=== PATIENT | male | born 1980 | race Caucasian/White ===

== ENCOUNTER 2018-06-20 11:22 | Emergency (ER) | payer MEDICAID, SELFPAY ==
[2018-06-20 11:25] VITALS: BP 138/89; PULSE 111; RESP 19; TEMP 37.3; O2SAT 99; BMI 21.4
[2018-06-20 12:34] LABS: Absolute Lymphocyte Count 0.66 X10^3/ul (0.83-4.51); Absolute Neutrophil Count 1.1 X10^3/uL (2.0-7.7); Basophil# 0.02 X10^3/uL; Basophil% 0.8 % (0-1); Eosinophil# 0.02 X10^3/uL; Eosinophils% 0.8 % (0-5); Hematocrit 30.1 % (40-54); Hemoglobin 10.3 g/dl (13.0-16.5); Lymphocyte # 0.66 X10^3/ul (4.0); Lymphocyte % 27.6 % (19-41); Mean Corp Hgb Conc 34.2 g/gl (32-36); Mean Corpuscular Volume 102.4 fL (80-94); Mean Platelet Vol. 9.8 fl (6.2-12.0); Monocyte# 0.53 X10^3/uL; Monocyte% 22.2 % (0-10); Neutrophil # 1.14 X10^3/uL (2.7-7.7); Neutrophil % 47.8 % (47-70); Platelet Count 58 K/mm3 (150-450); RBC Distribution Width CV 15.3 % (11.6-14.6); RBC Distribution Width SD 56.9 fl (35.1-43.9); Red Blood Count 2.94 M/mm3 (4.6-6.2); White Blood Count 2.4 K/mm3 (4.4-11.0)
[2018-06-20 12:39] LABS: POSITIVE COUNT NO; POSITIVE DIFFERENTIAL NO; POSITIVE MORPHOLOGY NO
[2018-06-20 12:47] LABS: AST(SGOT) 666 U/L (15-37); Alanine Aminotransfer ALT/SGPT 204 U/L (16-61); Albumin, Serum 3.9 g/dL (3.2-5.0); Alkaline Phosphatase 173 U/L (45-117); Anion Gap 13 (5-15); BUN 6 mg/dL (7-18); BUN/Creat Ratio 9.5 RATIO (10-20); Calcium,Total 8.2 mg/dL (8.5-10.1); Chloride 92 mmol/L (98-107); Creatinine, Serum 0.63 mg/dL (0.70-1.30); EST Glomerular Filtration Rate 152 mL/min (>60); Est Glom Filt Rate - Afr Amer 184 mL/min (>60); Estimated Creatinine Clearance 154.41 ml/min; Glucose 90 mg/dL (74-106); Protein, Total 7.9 g/dL (6.4-8.2); Sodium Level 136 mmol/L (136-145)
--- NOTE | 2018-06-20 13:19 | NURSING ---
1310 CALLED [facility] AND LEFT MESSAGE
--- NOTE | 2018-06-20 13:24 | NURSING ---
SHARON, [facility], WITH PATIENT
[2018-06-20 13:25] VITALS: RESP 14
[2018-06-20 14:08] LABS: Amphetamine Urine VISTA NEGATIVE (<1000 ng/mL); Barbiturate Urine VISTA NEGATIVE (< 200 ng/mL); Benzodiazepine Urine VISTA NEGATIVE (< 200 ng/mL); Cocaine Urine VISTA NEGATIVE (< 300 ng/mL); Ecstacy Urine VISTA NEGATIVE (< 500 ng/mL); Methadone Urine VISTA NEGATIVE (< 300 ng/mL); PCP Urine VISTA NEGATIVE (< 25 ng/mL); THC Urine VISTA NEGATIVE (< 50 ng/mL); Vista UDS pH Range 7
--- NOTE | 2018-06-20 14:16 | NURSING ---
[facility] IN ROOM
--- NOTE | 2018-06-20 14:26 | ED.VISSUMM ---
- ER Visit Summary Date of Service: 06/20/18 Chief Complaint: [Alcohol abuse and request for detox] History of Present Illness: The patient is a 38 M [presents the emergency department with complaint of wanting to go through detox for alcohol. Patient states he last drank several hours ago small amount of vodka. Patient normally drinks at least a liter of vodka a day. Patient apparently had conversations today and yesterday with colton valdez and they were told to come to the emergency department. Patient states overall right now he feels okay but and does not feel shaky. He has had no nausea or vomiting. He denies any chest pain or shortness of breath. He has had no sweats. Patient apparently was seen at [place] emergency department 4 days ago and had a very high alcohol level at that time as well as an ultrasound of his liver which showed fatty infiltration of the liver and enlarged liver.] Physical Examination: [HEENT-PERRLA, EOMI. Cranial nerves II through XII grossly intact. TMs clear. Mucous membranes moist. No adenopathy. Cardiovascular-regular rate and rhythm without murmur or ectopy Lungs-clear to auscultation, chest wall stable without crepitus or subcu emphysema Abdomen-normoactive bowel sounds, soft, nontender, no rebound or rigidity, no peritoneal signs. Extremities-intact ?4, normal range of motion, normal pulses, atraumatic] Test Results: [CBC with differential showed a pancytopenia with a white blood cell count of 2.4, hemoglobin 10, hematocrit 30, platelets 58. Chemistries showed a sodium of 136, potassium 3.0, chloride 92, CO2 31, glucose 90, BUN 6, creatinine 0.63. LFTs showed an alk phos 173 and ALT of 204 and AST of 666. Alcohol was 420. Toxicology screen was negative.] Emergency Department Course and Treatment: [Patient was evaluated by colton valdez in the emergency department however he does not meet criteria for acute inpatient admission as he is not going through withdrawals at this time. Colton De La Cruz's attempted to find another location for inpatient rehab and detox from alcohol and found the location and date and I was willing to take the patient however the patient is not willing to go. Patient from the outset was not certain that he wanted to be admitted at this hospital either when he learned that it would be several days that he might be admitted. This point patient is requesting to be discharged on his parents are with him and are willing to take him home. Patient understands my concerns about his health regarding alcohol and the fact that his liver is failing and risks if he continues drinking this way. Patient was advised by colton valdez to return tomorrow for possible detox. I did warn the patient about completely discontinuing alcohol and if he were to do that he could possibly risk seizures therefore I advised him to just decrease the amount of alcohol that he was taking in. Patient will be advised to return at any point if he wishes to seek further inpatient treatment.] Treatment Plan: [Patient will be given the phone number for steps] Disposition: [Discharged home in stable condition] Impression: [Alcohol abuse Alcohol intoxication Elevated liver enzymes Pancytopenia] This note was generated with [employer] dictation software. It may contain incorrect words, spelling, and punctuation that were not noted in review of the chart prior to signing ED Disposition - Plan for ED Patient: Chief Complaint: Substance Abuse Referrals: [facility] Doctor,Out of [Primary Care Provider] -
--- NOTE | 2018-06-20 14:33 | ED.DEP ---
ED Disposition - Plan for ED Patient: Chief Complaint: Substance Abuse Instructions: ED Overdose Alcohol, ED Alcohol Abuse Referrals: [facility] Doctor,Out of [Primary Care Provider] - Additional Instructions: Follow up with [facility]/ [facility]
[2018-06-20 14:40] VITALS: BP 105/73; PULSE 77; RESP 17
== END 2018-06-20 14:41 | disposition home or self-care (01) ==
PROVIDERS: Emergency Provider Emergency Medicine
DX: F10.129 Alcohol abuse with intoxication, unspecified (principal); Y90.8 Blood alcohol level of 240 mg/100 ml or more; R74.8 Abnormal levels of other serum enzymes; D61.818 Other pancytopenia; Z72.0 Tobacco use
CPT/HCPCS: 80053; 80307; 80320; 85025; 99282; G0480

== ENCOUNTER 2018-06-21 00:10 | Inpatient (IN) | payer MEDICAID, SELFPAY ==
[2018-06-21] VITALS (15 sets, daily range): BP systolic 127–165; BP diastolic 91–103; PULSE 103–152; RESP 16–24; TEMP 36.4–37.6; O2SAT 95–100; BMI 22.6; BMI 21.9
[2018-06-21] MEDS: LORazepam 2 MG/ML Syringe IV ×2 (01:15→23:12)
[2018-06-21] MEDS: 0.9% Normal Saline 1,000 ML 1000 ML IV (01:18)
[2018-06-21 01:27] LABS: Anion Gap 18 (5-15); BUN 5 mg/dL (7-18); BUN/Creat Ratio 7.6 RATIO (10-20); Calcium,Total 8.9 mg/dL (8.5-10.1); Chloride 91 mmol/L (98-107); Creatinine, Serum 0.66 mg/dL (0.70-1.30); EST Glomerular Filtration Rate 144 mL/min (>60); Est Glom Filt Rate - Afr Amer 174 mL/min (>60); Estimated Creatinine Clearance 154.98 ml/min; Glucose 134 mg/dL (74-106); Potassium 3.2 mmol/L (3.5-5.1); Sodium Level 135 mmol/L (136-145)
--- NOTE | 2018-06-21 01:34 | ED.DCSUM_ITS ---
- ER Visit Summary Date of Service: 06/21/18 Chief Complaint: [] Seizure History of Present Illness: The patient is a 38 M [] presents after an alcohol withdrawal seizure. A half an hour and a half ago and lasted 1 minute. He had full body shaking. He feels nausea and has little bit shakiness. Given Zofran by EMS. Normally he drinks a liter of vodka per day. He was seen in the emergency department earlier today and decided not to be admitted for alcohol withdrawal. One home and had a seizure and came back. Family did give him 1 shot of vodka prior to the seizure happening to try to calm down his withdrawal. Physical Examination: [] Vital signs reviewed General: Well-nourished well-developed Head: Normocephalic atraumatic Eyes: Pupils equal round and reactive to light extraocular movements intact ENT: TMs clear no hemotympanum no trauma Neck: Nontender full range of motion Cardiovascular: Regular rate rhythm no murmurs normal S1-S2 Respiratory: No distress clear to auscultation bilaterally chest nontender Abdomen: Soft nontender nondistended normal bowel sounds no masses Back: Nontender no CVA tenderness Extremities: Nontender active range of motion ?4 extremities no trauma Skin: Normal color no trauma Neuro alert oriented cranial nerves II through XII intact normal strength sensation. Mild tremulousness Test Results: [] Emergency Department Course and Treatment: [] Patient given a dose of Ativan and IV fluids. Lab work obtained. Sodium 135 potassium 3.2 chloride 91. At this time alcohol is 87. I feel he should be admitted for his alcohol withdrawal seizure Treatment Plan: [] Disposition: [] Impression: [] Alcohol withdrawal seizure This note was generated with [employer] dictation software. It may contain incorrect words, spelling, and punctuation that were not noted in review of the chart prior to signing ED Disposition - Plan for ED Patient: Chief Complaint: Seizure Referrals: [facility] Doctor,Out of [Primary Care Provider] -
--- NOTE | 2018-06-21 02:14 | PCM.HP.STD ---
Problem List (1) Alcohol withdrawal seizure Status: Acute (2) Acute hepatitis Status: Acute History of Present Illness Date of Admission: 06/21/18 Chief Complaint: seizures The patient is a 38 year old M with a significant history of hypertension, and alcoholic abuse who presented with seizures that started a few hours before his admission. His seizure lasted about 1 minute. His mother noticed that he was shaking both hands and head; and foam was coming from his mouth. This was after he had abstained from alcohol for a few hours. Associated with symptoms is nausea and vomiting. The previous day he came to the emergency department and his blood alcohol level was more than 420. His liver enzymes was elevated. However because he was not having any active withdrawal while he could not be enrolled into the [facility] program. Therefore he went home. While at home he abstain from alcohol and his family noticed that he was seizing as described above. Subsequently he was brought back to the emergency department. Past Medical History Medical History: Medical History (Last Updated 06/21/18 @ 02:20 by Corey Cleaning MD) Hypertension I10 Allergies No Known Allergies Allergy (Verified 06/21/18 00:17) Home Medications: Ambulatory Orders Medication Instructions Recorded NK [NK] 06/20/18 Smoking Status: Current every day smoker Review of Systems HEENT: Denies: Head Aches, Sinus Congestion, Sinus Drainage Cardiovascular: Denies: Chest Pain, Palpitations Respiratory: Denies: Cough, Shortness of breath at rest, Sputum production Gastrointestinal: Reports: Nausea, Vomiting Genitourinary: Denies: Dysuria Musculoskeletal: Denies: Joint Pain, Joint Tenderness Skin: Denies: Rash, Wounds Neurological: Denies: Numbness, Tingling, Focal weakness Psychiatric: Denies: Anxiety, Depression, Homicidal Ideations, Suicidal Ideations Hematologic/ Lymphatic: Denies: Easy Bruising, Easy Bleeding VTE Information - Inpt Only VTE Present on Admission: No VTE Mechan Device Prophylaxis: None VTE Pharm Prophylaxis ordered?: No Reason prophylaxis not ordered:: Treatment Not Indicated - Low risk. Patient Problems: Active and Suspected Problems (Last Updated 06/21/18 @ 02:20 by Corey Cleaning MD) Alcohol withdrawal seizure (Acute) Acute hepatitis (Acute) - Physical Exam General: Alert, Oriented x3, - - Diffuse shaking. HEENT: Atraumatic, PERRLA, EOMI, Normocephalic, - - Bruise at right eyebrow that family attributes to previous fall. Neck: Supple, No JVD, Negative Carotid Bruits Lungs: Clear to auscultation, Normal air movement Cardiovascular: Tachycardic Abdomen: Bowel Sounds Present, Soft, Non Tender Extremities: No edema, Capillary Refill Less than 3 Seconds Skin: No rashes, No breakdown Musculoskeletal: No Tenderness to Palpation of Joints or Extremities Neurological: Neuro grossly intact, - Psych/Mental Status: Anxious, - - Denies any visual, auditory or tactile hallucination Vital Signs Temp Pulse Resp BP Pulse Ox 98.5 F 120 H 18 157/103 H 97 06/21/18 00:11 06/21/18 01:12 06/21/18 00:18 06/21/18 01:12 06/21/18 00:18 Assessment/Plan All Active Problems (Last Updated 06/21/18 @ 02:20 by Corey Cleaning MD) Alcohol withdrawal seizure (Acute) Acute hepatitis (Acute) The patient is a 38 year old M with a significant history of hypertension, and alcoholic abuse who presented with seizures likely from alcohol withdrawal. Alcohol withdrawal seizure Alcohol level 87 on presentation; 420 on previous day. CIWA with folic acid, thiamine, Librium and as needed Ativan. Clonidine patch to decrease his adrenergic symptoms. Methocarbamol and clonidine as needed. Hepatitis Elevated liver enzymes on lab drawn on ED visits on 06/20/2018. His AST was 666; ALT was 204; and his alkaline phosphatase was 173 Likely alcoholic hepatitis. We will check PT/INR to calculate Maddrey discriminative function to assess need of steroids(prednisolone) Acute viral hepatitis panel ordered. Ultrasound of liver and gallbladder ordered. Hypokalemia Likely due to alcoholism. Replaced Hypomagnesemia Magnesium level 0.5 Magnesium sulfate 4 g ordered. Repeat magnesium level next day Tobacco abuse Counseled Nicotine patch ordered Hypertension His family report that previously patient was on lisinopril bout he quit taking it. And his blood pressure since then has been unremarkable. Blood pressure at emergency department was elevated. Likely due to alcohol withdrawal. Treatment of withdrawal symptoms as above. DVT prophylaxis Ambulation Code Visit Inpatient E&M: 84424 Init Hosp L3
[2018-06-21] MEDS: LORazepam 2 MG/ML Syringe 0.5 MG IV ×2 (03:14→10:00)
[2018-06-21 03:15] LABS: International Normalized Ratio 1.1; Prothrombin Time (Protime)PT. 13.7 SECONDS (11.7-14.9)
[2018-06-21 03:18] LABS: Magnesium 0.5 mg/dL (1.6-2.6)
--- NOTE | 2018-06-21 03:22 | NURSING ---
Critical lab result of Mag 0.5 taken by this RN. Made primary RN, liz Irizarry, who made MD aware.
[2018-06-21] MEDS: cloNIDine HCl 0.1 MG Patch TRANSDERM. (03:52)
[2018-06-21] MEDS: cloNIDine HCl 0.1 MG Tablet PO ×3 (04:07→19:50)
[2018-06-21 07:52] LABS: Anion Gap 17 (5-15); BUN 4 mg/dL (7-18); BUN/Creat Ratio 6.4 RATIO (10-20); Chloride 94 mmol/L (98-107); Creatinine, Serum 0.63 mg/dL (0.70-1.30); EST Glomerular Filtration Rate 153 mL/min (>60); Est Glom Filt Rate - Afr Amer 185 mL/min (>60); Estimated Creatinine Clearance 157.01 ml/min; Glucose 94 mg/dL (74-106); Potassium 3.2 mmol/L (3.5-5.1); Sodium Level 138 mmol/L (136-145)
[2018-06-21] MEDS: chlordiazePOXIDE 25 MG Capsule 50 MG PO ×3 (08:23→19:50)
[2018-06-21] MEDS: Folic Acid 1 MG Tablet PO (08:25)
[2018-06-21] MEDS: Multivitamins,Therapeutic Tablet 1 TABLET PO (08:25)
[2018-06-21] MEDS: 0.9% Normal Saline 1,000 ML 125 ML IV ×2 (09:55→17:05)
[2018-06-21] MEDS: 0.9% NaCl Peripheral Flush Adult/Peds IV ×4 (10:00→23:11)
[2018-06-21 11:17] LABS: Amphetamine Urine VISTA NEGATIVE (<1000 ng/mL); Barbiturate Urine VISTA NEGATIVE (< 200 ng/mL); Benzodiazepine Urine VISTA NEGATIVE (< 200 ng/mL); Cocaine Urine VISTA NEGATIVE (< 300 ng/mL); Ecstacy Urine VISTA NEGATIVE (< 500 ng/mL); Methadone Urine VISTA NEGATIVE (< 300 ng/mL); PCP Urine VISTA NEGATIVE (< 25 ng/mL); THC Urine VISTA NEGATIVE (< 50 ng/mL); Vista UDS pH Range 8
--- NOTE | 2018-06-21 11:28 | NURSING ---
into pt's room w/ events manager as bedexit going off. pt assisted back to bed and explained concern for his safety. pt verbalized he waNts to leave AMA. Discussed w/ pt concerns for his safety if he were to leave AMA including his stabilization on his feet, his mentation, and risk of DT's and seizures. discussed medication, discussed medications helping him get past the risk of DT's and seizures. discussed if he left AMA physician's do not typically write a prescription for the medications he is receiving here. Offered to call his family for him so he could talk w/ them. Pt wants to talk w/ his mother Roseanne. Pt's mother called as pt requested. Primary RN also updated on situation whom is calling [employer] with update. Hellen from [facility] whom had just left his room prior to this interaction updated.
[2018-06-21] MEDS: LORazepam 2 MG/ML Syringe 1 MG IV ×4 (12:06→21:49)
--- NOTE | 2018-06-21 19:29 | NURSING ---
Pt keeps trying to get out of bed. MANAGER LABORATORY was just in there and helped with urinal and back to bed, then primary RN had to go in, and now this RN had to go in because pt keeps trying to get up and setting bed alarm off. Pt was requesting his room phone this time so put closer to him within reach and helped him get back in bed. Showed how to use call light and reinforced use, then put bed alarm back on. Made Primary RN aware he was trying to get up again. Nursing staff to continue to monitor.
--- NOTE | 2018-06-21 20:02 | NURSING ---
Called for sitter. Patient OOB 10 times within last hour. Yelling @ RN ACUTE. Wants to go home, oriented to self only @ this time. PRN medication given.
[2018-06-21] MEDS: Haloperidol 1 MG Tablet PO (22:28)
--- NOTE | 2018-06-21 23:13 | NURSING ---
Patient remains very agitated. Crawling on floor. Refusing to sit in bed. Call to Dr. Aguiar for new orders. Ativan 2mg x2 doses Q2H. If he remains agitated, please call for transfer to ICU.
--- NOTE | 2018-06-21 23:37 | NURSING ---
3 aides remain at bedside providing safety for patient attempting to leave his room. Patient remains very agitated.
--- NOTE | 2018-06-21 23:46 | NURSING ---
Call to mri supervisor to notify that MD wants transfer to ICU
[2018-06-22] VITALS (33 sets, daily range): BP systolic 116–144; BP diastolic 72–116; PULSE 85–143; RESP 14–34; TEMP 36.1–36.8; O2SAT 90–100
--- NOTE | 2018-06-22 00:35 | NURSING ---
Transferred to ICU @ this time for delirious tremens. Bedside handoff to CASANDRA Kincaid. Megan, Presser All Around present. I called to family and spoke to both Mother and Father to notify of transfer to ICU bed 4.
[2018-06-22] MEDS: 0.9% Normal Saline 1,000 ML 125 ML IV ×3 (00:48→17:32)
--- NOTE | 2018-06-22 02:13 | NURSING ---
Spoke with mother Roseanne about pt's condition and behavior. Updated on transfer to ICU and initiation of precedex gtt. Pt has not started to respond to medication as of yet. Made aware of the severe risks and complications of ETOH withdrawal, and the need for possible intubation and sedation. Mother also updated on ICU rounding, reports she will be unable to attend, but will phone in.
[2018-06-22 05:08] LABS: HEPATITIS B SURFACE AG Negative (Negative); Hepatitis A IgM Antibody Negative (Negative); Hepatitis B Core AB IgM Negative (Negative)
[2018-06-22 06:02] LABS: ALB/GLOB Ratio 0.9 RATIO (0.9-2.4); AST(SGOT) 459 U/L (15-37); Alanine Aminotransfer ALT/SGPT 179 U/L (16-61); Albumin, Serum 3.6 g/dL (3.2-5.0); Alkaline Phosphatase 151 U/L (45-117); Anion Gap 11 (5-15); BUN 4 mg/dL (7-18); BUN/Creat Ratio 7.2 RATIO (10-20); Calcium,Total 8.2 mg/dL (8.5-10.1); Chloride 104 mmol/L (98-107); Creatinine, Serum 0.56 mg/dL (0.70-1.30); EST Glomerular Filtration Rate 175 mL/min (>60); Est Glom Filt Rate - Afr Amer 212 mL/min (>60); Estimated Creatinine Clearance 176.63 ml/min; Glucose 98 mg/dL (74-106); Magnesium 2.2 mg/dL (1.6-2.6); Potassium 3.6 mmol/L (3.5-5.1); Protein, Total 7.6 g/dL (6.4-8.2); Sodium Level 139 mmol/L (136-145)
--- NOTE | 2018-06-22 06:27 | PCM.CON.CC ---
Reason for Consult Date of Consultation: 06/22/18 Reason for Consultation: Acute alcohol withdrawal/delirium tremens History of Present Illness: The patient is a 38-year-old male, with a history as outlined below, who presented to the emergency department on June 21 after experiencing a reported generalized tonic-clonic seizure in the setting of alcohol withdrawal. Very little history could be obtained from the patient himself, given his current state of alcohol withdrawal. Per documentation, the patient has a 13 year history of alcohol dependence. He drinks, on average, 1 L of vodka daily. He was evaluated in the emergency department on 06/20 after presenting with a desire to go through detox for alcohol. The patient was evaluated by Colton Fishman in the emergency department, but did not feel that he met inpatient admission criteria as he was not actively going through withdrawal at that time. The patient then went home, only to suffer a withdrawal seizure approximately 8 hours later, which prompted his return to the emergency department, as noted above. On presentation to the emergency department, the patient was noted be afebrile, tachycardic and hypertensive. He was, nevertheless, maintaining appropriate oxygen saturations on room air. Laboratory evaluation revealed a potassium of 3.2 with an elevated anion gap to 18. Magnesium was low at 0.5. Toxicology screen was negative, with the exception of a serum alcohol level of 87. Hepatitis panel is currently pending. The patient did have elevated transaminases, along with an elevated alkaline phosphatase level. Right upper quadrant ultrasound was obtained which revealed mild fatty infiltration of the liver. The patient was initially admitted to the medical surgical floor, under the direction of colton fishman, for alcohol withdrawal. However, overnight, the patient became extremely combative and began to experience DT's, which prompted his transfer to the medical intensive care unit for the initiation of a Precedex drip. Past Medical History Medical History: Medical History (Last Updated 06/21/18 @ 02:20 by Corey Cleaning MD) Hypertension I10 Allergies No Known Allergies Allergy (Verified 06/21/18 00:17) Home Medications: Ambulatory Orders Medication Instructions Recorded NK [NK] 06/20/18 Smoking Status: Current every day smoker Review of Systems Unable to obtain accurate/complete ROS d/t: Due to current state of encephalopathy. Patient Problems: Active and Suspected Problems (Last Updated 06/21/18 @ 02:20 by Corey Cleaning MD) Alcohol withdrawal seizure (Acute) Acute hepatitis (Acute) Objective: The patient's most recent lab work, culture data and imaging studies have all been personally reviewed. - Physical Exam General: Confused, Disoriented, - - Will arouse to verbal stimulation. Alert and oriented to person only. HEENT: PERRLA, Normocephalic, - - Right periorbital ecchymoses Oral: - - Poor generalized dentition Neck: Supple, No Nodes, Trachea Midline Lungs: Normal air movement, No rhonchi, No wheeze, No rales Cardiovascular: Regular rate, Regular Rhythm, Normal S1, Normal S2, No murmurs, No rub noted, No Gallop Abdomen: Bowel Sounds Present, Soft, Non Tender, Non-Distended Extremities: No clubbing, No cyanosis, No edema Skin: No breakdown, - - Tattoos present Musculoskeletal: No Tenderness to Palpation of Joints or Extremities Lymphatic: No Cervical, Supraclavicular, or Inguinal Adenopathy Neurological: - - No focal neurological deficits. Non-tremulous at the current time. Confused and disoriented as noted above. Psych/Mental Status: Impulsive, Restless Vital Signs Temp Pulse Resp BP Pulse Ox 98.2 F 87 17 135/108 H 100 06/22/18 06:00 06/22/18 06:18 06/22/18 06:00 06/22/18 06:00 06/22/18 06:00 Oxygen Delivery Method Room Air Weight: 147 lb 14.883 oz Body Mass Index (BMI) 21.9 Intake and Output for Last 24 Hours 06/20/18 06/21/18 06/22/18 23:59 23:59 23:59 Intake Total 1750 / 1750 2362 / 2362 Output Total 1350 / 1350 950 / 950 Balance 400 / 400 1412 / 1412 Laboratory Tests Past 24 Hrs 06/21/18 06/21/18 06/21/18 05:30 05:30 10:50 Sodium 138 Potassium 3.2 L Chloride 94 L Carbon Dioxide 27.0 Anion Gap 17 H BUN 4 L Creatinine 0.63 L Estim Creat Clear Calc 157.01 Est GFR (MDRD) Af Amer 185 Est GFR (MDRD) Non-Af 153 BUN/Creatinine Ratio 6.4 L Glucose 94 Calcium 8.0 L Magnesium Total Bilirubin AST ALT Alkaline Phosphatase Total Protein Albumin Globulin Albumin/Globulin Ratio Urine Opiates Screen NEGATIVE Urine Methadone Screen NEGATIVE Ur Barbiturates Screen NEGATIVE Ur Phencyclidine Scrn NEGATIVE Ur Amphetamines Screen NEGATIVE U Methamphetamin-MDMA NEGATIVE U Benzodiazepines Scrn NEGATIVE Urine Cocaine Screen NEGATIVE U Cannabinoids Screen NEGATIVE Ur Drug Screen Comment Hepatitis A IgM Ab Pending Hep Bs Antigen Pending Hep B Core IgM Ab Pending Hepatitis C Ab (EIA) Pending 06/22/18 06/22/18 05:10 05:30 Sodium Cancelled 139 Potassium Cancelled 3.6 Chloride Cancelled 104 Carbon Dioxide Cancelled 24.0 Anion Gap Cancelled 11 BUN Cancelled 4 L Creatinine Cancelled 0.56 L Estim Creat Clear Calc Cancelled 176.63 Est GFR (MDRD) Af Amer Cancelled 212 Est GFR (MDRD) Non-Af Cancelled 175 BUN/Creatinine Ratio Cancelled 7.2 L Glucose Cancelled 98 Calcium Cancelled 8.2 L Magnesium Cancelled 2.2 Total Bilirubin Cancelled 3.90 H AST Cancelled 459 H ALT Cancelled 179 H Alkaline Phosphatase Cancelled 151 H Total Protein Cancelled 7.6 Albumin Cancelled 3.6 Globulin Cancelled 4.0 Albumin/Globulin Ratio Cancelled 0.9 Urine Opiates Screen Urine Methadone Screen Ur Barbiturates Screen Ur Phencyclidine Scrn Ur Amphetamines Screen U Methamphetamin-MDMA U Benzodiazepines Scrn Urine Cocaine Screen U Cannabinoids Screen Ur Drug Screen Comment Hepatitis A IgM Ab Hep Bs Antigen Hep B Core IgM Ab Hepatitis C Ab (EIA) Clinical Impression(s) from Imaging Studies Abdomen Ultrasound 06/21/18 07:50 IMPRESSION: Mildly fatty liver, otherwise within normal limits Electronically Signed: Ricardo Butterfield DO at 18:18 EDT Tel , Service support , Assessment/Plan Active and Suspected Problems (Last Updated 06/21/18 @ 02:20 by Corey Cleaning MD) Alcohol withdrawal seizure (Acute) Acute hepatitis (Acute) RECOMMENDATIONS: 1. Continue current supportive measures with Precedex infusion. Wean as tolerated. 2. Electrolyte repletion as needed. Monitor closely for evidence of refeeding syndrome, once the patient is able to tolerate p.o. intake. 3. Continue thiamine and folate replacement, along with gentle IV fluid hydration. 4. Discontinue Haldol. 5. Continue as needed Ativan for any evidence of seizure activity. 6. Continue seizure precautions. Patient to remain n.p.o. for now. 7. Start subcutaneous heparin for DVT prophylaxis. IMPRESSIONS: 1. Acute alcohol withdrawal/delirium tremens The patient has a reported 13 year alcohol dependence history and presented on June 21 as a [facility] patient to undergo alcohol withdrawal. The patient did experience an alcohol withdrawal seizure and subsequently went on to develop delirium tremens, which prompted his transfer to the ICU for the initiation of a Precedex drip. This treatment modality will be continued, with plans to wean as tolerated. He will be continued on supplemental IV fluid hydration, along with thiamine and folate repletion. 2. Hepatitis Likely secondary to long-standing alcohol abuse history in conjunction with fatty liver disease. Hepatitis panel is currently pending. No additional workup is indicated at this time. 3. Hypokalemia/hypomagnesemia Aggressive electrolyte repletion is currently underway. We will continue to monitor closely for evidence of refeeding syndrome, once the patient is more alert and able to tolerate p.o. intake. 4. Personal history of tobacco dependence Smoking cessation is strongly advised. Nicotine replacement therapy can be offered to the patient while admitted to the hospital. This note was generated with [employer] dictation software. It may contain incorrect words, spelling, and punctuation that were not noted in checking the note before signing. Code Visit Inpatient E&M: 25674 Init Hosp L3
[2018-06-22] MEDS: LORazepam 2 MG/ML Syringe IV ×2 (08:48→21:22)
[2018-06-22] MEDS: 0.9% NaCl Peripheral Flush Adult/Peds IV ×2 (08:49→21:26)
--- NOTE | 2018-06-22 09:36 | PCM.PN.HOSP ---
Patient Problems: Active and Suspected Problems (Last Updated 06/21/18 @ 02:20 by Corey Cleaning MD) Alcohol withdrawal seizure (Acute) Acute hepatitis (Acute) Subjective: Sedated in the ICU with precedex because of agitation overnight. Vitals/I&O's: Vital Signs Temp Pulse Resp BP Pulse Ox 97.0 F L 88 17 138/113 H 98 06/22/18 08:00 06/22/18 08:00 06/22/18 08:00 06/22/18 08:00 06/22/18 08:00 Oxygen Delivery Method Room Air Weight: 147 lb 14.883 oz Body Mass Index (BMI) 21.9 Intake and Output for Last 24 Hours 06/20/18 06/21/18 06/22/18 23:59 23:59 23:59 Intake Total 1750 / 1750 2362 / 2362 Output Total 1350 / 1350 950 / 950 Balance 400 / 400 1412 / 1412 General: No apparent distress, - - sedated HEENT: Atraumatic, Normocephalic Oral: Dry Mucosa Neck: Supple, No JVD Lungs: Clear to auscultation, Normal air movement, No rhonchi, No wheeze, No rales Cardiovascular: Regular rate, Regular Rhythm, Normal S1, Normal S2, No murmurs Abdomen: Soft, Non-Distended, No Hepato-splenomegaly Extremities: No edema Psych/Mental Status: Normal Affect, Appropriate Laboratory Results 06/21/18 10:50: Urine Opiates Screen NEGATIVE, Urine Methadone Screen NEGATIVE, Ur Barbiturates Screen NEGATIVE, Ur Phencyclidine Scrn NEGATIVE, Ur Amphetamines Screen NEGATIVE, U Methamphetamin-MDMA NEGATIVE, U Benzodiazepines Scrn NEGATIVE, Urine Cocaine Screen NEGATIVE, U Cannabinoids Screen NEGATIVE, Ur Drug Screen Comment 06/22/18 05:10: Sodium Cancelled, Potassium Cancelled, Chloride Cancelled, Carbon Dioxide Cancelled, Anion Gap Cancelled, BUN Cancelled, Creatinine Cancelled, Estim Creat Clear Calc Cancelled, Est GFR (MDRD) Af Amer Cancelled, Est GFR (MDRD) Non-Af Cancelled, BUN/Creatinine Ratio Cancelled, Glucose Cancelled, Calcium Cancelled, Magnesium Cancelled, Total Bilirubin Cancelled, AST Cancelled, ALT Cancelled, Alkaline Phosphatase Cancelled, Total Protein Cancelled, Albumin Cancelled, Globulin Cancelled, Albumin/Globulin Ratio Cancelled 06/22/18 05:30: Sodium 139, Potassium 3.6, Chloride 104, Carbon Dioxide 24.0, Anion Gap 11, BUN 4 L, Creatinine 0.56 L, Estim Creat Clear Calc 176.63, Est GFR (MDRD) Af Amer 212, Est GFR (MDRD) Non-Af 175, BUN/Creatinine Ratio 7.2 L, Glucose 98, Calcium 8.2 L, Magnesium 2.2, Total Bilirubin 3.90 H, AST 459 H, ALT 179 H, Alkaline Phosphatase 151 H, Total Protein 7.6, Albumin 3.6, Globulin 4.0, Albumin/Globulin Ratio 0.9 Current Medications Clonidine (Catapres) 0.1 mg PO Q4H PRN PRN PRN Reason: Alcohol Withdrawal Last Admin: 06/21/18 19:50 Dose: 0.1 mg Clonidine HCl (Catapres-Tts1) 0.1 mg TRANSDERM. Q7D [facility] Last Admin: 06/21/18 03:52 Dose: 0.1 mg Folic Acid (Folic Acid) [facility] Last Admin: 06/22/18 08:02 Dose: Not Given Heparin Sodium (Porcine) (Heparin Na) 5,000 unit SC Q8 [facility] Thiamine HCl 200 mg/ Sodium (Chloride) 52 mls @ 200 mls/hr IV DAILY [facility] Last Admin: 06/21/18 09:46 Dose: 200 mls/hr Sodium Chloride () 1,000 mls @ 125 mls/hr IV .Q8H [facility] Last Admin: 06/22/18 08:44 Dose: 125 mls/hr Dexmedetomidine HCl 400 mcg/ (Sodium Chloride) 100 mls @ 8.64 mls/hr IV .[id number] [facility] PRN Reason: 0.5 MCG/KG/HR Last Admin: 06/22/18 05:21 Dose: 8.64 mls/hr Magnesium Hydroxide (Milk Of Magnesia) 30 ml PO DAILY PRN PRN Reason: Constipation Methocarbamol (Methocarbamol) 750 mg PO Q6H PRN PRN PRN Reason: Muscle Aches Multivitamins (Multivitamin) 1 tablet [facility] Last Admin: 06/22/18 08:03 Dose: Not Given Nicotine (Nicoderm Cq (Pbkc)) 14 mg TRANSDERM. DAILY [facility] Last Admin: 06/21/18 09:55 Dose: 14 mg Nutritional Formula (Lactose Free) (Ensure Enlive) 120 ml PO 4X/DAY [facility] Last Admin: 06/22/18 09:19 Dose: Not Given Sodium Chloride () 5 - 30 ml IV UD PRN PRN Reason: SALINE FLUSH Last Admin: 06/22/18 08:49 Dose: 10 ml Medical Necessity - Tobacco Use Smoking Status: Current every day smoker Assessment/Plan All Active Problems (Last Updated 06/21/18 @ 02:20 by Corey Cleaning MD) Alcohol withdrawal seizure (Acute) Acute hepatitis (Acute) 1. 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 Hypokalemia/Hypomagnesemia - Resolved - continue to monitor and replace as necessary DVT: Heparin Diet: Regular Code: FULL Dispo: Pending, home or possible rehab Code Visit Inpatient E&M: 18924 Subs Hosp L2
[2018-06-22 11:19] LABS: Hep C Antibodies 0.1 s/co ratio (0.0-0.9)
[2018-06-22] MEDS: Heparin Injection (Vial) 5,000 UNIT/ML VIAL 5000 UNIT SC ×2 (15:04→21:21)
--- NOTE | 2018-06-22 15:34 | SUR.HOLD ---
unable to see patient due to sedation; RN explains that pt has been hallucinating
[2018-06-23] VITALS (30 sets, daily range): BP systolic 108–138; BP diastolic 78–111; PULSE 77–114; RESP 15–34; TEMP 36.4–37.8; O2SAT 91–100
[2018-06-23] MEDS: 0.9% Normal Saline 1,000 ML 125 ML IV (01:11)
[2018-06-23 04:55] LABS: ALB/GLOB Ratio 0.9 RATIO (0.9-2.4); AST(SGOT) 289 U/L (15-37); Alanine Aminotransfer ALT/SGPT 151 U/L (16-61); Albumin, Serum 3.6 g/dL (3.2-5.0); Alkaline Phosphatase 148 U/L (45-117); Anion Gap 25 (5-15); BUN 6 mg/dL (7-18); BUN/Creat Ratio 7.9 RATIO (10-20); Calcium,Total 8.2 mg/dL (8.5-10.1); Chloride 103 mmol/L (98-107); Creatinine, Serum 0.76 mg/dL (0.70-1.30); EST Glomerular Filtration Rate 124 mL/min (>60); Est Glom Filt Rate - Afr Amer 149 mL/min (>60); Globulin 4.1 g/dL (2.2-4.2); Glucose 69 mg/dL (74-106); Magnesium 1.4 mg/dL (1.6-2.6); Potassium 3.7 mmol/L (3.5-5.1); Protein, Total 7.7 g/dL (6.4-8.2); Sodium Level 140 mmol/L (136-145)
--- NOTE | 2018-06-23 05:33 | NURSING ---
Pt's mom's, Roseanne, cell number [phone]
[2018-06-23] MEDS: Heparin Injection (Vial) 5,000 UNIT/ML VIAL 5000 UNIT SC ×3 (06:00→21:11)
--- NOTE | 2018-06-23 06:29 | PCM.PN.INT ---
Subjective: The patient was seen and examined at the bedside this morning. Events from the last 24 hours have been reviewed. The patient is currently afebrile, hemodynamically stable and maintaining appropriate oxygen saturations on room air. The patient has been exceedingly agitated over the last 24 hours, requiring escalation in his Precedex infusion rate. In addition, he was administered IV Ativan overnight. This morning, his chemistry profile did reveal the presence of an anion gap metabolic acidosis. He was also noted to be hypoglycemic. Magnesium level is low at 1.4. No seizure activity has been identified. Objective: The patient's most recent lab work, culture data and imaging studies have all been personally reviewed. Hepatitis panel was negative. Right upper quadrant ultrasound was obtained which revealed mild fatty infiltration of the liver. General: No apparent distress, Confused, Disoriented, Lethargic HEENT: PERRLA, Normocephalic, - - Mild right periorbital ecchymoses Oral: Dry Mucosa, - - Poor generalized dentition. Neck: Supple, No Nodes, Trachea Midline Lungs: Normal air movement, No rhonchi, No wheeze, No rales, Tachypneic Cardiovascular: Normal S1, Normal S2, No murmurs, No rub noted, No Gallop, Tachycardic Abdomen: Bowel Sounds Present, Soft, Non Tender, Non-Distended Extremities: No clubbing, No cyanosis, No edema Skin: No breakdown Musculoskeletal: No Tenderness to Palpation of Joints or Extremities Lymphatic: No Cervical, Supraclavicular, or Inguinal Adenopathy Neurological: - - No focal deficits. Attempts to move all extremities spontaneously. Currently in restraints. Non-tremulous. Psych/Mental Status: Impulsive, Restless Vital Signs Temp Pulse Resp BP Pulse Ox 97.6 F L 86 27 H 133/99 H 99 06/23/18 06:00 06/23/18 06:00 06/23/18 06:00 06/23/18 06:00 06/23/18 06:00 Oxygen Delivery Method Room Air Weight: 145 lb 11.609 oz Body Mass Index (BMI) 21.9 Intake and Output for Last 24 Hours 06/21/18 06/22/18 06/23/18 23:59 23:59 23:59 Intake Total 1750 / 1750 4160 / 4160 1859 / 1859 Output Total 1350 / 1350 2475 / 2475 1000 / 1000 Balance 400 / 400 1685 / 1685 859 / 859 Labs (Last 48 Hours) 06/21/18 06/21/18 06/21/18 05:30 05:30 10:50 Sodium 138 Potassium 3.2 L Chloride 94 L Carbon Dioxide 27.0 Anion Gap 17 H BUN 4 L Creatinine 0.63 L Estim Creat Clear Calc 157.01 Est GFR (MDRD) Af Amer 185 Est GFR (MDRD) Non-Af 153 BUN/Creatinine Ratio 6.4 L Glucose 94 Calcium 8.0 L Magnesium Total Bilirubin AST ALT Alkaline Phosphatase Total Protein Albumin Globulin Albumin/Globulin Ratio Urine Opiates Screen NEGATIVE Urine Methadone Screen NEGATIVE Ur Barbiturates Screen NEGATIVE Ur Phencyclidine Scrn NEGATIVE Ur Amphetamines Screen NEGATIVE U Methamphetamin-MDMA NEGATIVE U Benzodiazepines Scrn NEGATIVE Urine Cocaine Screen NEGATIVE U Cannabinoids Screen NEGATIVE Ur Drug Screen Comment Hepatitis A IgM Ab Negative Hep Bs Antigen Negative Hep B Core IgM Ab Negative Hepatitis C Ab (EIA) 0.1 06/22/18 06/22/18 06/23/18 05:10 05:30 04:10 Sodium Cancelled 139 140 Potassium Cancelled 3.6 3.7 Chloride Cancelled 104 103 Carbon Dioxide Cancelled 24.0 12.0 L Anion Gap Cancelled 11 25 H BUN Cancelled 4 L 6 L Creatinine Cancelled 0.56 L 0.76 Estim Creat Clear Calc Cancelled 176.63 126.30 Est GFR (MDRD) Af Amer Cancelled 212 149 Est GFR (MDRD) Non-Af Cancelled 175 124 BUN/Creatinine Ratio Cancelled 7.2 L 7.9 L Glucose Cancelled 98 69 L Calcium Cancelled 8.2 L 8.2 L Magnesium Cancelled 2.2 1.4 L Total Bilirubin Cancelled 3.90 H 3.90 H AST Cancelled 459 H 289 H ALT Cancelled 179 H 151 H Alkaline Phosphatase Cancelled 151 H 148 H Total Protein Cancelled 7.6 7.7 Albumin Cancelled 3.6 3.6 Globulin Cancelled 4.0 4.1 Albumin/Globulin Ratio Cancelled 0.9 0.9 Urine Opiates Screen Urine Methadone Screen Ur Barbiturates Screen Ur Phencyclidine Scrn Ur Amphetamines Screen U Methamphetamin-MDMA U Benzodiazepines Scrn Urine Cocaine Screen U Cannabinoids Screen Ur Drug Screen Comment Hepatitis A IgM Ab Hep Bs Antigen Hep B Core IgM Ab Hepatitis C Ab (EIA) Clinical Impression(s) from Imaging Studies Abdomen Ultrasound 06/21/18 07:50 IMPRESSION: Mildly fatty liver, otherwise within normal limits Electronically Signed: Ricardo Butterfield DO at 18:18 EDT Tel , Service support , Medical Necessity - Tobacco Use Smoking Status: Current every day smoker Assessment/Plan All Active Problems (Last Updated 06/21/18 @ 02:20 by Corey Cleaning MD) Alcohol withdrawal seizure (Acute) Acute hepatitis (Acute) RECOMMENDATIONS: 1. Continue current supportive measures with Precedex infusion. Wean as tolerated. 2. Obtain arterial blood gas and check serum lactate level along with acetone level. 3. Change normal saline to D5 LR at 125 mL's per hour. 4. Magnesium repletion as ordered. Check phosphate level and replete, if necessary. 5. Continue thiamine and folate replacement. 6. Continue seizure precautions. Patient to remain n.p.o. for now. 7. Continue subcutaneous heparin for DVT prophylaxis. IMPRESSIONS: 1. Acute alcohol withdrawal/delirium tremens The patient has a reported 13 year alcohol dependence history and presented on June 21 as a new vision patient to undergo alcohol withdrawal. The patient did experience an alcohol withdrawal seizure and subsequently went on to develop delirium tremens, which prompted his transfer to the ICU for the initiation of a Precedex drip. This treatment modality will be continued, with plans to wean as tolerated. He will be continued on supplemental IV fluid hydration, along with thiamine and folate repletion. Continue seizure precautions. 2. Hepatitis Likely secondary to long-standing alcohol abuse history in conjunction with fatty liver disease. Hepatitis panel was negative. No additional workup is indicated at this time. 3. Anion gap metabolic acidosis Clinical concern for alcoholic ketoacidosis. We will plan to check serum lactate level along with acetone. The patient's tachypnea is compensatory for his current metabolic acidosis. Continue current supportive measures. 4. Hypomagnesemia Aggressive electrolyte repletion is currently underway. We will continue to monitor closely for evidence of refeeding syndrome, once the patient is more alert and able to tolerate p.o. intake. 5. Personal history of tobacco dependence Smoking cessation is strongly advised. Nicotine replacement therapy can be offered to the patient while admitted to the hospital. This note was generated with [employer] dictation software. It may contain incorrect words, spelling, and punctuation that were not noted in checking the note before signing. Code Visit Inpatient E&M: 86545 Subs Hosp L3
[2018-06-23 07:00] LABS: Allen Test POS; Base Excess -20 mmol/L (-2 to +2); Bicarbonate 6.6 mmol/L (22-26); Blood Gas Specimen Type ART; O2 Delivery Device Room Air; PO2 90 mmHG (75-100); SITE L Brachial; SO2 96 % (95-99); Time Given 652; Total Carbon Dioxide 7 mmol/L; pCO2 13.8 mmHg (35-45); pH 7.29 (7.35-7.45)
[2018-06-23] MEDS: Dextrose 5%-Lactated Ringers 1,000 ML 125 ML IV ×3 (07:01→23:14)
[2018-06-23 07:16] LABS: Phosphorus 1.8 mg/dL (2.5-4.9)
[2018-06-23] MEDS: LORazepam 2 MG/ML Syringe IV ×4 (07:38→21:19)
--- NOTE | 2018-06-23 08:37 | NURSING ---
Patients mother Roseanne called into the ICU for update. Questions answered and concerns addressed.
[2018-06-23] MEDS: 0.9% NaCl Peripheral Flush Adult/Peds IV ×2 (10:00→16:27)
[2018-06-23] MEDS: CHLORHEXIDINE GLUC 2% CLOTH 1 EACH TOWELETTE TOPICAL (10:25)
--- NOTE | 2018-06-23 11:20 | PCM.PN.HOSP ---
Patient Problems: Active and Suspected Problems (Last Updated 06/21/18 @ 02:20 by Corey Cleaning MD) Alcohol withdrawal seizure (Acute) Acute hepatitis (Acute) Subjective: Sedated on precedex Objective: General: No apparent distress, - - sedated HEENT: evolving bruise on right eye-lid, Normocephalic Oral: Dry Mucosa Neck: Supple, No JVD Lungs: Clear to auscultation, Normal air movement, No rhonchi, No wheeze, No rales Cardiovascular: Regular rate, Regular Rhythm, Normal S1, Normal S2, No murmurs Abdomen: Soft, Non-Distended, No Hepato-splenomegaly Extremities: No edema Vitals/I&O's: Vital Signs Temp Pulse Resp BP Pulse Ox 99.0 F 77 21 H 112/90 H 99 06/23/18 10:00 06/23/18 11:00 06/23/18 11:00 06/23/18 11:00 06/23/18 11:00 Oxygen Delivery Method Room Air Weight: 145 lb 11.609 oz Body Mass Index (BMI) 21.9 Intake and Output for Last 24 Hours 06/21/18 06/22/18 06/23/18 23:59 23:59 23:59 Intake Total 1750 / 1750 4160 / 4160 2734 / 2734 Output Total 1350 / 1350 2475 / 2475 1825 / 1825 Balance 400 / 400 1685 / 1685 909 / 909 Laboratory Results 06/21/18 05:30: Hepatitis A IgM Ab Negative, Hep Bs Antigen Negative, Hep B Core IgM Ab Negative, Hepatitis C Ab (EIA) 0.1 06/23/18 04:10: Sodium 140, Potassium 3.7, Chloride 103, Carbon Dioxide 12.0 L, Anion Gap 25 H, BUN 6 L, Creatinine 0.76, Estim Creat Clear Calc 126.30, Est GFR (MDRD) Af Amer 149, Est GFR (MDRD) Non-Af 124, BUN/Creatinine Ratio 7.9 L, Glucose 69 L, Calcium 8.2 L, Magnesium 1.4 L, Total Bilirubin 3.90 H, AST 289 H, ALT 151 H, Alkaline Phosphatase 148 H, Total Protein 7.7, Albumin 3.6, Globulin 4.1, Albumin/Globulin Ratio 0.9 06/23/18 06:55: Lactic Acid 1.0 06/23/18 06:55: Phosphorus 1.8 L 06/23/18 06:56: Specimen Type ART, Sample Site L Brachial, pH 7.29 L, Bicarbonate Actual 6.6 L, POC Total CO2 7, Base Excess -20 L, O2 Saturation 96, ABG pCO2 13.8 L*, ABG pO2 90, David Test POS, O2 Delivery Device Room Air, Blood Gas Notified Whom ICU MD, Blood Gas Notified Time 652 06/23/18 07:20: Acetone Level MODERATE H Current Medications Chlorhexidine Gluconate () 1 each TOPICAL DAILY [facility] Last Admin: 06/23/18 10:25 Dose: 1 each Heparin Sodium (Porcine) (Heparin Na) 5,000 unit SC Q8 [facility] Last Admin: 06/23/18 06:00 Dose: 5,000 unit Thiamine HCl 200 mg/ Sodium (Chloride) 52 mls @ 200 mls/hr IV DAILY [facility] Last Admin: 06/23/18 09:51 Dose: 200 mls/hr Dexmedetomidine HCl 400 mcg/ (Sodium Chloride) 100 mls @ 8.64 mls/hr IV .[id number] [facility] PRN Reason: 0.5 MCG/KG/HR Last Admin: 06/23/18 08:25 Dose: 8.64 mls/hr Dextrose/Lactated Ringer's () 1,000 mls @ 125 mls/hr IV .Q8H [facility] Last Admin: 06/23/18 07:01 Dose: 125 mls/hr Potassium Phosphate 30 mm/ (Sodium Chloride) 260 mls @ 42 mls/hr IV X1 ONE Stop: 06/23/18 13:34 Last Admin: 06/23/18 09:04 Dose: 42 mls/hr Lorazepam (Ativan) 2 mg IV Q2H PRN PRN Reason: Alcohol Withdrawal Last Admin: 06/23/18 07:38 Dose: 2 mg Magnesium Hydroxide (Milk Of Magnesia) 30 ml PO DAILY PRN PRN Reason: Constipation Multivitamins (Multivitamin) 1 tablet PO DAILYCM [facility] Last Admin: 06/23/18 08:04 Dose: Not Given Nicotine (Nicoderm Cq (Pbkc)) 14 mg TRANSDERM. DAILY [facility] Last Admin: 06/23/18 09:16 Dose: 14 mg Nutritional Formula (Lactose Free) (Ensure Enlive) 120 ml PO 4X/DAY [facility] Last Admin: 06/23/18 09:08 Dose: Not Given Sodium Chloride () 5 - 30 ml IV UD PRN PRN Reason: SALINE FLUSH Last Admin: 06/22/18 21:26 Dose: 10 ml Medical Necessity - Tobacco Use Smoking Status: Current every day smoker Assessment/Plan All Active Problems (Last Updated 06/21/18 @ 02:20 by Corey Cleaning MD) Alcohol withdrawal seizure (Acute) Acute hepatitis (Acute) 1. 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 can resume librium when taking PO - CIWA protocol with thiamine and folate supplementation - No steroids indicated for the hepatitis - Viral panel negative - Lactic acid is negative, however bicarb is low and his pCO2 on the ABG is low indicating resp compensation for a metabolic process - C/w IVF 2. Hypokalemia/Hypomagnesemia/hypophatemia - continue to monitor and replace as necessary DVT: Heparin Diet: Regular Code: FULL Dispo: Pending, home or possible rehab Code Visit Inpatient E&M: 81112 Subs Hosp L2
[2018-06-24] VITALS (29 sets, daily range): BP systolic 114–145; BP diastolic 85–110; PULSE 78–95; RESP 14–27; TEMP 36.7–38.2; O2SAT 98–100
[2018-06-24] MEDS: LORazepam 2 MG/ML Syringe IV ×5 (00:04→17:18)
[2018-06-24] MEDS: 0.9% NaCl Peripheral Flush Adult/Peds IV (00:04)
[2018-06-24] MEDS: Dextrose 5%-Lactated Ringers 1,000 ML 125 ML IV ×2 (05:05→17:43)
[2018-06-24] MEDS: Heparin Injection (Vial) 5,000 UNIT/ML VIAL 5000 UNIT SC ×3 (05:06→22:10)
[2018-06-24 05:49] LABS: Absolute Lymphocyte Count 0.74 X10^3/ul (0.83-4.51); Absolute Neutrophil Count 2.9 X10^3/uL (2.0-7.7); Basophil# 0.03 X10^3/uL; Basophil% 0.6 % (0-1); Eosinophil# 0.09 X10^3/uL; Eosinophils% 1.8 % (0-5); Hematocrit 29.9 % (40-54); Hemoglobin 10.6 g/dl (13.0-16.5); Lymphocyte # 0.74 X10^3/ul (4.0); Lymphocyte % 15.2 % (19-41); Mean Corp Hgb Conc 35.5 g/gl (32-36); Mean Corpuscular Hgb 37.2 pg (27.0-32.0); Mean Corpuscular Volume 104.9 fL (80-94); Mean Platelet Vol. 10.2 fl (6.2-12.0); Monocyte# 1.13 X10^3/uL; Monocyte% 23.2 % (0-10); Neutrophil # 2.86 X10^3/uL (2.7-7.7); Neutrophil % 58.8 % (47-70); Platelet Count 136 K/mm3 (150-450); RBC Distribution Width SD 51.7 fl (35.1-43.9); Red Blood Count 2.85 M/mm3 (4.6-6.2); White Blood Count 4.9 K/mm3 (4.4-11.0)
[2018-06-24 05:56] LABS: POSITIVE COUNT NO; POSITIVE DIFFERENTIAL NO; POSITIVE MORPHOLOGY NO
[2018-06-24 06:29] LABS: Anion Gap 14 (5-15); BUN 3 mg/dL (7-18); BUN/Creat Ratio 4.1 RATIO (10-20); Calcium,Total 8.3 mg/dL (8.5-10.1); Chloride 103 mmol/L (98-107); Creatinine, Serum 0.73 mg/dL (0.70-1.30); EST Glomerular Filtration Rate 129 mL/min (>60); Est Glom Filt Rate - Afr Amer 156 mL/min (>60); Glucose 160 mg/dL (74-106); Magnesium 1.2 mg/dL (1.6-2.6); Phosphorus 1.1 mg/dL (2.5-4.9); Potassium 3.3 mmol/L (3.5-5.1); Sodium Level 138 mmol/L (136-145)
--- NOTE | 2018-06-24 06:35 | PCM.PN.INT ---
Subjective: The patient was seen and examined at the bedside this morning. Events from the last 24 hours have been reviewed. The patient has been febrile since last evening. He currently has a temperature of 100.6 ?F. He continues to have a significant amount of agitation, which has led to an inability to decrease his current Precedex regimen. The patient's anion gap meta Bolick acidosis has resolved. However, the patient continues to have significant electrolyte abnormalities, including hypokalemia, hypophosphatemia and hypomagnesemia. Objective: The patient's most recent lab work, culture data and imaging studies have all been personally reviewed. Hepatitis panel was negative. Right upper quadrant ultrasound was obtained which revealed mild fatty infiltration of the liver. Blood and urine cultures are pending. General: Confused, - - Appears more alert and interactive this morning. HEENT: Atraumatic, PERRLA, Normocephalic Oral: Dry Mucosa, - - Poor dentition Neck: Supple, No Nodes, Trachea Midline Lungs: No rhonchi, No wheeze, No rales, Diminished Cardiovascular: Regular rate, Regular Rhythm, Normal S1, Normal S2, No murmurs Abdomen: Bowel Sounds Present, Soft, Non Tender, Non-Distended Extremities: No clubbing, No cyanosis, No edema Skin: No breakdown Musculoskeletal: No Tenderness to Palpation of Joints or Extremities, No Muscle Wasting Lymphatic: No Cervical, Supraclavicular, or Inguinal Adenopathy Neurological: - - No focal neurological deficits. Psych/Mental Status: Restless Vital Signs Temp Pulse Resp BP Pulse Ox 100.6 F H 87 20 H 143/100 H 100 06/24/18 06:00 06/24/18 06:00 06/24/18 06:00 06/24/18 06:00 06/24/18 06:00 Oxygen Delivery Method Room Air Weight: 147 lb 7.828 oz Body Mass Index (BMI) 21.9 Intake and Output for Last 24 Hours 06/22/18 06/23/18 06/24/18 23:59 23:59 23:59 Intake Total 4160 / 4160 3984 / 3984 1887 / 1887 Output Total 2475 / 2475 2375 / 2375 1400 / 1400 Balance 1685 / 1685 1609 / 1609 487 / 487 Labs (Last 48 Hours) 06/21/18 06/23/18 06/23/18 05:30 04:10 06:55 WBC RBC Hgb Hct MCV MCH MCHC RDW RDW Differential Plt Count MPV Immature Gran % (Auto) Neut % (Auto) Lymph % (Auto) Gibson % (Auto) Eos % (Auto) Baso % (Auto) Absolute Neuts (auto) Absolute Lymphs (auto) Total Counted Specimen Type Sample Site pH Bicarbonate Actual POC Total CO2 Base Excess O2 Saturation ABG pCO2 ABG pO2 David Test O2 Delivery Device Blood Gas Notified Whom Blood Gas Notified Time Sodium 140 Potassium 3.7 Chloride 103 Carbon Dioxide 12.0 L Anion Gap 25 H BUN 6 L Creatinine 0.76 Estim Creat Clear Calc 126.30 Est GFR (MDRD) Af Amer 149 Est GFR (MDRD) Non-Af 124 BUN/Creatinine Ratio 7.9 L Glucose 69 L Lactic Acid 1.0 Calcium 8.2 L Phosphorus Magnesium 1.4 L Total Bilirubin 3.90 H AST 289 H ALT 151 H Alkaline Phosphatase 148 H Total Protein 7.7 Albumin 3.6 Globulin 4.1 Albumin/Globulin Ratio 0.9 Acetone Level Hepatitis A IgM Ab Negative Hep Bs Antigen Negative Hep B Core IgM Ab Negative Hepatitis C Ab (EIA) 0.1 06/23/18 06/23/18 06/23/18 06:55 06:56 07:20 WBC RBC Hgb Hct MCV MCH MCHC RDW RDW Differential Plt Count MPV Immature Gran % (Auto) Neut % (Auto) Lymph % (Auto) Gibson % (Auto) Eos % (Auto) Baso % (Auto) Absolute Neuts (auto) Absolute Lymphs (auto) Total Counted Specimen Type ART Sample Site L Brachial pH 7.29 L Bicarbonate Actual 6.6 L POC Total CO2 7 Base Excess -20 L O2 Saturation 96 ABG pCO2 13.8 L* ABG pO2 90 David Test POS O2 Delivery Device Room Air Blood Gas Notified Whom ICU MD Blood Gas Notified Time 652 Sodium Potassium Chloride Carbon Dioxide Anion Gap BUN Creatinine Estim Creat Clear Calc Est GFR (MDRD) Af Amer Est GFR (MDRD) Non-Af BUN/Creatinine Ratio Glucose Lactic Acid Calcium Phosphorus 1.8 L Magnesium Total Bilirubin AST ALT Alkaline Phosphatase Total Protein Albumin Globulin Albumin/Globulin Ratio Acetone Level MODERATE H Hepatitis A IgM Ab Hep Bs Antigen Hep B Core IgM Ab Hepatitis C Ab (EIA) 06/24/18 06/24/18 05:32 05:32 WBC 4.9 RBC 2.85 L Hgb 10.6 L Hct 29.9 L MCV 104.9 H MCH 37.2 H MCHC 35.5 RDW 14.0 RDW Differential 51.7 H Plt Count 136 L MPV 10.2 Immature Gran % (Auto) 0.400 Neut % (Auto) 58.8 Lymph % (Auto) 15.2 L Gibson % (Auto) 23.2 H Eos % (Auto) 1.8 Baso % (Auto) 0.6 Absolute Neuts (auto) 2.9 Absolute Lymphs (auto) 0.74 L Total Counted Not Reportable Specimen Type Sample Site pH Bicarbonate Actual POC Total CO2 Base Excess O2 Saturation ABG pCO2 ABG pO2 David Test O2 Delivery Device Blood Gas Notified Whom Blood Gas Notified Time Sodium 138 Potassium 3.3 L Chloride 103 Carbon Dioxide 21.0 Anion Gap 14 BUN 3 L Creatinine 0.73 Estim Creat Clear Calc 131.10 Est GFR (MDRD) Af Amer 156 Est GFR (MDRD) Non-Af 129 BUN/Creatinine Ratio 4.1 L Glucose 160 H Lactic Acid Calcium 8.3 L Phosphorus 1.1 L* Magnesium 1.2 L Total Bilirubin AST ALT Alkaline Phosphatase Total Protein Albumin Globulin Albumin/Globulin Ratio Acetone Level Hepatitis A IgM Ab Hep Bs Antigen Hep B Core IgM Ab Hepatitis C Ab (EIA) Clinical Impression(s) from Imaging Studies Abdomen Ultrasound 06/21/18 07:50 IMPRESSION: Mildly fatty liver, otherwise within normal limits Electronically Signed: Ricardo Butterfield DO at 18:18 EDT Tel , Service support , Medical Necessity - Tobacco Use Smoking Status: Current every day smoker Assessment/Plan All Active Problems (Last Updated 06/21/18 @ 02:20 by Corey Cleaning MD) Alcohol withdrawal seizure (Acute) Acute hepatitis (Acute) RECOMMENDATIONS: 1. Continue current supportive measures with Precedex infusion. Wean as tolerated. 2. Given development of fevers, will check urinalysis/urine culture and blood cultures. We will also obtain plain film chest x-ray. 3. Aggressive electrolyte repletion as ordered. 4. Continue supplemental IV fluids, given n.p.o. status. 5. Continue thiamine and folate replacement. 6. Continue seizure precautions. 7. Continue subcutaneous heparin for DVT prophylaxis. IMPRESSIONS: 1. Acute alcohol withdrawal/delirium tremens The patient has a reported 13 year alcohol dependence history and presented on June 21 as a new vision patient to undergo alcohol withdrawal. The patient did experience an alcohol withdrawal seizure and subsequently went on to develop delirium tremens, which prompted his transfer to the ICU for the initiation of a Precedex drip. This treatment modality will be continued, with plans to wean as tolerated. He will be continued on supplemental IV fluid hydration, along with thiamine and folate repletion. Continue seizure precautions. 2. Hepatitis Likely secondary to long-standing alcohol abuse history in conjunction with fatty liver disease. Hepatitis panel was negative. No additional workup is indicated at this time. 3. New onset fever We will plan to obtain baseline blood cultures along with urinalysis/urine culture. We will also obtain plain film chest x-ray. If clinical concern for infection arises, antibiotics will be initiated. 4. Anion gap metabolic acidosis Resolved. Clinical concern for alcoholic ketoacidosis. Continue current supportive measures along with dextrose containing supplemental IV fluids. 5. Hypomagnesemia/hypokalemia/hypomagnesemia Aggressive electrolyte repletion is currently underway. We will continue to monitor closely for evidence of refeeding syndrome, once the patient is more alert and able to tolerate p.o. intake. 6. Personal history of tobacco dependence Smoking cessation is strongly advised. Nicotine replacement therapy can be offered to the patient while admitted to the hospital. This note was generated with [employer] dictation software. It may contain incorrect words, spelling, and punctuation that were not noted in checking the note before signing. Code Visit Inpatient E&M: 51752 Subs Hosp L3
[2018-06-24 09:10] LABS: Bacteria 0 SEEN /hpf (None Seen); Mucous, Urine 0 SEEN /hpf (<or=2+)
[2018-06-24 09:15] LABS: Color, Urine Yellow (Yellow); Glucose, Dipstick Normal (Normal); Ketone-Dipstick 15 mg/dl (Negative); Leukocyte Esterase-Dipstick 100 /ul (Negative); Nitrite-Dipstick Negative (Negative); Occult Blood-Urine 150 /ul (Negative); Protein-Dipstick 15 mg/dl (Negative); Urine Clarity Clear (Clear); Urine Urobilinogen 12 mg/dl (Normal); Urine pH 6.5 (5.0 - 8.0)
[2018-06-24 09:16] LABS: Urine Bilirubin Dipstick 1 mg/dL (Negative)
[2018-06-24 09:21] LABS: Red Blood Cells-Urine 5-10 SEEN /hpf (0-5); Squamous Epithelial Cells - UA 0-5 SEEN /hpf (0-5); White Blood Cells 0-5 SEEN /hpf (0-5)
--- NOTE | 2018-06-24 10:41 | PCM.PN.HOSP ---
Patient Problems: Active and Suspected Problems (Last Updated 06/21/18 @ 02:20 by Corey Cleaning MD) Alcohol withdrawal seizure (Acute) Acute hepatitis (Acute) Subjective: Confused still on the precedex but somewhat more alert today. Vitals/I&O's: Vital Signs Temp Pulse Resp BP Pulse Ox 98.8 F 19 L 18 122/96 H 100 06/24/18 10:00 06/24/18 10:00 06/24/18 10:00 06/24/18 10:00 06/24/18 10:00 Oxygen Delivery Method Room Air Weight: 147 lb 7.828 oz Body Mass Index (BMI) 21.9 Intake and Output for Last 24 Hours 06/22/18 06/23/18 06/24/18 23:59 23:59 23:59 Intake Total 4160 / 4160 3984 / 3984 1887 / 1887 Output Total 2475 / 2475 2375 / 2375 1400 / 1400 Balance 1685 / 1685 1609 / 1609 487 / 487 General: No apparent distress, Disoriented HEENT: Normocephalic, - - ecchymotic right eye Neck: Supple, No JVD Lungs: Clear to auscultation, Normal air movement, No rhonchi, No wheeze, No rales Cardiovascular: Regular rate, Regular Rhythm, Normal S1, Normal S2, No murmurs Abdomen: Soft, Non Tender, Non-Distended, No Hepato-splenomegaly Extremities: No edema Laboratory Results 06/24/18 05:32: WBC 4.9, RBC 2.85 L, Hgb 10.6 L, Hct 29.9 L, MCV 104.9 H, MCH 37.2 H, MCHC 35.5, RDW 14.0, RDW Differential 51.7 H, Plt Count 136 L, MPV 10.2, Immature Gran % (Auto) 0.400, Neut % (Auto) 58.8, Lymph % (Auto) 15.2 L, [place] % (Auto) 23.2 H, Eos % (Auto) 1.8, Baso % (Auto) 0.6, Absolute Neuts (auto) 2.9, Absolute Lymphs (auto) 0.74 L, Total Counted Not Reportable 06/24/18 05:32: Sodium 138, Potassium 3.3 L, Chloride 103, Carbon Dioxide 21.0, Anion Gap 14, BUN 3 L, Creatinine 0.73, Estim Creat Clear Calc 131.10, Est GFR (MDRD) Af Amer 156, Est GFR (MDRD) Non-Af 129, BUN/Creatinine Ratio 4.1 L, Glucose 160 H, Calcium 8.3 L, Phosphorus 1.1 L*, Magnesium 1.2 L 06/24/18 09:00: Urine Color Yellow, Urine Clarity Clear, Urine pH 6.5, Ur Specific [place] 1.010, Urine Protein 15 H, Urine Glucose (UA) Normal, Urine Ketones 15 H, Urine Occult Blood 150 H, Urine Nitrite Negative, Urine Bilirubin 1 H, Urine Urobilinogen 12 H, Ur Leukocyte Esterase 100 H, Urine RBC 5-10 SEEN, Urine WBC 0-5 SEEN, Ur Squamous Epith Cells 0-5 SEEN, Urine Bacteria 0 SEEN, Urine Mucus 0 SEEN Current Medications Chlorhexidine Gluconate () 1 each TOPICAL DAILY [facility] Last Admin: 06/23/18 10:25 Dose: 1 each Heparin Sodium (Porcine) (Heparin Na) 5,000 unit SC Q8 [facility] Last Admin: 06/24/18 05:06 Dose: 5,000 unit Thiamine HCl 200 mg/ Sodium (Chloride) 52 mls @ 200 mls/hr IV DAILY [facility] Last Admin: 06/23/18 09:51 Dose: 200 mls/hr Dexmedetomidine HCl 400 mcg/ (Sodium Chloride) 100 mls @ 8.64 mls/hr IV .[id number] [facility] PRN Reason: 0.5 MCG/KG/HR Last Admin: 06/24/18 08:46 Dose: 8.64 mls/hr Dextrose/Lactated Ringer's () 1,000 mls @ 125 mls/hr IV .Q8H [facility] Last Admin: 06/24/18 05:05 Dose: 125 mls/hr Magnesium Sulfate (4 Gm/100 Ml) 4 gm in 100 mls @ 25 mls/hr IV X1 ONE Stop: 06/24/18 11:29 Last Admin: 06/24/18 07:36 Dose: 25 mls/hr Potassium Chloride (Kcl 10meq/100ml) 10 meq in 100 mls @ 100 mls/hr IV BOLUS Q1H [facility] Stop: 06/24/18 11:29 Last Admin: 06/24/18 09:45 Dose: 100 mls/hr Potassium Phosphate 40 mm/ (Sodium Chloride) 513.3333 mls @ 62.5 mls/hr IV X1 ONE Stop: 06/24/18 16:42 Last Admin: 06/24/18 08:46 Dose: 62.5 mls/hr Lorazepam (Ativan) 2 mg IV Q2H PRN PRN Reason: Alcohol Withdrawal Last Admin: 06/24/18 05:06 Dose: 2 mg Magnesium Hydroxide (Milk Of Magnesia) 30 ml PO DAILY PRN PRN Reason: Constipation Multivitamins (Multivitamin) 1 tablet PO DAILYCM [facility] Last Admin: 06/23/18 08:04 Dose: Not Given Nicotine (Nicoderm Cq (Pbkc)) 14 mg TRANSDERM. DAILY [facility] Last Admin: 06/23/18 09:16 Dose: 14 mg Nutritional Formula (Lactose Free) (Ensure Enlive) 120 ml PO 4X/DAY [facility] Last Admin: 06/23/18 20:59 Dose: Not Given Sodium Chloride () 5 - 30 ml IV UD PRN PRN Reason: SALINE FLUSH Last Admin: 06/24/18 00:04 Dose: 10 ml Medical Necessity - Tobacco Use Smoking Status: Current every day smoker Assessment/Plan All Active Problems (Last Updated 06/21/18 @ 02:20 by Corey Cleaning MD) Alcohol withdrawal seizure (Acute) Acute hepatitis (Acute) 1. EtOH withdrawal seizure/Alcoholic hepatitis/Metabolic acidosis - C/w ativan, and precedex per fitness plan coordinator. can resume librium when taking PO - CIWA protocol with thiamine and folate supplementation - No steroids indicated for the hepatitis - Viral panel negative - Lactic acid is negative, and bicarb is now normal. - C/w IVF 2. Hypokalemia/Hypomagnesemia/hypophatemia - continue to monitor and replace as necessary DVT: Heparin Diet: Regular Code: FULL Dispo: Pending, home or possible rehab Code Visit Inpatient E&M: 99156 Subs Hosp L2
[2018-06-24] MEDS: CHLORHEXIDINE GLUC 2% CLOTH 1 EACH TOWELETTE TOPICAL (11:59)
[2018-06-24 18:16] LABS: Anion Gap 9 (5-15); BUN 2 mg/dL (7-18); Calcium,Total 8.2 mg/dL (8.5-10.1); Chloride 105 mmol/L (98-107); Creatinine, Serum 0.67 mg/dL (0.70-1.30); EST Glomerular Filtration Rate 142 mL/min (>60); Est Glom Filt Rate - Afr Amer 171 mL/min (>60); Estimated Creatinine Clearance 142.84 ml/min; Glucose 126 mg/dL (74-106); Magnesium 1.9 mg/dL (1.6-2.6); Phosphorus 2.8 mg/dL (2.5-4.9); Potassium 3.5 mmol/L (3.5-5.1); Sodium Level 139 mmol/L (136-145)
[2018-06-25] VITALS (30 sets, daily range): BP systolic 100–153; BP diastolic 63–112; PULSE 79–150; RESP 12–23; TEMP 36.7–38.6; O2SAT 93–100
[2018-06-25] MEDS: Dextrose 5%-Lactated Ringers 1,000 ML 125 ML IV ×2 (00:44→09:33)
[2018-06-25] MEDS: LORazepam 2 MG/ML Syringe IV ×2 (01:59→12:27)
[2018-06-25] MEDS: Heparin Injection (Vial) 5,000 UNIT/ML VIAL 5000 UNIT SC ×3 (05:44→21:12)
[2018-06-25 06:15] LABS: Absolute Lymphocyte Count 0.67 X10^3/ul (0.83-4.51); Basophil# 0.01 X10^3/uL; Basophil% 0.3 % (0-1); Eosinophil# 0.06 X10^3/uL; Eosinophils% 1.5 % (0-5); Hematocrit 29.3 % (40-54); Lymphocyte # 0.67 X10^3/ul (4.0); Lymphocyte % 17.2 % (19-41); Mean Corp Hgb Conc 34.1 g/gl (32-36); Mean Corpuscular Hgb 36.6 pg (27.0-32.0); Mean Corpuscular Volume 107.3 fL (80-94); Mean Platelet Vol. 10.2 fl (6.2-12.0); Monocyte# 1.17 X10^3/uL; Monocyte% 30.1 % (0-10); Neutrophil # 1.95 X10^3/uL (2.7-7.7); Neutrophil % 50.1 % (47-70); Platelet Count 161 K/mm3 (150-450); RBC Distribution Width CV 14.2 % (11.6-14.6); RBC Distribution Width SD 53.9 fl (35.1-43.9); Red Blood Count 2.73 M/mm3 (4.6-6.2); White Blood Count 3.9 K/mm3 (4.4-11.0)
[2018-06-25 06:24] LABS: POSITIVE COUNT NO; POSITIVE DIFFERENTIAL NO; POSITIVE MORPHOLOGY NO
[2018-06-25 06:57] LABS: AST(SGOT) 147 U/L (15-37); Alanine Aminotransfer ALT/SGPT 100 U/L (16-61); Albumin, Serum 2.9 g/dL (3.2-5.0); Alkaline Phosphatase 140 U/L (45-117); Bilirubin, Direct 1.34 mg/dL (0.00-0.30); Globulin 4.2 g/dL (2.2-4.2); Protein, Total 7.1 g/dL (6.4-8.2)
[2018-06-25 06:59] LABS: Anion Gap 9 (5-15); BUN 2 mg/dL (7-18); BUN/Creat Ratio 3.6 RATIO (10-20); Calcium,Total 8.5 mg/dL (8.5-10.1); Chloride 104 mmol/L (98-107); Creatinine, Serum 0.56 mg/dL (0.70-1.30); EST Glomerular Filtration Rate 173 mL/min (>60); Est Glom Filt Rate - Afr Amer 210 mL/min (>60); Estimated Creatinine Clearance 171.92 ml/min; Glucose 139 mg/dL (74-106); Magnesium 1.6 mg/dL (1.6-2.6); Phosphorus 2.6 mg/dL (2.5-4.9); Potassium 3.6 mmol/L (3.5-5.1); Sodium Level 138 mmol/L (136-145)
--- NOTE | 2018-06-25 07:18 | PN_ITS ---
Subjective: Patient did okay overnight. Attempts at removing restraints were unsuccessful as patient attempted to kick the staff. Patient has remained on room air and no seizure activity has been noted. Patient continues to have elevated CIWA scores despite Precedex at 1.5. Patient interacts appropriately reportedly prior to Ativan therapy. General: - - RASS -2. Appears older than stated age. Not interacting or following commands for me. HEENT: Atraumatic, PERRLA, EOMI, - - Icterus appreciated Oral: Moist Mucosa, No Gingival or Mucosal Lesions/ Ulcerations Neck: Supple, No JVD, No Nodes, Trachea Midline Lungs: No rhonchi, No wheeze, No rales, Diminished, - - Fair patient effort Cardiovascular: Regular rate, Regular Rhythm, Normal S1, Normal S2, No murmurs, No rub noted, No Gallop Abdomen: Bowel Sounds Present, Soft, Non Tender, Non-Distended Extremities: No clubbing, No cyanosis, No edema Skin: No rashes, No breakdown, - - Mild jaundice appreciated Musculoskeletal: No Tenderness to Palpation of Joints or Extremities Lymphatic: No Cervical, Supraclavicular, or Inguinal Adenopathy Neurological: Cranial nerves II-XII grossly intact, Neuro grossly intact, Motor Exam 5/5 strength throughout Psych/Mental Status: Impulsive, Restless Vital Signs Temp Pulse Resp BP Pulse Ox 37.3 C 89 23 H 145/105 H 100 06/25/18 07:00 06/25/18 07:00 06/25/18 07:00 06/25/18 07:00 06/25/18 07:00 Oxygen Delivery Method Room Air Weight: 67.3 kg Body Mass Index (BMI) 21.9 Intake and Output for Last 24 Hours 06/23/18 06/24/18 06/25/18 23:59 23:59 23:59 Intake Total 3984 / 3984 4992 / 4992 941 / 941 Output Total 2375 / 2375 4050 / 4050 650 / 650 Balance 1609 / 1609 942 / 942 291 / 291 Labs (Last 48 Hours) 06/23/18 06/23/18 06/23/18 06:55 06:55 07:20 WBC RBC Hgb Hct MCV MCH MCHC RDW RDW Differential Plt Count MPV Immature Gran % (Auto) Neut % (Auto) Lymph % (Auto) [place] % (Auto) Eos % (Auto) Baso % (Auto) Absolute Neuts (auto) Absolute Lymphs (auto) Total Counted Sodium Potassium Chloride Carbon Dioxide Anion Gap BUN Creatinine Estim Creat Clear Calc Est GFR (MDRD) Af Amer Est GFR (MDRD) Non-Af BUN/Creatinine Ratio Glucose Lactic Acid 1.0 Calcium Phosphorus 1.8 L Magnesium Total Bilirubin Direct Bilirubin AST ALT Alkaline Phosphatase Total Protein Albumin Globulin Urine Color Urine Clarity Urine pH Ur Specific [place] Urine Protein Urine Glucose (UA) Urine Ketones Urine Occult Blood Urine Nitrite Urine Bilirubin Urine Urobilinogen Ur Leukocyte Esterase Urine RBC Urine WBC Ur Squamous Epith Cells Urine Bacteria Urine Mucus Acetone Level MODERATE H 06/24/18 06/24/18 06/24/18 05:32 05:32 09:00 WBC 4.9 RBC 2.85 L Hgb 10.6 L Hct 29.9 L MCV 104.9 H MCH 37.2 H MCHC 35.5 RDW 14.0 RDW Differential 51.7 H Plt Count 136 L MPV 10.2 Immature Gran % (Auto) 0.400 Neut % (Auto) 58.8 Lymph % (Auto) 15.2 L [place] % (Auto) 23.2 H Eos % (Auto) 1.8 Baso % (Auto) 0.6 Absolute Neuts (auto) 2.9 Absolute Lymphs (auto) 0.74 L Total Counted Not Reportable Sodium 138 Potassium 3.3 L Chloride 103 Carbon Dioxide 21.0 Anion Gap 14 BUN 3 L Creatinine 0.73 Estim Creat Clear Calc 131.10 Est GFR (MDRD) Af Amer 156 Est GFR (MDRD) Non-Af 129 BUN/Creatinine Ratio 4.1 L Glucose 160 H Lactic Acid Calcium 8.3 L Phosphorus 1.1 L* Magnesium 1.2 L Total Bilirubin Direct Bilirubin AST ALT Alkaline Phosphatase Total Protein Albumin Globulin Urine Color Yellow Urine Clarity Clear Urine pH 6.5 Ur Specific [place] 1.010 Urine Protein 15 H Urine Glucose (UA) Normal Urine Ketones 15 H Urine Occult Blood 150 H Urine Nitrite Negative Urine Bilirubin 1 H Urine Urobilinogen 12 H Ur Leukocyte Esterase 100 H Urine RBC 5-10 SEEN Urine WBC 0-5 SEEN Ur Squamous Epith Cells 0-5 SEEN Urine Bacteria 0 SEEN Urine Mucus 0 SEEN Acetone Level 06/24/18 06/25/18 06/25/18 17:50 05:46 05:46 WBC 3.9 L RBC 2.73 L Hgb 10.0 L Hct 29.3 L MCV 107.3 H MCH 36.6 H MCHC 34.1 RDW 14.2 RDW Differential 53.9 H Plt Count 161 MPV 10.2 Immature Gran % (Auto) 0.800 Neut % (Auto) 50.1 Lymph % (Auto) 17.2 L [place] % (Auto) 30.1 H Eos % (Auto) 1.5 Baso % (Auto) 0.3 Absolute Neuts (auto) 2.0 Absolute Lymphs (auto) 0.67 L Total Counted Not Reportable Sodium 139 138 Potassium 3.5 3.6 Chloride 105 104 Carbon Dioxide 25.0 25.0 Anion Gap 9 9 BUN 2 L 2 L Creatinine 0.67 L 0.56 L Estim Creat Clear Calc 142.84 171.92 Est GFR (MDRD) Af Amer 171 210 Est GFR (MDRD) Non-Af 142 173 BUN/Creatinine Ratio 3.0 L 3.6 L Glucose 126 H 139 H Lactic Acid Calcium 8.2 L 8.5 Phosphorus 2.8 2.6 Magnesium 1.9 1.6 Total Bilirubin Direct Bilirubin AST ALT Alkaline Phosphatase Total Protein Albumin Globulin Urine Color Urine Clarity Urine pH Ur Specific [place] Urine Protein Urine Glucose (UA) Urine Ketones Urine Occult Blood Urine Nitrite Urine Bilirubin Urine Urobilinogen Ur Leukocyte Esterase Urine RBC Urine WBC Ur Squamous Epith Cells Urine Bacteria Urine Mucus Acetone Level 06/25/18 05:46 WBC RBC Hgb Hct MCV MCH MCHC RDW RDW Differential Plt Count MPV Immature Gran % (Auto) Neut % (Auto) Lymph % (Auto) [place] % (Auto) Eos % (Auto) Baso % (Auto) Absolute Neuts (auto) Absolute Lymphs (auto) Total Counted Sodium Potassium Chloride Carbon Dioxide Anion Gap BUN Creatinine Estim Creat Clear Calc Est GFR (MDRD) Af Amer Est GFR (MDRD) Non-Af BUN/Creatinine Ratio Glucose Lactic Acid Calcium Phosphorus Magnesium Total Bilirubin 2.20 H Direct Bilirubin 1.34 H AST 147 H ALT 100 H Alkaline Phosphatase 140 H Total Protein 7.1 Albumin 2.9 L Globulin 4.2 Urine Color Urine Clarity Urine pH Ur Specific [place] Urine Protein Urine Glucose (UA) Urine Ketones Urine Occult Blood Urine Nitrite Urine Bilirubin Urine Urobilinogen Ur Leukocyte Esterase Urine RBC Urine WBC Ur Squamous Epith Cells Urine Bacteria Urine Mucus Acetone Level Medical Necessity - Tobacco Use Smoking Status: Current every day smoker Assessment/Plan All Active Problems (Last Updated 06/21/18 @ 02:20 by Corey Cleaning MD) Alcohol withdrawal seizure (Acute) Acute hepatitis (Acute) RECOMMENDATIONS: 1. Continue current supportive measures with Precedex infusion. Wean as tolerated. 2. Await culture results 3. Aggressive electrolyte repletion as indicated 4. Continue supplemental IV fluids, given n.p.o. status. 5. Continue thiamine and folate replacement. 6. Continue seizure precautions. 7. Continue subcutaneous heparin for DVT prophylaxis. IMPRESSIONS: 1. Acute alcohol withdrawal/delirium tremens The patient has a reported 13 year alcohol dependence history and presented on June 21 as a new vision patient to undergo alcohol withdrawal. The patient did experience an alcohol withdrawal seizure and subsequently went on to develop delirium tremens, which prompted his transfer to the ICU for the initiation of a Precedex drip. Patient still requiring as needed Ativan in addition to Precedex at max dosing. Continue with CIWA protocol. Thiamine and folate have been ordered. Patient is in seizure precautions. Unable to remove restraints at this time secondary to aggressive behavior from the patient. 2. Hepatitis Likely secondary to long-standing alcohol abuse history in conjunction with fatty liver disease. Hepatitis panel was negative. No additional workup is indicated at this time. 3. New onset fever Cultures are currently pending. Patient does have some jaundice, but transaminases appear to be improving. Previous abdominal ultrasound showed fatty liver without gallbladder duct dilatation. 4. Anion gap metabolic acidosis Resolved. Clinical concern for alcoholic ketoacidosis. Continue current supportive measures along with dextrose containing supplemental IV fluids. 5. Hypomagnesemia/hypokalemia/hypomagnesemia Aggressive electrolyte repletion is currently underway. We will continue to monitor closely for evidence of refeeding syndrome, once the patient is more alert and able to tolerate p.o. intake. 6. Personal history of tobacco dependence Smoking cessation is strongly advised. Nicotine replacement therapy can be offered to the patient while admitted to the hospital. This note was generated with [employer] dictation software. It may contain incorrect words, spelling, and punctuation that were not noted in checking the note before signing. Code Visit Inpatient E&M: 55628 Subs Hosp L3
--- NOTE | 2018-06-25 09:25 | CASEMGMT ---
SW is following for d/c needs. However, patient has been unable to communicate due to withdrawal from alcohol. Jahaira SORIA PACK OUT OPERATOR
--- NOTE | 2018-06-25 11:00 | NURSING ---
Bilateral ankles taken out of soft restraints
[2018-06-25] MEDS: 0.9% NaCl Peripheral Flush Adult/Peds IV ×2 (12:27→14:05)
[2018-06-25] MEDS: CHLORHEXIDINE GLUC 2% CLOTH 1 EACH TOWELETTE TOPICAL (12:31)
--- NOTE | 2018-06-25 12:32 | NURSING ---
L arm taken out of soft restraint
--- NOTE | 2018-06-25 12:32 | CHAPLAIN ---
Type of Pastoral Visit _x__ Initial Visit ___ Follow-up Visit ___ On-call Visit ___ General Patient Visit ___ Spiritual Assessment ___ Family Conference ___ Bereavement ___ Rapid Response ___ Code Blue ___ Other (describe below) Pastoral Care Referral From _x__ Patient ___ Family ___ Nurse ___ Physician ___ Veneer Supervisor ___ Coil Cutter _x__ Other (describe below) Sacrament/Intervention _x__ Active listening ___ Anointing ___ Congregational ___ Bereavement ___ Communion ___ Leigha exploration ___ ___ Life review _x__ Prayer ___ Reconciliation ___ Sacrament of Sick _x__ Supportive presence ___ Wedding ___ Other (describe below) Pastoral Comments patient has been hallucinating according to RN but seems to have made improvements in that area; pt appears to understand my questions and answers them in appropriate ways; pt acknowledges role of alcohol in his illness; pt says that he has good family support; pt says that some people care about others and some don't; pt says that he has a job; pt reveals that he has tried AA before but does not like that much; pt says he started going to classes; pt says he is of the [employer] leigha and welcomes visits from electrical development engineer and prayer; pt wanted to know how soon he could eat and I communicated question to RN
--- NOTE | 2018-06-25 13:18 | PCM.PN.HOSP ---
Patient Problems: Active and Suspected Problems (Last Updated 06/21/18 @ 02:20 by Corey Cleaning MD) Alcohol withdrawal seizure (Acute) Acute hepatitis (Acute) Subjective: Still restrained as he attempts to kick at staff, a little more alert today Objective: General: No apparent distress, Disoriented HEENT: Normocephalic, - - ecchymotic right eye Neck: Supple, No JVD Lungs: Clear to auscultation, Normal air movement, No rhonchi, No wheeze, No rales Cardiovascular: Regular rate, Regular Rhythm, Normal S1, Normal S2, No murmurs Abdomen: Soft, Non Tender, Non-Distended, No Hepato-splenomegaly Extremities: No edema Vitals/I&O's: Vital Signs Temp Pulse Resp BP Pulse Ox 98.2 F 82 12 143/102 H 99 06/25/18 12:00 06/25/18 12:00 06/25/18 12:00 06/25/18 12:00 06/25/18 12:00 Oxygen Delivery Method Room Air Weight: 148 lb 5.938 oz Body Mass Index (BMI) 21.9 Intake and Output for Last 24 Hours 06/23/18 06/24/18 06/25/18 23:59 23:59 23:59 Intake Total 3984 / 3984 4992 / 4992 1798 / 1798 Output Total 2375 / 2375 4050 / 4050 1550 / 1550 Balance 1609 / 1609 942 / 942 248 / 248 Microbiology Past 72 Hours 06/24/18 09:00 Urine Catheter - [place] Urine Culture - Preliminary Culture exhibits no growth. Laboratory Results 06/24/18 17:50: Sodium 139, Potassium 3.5, Chloride 105, Carbon Dioxide 25.0, Anion Gap 9, BUN 2 L, Creatinine 0.67 L, Estim Creat Clear Calc 142.84, Est GFR (MDRD) Af Amer 171, Est GFR (MDRD) Non-Af 142, BUN/Creatinine Ratio 3.0 L, Glucose 126 H, Calcium 8.2 L, Phosphorus 2.8, Magnesium 1.9 06/25/18 05:46: WBC 3.9 L, RBC 2.73 L, Hgb 10.0 L, Hct 29.3 L, MCV 107.3 H, MCH 36.6 H, MCHC 34.1, RDW 14.2, RDW Differential 53.9 H, Plt Count 161, MPV 10.2, Immature Gran % (Auto) 0.800, Neut % (Auto) 50.1, Lymph % (Auto) 17.2 L, [place] % (Auto) 30.1 H, Eos % (Auto) 1.5, Baso % (Auto) 0.3, Absolute Neuts (auto) 2.0, Absolute Lymphs (auto) 0.67 L, Total Counted Not Reportable 06/25/18 05:46: Sodium 138, Potassium 3.6, Chloride 104, Carbon Dioxide 25.0, Anion Gap 9, BUN 2 L, Creatinine 0.56 L, Estim Creat Clear Calc 171.92, Est GFR (MDRD) Af Amer 210, Est GFR (MDRD) Non-Af 173, BUN/Creatinine Ratio 3.6 L, Glucose 139 H, Calcium 8.5, Phosphorus 2.6, Magnesium 1.6 06/25/18 05:46: Total Bilirubin 2.20 H, Direct Bilirubin 1.34 H, AST 147 H, ALT 100 H, Alkaline Phosphatase 140 H, Total Protein 7.1, Albumin 2.9 L, Globulin 4.2 Current Medications Chlorhexidine Gluconate () 1 each TOPICAL DAILY [facility] Last Admin: 06/25/18 12:31 Dose: 1 each Heparin Sodium (Porcine) (Heparin Na) 5,000 unit SC Q8 [facility] Last Admin: 06/25/18 05:44 Dose: 5,000 unit Thiamine HCl 200 mg/ Sodium (Chloride) 52 mls @ 200 mls/hr IV DAILY [facility] Last Admin: 06/25/18 10:25 Dose: 200 mls/hr Dexmedetomidine HCl 400 mcg/ (Sodium Chloride) 100 mls @ 8.64 mls/hr IV .[id number] [facility] PRN Reason: 0.5 MCG/KG/HR Last Admin: 06/25/18 08:01 Dose: 8.64 mls/hr Dextrose/Lactated Ringer's () 1,000 mls @ 125 mls/hr IV .Q8H [facility] Last Admin: 06/25/18 09:33 Dose: 125 mls/hr Lorazepam (Ativan) 2 mg IV Q2H PRN PRN; Protocol PRN Reason: CIWA score > 8 but <15 Last Admin: 06/25/18 12:27 Dose: 2 mg Lorazepam (Ativan) 2 mg IV UD PRN; Protocol PRN Reason: CIWA score >/=15. Magnesium Hydroxide (Milk Of Magnesia) 30 ml PO DAILY PRN PRN Reason: Constipation Multivitamins (Multivitamin) 1 tablet PO DAILYCM [facility] Last Admin: 06/25/18 08:00 Dose: Not Given Nicotine (Nicoderm Cq (Pbkc)) 14 mg TRANSDERM. DAILY [facility] Last Admin: 06/25/18 09:40 Dose: 14 mg Nutritional Formula (Lactose Free) (Ensure Enlive) 120 ml PO 4X/DAY [facility] Last Admin: 06/25/18 09:42 Dose: Not Given Sodium Chloride () 5 - 30 ml IV UD PRN PRN Reason: SALINE FLUSH Last Admin: 06/25/18 12:27 Dose: 10 ml Medical Necessity - Tobacco Use Smoking Status: Current every day smoker Assessment/Plan All Active Problems (Last Updated 06/21/18 @ 02:20 by Corey Cleaning MD) Alcohol withdrawal seizure (Acute) Acute hepatitis (Acute) 1. EtOH withdrawal seizure/Alcoholic hepatitis/Metabolic acidosis - C/w ativan, and precedex per donkey ride operator. can resume librium when taking PO - CIWA protocol with thiamine and folate supplementation - No steroids indicated for the hepatitis - Viral panel negative - Lactic acid is negative, and bicarb is now normal. - C/w IVF 2. Hypokalemia/Hypomagnesemia/hypophosphatemia - continue to monitor and replace as necessary DVT: Heparin Diet: Regular Code: FULL Dispo: Pending, home or possible rehab Code Visit Inpatient E&M: 11332 Subs Hosp L2
--- NOTE | 2018-06-25 13:36 | NURSING ---
Addendum entered by Sindi Saenz 06/25/18 13:54: Pt R arm taken out of soft restraint at 1320; precedex DCd at this time Original Note: Pt R arm taken out of soft restraint
[2018-06-26] VITALS (32 sets, daily range): BP systolic 121–177; BP diastolic 69–117; PULSE 110–147; RESP 14–24; TEMP 36.8–38.4; O2SAT 95–99
[2018-06-26] MEDS: 0.9% NaCl Peripheral Flush Adult/Peds IV ×5 (00:23→18:13)
[2018-06-26] MEDS: LORazepam 2 MG/ML Syringe IV ×6 (00:23→20:27)
[2018-06-26 04:03] LABS: Absolute Lymphocyte Count 0.69 X10^3/ul (0.83-4.51); Absolute Neutrophil Count 2.1 X10^3/uL (2.0-7.7); Basophil# 0.01 X10^3/uL; Basophil% 0.2 % (0-1); Eosinophil# 0.02 X10^3/uL; Eosinophils% 0.5 % (0-5); Hematocrit 31.7 % (40-54); Hemoglobin 10.4 g/dl (13.0-16.5); Lymphocyte # 0.69 X10^3/ul (4.0); Lymphocyte % 15.9 % (19-41); Mean Corp Hgb Conc 32.8 g/gl (32-36); Mean Corpuscular Hgb 35.3 pg (27.0-32.0); Mean Corpuscular Volume 107.5 fL (80-94); Mean Platelet Vol. 10.5 fl (6.2-12.0); Monocyte% 34.6 % (0-10); Neutrophil # 2.09 X10^3/uL (2.7-7.7); Neutrophil % 48.3 % (47-70); Platelet Count 224 K/mm3 (150-450); RBC Distribution Width CV 15.5 % (11.6-14.6); RBC Distribution Width SD 60.8 fl (35.1-43.9); Red Blood Count 2.95 M/mm3 (4.6-6.2); White Blood Count 4.3 K/mm3 (4.4-11.0)
[2018-06-26 04:05] LABS: Anion Gap 12 (5-15); BUN 5 mg/dL (7-18); BUN/Creat Ratio 7.4 RATIO (10-20); Calcium,Total 9.5 mg/dL (8.5-10.1); Chloride 102 mmol/L (98-107); Creatinine, Serum 0.68 mg/dL (0.70-1.30); EST Glomerular Filtration Rate 141 mL/min (>60); Est Glom Filt Rate - Afr Amer 170 mL/min (>60); Estimated Creatinine Clearance 141.58 ml/min; Glucose 103 mg/dL (74-106); Magnesium 1.3 mg/dL (1.6-2.6); Phosphorus 3.6 mg/dL (2.5-4.9); Potassium 3.6 mmol/L (3.5-5.1); Sodium Level 141 mmol/L (136-145)
[2018-06-26 04:08] LABS: POSITIVE COUNT NO; POSITIVE DIFFERENTIAL NO; POSITIVE MORPHOLOGY NO
--- NOTE | 2018-06-26 06:21 | PCM.PN.INT ---
Subjective: Patient did okay overnight. Patient has been off of Precedex since approximately 1 PM yesterday. Patient has had intermittent confusion and hallucinations, but Precedex drip has not had to be reinitiated. Patient has received Librium and 2 doses of as needed Ativan overnight. Patient reports some soreness in his legs, but denies any cough, chest pain or shortness of breath. Patient has had a persistent fever overnight with associated tachycardia and hypertension. Objective: EKG overnight showed sinus tachycardia with PVCs General: Alert, Cooperative, No apparent distress, - - Flushed appearance HEENT: Atraumatic, PERRLA, EOMI, Normocephalic, - - Scleral injection without icterus. Oral: Moist Mucosa, No Gingival or Mucosal Lesions/ Ulcerations Neck: Supple, No JVD, No Nodes, Trachea Midline Lungs: Clear to auscultation, Normal air movement, No rhonchi, No wheeze, No rales Cardiovascular: Normal S1, Normal S2, No murmurs, No rub noted, No Gallop, Tachycardic Abdomen: Bowel Sounds Present, Soft, Non Tender, Non-Distended Extremities: No clubbing, No cyanosis, No edema, Capillary Refill Less than 3 Seconds Skin: - - Extensive rubor of the skin appreciated without any papular formation or exudate Musculoskeletal: No Tenderness to Palpation of Joints or Extremities Lymphatic: No Cervical, Supraclavicular, or Inguinal Adenopathy Neurological: Cranial nerves II-XII grossly intact, Neuro grossly intact, Motor Exam 5/5 strength throughout Psych/Mental Status: Appropriate, Restless Vital Signs Temp Pulse Resp BP Pulse Ox 38.3 C H 147 H 18 154/84 H 97 06/26/18 06:00 06/26/18 06:00 06/26/18 06:00 06/26/18 06:00 06/26/18 06:00 Oxygen Delivery Method Room Air Weight: 67.2 kg Body Mass Index (BMI) 21.9 Intake and Output for Last 24 Hours 06/24/18 06/25/18 06/26/18 23:59 23:59 23:59 Intake Total 4992 / 4992 2740 / 2740 300 / 300 Output Total 4050 / 4050 1800 / 1800 200 / 200 Balance 942 / 942 940 / 940 100 / 100 Labs (Last 48 Hours) 06/24/18 06/24/18 06/24/18 05:32 09:00 17:50 WBC RBC Hgb Hct MCV MCH MCHC RDW RDW Differential Plt Count MPV Immature Gran % (Auto) Neut % (Auto) Lymph % (Auto) [place] % (Auto) Eos % (Auto) Baso % (Auto) Absolute Neuts (auto) Absolute Lymphs (auto) Total Counted Sodium 138 139 Potassium 3.3 L 3.5 Chloride 103 105 Carbon Dioxide 21.0 25.0 Anion Gap 14 9 BUN 3 L 2 L Creatinine 0.73 0.67 L Estim Creat Clear Calc 131.10 142.84 Est GFR (MDRD) Af Amer 156 171 Est GFR (MDRD) Non-Af 129 142 BUN/Creatinine Ratio 4.1 L 3.0 L Glucose 160 H 126 H Calcium 8.3 L 8.2 L Phosphorus 1.1 L* 2.8 Magnesium 1.2 L 1.9 Total Bilirubin Direct Bilirubin AST ALT Alkaline Phosphatase Total Protein Albumin Globulin Urine Color Yellow Urine Clarity Clear Urine pH 6.5 Ur Specific [place] 1.010 Urine Protein 15 H Urine Glucose (UA) Normal Urine Ketones 15 H Urine Occult Blood 150 H Urine Nitrite Negative Urine Bilirubin 1 H Urine Urobilinogen 12 H Ur Leukocyte Esterase 100 H Urine RBC 5-10 SEEN Urine WBC 0-5 SEEN Ur Squamous Epith Cells 0-5 SEEN Urine Bacteria 0 SEEN Urine Mucus 0 SEEN 06/25/18 06/25/18 06/25/18 05:46 05:46 05:46 WBC 3.9 L RBC 2.73 L Hgb 10.0 L Hct 29.3 L MCV 107.3 H MCH 36.6 H MCHC 34.1 RDW 14.2 RDW Differential 53.9 H Plt Count 161 MPV 10.2 Immature Gran % (Auto) 0.800 Neut % (Auto) 50.1 Lymph % (Auto) 17.2 L [place] % (Auto) 30.1 H Eos % (Auto) 1.5 Baso % (Auto) 0.3 Absolute Neuts (auto) 2.0 Absolute Lymphs (auto) 0.67 L Total Counted Not Reportable Sodium 138 Potassium 3.6 Chloride 104 Carbon Dioxide 25.0 Anion Gap 9 BUN 2 L Creatinine 0.56 L Estim Creat Clear Calc 171.92 Est GFR (MDRD) Af Amer 210 Est GFR (MDRD) Non-Af 173 BUN/Creatinine Ratio 3.6 L Glucose 139 H Calcium 8.5 Phosphorus 2.6 Magnesium 1.6 Total Bilirubin 2.20 H Direct Bilirubin 1.34 H AST 147 H ALT 100 H Alkaline Phosphatase 140 H Total Protein 7.1 Albumin 2.9 L Globulin 4.2 Urine Color Urine Clarity Urine pH Ur Specific [place] Urine Protein Urine Glucose (UA) Urine Ketones Urine Occult Blood Urine Nitrite Urine Bilirubin Urine Urobilinogen Ur Leukocyte Esterase Urine RBC Urine WBC Ur Squamous Epith Cells Urine Bacteria Urine Mucus 06/26/18 06/26/18 03:43 03:43 WBC 4.3 L RBC 2.95 L Hgb 10.4 L Hct 31.7 L MCV 107.5 H MCH 35.3 H MCHC 32.8 RDW 15.5 H RDW Differential 60.8 H Plt Count 224 MPV 10.5 Immature Gran % (Auto) 0.500 Neut % (Auto) 48.3 Lymph % (Auto) 15.9 L [place] % (Auto) 34.6 H Eos % (Auto) 0.5 Baso % (Auto) 0.2 Absolute Neuts (auto) 2.1 Absolute Lymphs (auto) 0.69 L Total Counted Not Reportable Sodium 141 Potassium 3.6 Chloride 102 Carbon Dioxide 27.0 Anion Gap 12 BUN 5 L Creatinine 0.68 L Estim Creat Clear Calc 141.58 Est GFR (MDRD) Af Amer 170 Est GFR (MDRD) Non-Af 141 BUN/Creatinine Ratio 7.4 L Glucose 103 Calcium 9.5 Phosphorus 3.6 Magnesium 1.3 L Total Bilirubin Direct Bilirubin AST ALT Alkaline Phosphatase Total Protein Albumin Globulin Urine Color Urine Clarity Urine pH Ur Specific [place] Urine Protein Urine Glucose (UA) Urine Ketones Urine Occult Blood Urine Nitrite Urine Bilirubin Urine Urobilinogen Ur Leukocyte Esterase Urine RBC Urine WBC Ur Squamous Epith Cells Urine Bacteria Urine Mucus Microbiology 06/24/18 09:00 Urine Catheter - Aguilar Urine Culture - Preliminary Culture exhibits no growth. Medical Necessity - Tobacco Use Smoking Status: Current every day smoker Assessment/Plan All Active Problems (Last Updated 06/21/18 @ 02:20 by Corey Cleaning MD) Alcohol withdrawal seizure (Acute) Acute hepatitis (Acute) RECOMMENDATIONS: 1. Obtain amor culture 2. Hold on antibiotics for now 3. Aggressive electrolyte repletion as indicated 4. Discontinue Aguilar 5. Continue thiamine and folate replacement. 6. Continue seizure precautions. 7. Continue subcutaneous heparin for DVT prophylaxis. IMPRESSIONS: 1. Acute alcohol withdrawal/delirium tremens The patient appears to be significantly improved compared to previous. Patient has been off of Precedex drip for almost 24 hours and tolerating well. Patient does have Librium available also. Patient with significant fever over the last 24 hours. Patient appears to be more flushed compared to previous and is having reflexive tachycardia. Amor culture will be ordered. Aguilar will be removed. 2. Hepatitis Likely secondary to long-standing alcohol abuse history in conjunction with fatty liver disease. Hepatitis panel was negative. No additional workup is indicated at this time. 3. New onset fever Initial cultures are unremarkable. Patient does have some jaundice, but transaminases appear to be improving. Previous abdominal ultrasound showed fatty liver without gallbladder duct dilatation. Will repeat cultures. Patient does not have a significant leukocytosis, so will hold off on antibiotics at this time. 4. Anion gap metabolic acidosis Resolved. Clinical concern for alcoholic ketoacidosis. Continue current supportive measures along with dextrose containing supplemental IV fluids. 5. Hypomagnesemia/hypokalemia/hypomagnesemia Aggressive electrolyte repletion is currently underway. We will continue to monitor closely for evidence of refeeding syndrome, once the patient is more alert and able to tolerate p.o. intake. 6. Personal history of tobacco dependence Smoking cessation is strongly advised. Nicotine replacement therapy can be offered to the patient while admitted to the hospital. This note was generated with [employer] dictation software. It may contain incorrect words, spelling, and punctuation that were not noted in checking the note before signing. Code Visit Inpatient E&M: 01073 [facility] L3
[2018-06-26] MEDS: Heparin Injection (Vial) 5,000 UNIT/ML VIAL 5000 UNIT SC ×3 (06:24→22:55)
[2018-06-26 06:38] LABS: Mucous, Urine 0 SEEN /hpf (<or=2+); Squamous Epithelial Cells - UA 0 SEEN /hpf (0-5)
[2018-06-26 06:42] LABS: Color, Urine Amber (Yellow); Glucose, Dipstick Normal (Normal); Ketone-Dipstick 15 mg/dl (Negative); Leukocyte Esterase-Dipstick 100 /ul (Negative); Nitrite-Dipstick Negative (Negative); Occult Blood-Urine 150 /ul (Negative); Protein-Dipstick 30 mg/dl (Negative); Urine Clarity Sl. Cloudy (Clear); Urine Urobilinogen 12 mg/dl (Normal)
[2018-06-26 06:46] LABS: Urine Bilirubin Dipstick 6 mg/dL (Negative)
[2018-06-26 06:49] LABS: Bacteria RARE /hpf (None Seen)
[2018-06-26 06:50] LABS: Amorphous Sediment 1+; Red Blood Cells-Urine 0-5 SEEN /hpf (0-5); White Blood Cells 0-5 SEEN /hpf (0-5)
[2018-06-26] MEDS: CHLORHEXIDINE GLUC 2% CLOTH 1 EACH TOWELETTE TOPICAL (08:33)
[2018-06-26] MEDS: Multivitamins,Therapeutic Tablet 1 TABLET PO (08:34)
[2018-06-26] MEDS: Magnesium Oxide 400 MG Tablet PO ×2 (08:37→17:25)
--- NOTE | 2018-06-26 09:42 | CASEMGMT ---
Participated in interdisciplinary rounds. Patient is much more alert today. However, RN indicates he is not with it enough to discuss d/c plan. SW to continue to follow to assist with d/c planning. Jahaira SORIA MSW
--- NOTE | 2018-06-26 13:25 | PCM.PN.HOSP ---
Patient Problems: Active and Suspected Problems (Last Updated 06/21/18 @ 02:20 by Corey Cleaning MD) Alcohol withdrawal seizure (Acute) Acute hepatitis (Acute) Subjective: Much more alert and coherent today. Still tremulous and tachycardic but he denies significant anxiety or agitation. He is concerned about his weakness and the difficulty he had with ambulation. Objective: General: No apparent distress, Disoriented HEENT: Normocephalic, - - ecchymotic right eye Neck: Supple, No JVD Lungs: Clear to auscultation, Normal air movement, No rhonchi, No wheeze, No rales Cardiovascular: tachy, Regular Rhythm, Normal S1, Normal S2, No murmurs Abdomen: Soft, Non Tender, Non-Distended, No Hepato-splenomegaly Extremities: No edema Vitals/I&O's: Vital Signs Temp Pulse Resp BP Pulse Ox 99.2 F H 127 H 18 156/93 H 95 06/26/18 13:00 06/26/18 13:00 06/26/18 13:00 06/26/18 13:00 06/26/18 11:55 Oxygen Flow Rate (L/min) 99 Oxygen Delivery Method Room Air Weight: 148 lb 2.41 oz Body Mass Index (BMI) 21.9 Intake and Output for Last 24 Hours 06/24/18 06/25/18 06/26/18 23:59 23:59 23:59 Intake Total 4992 / 4992 2740 / 2740 900 / 900 Output Total 4050 / 4050 1800 / 1800 550 / 550 Balance 942 / 942 940 / 940 350 / 350 Microbiology Past 72 Hours 06/24/18 07:00 Blood Culture (Wb) - Anticubital Right Blood Culture - Preliminary No growth in 48 hours. 06/24/18 07:00 Blood Culture (Wb) - Arm Left Blood Culture - Preliminary No growth in 48 hours. 06/24/18 09:00 Urine Catheter - Aguilar Urine Culture - Final Culture exhibits no growth. Laboratory Results 06/26/18 03:43: WBC 4.3 L, RBC 2.95 L, Hgb 10.4 L, Hct 31.7 L, MCV 107.5 H, MCH 35.3 H, MCHC 32.8, RDW 15.5 H, RDW Differential 60.8 H, Plt Count 224, MPV 10.5, Immature Gran % (Auto) 0.500, Neut % (Auto) 48.3, Lymph % (Auto) 15.9 L, [place] % (Auto) 34.6 H, Eos % (Auto) 0.5, Baso % (Auto) 0.2, Absolute Neuts (auto) 2.1, Absolute Lymphs (auto) 0.69 L, Total Counted Not Reportable 06/26/18 03:43: Sodium 141, Potassium 3.6, Chloride 102, Carbon Dioxide 27.0, Anion Gap 12, BUN 5 L, Creatinine 0.68 L, Estim Creat Clear Calc 141.58, Est GFR (MDRD) Af Amer 170, Est GFR (MDRD) Non-Af 141, BUN/Creatinine Ratio 7.4 L, Glucose 103, Calcium 9.5, Phosphorus 3.6, Magnesium 1.3 L 06/26/18 06:30: Urine Color [place]uge[place], Urine Clarity Sl. Cloudy, Urine pH 7.0, Ur Specific [place] 1.010, Urine Protein 30 H, Urine Glucose (UA) Normal, Urine Ketones 15 H, Urine Occult Blood 150 H, Urine Nitrite Negative, Urine Bilirubin 6 H, Urine Urobilinogen 12 H, Ur Leukocyte Esterase 100 H, Urine RBC 0-5 SEEN, Urine WBC 0-5 SEEN, Ur Squamous Epith Cells 0 SEEN, Amorphous Sediment 1+, Urine Bacteria RARE, Urine Mucus 0 SEEN Current Medications Artificial Tears (Tears Naturale, Artificial Tears) 2 drop EACH EYE Q1H PRN PRN PRN Reason: DRY EYES Last Admin: 06/26/18 11:17 Dose: 2 drop Chlordiazepoxide (Librium) 10 mg PO TID PRN PRN PRN Reason: Alcohol Withdrawal Last Admin: 06/26/18 12:26 Dose: 10 mg Chlorhexidine Gluconate () 1 each TOPICAL DAILY BERE Last Admin: 06/26/18 08:33 Dose: 1 each Heparin Sodium (Porcine) (Heparin Na) 5,000 unit SC Q8 BREE Last Admin: 06/26/18 06:24 Dose: 5,000 unit Lorazepam (Ativan) 2 mg IV Q2H PRN PRN; Protocol PRN Reason: CIWA score > 8 but <15 Last Admin: 06/26/18 11:21 Dose: 2 mg Lorazepam (Ativan) 2 mg IV UD PRN; Protocol PRN Reason: CIWA score >/=15. Magnesium Hydroxide (Milk Of Magnesia) 30 ml PO DAILY PRN PRN Reason: Constipation Magnesium Oxide (Mag-Ox 400) 400 mg PO BIDCM [facility] Last Admin: 06/26/18 08:37 Dose: 400 mg Multivitamins (Multivitamin) 1 tablet PO DAILYCM [facility] Last Admin: 06/26/18 08:34 Dose: 1 tablet Nicotine (Nicoderm Cq (Pbkc)) 14 mg TRANSDERM. DAILY [facility] Last Admin: 06/26/18 08:37 Dose: 14 mg Nutritional Formula (Lactose Free) (Ensure Enlive) 120 ml PO 4X/DAY [facility] Last Admin: 06/26/18 08:41 Dose: 120 ml Sodium Chloride () 5 - 30 ml IV UD PRN PRN Reason: SALINE FLUSH Last Admin: 06/26/18 11:17 Dose: 10 ml Medical Necessity - Tobacco Use Smoking Status: Current every day smoker Assessment/Plan All Active Problems (Last Updated 06/21/18 @ 02:20 by Corey Cleaning MD) Alcohol withdrawal seizure (Acute) Acute hepatitis (Acute) 1. EtOH withdrawal seizure/Alcoholic hepatitis/Metabolic acidosis - C/w ativan, resumed libirum and precedex has been discontinued - CIWA protocol with thiamine and folate supplementation - No steroids indicated for the hepatitis - Viral panel negative - Lactic acid is negative, and bicarb is now normal. - C/w IVF 2. Hypokalemia/Hypomagnesemia/hypophosphatemia - continue to monitor and replace as necessary DVT: Heparin Diet: ADAT Code: FULL Dispo: Pending, home or possible rehab Code Visit Inpatient E&M: 87031 [facility] L2
--- NOTE | 2018-06-26 14:51 | CHAPLAIN ---
Type of Pastoral Visit ___ Initial Visit _x__ Follow-up Visit ___ On-call Visit ___ General Patient Visit ___ Spiritual Assessment ___ Family Conference ___ Bereavement ___ Rapid Response ___ Code Blue ___ Other (describe below) Pastoral Care Referral From _x__ Patient ___ Family _x__ Nurse ___ Physician ___ [employer] ___ Procurement Agent ___ Other (describe below) Sacrament/Intervention _x__ Active listening ___ Anointing ___ Yarsani ___ Bereavement ___ Communion ___ Leigha exploration ___ ___ Life review _x__ Prayer ___ Reconciliation ___ Sacrament of Sick _x__ Supportive presence ___ Wedding ___ Other (describe below) Pastoral Comments patient is talkative about going home and getting phone calls made about work; pt believes he can go home and then come back; pt has tremors it appears and not fully aware of his situation; long time given to listen to patient and remind him that each day is getting better
--- NOTE | 2018-06-26 18:46 | NURSING ---
dr mann notified blood cultures Gram + rods orders received, also diastolic bp greater than 100 will continue to observe
[2018-06-26] MEDS: Piperacil/Tazobactam 3.375 GM/50 ML ML IV (20:27)
[2018-06-27] VITALS (27 sets, daily range): BP systolic 83–177; BP diastolic 54–121; PULSE 78–132; RESP 14–23; TEMP 36.4–37.2; O2SAT 92–100
[2018-06-27] MEDS: CHLORHEXIDINE GLUC 2% CLOTH 1 EACH TOWELETTE TOPICAL (04:26)
[2018-06-27 05:03] LABS: Absolute Lymphocyte Count 1.01 X10^3/ul (0.83-4.51); Absolute Neutrophil Count 1.7 X10^3/uL (2.0-7.7); Basophil# 0.02 X10^3/uL; Basophil% 0.5 % (0-1); Eosinophil# 0.03 X10^3/uL; Eosinophils% 0.8 % (0-5); Hematocrit 32.9 % (40-54); Lymphocyte # 1.01 X10^3/ul (4.0); Mean Corp Hgb Conc 33.4 g/gl (32-36); Mean Corpuscular Hgb 35.8 pg (27.0-32.0); Mean Corpuscular Volume 107.2 fL (80-94); Monocyte# 1.11 X10^3/uL; Monocyte% 28.6 % (0-10); Neutrophil # 1.69 X10^3/uL (2.7-7.7); Neutrophil % 43.6 % (47-70); Platelet Count 262 K/mm3 (150-450); RBC Distribution Width CV 14.4 % (11.6-14.6); RBC Distribution Width SD 55.5 fl (35.1-43.9); Red Blood Count 3.07 M/mm3 (4.6-6.2); White Blood Count 3.9 K/mm3 (4.4-11.0)
[2018-06-27 05:04] LABS: Differential Indicated SCAN CRITERIA MET; POSITIVE COUNT NO; POSITIVE DIFFERENTIAL NO; POSITIVE MORPHOLOGY YES
[2018-06-27 05:22] LABS: Anion Gap 11 (5-15); BUN 5 mg/dL (7-18); BUN/Creat Ratio 7.2 RATIO (10-20); Chloride 100 mmol/L (98-107); EST Glomerular Filtration Rate 136 mL/min (>60); Est Glom Filt Rate - Afr Amer 164 mL/min (>60); Estimated Creatinine Clearance 137.33 ml/min; Glucose 117 mg/dL (74-106); Magnesium 1.5 mg/dL (1.6-2.6); Phosphorus 5.5 mg/dL (2.5-4.9); Potassium 3.3 mmol/L (3.5-5.1); Sodium Level 140 mmol/L (136-145)
[2018-06-27 06:04] LABS: Differential Comment SCANNED
[2018-06-27] MEDS: Heparin Injection (Vial) 5,000 UNIT/ML VIAL 5000 UNIT SC ×3 (06:22→22:32)
[2018-06-27] MEDS: Piperacil/Tazobactam 3.375 GM/50 ML ML IV ×3 (06:22→22:31)
--- NOTE | 2018-06-27 06:33 | PCM.PN.INT ---
Subjective: Patient did well overnight. No acute issues were reported. Patient did have one blood culture come back positive, so patient was started on Zosyn overnight. Patient continues to require Librium and as needed Ativan, but needs appear to be improving. Patient's tachycardia has improved overnight. Patient's mentation is still variable and hallucinations have been noted by nursing staff. Patient is directable. General: Alert, Cooperative, - - Speaking in full sentences. HEENT: Atraumatic, PERRLA, EOMI, Normocephalic, - - Scleral injection without icterus Oral: Moist Mucosa, No Gingival or Mucosal Lesions/ Ulcerations Neck: Supple, No JVD, No Nodes, Trachea Midline Lungs: Clear to auscultation, Normal air movement, No rhonchi, No wheeze, No rales, - - Symmetric expansion. No dullness to percussion. Cardiovascular: Normal S1, Normal S2, No murmurs, No rub noted, No Gallop, Tachycardic Abdomen: Bowel Sounds Present, Soft, Non Tender, Non-Distended Extremities: No clubbing, No cyanosis, No edema Skin: No rashes, No breakdown Musculoskeletal: No Tenderness to Palpation of Joints or Extremities Lymphatic: No Cervical, Supraclavicular, or Inguinal Adenopathy Neurological: Cranial nerves II-XII grossly intact, Neuro grossly intact, Motor Exam 5/5 strength throughout, - - Significant difficulty with proprioception. Some tremor noted, but appears improved. Psych/Mental Status: Flat Affect, Restless Vital Signs Temp Pulse Resp BP Pulse Ox 37.0 C 110 H 19 H 143/98 H 98 06/27/18 05:00 06/27/18 06:00 06/27/18 06:00 06/27/18 06:00 06/27/18 06:00 Oxygen Flow Rate (L/min) 99 Oxygen Delivery Method Room Air Weight: 66.3 kg Body Mass Index (BMI) 21.9 Intake and Output for Last 24 Hours 06/25/18 06/26/18 06/27/18 23:59 23:59 23:59 Intake Total 2740 / 2740 1100 / 1100 250.6 / 250.6 Output Total 1800 / 1800 550 / 550 500 / 500 Balance 940 / 940 550 / 550 -249.4 / -249.4 Labs (Last 48 Hours) 08/06/25/18 06/26/18 05:46 05:46 03:43 WBC 4.3 L RBC 2.95 L Hgb 10.4 L Hct 31.7 L MCV 107.5 H MCH 35.3 H MCHC 32.8 RDW 15.5 H RDW Differential 60.8 H Plt Count 224 MPV 10.5 Immature Gran % (Auto) 0.500 Neut % (Auto) 48.3 Lymph % (Auto) 15.9 L [place] % (Auto) 34.6 H Eos % (Auto) 0.5 Baso % (Auto) 0.2 Absolute Neuts (auto) 2.1 Absolute Lymphs (auto) 0.69 L Total Counted Not Reportable Differential Comment Sodium 138 Potassium 3.6 Chloride 104 Carbon Dioxide 25.0 Anion Gap 9 BUN 2 L Creatinine 0.56 L Estim Creat Clear Calc 171.92 Est GFR (MDRD) Af Amer 210 Est GFR (MDRD) Non-Af 173 BUN/Creatinine Ratio 3.6 L Glucose 139 H Calcium 8.5 Phosphorus 2.6 Magnesium 1.6 Total Bilirubin 2.20 H Direct Bilirubin 1.34 H AST 147 H ALT 100 H Alkaline Phosphatase 140 H Total Protein 7.1 Albumin 2.9 L Globulin 4.2 Urine Color Urine Clarity Urine pH Ur Specific [place] Urine Protein Urine Glucose (UA) Urine Ketones Urine Occult Blood Urine Nitrite Urine Bilirubin Urine Urobilinogen Ur Leukocyte Esterase Urine RBC Urine WBC Ur Squamous Epith Cells Amorphous Sediment Urine Bacteria Urine Mucus 06/26/18 06/26/18 06/27/18 03:43 06:30 04:46 WBC 3.9 L RBC 3.07 L Hgb 11.0 L Hct 32.9 L MCV 107.2 H MCH 35.8 H MCHC 33.4 RDW 14.4 RDW Differential 55.5 H Plt Count 262 MPV 10.0 Immature Gran % (Auto) 0.500 Neut % (Auto) 43.6 L Lymph % (Auto) 26.0 [place] % (Auto) 28.6 H Eos % (Auto) 0.8 Baso % (Auto) 0.5 Absolute Neuts (auto) 1.7 L Absolute Lymphs (auto) 1.01 Total Counted Not Reportable Differential Comment SCANNED Sodium 141 Potassium 3.6 Chloride 102 Carbon Dioxide 27.0 Anion Gap 12 BUN 5 L Creatinine 0.68 L Estim Creat Clear Calc 141.58 Est GFR (MDRD) Af Amer 170 Est GFR (MDRD) Non-Af 141 BUN/Creatinine Ratio 7.4 L Glucose 103 Calcium 9.5 Phosphorus 3.6 Magnesium 1.3 L Total Bilirubin Direct Bilirubin AST ALT Alkaline Phosphatase Total Protein Albumin Globulin Urine Color [place]ugey Urine Clarity Sl. Cloudy Urine pH 7.0 Ur Specific [place] 1.010 Urine Protein 30 H Urine Glucose (UA) Normal Urine Ketones 15 H Urine Occult Blood 150 H Urine Nitrite Negative Urine Bilirubin 6 H Urine Urobilinogen 12 H Ur Leukocyte Esterase 100 H Urine RBC 0-5 SEEN Urine WBC 0-5 SEEN Ur Squamous Epith Cells 0 SEEN Amorphous Sediment 1+ Urine Bacteria RARE Urine Mucus 0 SEEN 06/27/18 04:46 WBC RBC Hgb Hct MCV MCH MCHC RDW RDW Differential Plt Count MPV Immature Gran % (Auto) Neut % (Auto) Lymph % (Auto) [place] % (Auto) Eos % (Auto) Baso % (Auto) Absolute Neuts (auto) Absolute Lymphs (auto) Total Counted Differential Comment Sodium 140 Potassium 3.3 L Chloride 100 Carbon Dioxide 29.0 Anion Gap 11 BUN 5 L Creatinine 0.70 Estim Creat Clear Calc 137.33 Est GFR (MDRD) Af Amer 164 Est GFR (MDRD) Non-Af 136 BUN/Creatinine Ratio 7.2 L Glucose 117 H Calcium 10.0 Phosphorus 5.5 H Magnesium 1.5 L Total Bilirubin Direct Bilirubin AST ALT Alkaline Phosphatase Total Protein Albumin Globulin Urine Color Urine Clarity Urine pH Ur Specific [place] Urine Protein Urine Glucose (UA) Urine Ketones Urine Occult Blood Urine Nitrite Urine Bilirubin Urine Urobilinogen Ur Leukocyte Esterase Urine RBC Urine WBC Ur Squamous Epith Cells Amorphous Sediment Urine Bacteria Urine Mucus Microbiology 06/26/18 06:45 Blood Culture (Wb) - Right Forearm Blood Culture - Preliminary 06/24/18 07:00 Blood Culture (Wb) - Anticubital Right Blood Culture - Preliminary No growth in 48 hours. 06/24/18 07:00 Blood Culture (Wb) - Arm Left Blood Culture - Preliminary No growth in 48 hours. 06/24/18 09:00 Urine Catheter - Aguilar Urine Culture - Final Culture exhibits no growth. Medical Necessity - Tobacco Use Smoking Status: Current every day smoker Assessment/Plan All Active Problems (Last Updated 06/21/18 @ 02:20 by Corey Cleaning MD) Alcohol withdrawal seizure (Acute) Acute hepatitis (Acute) RECOMMENDATIONS: 1. Await species and sensitivity of blood culture 2. Continue Zosyn for now, cannot exclude contamination 3. Aggressive electrolyte repletion as indicated 4. Continue seizure precautions. 5. Initiate low-dose Coreg therapy 6. Okay to go to the floor from my perspective IMPRESSIONS: 1. Acute alcohol withdrawal/delirium tremens The patient appears to be significantly improved compared to previous. Patient has been off of Precedex drip for almost 48 hours and tolerating well. Patient does have Librium available also. Aguilar was removed yesterday. Patient appears to be somewhat improved after initiation of antibiotics. Patient is still having significant tachycardia and hypertension. This may be secondary to withdrawal, but patient will be started on the low-dose of Coreg therapy. 2. Hepatitis Likely secondary to long-standing alcohol abuse history in conjunction with fatty liver disease. Hepatitis panel was negative. No additional workup is indicated at this time. 3. New onset fever Initial cultures are unremarkable. Patient does have some jaundice, but transaminases appear to be improving. Previous abdominal ultrasound showed fatty liver without gallbladder duct dilatation. Repeat cultures show a gram-positive zuleima. This may be contamination versus true infection. Patient was placed on antibiotics. Await sensitivity and specificity. 4. Anion gap metabolic acidosis Resolved. Clinical concern for alcoholic ketoacidosis. Continue current supportive measures along with dextrose containing supplemental IV fluids. 5. Hypomagnesemia/hypokalemia/hypomagnesemia Aggressive electrolyte repletion is currently underway. We will continue to monitor closely for evidence of refeeding syndrome. 6. Personal history of tobacco dependence Smoking cessation is strongly advised. Nicotine replacement therapy can be offered to the patient while admitted to the hospital. This note was generated with [employer] dictation software. It may contain incorrect words, spelling, and punctuation that were not noted in checking the note before signing. Code Visit Inpatient E&M: 25278 Subs Hosp L3
[2018-06-27] MEDS: Multivitamins,Therapeutic Tablet 1 TABLET PO (08:14)
[2018-06-27] MEDS: Magnesium Oxide 400 MG Tablet PO ×2 (08:14→16:18)
[2018-06-27] MEDS: Carvedilol 6.25 MG Tablet PO (08:15)
--- NOTE | 2018-06-27 11:56 | PCM.PN.HOSP ---
Patient Problems: Active and Suspected Problems (Last Updated 06/21/18 @ 02:20 by Corey Cleaning MD) Alcohol withdrawal seizure (Acute) Acute hepatitis (Acute) Subjective: More awake, still tremulous and tachycardic. Gaining a little strength but could not sit in the chair very long. Objective: General: No apparent distress, Disoriented HEENT: Normocephalic, - - ecchymotic right eye Neck: Supple, No JVD Lungs: Clear to auscultation, Normal air movement, No rhonchi, No wheeze, No rales Cardiovascular: tachy, Regular Rhythm, Normal S1, Normal S2, No murmurs Abdomen: Soft, Non Tender, Non-Distended, No Hepato-splenomegaly Extremities: No edema Vitals/I&O's: Vital Signs Temp Pulse Resp BP Pulse Ox 97.5 F L 112 H 16 89/56 L 97 06/27/18 07:25 06/27/18 11:00 06/27/18 11:00 06/27/18 11:00 06/27/18 11:00 Oxygen Flow Rate (L/min) 99 Oxygen Delivery Method Room Air Weight: 146 lb 2.664 oz Body Mass Index (BMI) 21.9 Intake and Output for Last 24 Hours 06/25/18 06/26/18 06/27/18 23:59 23:59 23:59 Intake Total 2740 / 2740 1100 / 1100 250.6 / 250.6 Output Total 1800 / 1800 550 / 550 500 / 500 Balance 940 / 940 550 / 550 -249.4 / -249.4 Microbiology Past 72 Hours 06/26/18 06:30 Urine Catheter - Catheter Urine Culture - Preliminary Culture exhibits no growth. 06/26/18 06:45 Blood Culture (Wb) - Right Forearm Blood Culture - Preliminary GNR lactose cdl program coordinator 06/24/18 07:00 Blood Culture (Wb) - Anticubital Right Blood Culture - Preliminary No growth in 48 hours. 06/24/18 07:00 Blood Culture (Wb) - Arm Left Blood Culture - Preliminary No growth in 48 hours. 06/24/18 09:00 Urine Catheter - Aguilar Urine Culture - Final Culture exhibits no growth. Laboratory Results 06/27/18 04:46: WBC 3.9 L, RBC 3.07 L, Hgb 11.0 L, Hct 32.9 L, MCV 107.2 H, MCH 35.8 H, MCHC 33.4, RDW 14.4, RDW Differential 55.5 H, Plt Count 262, MPV 10.0, Immature Gran % (Auto) 0.500, Neut % (Auto) 43.6 L, Lymph % (Auto) 26.0, [place] % (Auto) 28.6 H, Eos % (Auto) 0.8, Baso % (Auto) 0.5, Absolute Neuts (auto) 1.7 L, Absolute Lymphs (auto) 1.01, Total Counted Not Reportable, Differential Comment SCANNED 06/27/18 04:46: Sodium 140, Potassium 3.3 L, Chloride 100, Carbon Dioxide 29.0, Anion Gap 11, BUN 5 L, Creatinine 0.70, Estim Creat Clear Calc 137.33, Est GFR (MDRD) Af Amer 164, Est GFR (MDRD) Non-Af 136, BUN/Creatinine Ratio 7.2 L, Glucose 117 H, Calcium 10.0, Phosphorus 5.5 H, Magnesium 1.5 L Current Medications Artificial Tears (Tears Naturale, Artificial Tears) 2 drop EACH EYE Q1H PRN PRN PRN Reason: DRY EYES Last Admin: 06/27/18 08:13 Dose: 2 drop Carvedilol (Coreg) 6.25 mg PO BID [facility] Last Admin: 06/27/18 08:15 Dose: 6.25 mg Chlordiazepoxide (Librium) 10 mg PO TID PRN PRN PRN Reason: Alcohol Withdrawal Last Admin: 06/27/18 09:49 Dose: 10 mg Chlorhexidine Gluconate () 1 each TOPICAL DAILY [facility] Last Admin: 06/27/18 04:26 Dose: 1 each Heparin Sodium (Porcine) (Heparin Na) 5,000 unit SC Q8 [facility] Last Admin: 06/27/18 06:22 Dose: 5,000 unit Piperacillin Sod/Tazobactam Sod (Zosyn) 3.375 gm in 50 mls @ 12.5 mls/hr IV Q8 [facility] Last Admin: 06/27/18 06:22 Dose: 12.5 mls/hr Lorazepam (Ativan) 2 mg IV Q2H PRN PRN; Protocol PRN Reason: CIWA score > 8 but <15 Last Admin: 06/26/18 20:27 Dose: 2 mg Lorazepam (Ativan) 2 mg IV UD PRN; Protocol PRN Reason: CIWA score >/=15. Magnesium Hydroxide (Milk Of Magnesia) 30 ml PO DAILY PRN PRN Reason: Constipation Magnesium Oxide (Mag-Ox 400) 400 mg PO BIDCM [facility] Last Admin: 06/27/18 08:14 Dose: 400 mg Multivitamins (Multivitamin) 1 tablet PO DAILYCM [facility] Last Admin: 06/27/18 08:14 Dose: 1 tablet Nicotine (Nicoderm Cq (Pbkc)) 14 mg TRANSDERM. DAILY [facility] Last Admin: 06/27/18 08:16 Dose: 14 mg Nutritional Formula (Lactose Free) (Ensure Enlive) 120 ml PO 4X/DAY [facility] Last Admin: 06/27/18 08:15 Dose: 120 ml Potassium Chloride (K-Dur) 20 meq PO BIDCM [facility] Stop: 06/27/18 17:01 Last Admin: 06/27/18 08:15 Dose: 20 meq Sodium Chloride () 5 - 30 ml IV UD PRN PRN Reason: SALINE FLUSH Last Admin: 06/26/18 18:13 Dose: 10 ml Medical Necessity - Tobacco Use Smoking Status: Current every day smoker Assessment/Plan All Active Problems (Last Updated 06/21/18 @ 02:20 by Corey Cleaning MD) Alcohol withdrawal seizure (Acute) Acute hepatitis (Acute) 1. EtOH withdrawal seizure/Alcoholic hepatitis/Metabolic acidosis - C/w ativan, resumed libirum and precedex has been discontinued - Start coreg for his tachycardia - CIWA protocol with thiamine and folate supplementation - No steroids indicated for the hepatitis - Viral panel negative - Lactic acid is negative, and bicarb is now normal. - Possible new vision evaluation 2. Hypokalemia/Hypomagnesemia/hypophosphatemia - continue to monitor and replace as necessary DVT: Heparin Diet: ADAT Code: FULL Dispo: Pending, home or possible rehab Code Visit Inpatient E&M: 25743 Subs Hosp L2
--- NOTE | 2018-06-27 12:02 | CASEMGMT ---
SW participated in ICU rounds this morning, as per RN, pt more alert and oriented at this time. SW attempted to speak w/pt this afternoon, pt is now sleeping, having some confusion at times. SW spoke w/bedside RN, she spoke w/[facility], and someone from [facility] does plan to speak w/pt. SW remains available to assist with any discharge plans, will continue to follow. HOMERO Rivas, LEADER ASSEMBLER
[2018-06-27] MEDS: LORazepam 1 MG Tablet 2 MG PO ×2 (16:17→22:33)
[2018-06-27] MEDS: Carvedilol 3.125 MG TABLET PO (22:57)
[2018-06-28] VITALS (18 sets, daily range): BP systolic 109–159; BP diastolic 65–109; PULSE 90–107; RESP 13–20; TEMP 36.8–37.4; O2SAT 94–100
[2018-06-28] MEDS: LORazepam 1 MG Tablet 2 MG PO ×2 (03:09→19:39)
[2018-06-28 04:46] LABS: Absolute Lymphocyte Count 1.04 X10^3/ul (0.83-4.51); Basophil# 0.03 X10^3/uL; Basophil% 0.6 % (0-1); Eosinophil# 0.08 X10^3/uL; Eosinophils% 1.6 % (0-5); Hematocrit 31.9 % (40-54); Hemoglobin 10.8 g/dl (13.0-16.5); Lymphocyte # 1.04 X10^3/ul (4.0); Lymphocyte % 21.2 % (19-41); Mean Corp Hgb Conc 33.9 g/gl (32-36); Mean Corpuscular Hgb 37.1 pg (27.0-32.0); Mean Corpuscular Volume 109.6 fL (80-94); Mean Platelet Vol. 10.2 fl (6.2-12.0); Monocyte# 1.73 X10^3/uL; Monocyte% 35.2 % (0-10); Neutrophil # 1.98 X10^3/uL (2.7-7.7); Neutrophil % 40.4 % (47-70); Platelet Count 314 K/mm3 (150-450); RBC Distribution Width CV 14.3 % (11.6-14.6); RBC Distribution Width SD 55.4 fl (35.1-43.9); Red Blood Count 2.91 M/mm3 (4.6-6.2); White Blood Count 4.9 K/mm3 (4.4-11.0)
[2018-06-28 04:51] LABS: Differential Indicated SCAN CRITERIA MET; POSITIVE COUNT NO; POSITIVE DIFFERENTIAL YES; POSITIVE MORPHOLOGY NO
[2018-06-28 05:07] LABS: BUN 10 mg/dL (7-18); Creatinine, Serum 0.86 mg/dL (0.70-1.30); EST Glomerular Filtration Rate 107 mL/min (>60); Estimated Creatinine Clearance 108.96 ml/min; Glucose 112 mg/dL (74-106)
[2018-06-28 05:08] LABS: Anion Gap 11 (5-15); BUN/Creat Ratio 11.7 RATIO (10-20); Calcium,Total 9.7 mg/dL (8.5-10.1); Chloride 102 mmol/L (98-107); Est Glom Filt Rate - Afr Amer 129 mL/min (>60); Magnesium 1.7 mg/dL (1.6-2.6); Phosphorus 4.4 mg/dL (2.5-4.9); Potassium 3.8 mmol/L (3.5-5.1); Sodium Level 141 mmol/L (136-145)
[2018-06-28 05:34] LABS: Differential Comment SCANNED
[2018-06-28] MEDS: Heparin Injection (Vial) 5,000 UNIT/ML VIAL 5000 UNIT SC ×3 (05:41→21:18)
[2018-06-28] MEDS: Piperacil/Tazobactam 3.375 GM/50 ML ML IV (05:42)
--- NOTE | 2018-06-28 06:24 | PCM.PROGNOTE ---
Patient Problems: Active and Suspected Problems (Last Updated 06/21/18 @ 02:20 by Corey Cleaning MD) Alcohol withdrawal seizure (Acute) Acute hepatitis (Acute) Subjective: Patient did well overnight. No acute issues were reported. Patient is very directable at this time. Patient is reporting increasing pain of the lower extremities that he describes as a burning sensation, 5 out of 10 without radiation. Patient states he has felt this similarly in the past, but not quite as intense. - Physical Exam General: Alert, Oriented x3, Cooperative, No apparent distress, - - Speaking in full sentences. HEENT: Atraumatic, PERRLA, EOMI, Normocephalic, - - No scleral icterus or injection noted. Oral: Moist Mucosa, No Gingival or Mucosal Lesions/ Ulcerations Neck: Supple, No JVD, No Nodes, Trachea Midline Lungs: Clear to auscultation, Normal air movement, No rhonchi, No wheeze, No rales, - - Symmetric expansion. No dullness to percussion. Cardiovascular: Regular Rhythm, Normal S1, Normal S2, No murmurs, No rub noted, No Gallop, Tachycardic Abdomen: Bowel Sounds Present, Soft, Non Tender, Non-Distended Extremities: No clubbing, No cyanosis, No edema, Capillary Refill Less than 3 Seconds Skin: No rashes, No breakdown Musculoskeletal: No Tenderness to Palpation of Joints or Extremities Lymphatic: No Cervical, Supraclavicular, or Inguinal Adenopathy Neurological: Cranial nerves II-XII grossly intact, Neuro grossly intact Psych/Mental Status: Alert and oriented to time, place, person, mood and affect Vital Signs Temp Pulse Resp BP Pulse Ox 36.8 C 101 H 17 135/91 H 97 06/28/18 01:00 06/28/18 05:00 06/28/18 05:00 06/28/18 05:00 06/28/18 05:00 Oxygen Flow Rate (L/min) 99 Oxygen Delivery Method Room Air Weight: 65.5 kg Body Mass Index (BMI) 21.9 Intake and Output for Last 24 Hours 06/26/18 06/27/18 06/28/18 23:59 23:59 23:59 Intake Total 1100 / 1100 1290.6 / 1290.6 321.1 / 321.1 Output Total 550 / 550 500 / 500 300 / 300 Balance 550 / 550 790.6 / 790.6 21.1 / 21.1 Microbiology Past 72 Hours 06/26/18 06:30 Urine Culture - Preliminary Urine Catheter - Catheter Culture exhibits no growth. 06/26/18 06:45 Blood Culture - Preliminary Blood Culture (Wb) - Right Forearm GNR lactose beef lugger 06/24/18 07:00 Blood Culture - Preliminary Blood Culture (Wb) - Anticubital Right No growth in 48 hours. 06/24/18 07:00 Blood Culture - Preliminary Blood Culture (Wb) - Arm Left No growth in 48 hours. 06/24/18 09:00 Urine Culture - Final Urine Catheter - Aguilar Culture exhibits no growth. Laboratory Tests Past 24 Hrs 06/28/18 06/28/18 04:30 04:30 WBC 4.9 RBC 2.91 L Hgb 10.8 L Hct 31.9 L MCV 109.6 H MCH 37.1 H MCHC 33.9 RDW 14.3 RDW Differential 55.4 H Plt Count 314 MPV 10.2 Immature Gran % (Auto) 1.000 H Neut % (Auto) 40.4 L Lymph % (Auto) 21.2 [place] % (Auto) 35.2 H Eos % (Auto) 1.6 Baso % (Auto) 0.6 Absolute Neuts (auto) 2.0 Absolute Lymphs (auto) 1.04 Total Counted Not Reportable Differential Comment SCANNED Sodium 141 Potassium 3.8 Chloride 102 Carbon Dioxide 28.0 Anion Gap 11 BUN 10 Creatinine 0.86 Estim Creat Clear Calc 108.96 Est GFR (MDRD) Af Amer 129 Est GFR (MDRD) Non-Af 107 BUN/Creatinine Ratio 11.7 Glucose 112 H Calcium 9.7 Phosphorus 4.4 Magnesium 1.7 Medical Necessity - Tobacco Use Smoking Status: Current every day smoker Assessment/Plan All Active Problems (Last Updated 06/21/18 @ 02:20 by Corey Cleaning MD) Alcohol withdrawal seizure (Acute) Acute hepatitis (Acute) RECOMMENDATIONS: 1. Await species and sensitivity of blood culture 2. Continue Zosyn for now, cannot exclude contamination 3. Aggressive electrolyte repletion as indicated 4. Continue seizure precautions. 5. Initiate low-dose Coreg therapy 6. Hemodynamically stable on room air. Will sign off from a critical care perspective IMPRESSIONS: 1. Acute alcohol withdrawal/delirium tremens The patient appears to be significantly improved compared to previous. Patient has been off of Precedex therapy for almost 3 days. Patient is requiring less and less Ativan rescue and CIWA scores have improved. Patient was placed on Coreg yesterday with good response. Patient currently hemodynamically stable on room air. No further seizure activity has been noted. Will sign off from a critical care perspective 2. Hepatitis Likely secondary to long-standing alcohol abuse history in conjunction with fatty liver disease. Hepatitis panel was negative. No additional workup is indicated at this time. 3. New onset fever Initial cultures are unremarkable. Patient does have some jaundice, but transaminases appear to be improving. Previous abdominal ultrasound showed fatty liver without gallbladder duct dilatation. Repeat cultures show a gram-positive zuleima. This may be contamination versus true infection. Patient was placed on antibiotics. Await sensitivity and specificity. Patient can likely be transitioned to an oral antibiotic once further information is available. 4. Anion gap metabolic acidosis Resolved. Clinical concern for alcoholic ketoacidosis. Continue current supportive measures along with dextrose containing supplemental IV fluids. 5. Hypomagnesemia/hypokalemia/hypomagnesemia Aggressive electrolyte repletion is currently underway. We will continue to monitor closely for evidence of refeeding syndrome. Patient is reporting neuropathic type pain of the distal extremities. Will obtain a thiamine, folate and B12 level. Hold off on initiation of any Neurontin. 6. Personal history of tobacco dependence Smoking cessation is strongly advised. Nicotine replacement therapy can be offered to the patient while admitted to the hospital. This note was generated with [employer] dictation software. It may contain incorrect words, spelling, and punctuation that were not noted in checking the note before signing. Code Visit Inpatient E&M: 68694 Subs Hosp L2
--- NOTE | 2018-06-28 09:46 | CASEMGMT ---
Addendum entered by Debi Marin 06/28/18 15:34: SW also did let physician know pt would be interested in a PT referral. HOMERO Rivas, TRUCK BODY BUILDER Original Note: Addendum entered by Debi Marin 06/28/18 15:33: Sim from [facility] did come to speak w/pt again, he asked for a list of resources for alcohol abuse in his area. Sim will bring pt a list tomorrow. HOMERO Rivas, TRUCK BODY BUILDER Original Note: SW spoke w/Sim in [facility], he spoke w/pt yesterday, pt had told Sim he was not sure about resources for alcohol abuse, wants to focus on physical therapy. Sim plans to speak w/pt again today. SW spoke w/pt in room, inquired initially about pt mentioning physical therapy. We discussed all options, outpt PT, home health, and senior care. Pt states he will go home, and states his brother runs a place called [facility] in [place]. Pt may be interested in doing outpt PT there, states his parents go there already and maybe they can all go together. SW explained can ask physician about getting an outpt PT prescription. SW also asked about referrals for alcohol abuse. Pt states he was going to outpt rehab near where he lives, states he can drive and it's only 10 minutes away. Pt vague about whether or not he plans to return there however. Pt does not seem interested in additional referrals at this time. SW remains available for any additional assist, and Sim from [facility] does plan to see pt again today. HOMERO Rivas, TRUCK BODY BUILDER
[2018-06-28] MEDS: Multivitamins,Therapeutic Tablet 1 TABLET PO (10:57)
[2018-06-28] MEDS: Carvedilol 3.125 MG TABLET PO ×2 (10:58→21:18)
[2018-06-28] MEDS: Magnesium Oxide 400 MG Tablet PO ×2 (10:58→17:53)
[2018-06-28] MEDS: CHLORHEXIDINE GLUC 2% CLOTH 1 EACH TOWELETTE TOPICAL (11:00)
[2018-06-28] MEDS: Cephalexin 500 MG Capsule PO ×3 (11:05→23:32)
--- NOTE | 2018-06-28 12:29 | PCM.PN.HOSP ---
Patient Problems: Active and Suspected Problems (Last Updated 06/21/18 @ 02:20 by Corey Cleaning MD) Alcohol withdrawal seizure (Acute) Acute hepatitis (Acute) Subjective: Sleeping but comfortable, easily arousable, no significant tremor today Objective: General: No apparent distress, Disoriented HEENT: Normocephalic, - - ecchymotic right eye Neck: Supple, No JVD Lungs: Clear to auscultation, Normal air movement, No rhonchi, No wheeze, No rales Cardiovascular: tachy, Regular Rhythm, Normal S1, Normal S2, No murmurs Abdomen: Soft, Non Tender, Non-Distended, No Hepato-splenomegaly Extremities: No edema Vitals/I&O's: Vital Signs Temp Pulse Resp BP Pulse Ox 98.8 F 101 H 19 H 116/82 H 100 06/28/18 08:00 06/28/18 11:00 06/28/18 11:00 06/28/18 11:00 06/28/18 11:00 Oxygen Flow Rate (L/min) 99 Oxygen Delivery Method Room Air Weight: 144 lb 6.444 oz Body Mass Index (BMI) 21.9 Intake and Output for Last 24 Hours 06/26/18 06/27/18 06/28/18 23:59 23:59 23:59 Intake Total 1100 / 1100 1290.6 / 1290.6 558.9 / 558.9 Output Total 550 / 550 500 / 500 500 / 500 Balance 550 / 550 790.6 / 790.6 58.9 / 58.9 Microbiology Past 72 Hours 06/26/18 06:30 Urine Catheter - Catheter Urine Culture - Final Culture exhibits no growth. 06/26/18 06:45 Blood Culture (Wb) - Right Forearm Blood Culture - Preliminary Escherichia coli 06/24/18 07:00 Blood Culture (Wb) - Anticubital Right Blood Culture - Preliminary No growth in 48 hours. 06/24/18 07:00 Blood Culture (Wb) - Arm Left Blood Culture - Preliminary No growth in 48 hours. 06/24/18 09:00 Urine Catheter - Aguilar Urine Culture - Final Culture exhibits no growth. Laboratory Results 06/28/18 04:30: WBC 4.9, RBC 2.91 L, Hgb 10.8 L, Hct 31.9 L, MCV 109.6 H, MCH 37.1 H, MCHC 33.9, RDW 14.3, RDW Differential 55.4 H, Plt Count 314, MPV 10.2, Immature Gran % (Auto) 1.000 H, Neut % (Auto) 40.4 L, Lymph % (Auto) 21.2, [place] % (Auto) 35.2 H, Eos % (Auto) 1.6, Baso % (Auto) 0.6, Absolute Neuts (auto) 2.0, Absolute Lymphs (auto) 1.04, Total Counted Not Reportable, Differential Comment SCANNED 06/28/18 04:30: Sodium 141, Potassium 3.8, Chloride 102, Carbon Dioxide 28.0, Anion Gap 11, BUN 10, Creatinine 0.86, Estim Creat Clear Calc 108.96, Est GFR (MDRD) Af Amer 129, Est GFR (MDRD) Non-Af 107, BUN/Creatinine Ratio 11.7, Glucose 112 H, Calcium 9.7, Phosphorus 4.4, Magnesium 1.7 06/28/18 06:40: Vitamin B12 Pending 06/28/18 06:40: Folate 12.80 06/28/18 06:40: Whole Bld Vitamin B1 Pending Current Medications Artificial Tears (Tears Naturale, Artificial Tears) 2 drop EACH EYE Q1H PRN PRN PRN Reason: DRY EYES Last Admin: 06/27/18 08:13 Dose: 2 drop Carvedilol (Coreg) 3.125 mg PO BID [facility] Last Admin: 06/28/18 10:58 Dose: 3.125 mg Cephalexin (Keflex) 500 mg PO Q6 [facility] Last Admin: 06/28/18 11:05 Dose: 500 mg Chlordiazepoxide (Librium) 10 mg PO TID PRN PRN PRN Reason: Alcohol Withdrawal Last Admin: 06/28/18 04:22 Dose: 10 mg Chlorhexidine Gluconate () 1 each TOPICAL DAILY [facility] Last Admin: 06/28/18 11:00 Dose: 1 each Heparin Sodium (Porcine) (Heparin Na) 5,000 unit SC Q8 [facility] Last Admin: 06/28/18 05:41 Dose: 5,000 unit Lorazepam (Ativan) 2 mg IV Q2H PRN PRN; Protocol PRN Reason: CIWA score > 8 but <15 Last Admin: 06/26/18 20:27 Dose: 2 mg Lorazepam (Ativan) 2 mg IV UD PRN; Protocol PRN Reason: CIWA score >/=15. Lorazepam (Ativan) 2 mg PO Q2H PRN PRN PRN Reason: CIWA SCORE > 8, BUT < 15 Last Admin: 06/28/18 03:09 Dose: 2 mg Magnesium Hydroxide (Milk Of Magnesia) 30 ml PO DAILY PRN PRN Reason: Constipation Magnesium Oxide (Mag-Ox 400) 400 mg PO BIDCM [facility] Last Admin: 06/28/18 10:58 Dose: 400 mg Multivitamins (Multivitamin) 1 tablet PO DAILYCM [facility] Last Admin: 06/28/18 10:57 Dose: 1 tablet Nicotine (Nicoderm Cq (Pbkc)) 14 mg TRANSDERM. DAILY [facility] Last Admin: 06/28/18 10:57 Dose: 14 mg Nutritional Formula (Lactose Free) (Ensure Enlive) 120 ml PO 4X/DAY [facility] Last Admin: 06/28/18 11:00 Dose: Not Given Sodium Chloride () 5 - 30 ml IV UD PRN PRN Reason: SALINE FLUSH Last Admin: 06/26/18 18:13 Dose: 10 ml Medical Necessity - Tobacco Use Smoking Status: Current every day smoker Assessment/Plan All Active Problems (Last Updated 06/21/18 @ 02:20 by Corey Cleaning MD) Alcohol withdrawal seizure (Acute) Acute hepatitis (Acute) 1. EtOH withdrawal seizure/Alcoholic hepatitis/Metabolic acidosis (resolved) - C/w ativan, resumed libirum and precedex has been discontinued - Start coreg for his tachycardia - CIWA protocol with thiamine and folate supplementation - No steroids indicated for the hepatitis - Viral panel negative - Lactic acid is negative, and bicarb is now normal. - Possible new vision evaluation today - c/w PT/OT which he is having improvement with 2. Hypokalemia/Hypomagnesemia/hypophosphatemia - continue to monitor and replace as necessary 3. E.coli in 1 out of 2 blood cultures - Will start keflex given sensitivity profile - Will likely DC on antibiotic for 10 days total with outpatient follow - Given it is growing in 1 out of 2 cultures raises the suspicion for a contaminant DVT: Heparin Diet: ADAT Code: FULL Dispo: Home in am likely Code Visit Inpatient E&M: 23971 Subs Hosp L2
--- NOTE | 2018-06-28 13:43 | CHAPLAIN ---
Type of Pastoral Visit ___ Initial Visit _x__ Follow-up Visit ___ On-call Visit ___ General Patient Visit ___ Spiritual Assessment ___ Family Conference ___ Bereavement ___ Rapid Response ___ Code Blue ___ Other (describe below) Pastoral Care Referral From _x__ Patient ___ Family ___ Nurse ___ Physician ___ Coal Shooter ___ Air Battle Manager ___ Other (describe below) Sacrament/Intervention _x__ Active listening ___ Anointing ___ Scientologist ___ Bereavement ___ Communion ___ Leigha exploration ___ ___ Life review _x__ Prayer ___ Reconciliation ___ Sacrament of Sick _x__ Supportive presence ___ Wedding ___ Other (describe below) Pastoral Comments patient had more smiles and laughter today; pt thought he was already moved out of ICU but otherwise pt seems to talk appropriately; pt more at ease today; notably pt asked this satellite technician to pray for him today; previously satellite technician initiated the offer;
[2018-06-28] MEDS: 0.9% NaCl Peripheral Flush Adult/Peds IV (21:18)
[2018-06-29 03:01] VITALS: BP 137/86; PULSE 109; RESP 16; TEMP 37.1; O2SAT 98
[2018-06-29] MEDS: Cephalexin 500 MG Capsule PO (06:06)
[2018-06-29] MEDS: Heparin Injection (Vial) 5,000 UNIT/ML VIAL 5000 UNIT SC (06:06)
[2018-06-29 07:31] VITALS: BP 150/99; PULSE 98; RESP 18; TEMP 37; O2SAT 100
[2018-06-29 09:08] LABS: Vitamin B12 620 pg/mL (211-911)
--- NOTE | 2018-06-29 09:29 | PCM.DC.SUM ---
Discharge Date and Diagnosis - Problem List Patient Problems: Active and Suspected Problems (Last Updated 06/21/18 @ 02:20 by Corey Cleaning MD) Alcohol withdrawal seizure (Acute) Acute hepatitis (Acute) Date of Admission: 06/21/18 Date of Discharge: 06/29/18 - Primary Discharge Diagnosis Active and Suspected Problems (Last Updated 06/21/18 @ 02:20 by Corey Cleaning MD) Alcohol withdrawal seizure (Acute) Acute hepatitis (Acute) Hospital Course and Treatment Imaging Results: None Consults: ICU [facility] Operations: None Procedures: None Summary of Care Provided: HPI: The patient is a 38 year old M with a significant history of hypertension, and alcoholic abuse who presented with seizures that started a few hours before his admission. His seizure lasted about 1 minute. His mother noticed that he was shaking both hands and head; and foam was coming from his mouth. This was after he had abstained from alcohol for a few hours. Associated with symptoms is nausea and vomiting. The previous day he came to the emergency department and his blood alcohol level was more than 420. His liver enzymes was elevated. However because he was not having any active withdrawal while he could not be enrolled into the new [facility] program. Therefore he went home. While at home he abstain from alcohol and his family noticed that he was seizing as described above. Subsequently he was brought back to the emergency department. Vital Signs - 24 hr Temp Pulse Resp BP BP Pulse Ox 06/29/18 07:31 98.6 F 98 18 150/99 H 100 06/29/18 03:01 98.8 F 109 H 16 137/86 H 98 06/28/18 19:33 99.3 F H 96 18 154/104 H 100 06/28/18 14:05 98.9 F 92 16 131/78 H 100 06/28/18 12:05 99 06/28/18 12:00 98.3 F 90 17 112/65 99 06/28/18 11:00 101 H 19 H 116/82 H 100 06/28/18 10:00 104 H 15 129/81 H 99 General: No apparent distress, Disoriented HEENT: Normocephalic, - - ecchymotic right eye Neck: Supple, No JVD Lungs: Clear to auscultation, Normal air movement, No rhonchi, No wheeze, No rales Cardiovascular: tachy, Regular Rhythm, Normal S1, Normal S2, No murmurs Abdomen: Soft, Non Tender, Non-Distended, No Hepato-splenomegaly Extremities: No edema Hospital Coourse: 1. EtOH withdrawal seizure/Metabolic acidosis/E. coli in 1 out of 4 culture bottles - On presentation he was started on ativan and the CIWA protocol and for his withdrawal. He initially was on MS however he became agitated and aggressive and was therefore transferred to the ICU where he was started on precedex. His acidosis resolved and with hydration and replacement of his electrolytes. He was given thiamin and folate, and his folate and B12 levels were normal. He will need outpatient follow-up of his B1. Myron De La Cruz did discuss with the patient multiple time to get him into rehab, however he would like to go to a wellness center that his brother runs. It is where his parents go and since he still lives with them he will have a ride. During his stay he was tachycardic and blood pressure was elevated and he was started on coreg in the ICU, he was continued on the medication at time of discharge and will need outpatient follow-up. Also I will continue with keflex 4 times daily for 10 days because of his one positive blood culture was positive with a alexis-sensitive E. coli which is abnormal. He is asymptomatic but he will also need outpatient follow-up for this as well. Home Medications: Medications to take at Discharge Carvedilol [Coreg (Beta Nieves)] 3.125 mg PO BID #30 tab 06/29/18 Cephalexin [Keflex] 500 mg PO Q6 #40 cap 06/29/18 Following Prescrptions Were Given to Patient: Cephalexin [Keflex] 500 mg PO Q6 #40 cap Carvedilol [Coreg (Beta Nieves)] 3.125 mg PO BID #30 tab Primary Care Physician: Mario Osborn,Out of [Primary Care Provider] - Please follow up with your Primary Care Physician in: in 3-5 days Disposition: Home Minutes spent on discharge:: 35 Patient Condition:: Good Medical Necessity - Tobacco Use Smoking Status: Current every day smoker Meaningful Use Info Meaningful Use Diagnoses (Choose all that apply): None applicable Code Visit Inpatient E&M: 57540 Disch Hosp
[2018-06-29] MEDS: Carvedilol 3.125 MG TABLET PO (09:34)
[2018-06-29] MEDS: Multivitamins,Therapeutic Tablet 1 TABLET PO (09:35)
[2018-06-29] MEDS: Magnesium Oxide 400 MG Tablet PO (09:35)
--- NOTE | 2018-06-29 09:39 | PCM.DC ---
- Discharge Diagnoses Current Active Problems: Current Active and Chronic Problems (Last Updated 06/21/18 @ 02:20 by Corey Cleaning MD) Alcohol withdrawal seizure (Acute) Acute hepatitis (Acute) You will use the following diet at home:: No restrictions Your food should be the consistency of: Regular Your liquids should be the consistency of: Regular/Thin Discharge Activity: Return to Normal Activity Allergies/Adverse Reactions: Allergies No Known Allergies Allergy (Verified 06/21/18 00:17) Medications to take at Discharge Carvedilol [Coreg (Beta Nieves)] 3.125 mg PO BID #30 tab 06/29/18 Cephalexin [Keflex] 500 mg PO Q6 #40 cap 06/29/18 The following prescriptions were given: Cephalexin [Keflex] 500 mg PO Q6 #40 cap Carvedilol [Coreg (Beta Nieves)] 3.125 mg PO BID #30 tab Primary Care Physician: Mario Osborn,Out of [Primary Care Provider] - Please follow up with your Primary Care Physician in: in 3-5 days Test Results: Test results from this visit will be discussed in further detail at your follow-up appointment, if applicable.
[2018-07-02 11:09] LABS: Vitamin B1, Thiamine 147.9 nmol/L (66.5-200.0)
== END 2018-06-29 10:54 | disposition home or self-care (01) | DRG 434 ==
LOC: ED 01:08 → MS3 01:51 → ICU 06-22 00:14 → MS2 06-28 14:02
PROVIDERS: Internal Medicine Critical Care Medicine; Admitting Provider Hospitalist; Emergency Provider Emergency Medicine; Visit Provider Family Medicine
DX: F10.239 Alcohol dependence with withdrawal, unspecified (principal); E87.2 Acidosis; D61.818 Other pancytopenia; I10 Essential (primary) hypertension; F17.200 Nicotine dependence, unspecified, uncomplicated; Y90.4 Blood alcohol level of 80-99 mg/100 ml; E87.6 Hypokalemia; E83.42 Hypomagnesemia; K70.10 Alcoholic hepatitis without ascites; G40.89 Other seizures; F10.231 Alcohol dependence with withdrawal delirium; Y90.8 Blood alcohol level of 240 mg/100 ml or more
CPT/HCPCS: 36415; 36600; 71045; 76705; 80048; 80053; 80074; 80076; 80307; 80320; 81001; 82009; 82607; 82746; 82803; 83605; 83735; 84100; 84425; 85025; 85610; 87040; 87077; 87086; 87186; 93005; 97116; 97162; 97166; 97530; 99282; 99285; 99406; J7030; J7040; J7050; A4216; G0480; J3490

== ENCOUNTER 2018-07-17 12:05 | Emergency (ER) | payer MEDICAID, SELFPAY ==
[2018-07-17 12:06] VITALS: BP 132/84; PULSE 102; RESP 16; TEMP 36.6; O2SAT 98; BMI 21.2
--- NOTE | 2018-07-17 12:27 | ED.RN ---
PT left stating all they were going to do is send me back to my doctor. PT left with family member. This RN offered to answer any questions.
--- NOTE | 2018-07-17 12:33 | ED.DCSUM_ITS ---
- ER Visit Summary Date of Service: 07/17/18 Chief Complaint: Patient has numerous complaints. When I went to the examination room there was no one in the room. History of Present Illness: The patient is a 38 M patient presented with multiple complaints. He was not seen he left prior to being seen. Physical Examination: [] Test Results: [] Emergency Department Course and Treatment: Patient left with family member prior to being seen by me. Treatment Plan: [] Disposition: [] Impression: Left prior to being seen This note was generated with TimePoints dictation software. It may contain incorrect words, spelling, and punctuation that were not noted in review of the chart prior to signing ED Disposition - Plan for ED Patient: Chief Complaint: Lower Extremity Injury Referrals: [facility] Doctor,Out of [Primary Care Provider] -
== END 2018-07-17 12:27 | disposition left against medical advice (07) ==
LOC: ED 12:23
PROVIDERS: Emergency Provider Emergency Medicine
DX: Z53.21 Procedure and treatment not carried out due to patient leaving prior to being seen by health care provider (principal)

== ENCOUNTER 2018-07-24 17:04 | Emergency (ER) | payer MEDICAID, SELFPAY ==
[2018-07-24 17:05] VITALS: BP 128/76; PULSE 94; RESP 18; TEMP 36.6; O2SAT 98; BMI 22.1
[2018-07-24 18:57] LABS: Anion Gap 14 (5-15); BUN 7 mg/dL (7-18); BUN/Creat Ratio 8.3 RATIO (10-20); Calcium,Total 9.4 mg/dL (8.5-10.1); Chloride 94 mmol/L (98-107); Creatinine, Serum 0.84 mg/dL (0.70-1.30); EST Glomerular Filtration Rate 109 mL/min (>60); Est Glom Filt Rate - Afr Amer 132 mL/min (>60); Estimated Creatinine Clearance 115.87 ml/min; Glucose 77 mg/dL (74-106); Potassium 3.8 mmol/L (3.5-5.1); Sodium Level 136 mmol/L (136-145)
[2018-07-24 18:59] LABS: Absolute Lymphocyte Count 1.11 X10^3/ul (0.83-4.51); Absolute Neutrophil Count 1.1 X10^3/uL (2.0-7.7); Basophil# 0.01 X10^3/uL; Basophil% 0.4 % (0-1); Eosinophil# 0.06 X10^3/uL; Eosinophils% 2.3 % (0-5); Hematocrit 35.5 % (40-54); Lymphocyte # 1.11 X10^3/ul (4.0); Lymphocyte % 43.4 % (19-41); Mean Corp Hgb Conc 33.8 g/gl (32-36); Mean Corpuscular Hgb 34.4 pg (27.0-32.0); Mean Corpuscular Volume 101.7 fL (80-94); Mean Platelet Vol. 9.3 fl (6.2-12.0); Monocyte# 0.27 X10^3/uL; Monocyte% 10.5 % (0-10); Neutrophil # 1.11 X10^3/uL (2.7-7.7); Neutrophil % 43.4 % (47-70); POSITIVE COUNT NO; POSITIVE DIFFERENTIAL NO; POSITIVE MORPHOLOGY NO; Platelet Count 92 K/mm3 (150-450); RBC Distribution Width CV 13.1 % (11.6-14.6); Red Blood Count 3.49 M/mm3 (4.6-6.2); White Blood Count 2.6 K/mm3 (4.4-11.0)
[2018-07-24 20:36] LABS: Prothrombin Time (Protime)PT. 13.1 SECONDS (11.7-14.9)
[2018-07-24 20:37] LABS: Fibrinogen 331 mg/dl (203-444); Partial Thromboplast Time 27.3 Seconds (24.1-36.2)
--- NOTE | 2018-07-24 20:39 | ED.DCSUM_ITS ---
- ER Visit Summary Date of Service: 07/24/18 Chief Complaint: Bilateral foot pain History of Present Illness: The patient is a 38 M setting for evaluation secondary to bilateral foot pain. Patient reports that he was admitted to the hospital on 06/20 secondary to a alcohol withdrawal seizure. Patient reports that he was admitted for approximately 10 days, was discharged. He reports that he had a blood disorder that he believes is untreated by the medicines that he they gave him. Patient reports that he was clean for about 15 days and then went back to drinking heavily again. He reports that he has bilateral foot pain it has been continuous for quite some time is an aching type sensation in his feet. He does report that he has a history of neuropathy, but is unsure whether or not this is the cause of this. He denies any chest pain shortness of breath hemoptysis fever chills sweats weight loss weakness or paresthesias. Review of systems otherwise negative. Physical Examination: Vital signs are within normal limits, patient is afebrile. General: Patient is well-nourished well-developed and in no acute distress. Head: Normocephalic, atraumatic Eyes: Pupils equal round and reactive bilaterally, extra occular motion intact bialterally ENT: Moist mucous membranes Neck: Supple, no lymphadenopathy, no JVD, no meningismus CVS: Heart regular rate and rhythm, no murmurs, rubs or gallops, radial pulses 2 + bilaterally Resp: Respirations nondistressed, lung sounds clear bilaterally Abdomen: Soft, nontender, nondistended, no palpable masses, normal bowel sounds Back: Nontender Extremities: Nontender, atraumatic, active full range of motion, no peripheral edema, 2+ PT pulses bilaterally symmetric, calves are supple nontender with no palpable cord Skin: warm, no rashes, no petechia Neuro: Alert and oriented x 4, CN 2-12 intact, no lateralizing neurological defecits Psyc: Normal affect Test Results: CBC shows pancytopenia with leukopenia 2.6 hemoglobin 12 platelet count at 92 which is decreased her of a platelet count on 28 June of 314. Chemistry panel unremarkable. Ethanol panel shows elevation to 332. Emergency Department Course and Treatment: Patient presented for evaluation secondary to foot pain. I reviewed patient's records, and he actually was treated while in the hospital for a single positive blood culture. I evaluated the patient with blood cultures at this time, he has no evidence of sepsis. He does have an evidence of a new onset of thrombocytopenia. Patient is significantly intoxicated. I discussed patient's case with hematology, and discussed the possible etiologies of the patient's thrombocytopenia. This does include possible alcoholism versus resolving infection, versus a lower possibility of heparin-induced thrombocytopenia. Panels were sent, I had a specific discussion with hematology about the risks and benefits of admission versus discharge and we are in agreement that the patient at this time has no evidence of thrombus as he has normal pulses bilaterally, nontender calves, no swelling, no indication of DVT, no chest pain or shortness of breath. This point I believe the patient is appropriate for discharge. I gave the patient and his father strict return instructions, father voiced understanding of this, patient was given dose of phenobarbital to prevent any sort of withdrawal seizures. He was recommended to follow-up with detox as well as with hematology. Disposition: Discharge Impression: 1. Bilateral foot pain 2. Alcohol intoxication 3. Thrombocytopenia This note was generated with [employer] dictation software. It may contain incorrect words, spelling, and punctuation that were not noted in review of the chart prior to signing ED Disposition - Plan for ED Patient: Disposition: Home or Assisted Living Chief Complaint: Substance Abuse Diagnosis: Alcohol abuse, Pancytopenia Instructions: Thrombocytopenia, ED Alcohol Abuse Referrals: Curtis Sinclair DO [STAFF PHYSICIAN] - 3-5 Days
[2018-07-24 20:42] LABS: D-Dimer Quantitative (DVT/PE) 0.76 FEU/ug/m (0.27-0.49)
--- NOTE | 2018-07-24 20:43 | ED.RN ---
LAB CALLED WITH CRITICAL LAB RESULTS D DIMER 0.76. DR. CALIXTO MADE AWARE NO NEW ORDERS AT THIS TIME
[2018-07-24 21:03] VITALS: BP 108/93; PULSE 113; RESP 16; O2SAT 98
[2018-07-24 23:22] LABS: Vitamin B12 1342 pg/mL (211-911)
[2018-07-27 10:52] LABS: Heparin-Induced Plt Ab 0.304 OD (0.000-0.400)
== END 2018-07-24 21:00 | disposition home or self-care (01) ==
PROVIDERS: Emergency Provider Emergency Medicine
DX: M79.672 Pain in left foot (principal); M79.671 Pain in right foot; F10.129 Alcohol abuse with intoxication, unspecified; Y90.8 Blood alcohol level of 240 mg/100 ml or more; D61.818 Other pancytopenia; G62.9 Polyneuropathy, unspecified
CPT/HCPCS: 36415; 80048; 80320; 82607; 85025; 85379; 85384; 85610; 85730; 86022; 87040; 99284; A4216; G0480

== ENCOUNTER 2018-10-09 14:07 | Inpatient (IN) | payer MEDICAID, SELFPAY ==
[2018-10-09 14:08] VITALS: BP 189/104; PULSE 118; RESP 18; TEMP 35.8; O2SAT 97; BMI 21.5
[2018-10-09] MEDS: Ondansetron ODT 4 MG Tablet PO (15:25)
--- NOTE | 2018-10-09 15:26 | HP.PCM_ITS ---
History of Present Illness Date of Admission: 10/09/18 Chief Complaint: Alcohol withdrawal The patient is a 38 year old M with a PMH of alcohol abuse and hypertension. He was admitted through the ED for alcohol withdrawal. He last had 4 drinks ~ 2 hours prior to admission, and usually drinks ~ a fifth of vodka daily. He has been drinking for ~ 20 years; he has been through detox before and has had seizures due to alcohol withdrawal. he feels very unwell and denies any fever or chills, but admits to nausea and vomiting. He denies any diarrhea. Review of systems is otherwise negative. In the ED, vitals showed BP of 189/104, FL of 118, and was otherwise stable. he is being admitted to be managed for alcohol withdrawal. [] Past Medical History Medical History: Medical History (Last Updated 06/21/18 @ 02:20 by Corey Cleaning MD) Hypertension I10 Allergies No Known Allergies Allergy (Verified 07/24/18 17:08) Home Medications: Ambulatory Orders Medication Instructions Recorded Carvedilol [Coreg (Beta Nieves)] 3.125 mg PO BID #30 tab 06/29/18 Multivitamin [Animal Shapes] 1 each PO DAILY 07/24/18 Surgical History: no surgical history Psychiatric History: No pertinent psych hx Lives: With Family Smoking Status: Current every day smoker Tobacco Use: Non-smoker Alcohol: Heavy - drinks a fifth of vodka daily. Drugs: None - *Family History Maternal History Items: No pertinent history Paternal History Items: No pertinent history Review of Systems Constitutional: Denies: Chills, Fever, Weight Change HEENT: Denies: Head Aches, Sinus Congestion, Sinus Drainage Cardiovascular: Denies: Chest Pain, Palpitations Respiratory: Denies: Cough, Shortness of Breath, Shortness of breath at rest, Shortness of breath upon exertion, Sputum production Gastrointestinal: Reports: Nausea, Vomiting. Denies: Abdominal Pain Genitourinary: Denies: Dysuria Musculoskeletal: Denies: Joint Pain, Joint Tenderness Skin: Denies: Rash, Wounds Neurological: Denies: Numbness, Tingling, Focal weakness Psychiatric: Denies: Anxiety, Depression, Homicidal Ideations, Suicidal Ideations Hematologic/ Lymphatic: Denies: Easy Bruising, Easy Bleeding VTE Information - Inpt Only VTE Present on Admission: No VTE Mechan Device Prophylaxis: SCD's VTE Pharm Prophylaxis ordered?: Yes - Physical Exam General: Alert, Oriented x3, Cooperative, - - in moderate distress HEENT: Atraumatic, PERRLA, EOMI, Normocephalic Oral: Dry Mucosa Neck: Supple, No JVD, Negative Carotid Bruits Lungs: Clear to auscultation, Normal air movement, No rhonchi, No wheeze, No rales Cardiovascular: Regular rate, Regular Rhythm, Normal S1, Normal S2, No murmurs Abdomen: Bowel Sounds Present, Soft, Non Tender, Non-Distended, No Hepato- splenomegaly Extremities: No clubbing, No cyanosis, No edema, Capillary Refill Less than 3 Seconds Skin: No rashes, No breakdown Musculoskeletal: No Tenderness to Palpation of Joints or Extremities Lymphatic: No Cervical, Supraclavicular, or Inguinal Adenopathy Neurological: Cranial nerves II-XII grossly intact, Neuro grossly intact, Motor Exam 5/5 strength throughout Psych/Mental Status: Normal Affect, Appropriate, Alert and oriented to time, place, person, mood and affect Vital Signs Temp Pulse Resp BP Pulse Ox 96.5 F L 118 H 18 189/104 H 97 10/09/18 14:08 10/09/18 14:08 10/09/18 14:08 10/09/18 14:08 10/09/18 14:08 Oxygen Delivery Method Room Air Weight: 150 lb Body Mass Index (BMI) 21.5 Assessment/Plan All Active Problems (Last Updated 06/21/18 @ 02:20 by Corey Cleaning MD) Alcohol withdrawal seizure (Acute) Acute hepatitis (Acute) 38 y/o admitted for alcohol withdrawal 1. Alcohol withdrawal * drinks ~ a fifth of vodka daily. has history of seizures from alcohol withdrawal * has had previous admissions for withdrawal * admit to Med Surg with telemetry * alcohol withdrawal protocol with Librium * monitor CIWA score * check CBC, BMP and Mg * * 2. Hypertension: poorly controlled. BP was in 180s in ED. On carvedilol, which he hasnt taken yet. To resume carvedilol. IV hydralazine prn. DVT prophylaxis: heparin Disposition: wants to go a rehab facility upon discharge. Code Visit Inpatient E&M: 17548 Init Hosp L3
[2018-10-09 15:57] VITALS: BP 166/111; PULSE 99; RESP 18; O2SAT 96
[2018-10-09 16:29] VITALS: BP 133/105; PULSE 118; RESP 18; TEMP 37.1; O2SAT 94
[2018-10-09] MEDS: chlordiazePOXIDE 25 MG Capsule 50 MG PO ×2 (16:37→22:04)
[2018-10-09] MEDS: 0.45% Normal Saline 1,000 ML 125 ML IV (16:38)
[2018-10-09] MEDS: LORazepam 2 MG/ML Syringe IV ×3 (16:46→22:04)
[2018-10-09] MEDS: 0.9% NaCl Peripheral Flush Adult/Peds IV ×2 (16:52→18:54)
[2018-10-09 16:53] VITALS: BMI 21.5
[2018-10-09 16:56] VITALS: BMI 21.5
--- NOTE | 2018-10-09 17:00 | NURSING ---
Addendum entered by Sindi Saenz 10/09/18 18:12: Of note, pt also states that his mother will occasionally supply his alcohol. Original Note: Pt brought in by parents who do most of talking for the patient when pt asked direct questions. Upon arrival to [place], parents in panic r/t detox tx and express frustration with OP treatment programs not accepting pt d/t hx of severe withdrawal sx and seizures. Offered listening to concerns. After parents leave room, pt able to be questioned further regarding alcohol use. Pt states has been drinking again for approx a month. Pt also states he has been living with his parents for a while. Pt states motivation for starting drinking again mostly boredom. Admits to no family/life stressors at this time. Questioned pt's motivation for stopping drinking at this time and pt replies I'd like to be better for my business...and not . Pt motivated to pursue tx programs following discharge at this time. 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 Pt also admits to daily suboxone use. He says that he does not have any hx of heroin/chronic narcotic use and just started getting suboxone on the streets years ago. He takes a quarter of a pill (approx 2 mg) daily. Pt states only chronic pain issue is neuropathy.
[2018-10-09 17:02] LABS: Absolute Lymphocyte Count 0.97 X10^3/ul (0.83-4.51); Absolute Neutrophil Count 0.8 X10^3/uL (2.0-7.7); Basophil# 0.03 X10^3/uL; Basophil% 1.3 % (0-1); Eosinophil# 0.03 X10^3/uL; Eosinophils% 1.3 % (0-5); Hematocrit 36.6 % (40-54); Hemoglobin 12.6 g/dl (13.0-16.5); Lymphocyte # 0.97 X10^3/ul (4.0); Lymphocyte % 42.4 % (19-41); Mean Corp Hgb Conc 34.4 g/gl (32-36); Mean Corpuscular Hgb 34.5 pg (27.0-32.0); Mean Corpuscular Volume 100.3 fL (80-94); Mean Platelet Vol. 9.7 fl (6.2-12.0); Monocyte# 0.43 X10^3/uL; Monocyte% 18.8 % (0-10); Neutrophil # 0.82 X10^3/uL (2.7-7.7); Neutrophil % 35.8 % (47-70); Platelet Count 82 K/mm3 (150-450); RBC Distribution Width CV 14.4 % (11.6-14.6); RBC Distribution Width SD 52.7 fl (35.1-43.9); Red Blood Count 3.65 M/mm3 (4.6-6.2); White Blood Count 2.3 K/mm3 (4.4-11.0)
[2018-10-09 17:10] LABS: Differential Indicated SCAN CRITERIA MET; POSITIVE COUNT NO; POSITIVE DIFFERENTIAL YES; POSITIVE MORPHOLOGY NO
[2018-10-09 17:16] LABS: ALB/GLOB Ratio 0.9 RATIO (0.9-2.4); AST(SGOT) 538 U/L (15-37); Alanine Aminotransfer ALT/SGPT 156 U/L (16-61); Albumin, Serum 4.2 g/dL (3.2-5.0); Alkaline Phosphatase 178 U/L (45-117); Anion Gap 16 (5-15); BUN 7 mg/dL (7-18); BUN/Creat Ratio 10.8 RATIO (10-20); Calcium,Total 8.8 mg/dL (8.5-10.1); Chloride 96 mmol/L (98-107); Creatinine, Serum 0.65 mg/dL (0.70-1.30); EST Glomerular Filtration Rate 147 mL/min (>60); Est Glom Filt Rate - Afr Amer 178 mL/min (>60); Estimated Creatinine Clearance 149.88 ml/min; Globulin 4.8 g/dL (2.2-4.2); Glucose 106 mg/dL (74-106); Potassium 3.5 mmol/L (3.5-5.1); Sodium Level 140 mmol/L (136-145)
[2018-10-09 17:26] LABS: Anisocytosis RARE; Platelet Estimate MOD DEC (ADEQ)
[2018-10-09 17:27] LABS: Macrocytosis RARE
[2018-10-09 17:52] VITALS: PULSE 85
[2018-10-09 20:00] VITALS: PULSE 108
[2018-10-09 21:59] VITALS: BP 137/97; PULSE 102; RESP 16; TEMP 37.3; O2SAT 95
[2018-10-09] MEDS: Carvedilol 3.125 MG TABLET PO (22:04)
[2018-10-10] VITALS (19 sets, daily range): BP systolic 143–176; BP diastolic 94–117; PULSE 81–106; RESP 15–27; TEMP 36.4–37.2; O2SAT 93–96
[2018-10-10] MEDS: LORazepam 2 MG/ML Syringe IV ×5 (00:48→18:10)
[2018-10-10] MEDS: chlordiazePOXIDE 25 MG Capsule 50 MG PO ×3 (04:21→16:02)
[2018-10-10] MEDS: 0.45% Normal Saline 1,000 ML 125 ML IV (04:21)
--- NOTE | 2018-10-10 05:29 | NURSING ---
Addendum entered by Elva Villela 10/10/18 09:35: Janis Dao with [facility] in to see pt this AM. Janis Dao inquired if pt was interested in rehab and pt notified her that he would think about it. Janis Dao gave pt her number to call if he decides he would like therapy. Original Note: msg left for [facility] to see pt as he is asking about [facility] rehab
[2018-10-10 06:55] LABS: Absolute Neutrophil Count 0.8 X10^3/uL (2.0-7.7); Basophil# 0.02 X10^3/uL; Basophil% 1.1 % (0-1); Eosinophil# 0.03 X10^3/uL; Eosinophils% 1.6 % (0-5); Hematocrit 33.9 % (40-54); Hemoglobin 11.6 g/dl (13.0-16.5); Lymphocyte % 27.5 % (19-41); Mean Corp Hgb Conc 34.2 g/gl (32-36); Mean Corpuscular Hgb 34.2 pg (27.0-32.0); Mean Platelet Vol. 9.8 fl (6.2-12.0); Monocyte# 0.47 X10^3/uL; Monocyte% 25.8 % (0-10); Platelet Count 62 K/mm3 (150-450); RBC Distribution Width CV 13.9 % (11.6-14.6); RBC Distribution Width SD 50.8 fl (35.1-43.9); Red Blood Count 3.39 M/mm3 (4.6-6.2); White Blood Count 1.8 K/mm3 (4.4-11.0)
[2018-10-10 07:00] LABS: Differential Indicated SCAN CRITERIA MET; POSITIVE COUNT NO; POSITIVE DIFFERENTIAL YES; POSITIVE MORPHOLOGY NO
[2018-10-10] MEDS: Methocarbamol 750 MG Tablet PO (07:37)
[2018-10-10] MEDS: hydrOXYzine PAM 25 MG Capsule 50 MG PO (07:37)
[2018-10-10] MEDS: Folic Acid 1 MG Tablet PO (07:38)
[2018-10-10] MEDS: Carvedilol 3.125 MG TABLET PO (07:38)
[2018-10-10] MEDS: Thiamine Hydrochloride 100 MG Tablet PO (07:39)
[2018-10-10] MEDS: Multivitamins,Therapeutic Tablet 1 TABLET PO (07:39)
[2018-10-10 07:51] LABS: Anion Gap 10 (5-15); BUN 6 mg/dL (7-18); BUN/Creat Ratio 8.9 RATIO (10-20); Calcium,Total 8.3 mg/dL (8.5-10.1); Chloride 91 mmol/L (98-107); Creatinine, Serum 0.67 mg/dL (0.70-1.30); EST Glomerular Filtration Rate 141 mL/min (>60); Est Glom Filt Rate - Afr Amer 171 mL/min (>60); Glucose 111 mg/dL (74-106); Potassium 3.6 mmol/L (3.5-5.1); Sodium Level 133 mmol/L (136-145)
[2018-10-10] MEDS: LORazepam 1 MG Tablet 2 MG PO (14:15)
--- NOTE | 2018-10-10 16:19 | CHAPLAIN ---
Type of Pastoral Visit _x__ Initial Visit ___ Follow-up Visit ___ On-call Visit ___ General Patient Visit ___ Spiritual Assessment ___ Family Conference ___ Bereavement ___ Rapid Response ___ Code Blue ___ Other (describe below) Pastoral Care Referral From _x__ Patient ___ Family ___ Nurse ___ Physician ___ Multicraft Operator ___ Photocopying Equipment Repairer ___ Other (describe below) Sacrament/Intervention _x__ Active listening ___ Anointing ___ Yazidism ___ Bereavement ___ Communion ___ Leigha exploration ___ _x__ Life review _x__ Prayer ___ Reconciliation ___ Sacrament of Sick _x__ Supportive presence ___ Wedding ___ Other (describe below) Pastoral Comments
[2018-10-10] MEDS: 0.9% NaCl Peripheral Flush Adult/Peds IV (18:12)
[2018-10-10] MEDS: LORazepam 2 MG/ML Syringe 4 MG IV (19:18)
--- NOTE | 2018-10-10 19:34 | NURSING ---
This RN attempted to call home and cell phone numbers for patient's parents to notify them that patient will be moved to ICU tonight per Dr. Lind. No answer and no answering machines were set up. Patient given x1 dose of 4mg Ativan per Dr. Cortez's request, as pt was becoming very agitated and angry. He notified this RN that he was leaving and that I couldn't hold him against his will. Pt very unsteady on his feet and was attempting to get to closet to get dressed and leave. Dr. Cortez was notified- and ordered the 4mg IV ativan and notified this RN that he would be transferred to ICU. Patient then was sitting on side of bed and was staring at door to bathroom- states that there are millions of ants on the door going in that side and coming out the other. Pt then saw birds pooping on door. CASANDRA Mckee parking lot supervisor called this RN and wanted to verify that patient would be transferred- same verified. After 4mg Ativan pt resting in bed, still trying to put his left leg over side of bed and set off his bed alarm. Bankruptcy Assistant called CASANDRA Collado and state that patient will go to ICU3 when staff arrives.
--- NOTE | 2018-10-10 19:42 | PCM.PROGNOTE ---
Subjective: Patient was seen and examined today, earlier today he showed mild tremor and agitation, this evening his symptoms increased and he wanted to leave AGAINST MEDICAL ADVICE, he also wanted to call his mother and father to pick him up, he was not recalling the conversation I had with him this morning, and he told me that he has spent the last 6 days in the hospital which she has not. I have decided to move the patient in the ICU, I called his mother and had a long conversation with her and she agreed that that would be the best course and she did not want him leaving the hospital. I do not think the patient at this time is able to make a rational decision, I called pulmonary medicine and notify them that I would be moving the patient into the unit and they requested that I use Precedex for agitation. - Physical Exam General: Alert, Well developed, Confused HEENT: Atraumatic, PERRLA, EOMI, Normocephalic Oral: Moist Mucosa Neck: Supple, Trachea Midline, Thyroid Normal Size and Texture Lungs: Clear to auscultation, Normal air movement, No rhonchi, No wheeze, No rales Cardiovascular: Regular rate, Regular Rhythm, Normal S1, Normal S2, No murmurs, No Ectopic Activity, PMI Normal, No rub noted, No Gallop Abdomen: Bowel Sounds Present, Soft, Non Tender, Non-Distended, No Hepato-splenomegaly Extremities: No clubbing, No cyanosis, No edema Skin: No rashes, No breakdown Musculoskeletal: No Tenderness to Palpation of Joints or Extremities Lymphatic: No Cervical, Supraclavicular, or Inguinal Adenopathy Neurological: Cranial nerves II-XII grossly intact, Neuro grossly intact, Sensory exam intact to light touch and pain Psych/Mental Status: Agitated, Anxious, Impulsive, Irrational Behavior Vital Signs Temp Pulse Resp BP Pulse Ox 98.9 F 105 H 18 149/94 H 95 10/10/18 18:00 10/10/18 18:00 10/10/18 18:00 10/10/18 18:00 10/10/18 18:00 Oxygen Delivery Method Room Air Weight: 68.1 kg Body Mass Index (BMI) 21.5 Intake and Output for Last 24 Hours 10/08/18 10/09/18 10/10/18 23:59 23:59 23:59 Intake Total 100 / 100 2883 / 2883 Output Total 1225 / 1225 Balance 100 / 100 1658 / 1658 Laboratory Tests Past 24 Hrs 10/09/18 10/09/18 10/10/18 16:44 16:44 06:40 WBC 1.8 L RBC 3.39 L Hgb 11.6 L Hct 33.9 L MCV 100.0 H MCH 34.2 H MCHC 34.2 RDW 13.9 RDW Differential 50.8 H Plt Count 62 L MPV 9.8 Immature Gran % (Auto) 0.000 Neut % (Auto) 44.0 L Lymph % (Auto) 27.5 [place] % (Auto) 25.8 H Eos % (Auto) 1.6 Baso % (Auto) 1.1 H Absolute Neuts (auto) 0.8 L Absolute Lymphs (auto) 0.50 L Total Counted Not Reportable Sodium Potassium Chloride Carbon Dioxide Anion Gap BUN Creatinine Estim Creat Clear Calc Est GFR (MDRD) Af Amer Est GFR (MDRD) Non-Af BUN/Creatinine Ratio Glucose Calcium Magnesium 1.0 L Ethyl Alcohol 337.0 H* 10/10/18 06:40 WBC RBC Hgb Hct MCV MCH MCHC RDW RDW Differential Plt Count MPV Immature Gran % (Auto) Neut % (Auto) Lymph % (Auto) [place] % (Auto) Eos % (Auto) Baso % (Auto) Absolute Neuts (auto) Absolute Lymphs (auto) Total Counted Sodium 133 L Potassium 3.6 Chloride 91 L Carbon Dioxide 32.0 Anion Gap 10 BUN 6 L Creatinine 0.67 L Estim Creat Clear Calc 145.40 Est GFR (MDRD) Af Amer 171 Est GFR (MDRD) Non-Af 141 BUN/Creatinine Ratio 8.9 L Glucose 111 H Calcium 8.3 L Magnesium Ethyl Alcohol Medical Necessity - Tobacco Use Smoking Status: Current every day smoker Tobacco Use: Non-smoker Assessment/Plan All Active Problems (Last Updated 06/21/18 @ 02:20 by Corey Cleannig MD) Alcohol withdrawal seizure (Acute) Acute hepatitis (Acute) #1 acute alcohol withdrawal-patient will be moved to the ICU, I notified pulmonary medicine of the admission and they will be consulted tomorrow. I also had a lengthy conversation with the patient's mother concerning his alcoholism. I also recommended that she go to an AA meeting to talk with other people for support. Patient's mother had been to an [facility] meeting but she states that all of the people they are were recovering narcotic addict and not alcoholics. #2 acute alcoholic hepatitis-patient will have a repeat liver profile drawn in the morning #3 neutropenia-secondary to alcoholism, patient will have a CBC drawn in the morning #4 chronic alcoholism Code Visit Inpatient E&M: 55263 Subs Hosp L3
--- NOTE | 2018-10-10 19:50 | PN_ITS ---
Subjective: Patient was seen and examined today, earlier today he showed mild tremor and agitation, this evening his symptoms increased and he wanted to leave AGAINST MEDICAL ADVICE, he also wanted to call his mother and father to pick him up, he was not recalling the conversation I had with him this morning, and he told me that he has spent the last 6 days in the hospital which she has not. I have decided to move the patient in the ICU, I called his mother and had a long conversation with her and she agreed that that would be the best course and she did not want him leaving the hospital. I do not think the patient at this time is able to make a rational decision, I called pulmonary medicine and notify them that I would be moving the patient into the unit and they requested that I use Precedex for agitation. - Physical Exam General: Alert, Well developed, Confused HEENT: Atraumatic, PERRLA, EOMI, Normocephalic Oral: Moist Mucosa Neck: Supple, Trachea Midline, Thyroid Normal Size and Texture Lungs: Clear to auscultation, Normal air movement, No rhonchi, No wheeze, No rales Cardiovascular: Regular rate, Regular Rhythm, Normal S1, Normal S2, No murmurs, No Ectopic Activity, PMI Normal, No rub noted, No Gallop Abdomen: Bowel Sounds Present, Soft, Non Tender, Non-Distended, No Hepato- splenomegaly Extremities: No clubbing, No cyanosis, No edema Skin: No rashes, No breakdown Musculoskeletal: No Tenderness to Palpation of Joints or Extremities Lymphatic: No Cervical, Supraclavicular, or Inguinal Adenopathy Neurological: Cranial nerves II-XII grossly intact, Neuro grossly intact, Sensory exam intact to light touch and pain Psych/Mental Status: Agitated, Anxious, Impulsive, Irrational Behavior Vital Signs Temp Pulse Resp BP Pulse Ox 98.9 F 105 H 18 149/94 H 95 10/10/18 18:00 10/10/18 18:00 10/10/18 18:00 10/10/18 18:00 10/10/18 18:00 Oxygen Delivery Method Room Air Weight: 68.1 kg Body Mass Index (BMI) 21.5 Intake and Output for Last 24 Hours 10/08/18 10/09/18 10/10/18 23:59 23:59 23:59 Intake Total 100 / 100 2883 / 2883 Output Total 1225 / 1225 Balance 100 / 100 1658 / 1658 Laboratory Tests Past 24 Hrs 10/09/18 10/09/18 10/10/18 16:44 16:44 06:40 WBC 1.8 L RBC 3.39 L Hgb 11.6 L Hct 33.9 L MCV 100.0 H MCH 34.2 H MCHC 34.2 RDW 13.9 RDW Differential 50.8 H Plt Count 62 L MPV 9.8 Immature Gran % (Auto) 0.000 Neut % (Auto) 44.0 L Lymph % (Auto) 27.5 [place] % (Auto) 25.8 H Eos % (Auto) 1.6 Baso % (Auto) 1.1 H Absolute Neuts (auto) 0.8 L Absolute Lymphs (auto) 0.50 L Total Counted Not Reportable Sodium Potassium Chloride Carbon Dioxide Anion Gap BUN Creatinine Estim Creat Clear Calc Est GFR (MDRD) Af Amer Est GFR (MDRD) Non-Af BUN/Creatinine Ratio Glucose Calcium Magnesium 1.0 L Ethyl Alcohol 337.0 H* 10/10/18 06:40 WBC RBC Hgb Hct MCV MCH MCHC RDW RDW Differential Plt Count MPV Immature Gran % (Auto) Neut % (Auto) Lymph % (Auto) [place] % (Auto) Eos % (Auto) Baso % (Auto) Absolute Neuts (auto) Absolute Lymphs (auto) Total Counted Sodium 133 L Potassium 3.6 Chloride 91 L Carbon Dioxide 32.0 Anion Gap 10 BUN 6 L Creatinine 0.67 L Estim Creat Clear Calc 145.40 Est GFR (MDRD) Af Amer 171 Est GFR (MDRD) Non-Af 141 BUN/Creatinine Ratio 8.9 L Glucose 111 H Calcium 8.3 L Magnesium Ethyl Alcohol Medical Necessity - Tobacco Use Smoking Status: Current every day smoker Tobacco Use: Non-smoker Assessment/Plan All Active Problems (Last Updated 06/21/18 @ 02:20 by Corey Cleaning MD) Alcohol withdrawal seizure (Acute) Acute hepatitis (Acute) #1 acute alcohol withdrawal-patient will be moved to the ICU, I notified pulmonary medicine of the admission and they will be consulted tomorrow. I also had a lengthy conversation with the patient's mother concerning his alcoholism. I also recommended that she go to an AA meeting to talk with other people for support. Patient's mother had been to an [facility] meeting but she states that all of the people they are were recovering narcotic addict and not alcoholics. #2 acute alcoholic hepatitis-patient will have a repeat liver profile drawn in the morning #3 neutropenia-secondary to alcoholism, patient will have a CBC drawn in the m orning #4 chronic alcoholism Code Visit Inpatient E&M: 00525 Subs Hosp L3
--- NOTE | 2018-10-10 20:30 | NURSING ---
PT transferred to ICU with Ann PEDIATRIC CARDIOLOGIST, Report given to Hellen HRIS COORDINATOR.
[2018-10-10] MEDS: cloNIDine HCl 0.1 MG Tablet PO ×2 (20:45→21:21)
--- NOTE | 2018-10-10 20:45 | NURSING ---
Patient received as transfer from [facility] 2 for alcohol withdrawal and initiation of precedex drip. patient agitated and wanting to leave the hospital. patient is oriented to place, month, and year but is unsure of the date. Precedex drip started. Blood pressure manual 178/118 when received from [facility], medicated with clonidine scheduled for 0.
[2018-10-11] VITALS (30 sets, daily range): BP systolic 88–175; BP diastolic 53–124; PULSE 89–108; RESP 14–33; TEMP 36.7–37; O2SAT 93–99
[2018-10-11] MEDS: 0.9% NaCl Peripheral Flush Adult/Peds IV ×10 (00:03→10:16)
[2018-10-11] MEDS: Labetalol 20 MG/4 ML Vial 10 MG IV (00:03)
[2018-10-11] MEDS: Labetalol 20 MG/4 ML Vial IV ×2 (01:00→05:05)
[2018-10-11 04:12] LABS: Absolute Neutrophil Count 0.8 X10^3/uL (2.0-7.7); Basophil# 0.03 X10^3/uL; Basophil% 1.5 % (0-1); Eosinophil# 0.05 X10^3/uL; Eosinophils% 2.5 % (0-5); Hematocrit 34.6 % (40-54); Hemoglobin 12.2 g/dl (13.0-16.5); Lymphocyte % 40.2 % (19-41); Mean Corp Hgb Conc 35.3 g/gl (32-36); Mean Corpuscular Volume 102.1 fL (80-94); Mean Platelet Vol. 10.4 fl (6.2-12.0); Monocyte# 0.33 X10^3/uL; Monocyte% 16.6 % (0-10); Neutrophil # 0.77 X10^3/uL (2.7-7.7); Neutrophil % 38.7 % (47-70); Platelet Count 59 K/mm3 (150-450); RBC Distribution Width CV 12.8 % (11.6-14.6); RBC Distribution Width SD 46.4 fl (35.1-43.9); Red Blood Count 3.39 M/mm3 (4.6-6.2)
[2018-10-11 04:13] LABS: Differential Indicated SCAN CRITERIA MET; POSITIVE COUNT NO; POSITIVE DIFFERENTIAL YES; POSITIVE MORPHOLOGY NO
[2018-10-11 04:16] LABS: Prothrombin Time (Protime)PT. 12.7 SECONDS (11.7-14.9)
[2018-10-11 04:30] LABS: ALB/GLOB Ratio 0.9 RATIO (0.9-2.4); AST(SGOT) 302 U/L (15-37); Alanine Aminotransfer ALT/SGPT 118 U/L (16-61); Albumin, Serum 3.9 g/dL (3.2-5.0); Alkaline Phosphatase 155 U/L (45-117); Anion Gap 12 (5-15); BUN 6 mg/dL (7-18); BUN/Creat Ratio 7.8 RATIO (10-20); Calcium,Total 8.9 mg/dL (8.5-10.1); Chloride 98 mmol/L (98-107); Creatinine, Serum 0.76 mg/dL (0.70-1.30); EST Glomerular Filtration Rate 121 mL/min (>60); Est Glom Filt Rate - Afr Amer 147 mL/min (>60); Estimated Creatinine Clearance 128.19 ml/min; Globulin 4.5 g/dL (2.2-4.2); Glucose 124 mg/dL (74-106); Magnesium 1.7 mg/dL (1.6-2.6); Phosphorus 2.6 mg/dL (2.5-4.9); Potassium 3.4 mmol/L (3.5-5.1); Protein, Total 8.4 g/dL (6.4-8.2); Sodium Level 140 mmol/L (136-145)
[2018-10-11 04:31] LABS: Bedside Glucose 136 mg/dL (70-110)
[2018-10-11] MEDS: cloNIDine HCl 0.1 MG Tablet 0.2 MG PO (04:32)
[2018-10-11] MEDS: CHLORHEXIDINE GLUC 2% CLOTH 1 EACH TOWELETTE TOPICAL (04:34)
--- NOTE | 2018-10-11 06:43 | CON.PCM_ITS ---
Reason for Consult Date of Consultation: 10/11/18 Reason for Consultation: Acute alcohol withdrawal History of Present Illness: The patient is a 38-year-old male, with a history as outlined below, who presented to the emergency department on October 09 for acute alcohol withdrawal. His last drink was reportedly 2 hours prior to his admission. The patient has a history of chronic alcohol dependence, drinking on average 1 L of vodka daily, since the age of [age] years old. He has experienced generalized tonic-clonic seizure activity as a consequence of alcohol withdrawal. The patient was last admitted to the hospital in June 2018, under similar circumstances. The patient also reportedly purchases Suboxone illicitly off the street. On presentation to the emergency department, the patient was noted to be afebrile, tachycardic and hypertensive. Laboratory evaluation revealed evidence of pancytopenia. Chemistry profile was notable for a total bilirubin of 2, AST of 538, ALT of 156 and alkaline phosphatase level of 178. Patient had a serum ethyl alcohol level of 337. The patient was initially admitted to the medical surgical floor for management of his alcohol withdrawal symptoms. However, on the evening of October 10, despite a Librium withdrawal protocol, the patient required transferred to the intensive care unit for further escalation in his medication regimen due to refractory withdrawal symptoms. He was subsequently placed on a Precedex continuous infusion. Past Medical History Medical History: Medical History (Last Updated 06/21/18 @ 02:20 by Corey Cleaning MD) Hypertension I10 Allergies No Known Allergies Allergy (Verified 07/24/18 17:08) Home Medications: Ambulatory Orders Medication Instructions Recorded Carvedilol [Coreg (Beta Nieves)] 3.125 mg PO BID #30 tab 06/29/18 Multivitamin [Animal Shapes] 1 each PO DAILY 07/24/18 Surgical History: no surgical history Psychiatric History: No pertinent psych hx Lives: With Family Smoking Status: Current every day smoker Tobacco Use: Non-smoker Alcohol: Heavy - drinks a fifth of vodka daily. Drugs: None - *Family History Maternal History Items: No pertinent history Paternal History Items: No pertinent history Review of Systems Unable to obtain accurate/complete ROS d/t: Due to confusional state related to acute alcohol withdrawal. Objective: The patient's most recent lab work, culture data and imaging studies have all b een personally reviewed. - Physical Exam General: Alert, Confused, - - Agitated and restless. HEENT: Atraumatic, PERRLA, Normocephalic Oral: Dry Mucosa Neck: Supple, No Nodes, Trachea Midline Lungs: Normal air movement, No rhonchi, No wheeze, No rales Cardiovascular: Normal S1, Normal S2, No murmurs, Tachycardic Abdomen: Bowel Sounds Present, Soft, Non Tender, Non-Distended Extremities: No clubbing, No cyanosis, No edema Skin: No breakdown Musculoskeletal: No Tenderness to Palpation of Joints or Extremities Lymphatic: No Cervical, Supraclavicular, or Inguinal Adenopathy Neurological: Cranial nerves II-XII grossly intact, Neuro grossly intact, - Psych/Mental Status: Agitated, Anxious, Impulsive, Restless Vital Signs Temp Pulse Resp BP Pulse Ox 36.8 C 95 18 141/108 H 98 10/11/18 04:00 10/11/18 06:03 10/11/18 06:03 10/11/18 06:03 10/11/18 06:03 Oxygen Delivery Method Room Air Weight: 146 lb 2.664 oz Body Mass Index (BMI) 21.5 Intake and Output for Last 24 Hours 10/09/18 10/10/18 10/11/18 23:59 23:59 23:59 Intake Total 100 / 100 2883 / 2883 462.5 / 462.5 Output Total 1225 / 1225 1700 / 1700 Balance 100 / 100 1658 / 1658 -1237.5 / -1237.5 Laboratory Tests Past 24 Hrs 10/10/18 10/10/18 10/11/18 06:40 06:40 04:00 WBC 1.8 L 2.0 L RBC 3.39 L 3.39 L Hgb 11.6 L 12.2 L Hct 33.9 L 34.6 L MCV 100.0 H 102.1 H MCH 34.2 H 36.0 H MCHC 34.2 35.3 RDW 13.9 12.8 RDW Differential 50.8 H 46.4 H Plt Count 62 L 59 L MPV 9.8 10.4 Immature Gran % (Auto) 0.000 0.500 Neut % (Auto) 44.0 L 38.7 L Lymph % (Auto) 27.5 40.2 [place] % (Auto) 25.8 H 16.6 H Eos % (Auto) 1.6 2.5 Baso % (Auto) 1.1 H 1.5 H Absolute Neuts (auto) 0.8 L 0.8 L Absolute Lymphs (auto) 0.50 L 0.80 L Total Counted Not Reportable Not Reportable PT INR Sodium 133 L Potassium 3.6 Chloride 91 L Carbon Dioxide 32.0 Anion Gap 10 BUN 6 L Creatinine 0.67 L Estim Creat Clear Calc 145.40 Est GFR (MDRD) Af Amer 171 Est GFR (MDRD) Non-Af 141 BUN/Creatinine Ratio 8.9 L Glucose 111 H Calcium 8.3 L Phosphorus Magnesium Total Bilirubin AST ALT Alkaline Phosphatase Total Protein Albumin Globulin Albumin/Globulin Ratio 10/11/18 10/11/18 04:00 04:00 WBC RBC Hgb Hct MCV MCH MCHC RDW RDW Differential Plt Count MPV Immature Gran % (Auto) Neut % (Auto) Lymph % (Auto) [place] % (Auto) Eos % (Auto) Baso % (Auto) Absolute Neuts (auto) Absolute Lymphs (auto) Total Counted PT 12.7 INR 1.0 Sodium 140 Potassium 3.4 L Chloride 98 Carbon Dioxide 30.0 Anion Gap 12 BUN 6 L Creatinine 0.76 Estim Creat Clear Calc 128.19 Est GFR (MDRD) Af Amer 147 Est GFR (MDRD) Non-Af 121 BUN/Creatinine Ratio 7.8 L Glucose 124 H Calcium 8.9 Phosphorus 2.6 Magnesium 1.7 Total Bilirubin 4.30 H AST 302 H ALT 118 H Alkaline Phosphatase 155 H Total Protein 8.4 H Albumin 3.9 Globulin 4.5 H Albumin/Globulin Ratio 0.9 POC Glucose 10/11/18 04:26 POC Glucose 136 H Assessment/Plan RECOMMENDATIONS: 1. The patient's Precedex dose will be increased to a ceiling of 1.6 with a goal to maintain a RASS of -2 to 0. 2. Scheduled Ativan, along with PRN doses will also be started. 3. Discontinue clonidine. 4. Continue thiamine and folate repletion. 5. Continue seizure precautions 6. Aggressive electrolyte repletion 7. Labetalol as needed for elevated blood pressure parameters 8. Continue nicotine replacement therapy. 9. If the patient's withdrawal symptoms are refractory to the use of Precedex/Ativan, will consider initiation of phenobarbital. IMPRESSIONS: 1. Acute alcohol withdrawal The patient has an extensive alcohol dependence history and was admitted to the hospital with acute alcohol withdrawal symptoms. The patient does have a history of having experienced alcohol withdrawal seizures. Due to significant withdrawal symptoms, which were refractory to the use of Librium and Ativan, the patient was transferred to the intensive care unit for the initiation of a continuous Precedex infusion. The patient's Precedex will be continued. Scheduled and as needed Ativan will also be continued. If the patient's withdrawal symptoms are refractory to the aforementioned, consideration will be given to the initiation of phenobarbital. Thiamine and folate repletion will be continued. Seizure precautions will be continued. 2. Pancytopenia Likely related to prolonged alcohol dependence. We will continue to monitor. There is no indication for transfusion at this time. 3. Hepatitis Secondary to long-standing alcohol abuse history in conjunction with fatty liver disease. Prior hepatitis panel in June 2018 was negative. 4. Hypokalemia Aggressive electrolyte repletion to be undertaken. Continuous monitoring of electrolyte abnormalities is crucial, as the patient is at high risk for refeeding syndrome. 5. Personal history of tobacco dependence/baseline hypertension Complicates care, management, recovery and prognosis. Continue nicotine replacement therapy as ordered. Continue labetalol as needed for elevated blood pressure parameters. This note was generated with [employer] dictation software. It may contain incorrect words, spelling, and punctuation that were not noted in checking the note before signing. Code Visit Inpatient E&M: 11704 Init Hosp L3
[2018-10-11] MEDS: 0.9% NaCl IVPB Med Flush (250 mL) 15 ML IV ×2 (07:14→07:18)
--- NOTE | 2018-10-11 07:40 | NURSING ---
pt trying to get OOB, stating I'm going out for a smoke, I quit this program, I'm not in the hospital, I'm at home, you can't make me stay, put me in a wheelchair and push me out, I don't have to walk, you're not restraining me. attempt to redirect pt unsuccessful. Pt w/severe ataxia and unable to safely be OOB. repositioned in bed w/assist x3. Dr. Beauchamp present in pt room. Ativan 4mg IV given 0743. 0753 pt restful, respers even/easy, eyes closed.
[2018-10-11] MEDS: LORazepam 2 MG/ML Syringe 4 MG IV (07:43)
[2018-10-11 08:59] LABS: Vitamin B12 776 pg/mL (211-911)
[2018-10-11] MEDS: LORazepam 2 MG/ML Syringe IV (10:15)
[2018-10-11 10:18] LABS: Pathologist Review Reviewed
[2018-10-11] MEDS: Phenobarbital Sodium 130 MG/ML Vial IM (11:28)
[2018-10-11] MEDS: Multivitamins,Therapeutic Tablet 1 TABLET PO (16:05)
[2018-10-11] MEDS: Thiamine Hydrochloride 100 MG Tablet PO (16:05)
[2018-10-11] MEDS: Folic Acid 1 MG Tablet PO (16:05)
--- NOTE | 2018-10-11 17:42 | PCM.PROGNOTE ---
Subjective: Patient was seen and examined today, he appears calm on a Precedex drip, he is able to talk with me but is a poor informant. He remains confused. Bilirubin remains elevated more so today, patient has pancytopenia with a low platelet count, slight anemia, and neutropenia today. Patient's B12 level was normal - Physical Exam General: Cooperative, No apparent distress, Well developed, Confused, Lethargic HEENT: Atraumatic, PERRLA, EOMI, Normocephalic Oral: Moist Mucosa Neck: Supple, No JVD, Negative Carotid Bruits Lungs: Clear to auscultation, Normal air movement, No rhonchi, No wheeze, No rales Cardiovascular: Regular rate, Regular Rhythm, Normal S1, Normal S2, No murmurs, No Ectopic Activity, Tachycardic Abdomen: Bowel Sounds Present, Soft, Non Tender, Non-Distended, No hernias noted Extremities: No clubbing, No cyanosis, No edema, Capillary Refill Less than 3 Seconds Skin: No rashes, No breakdown Musculoskeletal: No Tenderness to Palpation of Joints or Extremities Neurological: Cranial nerves II-XII grossly intact, Neuro grossly intact, Sensory exam intact to light touch and pain Psych/Mental Status: Flat Affect, - - Patient is lethargic, he is confused Vital Signs Temp Pulse Resp BP Pulse Ox 98.6 F 95 23 H 124/88 H 97 10/11/18 12:00 10/11/18 13:00 10/11/18 13:00 10/11/18 13:00 10/11/18 16:04 Oxygen Delivery Method Room Air Weight: 66.3 kg Body Mass Index (BMI) 21.5 Intake and Output for Last 24 Hours 10/09/18 10/10/18 10/11/18 23:59 23:59 23:59 Intake Total 100 / 100 2883 / 2883 1648.5 / 1648.5 Output Total 1225 / 1225 2700 / 2700 Balance 100 / 100 1658 / 1658 -1051.5 / -1051.5 Laboratory Tests Past 24 Hrs 10/09/18 10/11/18 10/11/18 16:44 04:00 04:00 WBC 2.0 L RBC 3.39 L Hgb 12.2 L Hct 34.6 L MCV 102.1 H MCH 36.0 H MCHC 35.3 RDW 12.8 RDW Differential 46.4 H Plt Count 59 L MPV 10.4 Immature Gran % (Auto) 0.500 Neut % (Auto) 38.7 L Lymph % (Auto) 40.2 [place] % (Auto) 16.6 H Eos % (Auto) 2.5 Baso % (Auto) 1.5 H Absolute Neuts (auto) 0.8 L Absolute Lymphs (auto) 0.80 L Total Counted Not Reportable Diff Path Review Reviewed PT 12.7 INR 1.0 Sodium Potassium Chloride Carbon Dioxide Anion Gap BUN Creatinine Estim Creat Clear Calc Est GFR (MDRD) Af Amer Est GFR (MDRD) Non-Af BUN/Creatinine Ratio Glucose Calcium Phosphorus Magnesium Total Bilirubin AST ALT Alkaline Phosphatase Total Protein Albumin Globulin Albumin/Globulin Ratio Vitamin B12 10/11/18 10/11/18 04:00 04:00 WBC RBC Hgb Hct MCV MCH MCHC RDW RDW Differential Plt Count MPV Immature Gran % (Auto) Neut % (Auto) Lymph % (Auto) [place] % (Auto) Eos % (Auto) Baso % (Auto) Absolute Neuts (auto) Absolute Lymphs (auto) Total Counted Diff Path Review PT INR Sodium 140 Potassium 3.4 L Chloride 98 Carbon Dioxide 30.0 Anion Gap 12 BUN 6 L Creatinine 0.76 Estim Creat Clear Calc 128.19 Est GFR (MDRD) Af Amer 147 Est GFR (MDRD) Non-Af 121 BUN/Creatinine Ratio 7.8 L Glucose 124 H Calcium 8.9 Phosphorus 2.6 Magnesium 1.7 Total Bilirubin 4.30 H AST 302 H ALT 118 H Alkaline Phosphatase 155 H Total Protein 8.4 H Albumin 3.9 Globulin 4.5 H Albumin/Globulin Ratio 0.9 Vitamin B12 776 POC Glucose 10/11/18 04:26 POC Glucose 136 H Medical Necessity - Tobacco Use Smoking Status: Current every day smoker Tobacco Use: Non-smoker Assessment/Plan All Active Problems (Last Updated 06/21/18 @ 02:20 by Corey Cleaning MD) Alcohol withdrawal seizure (Acute) Acute hepatitis (Acute) #1 acute alcohol withdrawal-patient remains on Precedex at this time, he will remain in the ICU #2 acute alcoholic hepatitis-patient will have a repeat liver profile drawn in the morning #3 Pancytopenia-secondary to alcoholism, patient will have a CBC drawn in the morning #4 chronic alcoholism Code Visit Inpatient E&M: 40664 Subs Hosp L2
[2018-10-12] VITALS (30 sets, daily range): BP systolic 111–167; BP diastolic 73–110; PULSE 79–126; RESP 14–24; TEMP 36.7–37.2; O2SAT 88–100
[2018-10-12] MEDS: 0.9% Normal Saline 1,000 ML 999 ML IV (00:25)
[2018-10-12] MEDS: 0.9% Normal Saline 1,000 ML 150 ML IV (01:29)
[2018-10-12 04:26] LABS: Absolute Lymphocyte Count 0.95 X10^3/ul (0.83-4.51); Absolute Neutrophil Count 1.5 X10^3/uL (2.0-7.7); Basophil# 0.04 X10^3/uL; Basophil% 1.2 % (0-1); Eosinophil# 0.06 X10^3/uL; Eosinophils% 1.9 % (0-5); Hematocrit 32.7 % (40-54); Hemoglobin 11.2 g/dl (13.0-16.5); Lymphocyte # 0.95 X10^3/ul (4.0); Lymphocyte % 29.6 % (19-41); Mean Corp Hgb Conc 34.3 g/gl (32-36); Mean Corpuscular Hgb 35.9 pg (27.0-32.0); Mean Corpuscular Volume 104.8 fL (80-94); Mean Platelet Vol. 11.3 fl (6.2-12.0); Monocyte# 0.63 X10^3/uL; Monocyte% 19.6 % (0-10); Neutrophil # 1.52 X10^3/uL (2.7-7.7); Neutrophil % 47.4 % (47-70); Platelet Count 64 K/mm3 (150-450); RBC Distribution Width SD 47.5 fl (35.1-43.9); Red Blood Count 3.12 M/mm3 (4.6-6.2); White Blood Count 3.2 K/mm3 (4.4-11.0)
[2018-10-12 04:29] LABS: POSITIVE COUNT NO; POSITIVE DIFFERENTIAL NO; POSITIVE MORPHOLOGY NO
[2018-10-12 05:06] LABS: ALB/GLOB Ratio 0.8 RATIO (0.9-2.4); AST(SGOT) 202 U/L (15-37); Alanine Aminotransfer ALT/SGPT 88 U/L (16-61); Albumin, Serum 3.3 g/dL (3.2-5.0); Alkaline Phosphatase 127 U/L (45-117); Anion Gap 10 (5-15); BUN 16 mg/dL (7-18); BUN/Creat Ratio 13.4 RATIO (10-20); Calcium,Total 8.8 mg/dL (8.5-10.1); Chloride 102 mmol/L (98-107); Creatinine, Serum 1.19 mg/dL (0.70-1.30); EST Glomerular Filtration Rate 73 mL/min (>60); Est Glom Filt Rate - Afr Amer 88 mL/min (>60); Globulin 3.9 g/dL (2.2-4.2); Glucose 109 mg/dL (74-106); Potassium 4.1 mmol/L (3.5-5.1); Protein, Total 7.2 g/dL (6.4-8.2); Sodium Level 139 mmol/L (136-145)
--- NOTE | 2018-10-12 06:49 | PCM.PN.INT ---
Subjective: The patient was seen and examined at the bedside this morning. Events from the last 24 hours have been reviewed. The patient is currently afebrile, hemodynamically stable and maintaining appropriate oxygen saturations on room air. The patient has done well from a withdrawal symptom standpoint, after he was transitioned from Precedex to phenobarbital yesterday. He has been much more restful with improved CIWA scores. Despite the aforementioned, the patient remains tremulous and has difficulty with ambulation. He is alert and oriented. He does report that he is interested in leaving the hospital AGAINST MEDICAL ADVICE. Objective: The patient's most recent lab work, culture data and imaging studies have all been personally reviewed. General: Alert, - - More cooperative and less agitated than previous. HEENT: Atraumatic, PERRLA, Normocephalic Oral: No Gingival or Mucosal Lesions/ Ulcerations Neck: Supple, No Nodes, Trachea Midline Lungs: Normal air movement, No rhonchi, No wheeze, No rales Cardiovascular: Normal S1, Normal S2, No murmurs, Tachycardic Abdomen: Bowel Sounds Present, Soft, Non Tender Extremities: No clubbing, No cyanosis, No edema Skin: No breakdown Musculoskeletal: No Tenderness to Palpation of Joints or Extremities Lymphatic: No Cervical, Supraclavicular, or Inguinal Adenopathy Neurological: Cranial nerves II-XII grossly intact, Neuro grossly intact, - - Tremulous at rest Psych/Mental Status: Anxious, Impulsive Vital Signs Temp Pulse Resp BP Pulse Ox 37.2 C 101 H 14 143/98 H 97 10/12/18 04:00 10/12/18 06:00 10/12/18 06:00 10/12/18 06:00 10/12/18 06:00 Oxygen Delivery Method Room Air Weight: 144 lb 9.972 oz Body Mass Index (BMI) 21.5 Intake and Output for Last 24 Hours 10/10/18 10/11/18 10/12/18 23:59 23:59 23:59 Intake Total 2883 / 2883 1648.5 / 1648.5 2570 / 2570 Output Total 1225 / 1225 2700 / 2700 275 / 275 Balance 1658 / 1658 -1051.5 / -1051.5 2295 / 2295 Labs (Last 48 Hours) 10/09/18 10/10/18 10/10/18 16:44 06:40 06:40 WBC 1.8 L RBC 3.39 L Hgb 11.6 L Hct 33.9 L MCV 100.0 H MCH 34.2 H MCHC 34.2 RDW 13.9 RDW Differential 50.8 H Plt Count 62 L MPV 9.8 Immature Gran % (Auto) 0.000 Neut % (Auto) 44.0 L Lymph % (Auto) 27.5 [place] % (Auto) 25.8 H Eos % (Auto) 1.6 Baso % (Auto) 1.1 H Absolute Neuts (auto) 0.8 L Absolute Lymphs (auto) 0.50 L Total Counted Not Reportable Diff Path Review Reviewed PT INR Sodium 133 L Potassium 3.6 Chloride 91 L Carbon Dioxide 32.0 Anion Gap 10 BUN 6 L Creatinine 0.67 L Estim Creat Clear Calc 145.40 Est GFR (MDRD) Af Amer 171 Est GFR (MDRD) Non-Af 141 BUN/Creatinine Ratio 8.9 L Glucose 111 H Calcium 8.3 L Phosphorus Magnesium Total Bilirubin AST ALT Alkaline Phosphatase Total Protein Albumin Globulin Albumin/Globulin Ratio Vitamin B12 POC Glucose 10/11/18 10/11/18 10/11/18 04:00 04:00 04:00 WBC 2.0 L RBC 3.39 L Hgb 12.2 L Hct 34.6 L MCV 102.1 H MCH 36.0 H MCHC 35.3 RDW 12.8 RDW Differential 46.4 H Plt Count 59 L MPV 10.4 Immature Gran % (Auto) 0.500 Neut % (Auto) 38.7 L Lymph % (Auto) 40.2 [place] % (Auto) 16.6 H Eos % (Auto) 2.5 Baso % (Auto) 1.5 H Absolute Neuts (auto) 0.8 L Absolute Lymphs (auto) 0.80 L Total Counted Not Reportable Diff Path Review PT 12.7 INR 1.0 Sodium 140 Potassium 3.4 L Chloride 98 Carbon Dioxide 30.0 Anion Gap 12 BUN 6 L Creatinine 0.76 Estim Creat Clear Calc 128.19 Est GFR (MDRD) Af Amer 147 Est GFR (MDRD) Non-Af 121 BUN/Creatinine Ratio 7.8 L Glucose 124 H Calcium 8.9 Phosphorus 2.6 Magnesium 1.7 Total Bilirubin 4.30 H AST 302 H ALT 118 H Alkaline Phosphatase 155 H Total Protein 8.4 H Albumin 3.9 Globulin 4.5 H Albumin/Globulin Ratio 0.9 Vitamin B12 POC Glucose 10/11/18 10/11/18 10/12/18 04:00 04:26 04:15 WBC 3.2 L RBC 3.12 L Hgb 11.2 L Hct 32.7 L MCV 104.8 H MCH 35.9 H MCHC 34.3 RDW 13.0 RDW Differential 47.5 H Plt Count 64 L MPV 11.3 Immature Gran % (Auto) 0.300 Neut % (Auto) 47.4 Lymph % (Auto) 29.6 [place] % (Auto) 19.6 H Eos % (Auto) 1.9 Baso % (Auto) 1.2 H Absolute Neuts (auto) 1.5 L Absolute Lymphs (auto) 0.95 Total Counted Not Reportable Diff Path Review PT INR Sodium Potassium Chloride Carbon Dioxide Anion Gap BUN Creatinine Estim Creat Clear Calc Est GFR (MDRD) Af Amer Est GFR (MDRD) Non-Af BUN/Creatinine Ratio Glucose Calcium Phosphorus Magnesium Total Bilirubin AST ALT Alkaline Phosphatase Total Protein Albumin Globulin Albumin/Globulin Ratio Vitamin B12 776 POC Glucose 136 H 10/12/18 04:15 WBC RBC Hgb Hct MCV MCH MCHC RDW RDW Differential Plt Count MPV Immature Gran % (Auto) Neut % (Auto) Lymph % (Auto) [place] % (Auto) Eos % (Auto) Baso % (Auto) Absolute Neuts (auto) Absolute Lymphs (auto) Total Counted Diff Path Review PT INR Sodium 139 Potassium 4.1 Chloride 102 Carbon Dioxide 27.0 Anion Gap 10 BUN 16 Creatinine 1.19 Estim Creat Clear Calc 79.70 Est GFR (MDRD) Af Amer 88 Est GFR (MDRD) Non-Af 73 BUN/Creatinine Ratio 13.4 Glucose 109 H Calcium 8.8 Phosphorus Magnesium Total Bilirubin 4.10 H AST 202 H ALT 88 H Alkaline Phosphatase 127 H Total Protein 7.2 Albumin 3.3 Globulin 3.9 Albumin/Globulin Ratio 0.8 L Vitamin B12 POC Glucose Medical Necessity - Tobacco Use Smoking Status: Current every day smoker Tobacco Use: Non-smoker Assessment/Plan All Active Problems (Last Updated 06/21/18 @ 02:20 by Corey Cleaning MD) Alcohol withdrawal seizure (Acute) Acute hepatitis (Acute) RECOMMENDATIONS: 1. Continue phenobarbital for alcohol withdrawal symptoms as ordered. 2. Continue thiamine and folate repletion. 3. Start D5 half-normal saline, given poor p.o. intake and to offset insensible losses. 4. Close monitoring of electrolytes. 5. Continue seizure precautions 6. Labetalol as needed for elevated blood pressure parameters 7. Continue nicotine replacement therapy. IMPRESSIONS: 1. Acute alcohol withdrawal The patient has an extensive alcohol dependence history and was admitted to the hospital with acute alcohol withdrawal symptoms. The patient does have a history of having experienced alcohol withdrawal seizures. Due to significant withdrawal symptoms, which were refractory to the use of Librium and Ativan, the patient was transferred to the intensive care unit for the initiation of a continuous Precedex infusion. However, despite the use of Precedex, the patient remains significantly symptomatic. Therefore, on October 11, he was transitioned to phenobarbital for his alcohol withdrawal symptoms. He is now under much better control with improved CIWA scores. Thiamine and folate repletion will be continued. Seizure precautions will be continued. 2. Pancytopenia Likely related to prolonged alcohol dependence. We will continue to monitor. There is no indication for transfusion at this time. 3. Hepatitis Secondary to long-standing alcohol abuse history in conjunction with fatty liver disease. Prior hepatitis panel in June 2018 was negative. 4. Personal history of tobacco dependence/baseline hypertension Complicates care, management, recovery and prognosis. Continue nicotine replacement therapy as ordered. Continue labetalol as needed for elevated blood pressure parameters. This note was generated with [employer] dictation software. It may contain incorrect words, spelling, and punctuation that were not noted in checking the note before signing. Code Visit Inpatient E&M: 76127 [facility] Hosp L3
[2018-10-12] MEDS: Folic Acid 1 MG Tablet PO (07:59)
[2018-10-12] MEDS: Multivitamins,Therapeutic Tablet 1 TABLET PO (07:59)
[2018-10-12] MEDS: Thiamine Hydrochloride 100 MG Tablet PO (08:00)
[2018-10-12] MEDS: Dext 5%-0.45% NS 1,000 ML 150 ML IV ×3 (08:15→21:21)
--- NOTE | 2018-10-12 10:37 | CASEMGMT ---
Janis Dao from [facility] did speak w/pt Monday, and pt at that time wanted to go through detox but did not want any aftercare. As per physician, pt now wants to leave AMA but is struggling to walk. Physician has a meeting w/pt's family at 2pm. SW available as needed. HOMERO Rivas, SENIOR NUCLEAR MEDICINE TECHNOLOGIST
[2018-10-12] MEDS: CHLORHEXIDINE GLUC 2% CLOTH 1 EACH TOWELETTE TOPICAL (10:44)
[2018-10-12] MEDS: Ibuprofen 400 MG Tablet PO (11:46)
[2018-10-12] MEDS: Gabapentin 300 MG Capsule PO (11:47)
--- NOTE | 2018-10-12 17:20 | PN_ITS ---
Subjective: Patient was seen and examined today, he still having some tremors, is also confabulating today stating that his brother will provide him physical therapy. I had a talk with the patient's mother and father by phone today, they did not want to come in to have a discussion in front of the patient with him, they want him to stay in the hospital and continue his detox program and they told me that they would not be in favor of taking him back home unless he goes into alcohol detox as an outpatient and gives up drinking altogether. - Physical Exam General: Alert, Oriented x3, No apparent distress, - - tremor visible, appears nervous HEENT: Atraumatic, PERRLA, EOMI, Normocephalic Oral: Moist Mucosa Neck: Supple, No Nuchal Rigidity, Trachea Midline, Thyroid Normal Size and Texture Lungs: Clear to auscultation, Normal air movement, No rhonchi, No wheeze, No rales Cardiovascular: Regular rate, Regular Rhythm, Normal S1, Normal S2, No murmurs, No Ectopic Activity, PMI Normal, No rub noted, No Gallop Abdomen: Bowel Sounds Present, Soft, Non Tender, Non-Distended Extremities: No clubbing, No cyanosis, No edema, Capillary Refill Less than 3 Seconds Skin: No rashes, No breakdown Musculoskeletal: No Tenderness to Palpation of Joints or Extremities Neurological: Cranial nerves II-XII grossly intact, Neuro grossly intact, Sensory exam intact to light touch and pain, Coordination normal Psych/Mental Status: Anxious, Flat Affect, Restless Vital Signs Temp Pulse Resp BP Pulse Ox 98.5 F 99 17 119/73 100 10/12/18 16:00 10/12/18 16:00 10/12/18 16:00 10/12/18 16:00 10/12/18 16:00 Oxygen Delivery Method Room Air Weight: 65.6 kg Body Mass Index (BMI) 21.5 Intake and Output for Last 24 Hours 10/10/18 10/11/18 10/12/18 23:59 23:59 23:59 Intake Total 2883 / 2883 1648.5 / 1648.5 3540 / 3540 Output Total 1225 / 1225 2700 / 2700 275 / 275 Balance 1658 / 1658 -1051.5 / -1051.5 3265 / 3265 Laboratory Tests Past 24 Hrs 10/12/18 10/12/18 04:15 04:15 WBC 3.2 L RBC 3.12 L Hgb 11.2 L Hct 32.7 L MCV 104.8 H MCH 35.9 H MCHC 34.3 RDW 13.0 RDW Differential 47.5 H Plt Count 64 L MPV 11.3 Immature Gran % (Auto) 0.300 Neut % (Auto) 47.4 Lymph % (Auto) 29.6 [place] % (Auto) 19.6 H Eos % (Auto) 1.9 Baso % (Auto) 1.2 H Absolute Neuts (auto) 1.5 L Absolute Lymphs (auto) 0.95 Total Counted Not Reportable Sodium 139 Potassium 4.1 Chloride 102 Carbon Dioxide 27.0 Anion Gap 10 BUN 16 Creatinine 1.19 Estim Creat Clear Calc 79.70 Est GFR (MDRD) Af Amer 88 Est GFR (MDRD) Non-Af 73 BUN/Creatinine Ratio 13.4 Glucose 109 H Calcium 8.8 Total Bilirubin 4.10 H AST 202 H ALT 88 H Alkaline Phosphatase 127 H Total Protein 7.2 Albumin 3.3 Globulin 3.9 Albumin/Globulin Ratio 0.8 L Medical Necessity - Tobacco Use Smoking Status: Current every day smoker Tobacco Use: Non-smoker Assessment/Plan All Active Problems (Last Updated 06/21/18 @ 02:20 by Corey Cleaning MD) Alcohol withdrawal seizure (Acute) Acute hepatitis (Acute) #1 acute alcohol withdrawal with DTs-patient is receiving phenobarbital per critical care while in the ICU for alcohol withdrawal with DTs, he will remain in the ICU for the time being #2 acute alcoholic hepatitis-patient will have a repeat liver profile drawn in the morning, liver profile was improved today #3 Pancytopenia-secondary to alcoholism, patient will have a CBC drawn in the morning #4 chronic alcoholism Code Visit Inpatient E&M: 81001 Subs Hosp L2
[2018-10-13] VITALS (18 sets, daily range): BP systolic 127–188; BP diastolic 88–118; PULSE 85–136; RESP 14–18; TEMP 37–37.3; O2SAT 98–100
[2018-10-13] MEDS: Labetalol 20 MG/4 ML Vial IV (00:16)
[2018-10-13] MEDS: 0.9% NaCl Peripheral Flush Adult/Peds IV ×2 (00:16→03:46)
[2018-10-13] MEDS: hydrALAZINE 20 MG/ML Vial 10 MG IV (03:46)
[2018-10-13] MEDS: Dext 5%-0.45% NS 1,000 ML 150 ML IV (03:53)
[2018-10-13 03:57] LABS: Absolute Lymphocyte Count 0.71 X10^3/ul (0.83-4.51); Absolute Neutrophil Count 1.2 X10^3/uL (2.0-7.7); Basophil# 0.03 X10^3/uL; Basophil% 1.2 % (0-1); Eosinophil# 0.07 X10^3/uL; Eosinophils% 2.7 % (0-5); Hematocrit 29.8 % (40-54); Hemoglobin 10.2 g/dl (13.0-16.5); Lymphocyte # 0.71 X10^3/ul (4.0); Lymphocyte % 27.6 % (19-41); Mean Corp Hgb Conc 34.2 g/gl (32-36); Mean Corpuscular Volume 105.3 fL (80-94); Mean Platelet Vol. 10.3 fl (6.2-12.0); Monocyte# 0.53 X10^3/uL; Monocyte% 20.6 % (0-10); Neutrophil # 1.22 X10^3/uL (2.7-7.7); Neutrophil % 47.5 % (47-70); Platelet Count 73 K/mm3 (150-450); RBC Distribution Width CV 13.2 % (11.6-14.6); Red Blood Count 2.83 M/mm3 (4.6-6.2); White Blood Count 2.6 K/mm3 (4.4-11.0)
[2018-10-13 04:08] LABS: POSITIVE COUNT NO; POSITIVE DIFFERENTIAL NO; POSITIVE MORPHOLOGY NO
[2018-10-13 04:22] LABS: ALB/GLOB Ratio 0.8 RATIO (0.9-2.4); AST(SGOT) 180 U/L (15-37); Alanine Aminotransfer ALT/SGPT 91 U/L (16-61); Albumin, Serum 3.2 g/dL (3.2-5.0); Alkaline Phosphatase 136 U/L (45-117); Anion Gap 11 (5-15); BUN 10 mg/dL (7-18); BUN/Creat Ratio 12.6 RATIO (10-20); Calcium,Total 8.7 mg/dL (8.5-10.1); Chloride 103 mmol/L (98-107); EST Glomerular Filtration Rate 116 mL/min (>60); Est Glom Filt Rate - Afr Amer 141 mL/min (>60); Estimated Creatinine Clearance 117.31 ml/min; Globulin 3.9 g/dL (2.2-4.2); Glucose 136 mg/dL (74-106); Potassium 3.5 mmol/L (3.5-5.1); Protein, Total 7.1 g/dL (6.4-8.2); Sodium Level 138 mmol/L (136-145)
--- NOTE | 2018-10-13 06:42 | PCM.PROGNOTE ---
Subjective: The patient was seen and examined at the bedside this morning. Events from the last 24 hours have been reviewed. The patient is currently afebrile, hemodynamically stable and maintaining appropriate oxygen saturations on room air. The patient has remained calm overnight. He did receive a one-time dose of hydralazine earlier this morning due to elevated blood pressures. He has not required any as needed phenobarbital. Objective: The patient's most recent lab work, culture data and imaging studies have all been personally reviewed. - Physical Exam General: Alert, Cooperative, No apparent distress HEENT: Atraumatic, PERRLA, Normocephalic Oral: No Gingival or Mucosal Lesions/ Ulcerations Neck: Supple, No Nodes, Trachea Midline Lungs: No rhonchi, No wheeze, No rales, Diminished Cardiovascular: Regular rate, Regular Rhythm, Normal S1, Normal S2, No murmurs Abdomen: Bowel Sounds Present, Soft, Non Tender Extremities: No clubbing, No cyanosis, No edema Skin: No breakdown Musculoskeletal: No Tenderness to Palpation of Joints or Extremities Lymphatic: No Cervical, Supraclavicular, or Inguinal Adenopathy Neurological: Neuro grossly intact Psych/Mental Status: Anxious Vital Signs Temp Pulse Resp BP Pulse Ox 37.1 C 98 14 162/95 H 98 10/13/18 00:00 10/13/18 06:00 10/13/18 06:00 10/13/18 06:00 10/13/18 06:00 Oxygen Delivery Method Room Air Weight: 151 lb 14.376 oz Body Mass Index (BMI) 21.5 Intake and Output for Last 24 Hours 10/11/18 10/12/18 10/13/18 23:59 23:59 23:59 Intake Total 1648.5 / 1648.5 4436 / 4436 2200 / 2200 Output Total 2700 / 2700 425 / 425 1500 / 1500 Balance -1051.5 / -1051.5 4011 / 4011 700 / 700 Laboratory Tests Past 24 Hrs 10/13/18 10/13/18 03:50 03:50 WBC 2.6 L RBC 2.83 L Hgb 10.2 L Hct 29.8 L MCV 105.3 H MCH 36.0 H MCHC 34.2 RDW 13.2 RDW Differential 49.0 H Plt Count 73 L MPV 10.3 Immature Gran % (Auto) 0.400 Neut % (Auto) 47.5 Lymph % (Auto) 27.6 [place] % (Auto) 20.6 H Eos % (Auto) 2.7 Baso % (Auto) 1.2 H Absolute Neuts (auto) 1.2 L Absolute Lymphs (auto) 0.71 L Total Counted Not Reportable Sodium 138 Potassium 3.5 Chloride 103 Carbon Dioxide 24.0 Anion Gap 11 BUN 10 Creatinine 0.80 Estim Creat Clear Calc 117.31 Est GFR (MDRD) Af Amer 141 Est GFR (MDRD) Non-Af 116 BUN/Creatinine Ratio 12.6 Glucose 136 H Calcium 8.7 Total Bilirubin 3.00 H AST 180 H ALT 91 H Alkaline Phosphatase 136 H Total Protein 7.1 Albumin 3.2 Globulin 3.9 Albumin/Globulin Ratio 0.8 L Medical Necessity - Tobacco Use Smoking Status: Current every day smoker Tobacco Use: Non-smoker Assessment/Plan All Active Problems (Last Updated 06/21/18 @ 02:20 by Corey Cleaning MD) Alcohol withdrawal seizure (Acute) Acute hepatitis (Acute) RECOMMENDATIONS: 1. Restart home antihypertensive regimen. 2. Continue thiamine and folate. 3. Continue nicotine replacement therapy. IMPRESSIONS: 1. Acute alcohol withdrawal The patient has an extensive alcohol dependence history and was admitted to the hospital with acute alcohol withdrawal symptoms. The patient does have a history of having experienced alcohol withdrawal seizures. Due to significant withdrawal symptoms, which were refractory to the use of Librium and Ativan, the patient was transferred to the intensive care unit for the initiation of a continuous Precedex infusion. However, despite the use of Precedex, the patient remained significantly symptomatic. Therefore, on October 11, he was transitioned to phenobarbital for his alcohol withdrawal symptoms. Since that time, the patient has symptomatically improved. His symptoms are minimal at this time. 2. Pancytopenia Likely related to prolonged alcohol dependence. We will continue to monitor. There is no indication for transfusion at this time. 3. Hepatitis Secondary to long-standing alcohol abuse history in conjunction with fatty liver disease. Prior hepatitis panel in June 2018 was negative. 4. Personal history of tobacco dependence/baseline hypertension Complicates care, management, recovery and prognosis. Continue nicotine replacement therapy as ordered. Resume home antihypertensive regimen. This note was generated with [employer] software. It may contain incorrect words, spelling, and punctuation that were not noted in checking the note before signing. DISPOSITION: The patient is medically stable for transfer out of the intensive care unit. Given the lack of further ICU/pulmonary needs, will sign off. Please call with any additional questions. Code Visit Inpatient E&M: 54694 Subs Hosp L2
[2018-10-13] MEDS: Thiamine Hydrochloride 100 MG Tablet PO (08:08)
[2018-10-13] MEDS: Multivitamins,Therapeutic Tablet 1 TABLET PO (08:08)
[2018-10-13] MEDS: Carvedilol 6.25 MG Tablet PO ×2 (08:08→11:48)
[2018-10-13] MEDS: Folic Acid 1 MG Tablet PO (08:09)
[2018-10-13] MEDS: CHLORHEXIDINE GLUC 2% CLOTH 1 EACH TOWELETTE TOPICAL (09:00)
--- NOTE | 2018-10-13 11:23 | NURSING ---
Tx to [facility] via w/c
[2018-10-13] MEDS: Gabapentin 300 MG Capsule PO ×2 (12:07→17:17)
--- NOTE | 2018-10-13 12:23 | CASEMGMT ---
Physician spoke w/pt and family, pt is now willing to participate in outpt counseling. SW gave pt information for [facility] here in [place], and for programs in [place](as pt lives in [place]). SW encouraged pt to follow up on Monday. No further needs at this time. HOMERO Rivas, [employer]
--- NOTE | 2018-10-13 14:34 | PCM.PROGNOTE ---
Subjective: Patient was seen and examined today, he seems to be mentally more stable today with less flight of ideas, patient is agreed to going into outpatient alcohol detox program at the present time, I told him I would consider giving him Librium at the time of discharge from the hospital until he is able to go through outpatient alcohol detox program. I also asked him to let his parents know that he is willing to go through the outpatient alcohol detox program. - Physical Exam General: Alert, Oriented x3, Cooperative, No apparent distress, Well developed HEENT: Atraumatic, PERRLA, EOMI, Normocephalic Oral: Moist Mucosa Neck: Supple, Trachea Midline, Thyroid Normal Size and Texture Lungs: Clear to auscultation, Normal air movement, No rhonchi, No wheeze, No rales Cardiovascular: Regular rate, Regular Rhythm, Normal S1, Normal S2, No murmurs, No Ectopic Activity Abdomen: Bowel Sounds Present, Soft, Non Tender, Non-Distended Extremities: No edema, Capillary Refill Less than 3 Seconds Skin: No rashes, No breakdown Musculoskeletal: No Tenderness to Palpation of Joints or Extremities Neurological: Cranial nerves II-XII grossly intact, Neuro grossly intact, Sensory exam intact to light touch and pain, Coordination normal Psych/Mental Status: Normal Affect, Appropriate, Alert and oriented to time, place, person, mood and affect Vital Signs Temp Pulse Resp BP Pulse Ox 99.1 F 100 16 127/88 H 98 10/13/18 14:18 10/13/18 14:18 10/13/18 14:18 10/13/18 14:18 10/13/18 14:18 Oxygen Delivery Method Room Air Weight: 68.9 kg Body Mass Index (BMI) 21.5 Intake and Output for Last 24 Hours 10/11/18 10/12/18 10/13/18 23:59 23:59 23:59 Intake Total 1648.5 / 1648.5 4436 / 4436 3278 / 3278 Output Total 2700 / 2700 425 / 425 2450 / 2450 Balance -1051.5 / -1051.5 4011 / 4011 828 / 828 Laboratory Tests Past 24 Hrs 10/13/18 10/13/18 03:50 03:50 WBC 2.6 L RBC 2.83 L Hgb 10.2 L Hct 29.8 L MCV 105.3 H MCH 36.0 H MCHC 34.2 RDW 13.2 RDW Differential 49.0 H Plt Count 73 L MPV 10.3 Immature Gran % (Auto) 0.400 Neut % (Auto) 47.5 Lymph % (Auto) 27.6 [place] % (Auto) 20.6 H Eos % (Auto) 2.7 Baso % (Auto) 1.2 H Absolute Neuts (auto) 1.2 L Absolute Lymphs (auto) 0.71 L Total Counted Not Reportable Sodium 138 Potassium 3.5 Chloride 103 Carbon Dioxide 24.0 Anion Gap 11 BUN 10 Creatinine 0.80 Estim Creat Clear Calc 117.31 Est GFR (MDRD) Af Amer 141 Est GFR (MDRD) Non-Af 116 BUN/Creatinine Ratio 12.6 Glucose 136 H Calcium 8.7 Total Bilirubin 3.00 H AST 180 H ALT 91 H Alkaline Phosphatase 136 H Total Protein 7.1 Albumin 3.2 Globulin 3.9 Albumin/Globulin Ratio 0.8 L Medical Necessity - Tobacco Use Smoking Status: Current every day smoker Tobacco Use: Non-smoker Assessment/Plan All Active Problems (Last Updated 06/21/18 @ 02:20 by Corey Cleaning MD) Alcohol withdrawal seizure (Acute) Acute hepatitis (Acute) #1 acute alcohol withdrawal with DTs-patient is currently stable, I will transfer him out to the medical floor, I will place him on low-dose Librium 4 times a day, continue PT and OT #2 acute alcoholic hepatitis-patient's liver profile today was improved with a lowering of the total bilirubin and a lowering of the AST. His other liver enzymes-ALT and alkaline phosphatase-however remain elevated. #3 Pancytopenia-secondary to alcoholism-this is not worsened #4 chronic alcoholism #5 hypertension-I have placed the patient back on Coreg at a higher dose than his outpatient dose, I believe that he requires this dosage because of his hypertension Code Visit Inpatient E&M: 03270 Subs Hosp L2
[2018-10-13] MEDS: Carvedilol 12.5 MG Tablet PO (22:41)
[2018-10-13] MEDS: Ibuprofen 400 MG Tablet PO (22:43)
[2018-10-14 03:22] VITALS: BP 158/80; PULSE 79; RESP 16; TEMP 37.1; O2SAT 99
[2018-10-14 07:43] VITALS: BP 160/98; PULSE 94; RESP 16; TEMP 37.2; O2SAT 98
[2018-10-14] MEDS: Multivitamins,Therapeutic Tablet 1 TABLET PO (07:56)
[2018-10-14] MEDS: Gabapentin 300 MG Capsule PO ×2 (07:56→12:17)
[2018-10-14] MEDS: Thiamine Hydrochloride 100 MG Tablet PO (07:56)
[2018-10-14] MEDS: Folic Acid 1 MG Tablet PO (07:56)
[2018-10-14] MEDS: Carvedilol 12.5 MG Tablet PO (09:14)
--- NOTE | 2018-10-14 11:46 | DCINST_ITS ---
You will use the following diet at home:: No restrictions Your food should be the consistency of: Regular Your liquids should be the consistency of: Regular/Thin Discharge Activity: Return to Normal Activity Weight Bearing Status: Full weight bearing Additional Instructions: no alcohol intake, follow up with outpatient alcohol rehab Allergies/Adverse Reactions: Allergies No Known Allergies Allergy (Verified 07/24/18 17:08) Medications to take at Discharge Multivitamin [Animal Shapes] 1 each PO DAILY 07/24/18 Carvedilol [Coreg (Beta Nieves)] 12.5 mg PO BID #60 tab 10/14/18 Chlordiazepoxide [Librium] 10 mg PO 4X/DAY PRN PRN #40 cap 10/14/18 Gabapentin [Neurontin] 300 mg PO TIDCM #90 cap 10/14/18 Ibuprofen [Motrin] 400 mg PO Q4H PRN PRN tablet 10/14/18 Nicotine [Nicoderm Cq] 21 mg TRANSDERM. DAILY #30 patch 10/14/18 The following prescriptions were given: Chlordiazepoxide [Librium] 10 mg PO 4X/DAY PRN PRN #40 cap PRN Reason: Agitation Nicotine [Nicoderm Cq] 21 mg TRANSDERM. DAILY #30 patch Carvedilol [Coreg (Beta Nieves)] 12.5 mg PO BID #60 tab Gabapentin [Neurontin] 300 mg PO TIDCM #90 cap Primary Care Physician: Mario Osborn,Out of [Primary Care Provider] - Please follow up with your Primary Care Physician in: within two weeks Test Results: Test results from this visit will be discussed in further detail at your follow- up appointment, if applicable.
[2018-10-14 12:44] VITALS: BP 128/89; PULSE 99; RESP 16; TEMP 37.3; O2SAT 100
--- NOTE | 2018-10-14 18:34 | PCM.DC.SUM ---
Discharge Date and Diagnosis Date of Admission: 10/09/18 Date of Discharge: 10/14/18 - Primary Discharge Diagnosis #1 acute alcohol withdrawal with DTs #2 acute alcoholic hepatitis #3 Pancytopenia-secondary to alcoholism #4 chronic alcoholism #5 Essential hypertension #6 hypomagnesemia Hospital Course and Treatment Operations: None Procedures: None Summary of Care Provided: The patient is a 38 year old M who was seen and examined in the emergency room at [facility] for alcohol withdrawal. He was brought in by his family and had a history of seizures due to alcohol withdrawal in the past. Patient agreed to be admitted but did not want to go through alcohol detox program. Labs performed in the emergency room reveal an elevated blood alcohol level at 337, patient's liver profile showed an elevated bilirubin, AST, ALT, alkaline phosphatase, and his magnesium was low at 1. CBC showed a low white blood cell count of 2.3, low hemoglobin at 12.6, and a low platelet count at 82. Patient was admitted to [facility], he was placed on Librium and Ativan for withdrawal, patient unfortunately had increasing DTs and had to be transferred into ICU where he was placed on a Precedex drip and seen by pulmonary medicine. Patient was finally released back to the medical surgical floor in stable condition, he agreed with this examiner that he would stop drinking and follow-up with outpatient alcohol detox program, he was given information concerning this program. I had extensive talks with his father and mother who he lives with and they agreed to take the patient back to live with them but stated that if he drank again he would be thrown out of their house. Physical exam on 10/14/18: On examination he appeared alert and oriented, he appeared stable when walking but was a little unsteady.. Vital signs as documented. Skin warm and dry and without overt rashes. Neck without JVD. Lungs clear. Heart exam notable for regular rhythm, normal sounds and absence of murmurs, rubs or gallops. Abdomen unremarkable and without evidence of organomegaly, masses, or abdominal aortic enlargement. Extremities nonedematous. Neurology: Cranial nerves II through XII are grossly intact, no focal motor deficits were noted. Psych: Patient was alert and oriented x3, he did not appear to be depressed or anxious. On 10/14/18, patient was seen and examined and felt to be in stable condition for discharge home with his parents - Physical Exam Vital Signs Temp Pulse Resp BP Pulse Ox 99.1 F 99 16 128/89 H 100 10/14/18 12:44 10/14/18 12:44 10/14/18 12:44 10/14/18 12:44 10/14/18 12:44 Oxygen Delivery Method Room Air Weight: 66.877 kg Body Mass Index (BMI) 21.5 Intake and Output for Last 24 Hours 10/12/18 10/13/18 10/14/18 23:59 23:59 23:59 Intake Total 4436 / 4436 3278 / 3278 500 / 500 Output Total 425 / 425 2450 / 2450 Balance 4011 / 4011 828 / 828 500 / 500 Discharge Activity: Return to Normal Activity Weight Bearing Status: Full weight bearing Home Medications: Medications to take at Discharge Multivitamin [Animal Shapes] 1 each PO DAILY 07/24/18 Carvedilol [Coreg (Beta Nieves)] 12.5 mg PO BID #60 tab 10/14/18 Chlordiazepoxide [Librium] 10 mg PO 4X/DAY PRN PRN #40 cap 10/14/18 Gabapentin [Neurontin] 300 mg PO TIDCM #90 cap 10/14/18 Ibuprofen [Motrin] 400 mg PO Q4H PRN PRN tablet 10/14/18 Nicotine [Nicoderm Cq] 21 mg TRANSDERM. DAILY #30 patch 10/14/18 Following Prescrptions Were Given to Patient: Chlordiazepoxide [Librium] 10 mg PO 4X/DAY PRN PRN #40 cap PRN Reason: Agitation Nicotine [Nicoderm Cq] 21 mg TRANSDERM. DAILY #30 patch Carvedilol [Coreg (Beta Nieves)] 12.5 mg PO BID #60 tab Gabapentin [Neurontin] 300 mg PO TIDCM #90 cap Primary Care Physician: Mario Doctor,Out of [Primary Care Provider] - Please follow up with your Primary Care Physician in: within two weeks Disposition: Home Minutes spent on discharge:: 32 Patient Condition:: Stable Medical Necessity - Tobacco Use Smoking Status: Current every day smoker Tobacco Use: Non-smoker Meaningful Use Info Meaningful Use Diagnoses (Choose all that apply): None applicable Code Visit Inpatient E&M: 49529 Disch Hosp
--- NOTE | 2018-10-14 18:41 | DS.PCM_ITS ---
Discharge Date and Diagnosis Date of Admission: 10/09/18 Date of Discharge: 10/14/18 - Primary Discharge Diagnosis #1 acute alcohol withdrawal with DTs #2 acute alcoholic hepatitis #3 Pancytopenia-secondary to alcoholism #4 chronic alcoholism #5 Essential hypertension #6 hypomagnesemia Hospital Course and Treatment Operations: None Procedures: None Summary of Care Provided: The patient is a 38 year old M who was seen and examined in the emergency room at [facility] for alcohol withdrawal. He was brought in by his family and had a history of seizures due to alcohol withdrawal in the past. Patient agreed to be admitted but did not want to go through alcohol detox program. Labs performed in the emergency room reveal an elevated blood alcohol level at 337, patient's liver profile showed an elevated bilirubin, AST, ALT, alkaline phosphatase, and his magnesium was low at 1. CBC showed a low white blood cell count of 2.3, low hemoglobin at 12.6, and a low platelet count at 82. Patient was admitted to [facility], he was placed on Librium and Ativan for withdrawal, patient unfortunately had increasing DTs and had to be transferred into ICU where he was placed on a Precedex drip and seen by pulmonary medicine. Patient was finally released back to the medical surgical floor in stable condition, he agreed with this examiner that he would stop drinking and follow- up with outpatient alcohol detox program, he was given information concerning this program. I had extensive talks with his father and mother who he lives with and they agreed to take the patient back to live with them but stated that if he drank again he would be thrown out of their house. Physical exam on 10/14/18: On examination he appeared alert and oriented, he appeared stable when walking but was a little unsteady.. Vital signs as documented. Skin warm and dry and without overt rashes. Neck without JVD. Lungs clear. Heart exam notable for regular rhythm, normal sounds and absence of m urmurs, rubs or gallops. Abdomen unremarkable and without evidence of organomegaly, masses, or abdominal aortic enlargement. Extremities nonedematous. Neurology: Cranial nerves II through XII are grossly intact, no focal motor deficits were noted. Psych: Patient was alert and oriented x3, he did not appear to be depressed or anxious. On 10/14/18, patient was seen and examined and felt to be in stable condition for discharge home with his parents - Physical Exam Vital Signs Temp Pulse Resp BP Pulse Ox 99.1 F 99 16 128/89 H 100 10/14/18 12:44 10/14/18 12:44 10/14/18 12:44 10/14/18 12:44 10/14/18 12:44 Oxygen Delivery Method Room Air Weight: 66.877 kg Body Mass Index (BMI) 21.5 Intake and Output for Last 24 Hours 10/12/18 10/13/18 10/14/18 23:59 23:59 23:59 Intake Total 4436 / 4436 3278 / 3278 500 / 500 Output Total 425 / 425 2450 / 2450 Balance 4011 / 4011 828 / 828 500 / 500 Discharge Activity: Return to Normal Activity Weight Bearing Status: Full weight bearing Home Medications: Medications to take at Discharge Multivitamin [Animal Shapes] 1 each PO DAILY 07/24/18 Carvedilol [Coreg (Beta Nieves)] 12.5 mg PO BID #60 tab 10/14/18 Chlordiazepoxide [Librium] 10 mg PO 4X/DAY PRN PRN #40 cap 10/14/18 Gabapentin [Neurontin] 300 mg PO TIDCM #90 cap 10/14/18 Ibuprofen [Motrin] 400 mg PO Q4H PRN PRN tablet 10/14/18 Nicotine [Nicoderm Cq] 21 mg TRANSDERM. DAILY #30 patch 10/14/18 Following Prescrptions Were Given to Patient: Chlordiazepoxide [Librium] 10 mg PO 4X/DAY PRN PRN #40 cap PRN Reason: Agitation Nicotine [Nicoderm Cq] 21 mg TRANSDERM. DAILY #30 patch Carvedilol [Coreg (Beta Nieves)] 12.5 mg PO BID #60 tab Gabapentin [Neurontin] 300 mg PO TIDCM #90 cap Primary Care Physician: Mario Doctor,Out of [Primary Care Provider] - Please follow up with your Primary Care Physician in: within two weeks Disposition: Home Minutes spent on discharge:: 32 Patient Condition:: Stable Medical Necessity - Tobacco Use Smoking Status: Current every day smoker Tobacco Use: Non-smoker Meaningful Use Info Meaningful Use Diagnoses (Choose all that apply): None applicable Code Visit Inpatient E&M: 86045 Disch Hosp
--- NOTE | 2018-10-21 08:21 | ED.DCSUM_ITS ---
- ER Visit Summary Date of Service: 10/21/18 Chief Complaint: Requesting detox for alcohol abuse History of Present Illness: The patient is a [address] of alcoholism and hypertension. Patient states that he is going through withdrawal from alcohol abuse. He has had nausea and vomiting for the last day. He wants to go through inpatient detox with [facility]. He denies any hematemesis or melena. No fever. Physical Examination: Vital signs are stable initial blood pressure is 189/104 with a heart rate of 118. Afebrile. No distress. HEENT exam unremarkable. Neck nontender. No lymphadenopathy. Lungs clear to auscultation bilaterally. Heart tachycardic rate about 120. No murmur. Abdomen is soft. Nondistended. Normal bowel sounds. No peritoneal signs. Patient is moving all 4 extremities. They are nontender. No deformities. Back nontender. Skin unremarkable. Neurologically awake and alert with no focal motor deficits. Test Results: None Emergency Department Course and Treatment: Patient treated with IV fluids and IV Zofran. Treatment Plan: Repeat exam doing better. Disposition: Patient admitted by the hospitalist with consultation to the [facility] for detox. Impression: Acute alcohol withdrawal History of alcoholism. Nausea and vomiting This note was generated with [employer]View dictation software. It may contain incorrect words, spelling, and punctuation that were not noted in review of the chart prior to signing ED Disposition - Plan for ED Patient: Disposition: Acute Care Hospital [facility] Chief Complaint: Substance Abuse
== END 2018-10-14 13:15 | disposition home or self-care (01) | DRG 775 ==
LOC: ED 14:39 → MS2 15:54 → ICU 10-10 20:17 → MS3 10-13 11:13
PROVIDERS: Internal Medicine; Admitting Provider Student in an Organized Health Care Education/Training Program; Emergency Provider Emergency Medicine; Referring Provider Student in an Organized Health Care Education/Training Program; Visit Provider Internal Medicine
DX: F10.231 Alcohol dependence with withdrawal delirium (principal); I10 Essential (primary) hypertension; D61.818 Other pancytopenia; E87.6 Hypokalemia; K76.0 Fatty (change of) liver, not elsewhere classified; K70.10 Alcoholic hepatitis without ascites; F17.200 Nicotine dependence, unspecified, uncomplicated; E83.42 Hypomagnesemia; Y90.8 Blood alcohol level of 240 mg/100 ml or more
CPT/HCPCS: 36415; 80048; 80053; 80320; 82607; 82962; 83735; 84100; 85025; 85610; 97110; 97116; 97162; 97165; 99284; J7030; J7050; A4216; G0480; J7799

== ENCOUNTER 2019-05-23 15:13 | Inpatient (IN) | payer MEDICAID, SELFPAY ==
[2019-05-23] VITALS (7 sets, daily range): BP systolic 106–132; BP diastolic 78–94; PULSE 86–99; RESP 12–19; TEMP 36.4–36.8; O2SAT 93–100; BMI 23.6; BMI 23.7; BMI 22.6
--- NOTE | 2019-05-23 15:29 | ED.RN ---
CALLED AND LEFT A MESSAGE FOR [facility] PER DR ROWE
--- NOTE | 2019-05-23 15:35 | EKG12_ITS ---
Test Reason : DYSRHYTHMIA Blood Pressure : / mmHG Vent. Rate : 087 BPM Atrial Rate : 087 BPM P-R Int : 146 ms QRS Dur : 100 ms QT Int : 390 ms P-R-T Axes : 060 064 063 degrees QTc Int : 469 ms Normal sinus rhythm Normal ECG Confirmed by MILAN ZENDEJAS, THEODORA ([id number]), fashion editor LOULOU MONROE ([id number]) on 05/27/2019 12:34:01 PM Referred By: BERNARDINO Confirmed By:THEODORA YATES MD
--- NOTE | 2019-05-23 15:37 | ED.VISSUMM ---
- ER Visit Summary Date of Service: 05/23/19 Chief Complaint: Alcohol detox and rash History of Present Illness: The patient is a 39 M who presents requesting alcohol detox. Patient drinks approximately 10-20 drinks of vodka per day. Patient's last drink was approximate 1 hour prior to arrival. Patient also complains of a rash over his chest, abdomen, and back. Patient states the rash is pruritic. Patient denies any new exposures. Patient denies any sore throat or difficulty swallowing. Patient denies any visual or auditory hallucinations. Patient denies any weakness. Patient does admit to some paresthesias in his feet bilaterally. Patient denies any dizziness. Patient denies any visual changes. Physical Examination: Vital signs are stable. Patient is afebrile. Patient is in no acute distress. Oral mucosa is pink and moist. Neck is supple. Trachea is midline. There is no JVD noted. Heart was regular rate and rhythm. Lungs are clear and equal bilateral. Abdomen is soft. Bowel sounds are normal. There is no tenderness. There is no guarding noted. Skin is warm dry. There is an erythematous macular rash over the chest, upper abdomen, and back. There are no vesicles or pustules. There are no petechia noted. There is no involvement of mucous membranes. Cranial nerves II through XII are intact. There are no focal motor or sensory deficits noted. The remaining physical exam is within normal limits. Test Results: CBC showed a white blood cell count of 1.7. Hemoglobin was 12.6 and hematocrit 35.4. Lipase was elevated at 1571. Alk phos was 208, ALT was 225, and AST was 481. Urinalysis does not show any evidence of urinary tract infection. Tox screen was positive for cannabinoids. Serum alcohol level was 448. INR was normal at 1.0. With the elevated lipase, CT scan of the abdomen and pelvis was performed. Emergency Department Course and Treatment: Patient was given IV fluids and Zofran here. Case was discussed with the hospitalist. Patient will be admitted to his service. Patient understood and was agreeable with the plan. All questions were answered. Disposition: Admit to hospital Impression: 1. Alcoholic pancreatitis This note was generated with [employer] software. It may contain incorrect words, spelling, and punctuation that were not noted in review of the chart prior to signing ED Disposition - Plan for ED Patient: Disposition: Acute Care Hospital [facility] Diagnosis: Alcoholic pancreatitis Referrals: Town Doctor,Out of [NON-STAFF] -
[2019-05-23] MEDS: 0.9% Normal Saline 1,000 ML 1000 ML IV (16:06)
[2019-05-23 16:08] LABS: Absolute Lymphocyte Count 0.61 X10^3/uL (0.83-4.51); Eosinophil# 0.01 X10^3/uL; Eosinophils% 0.6 % (0-5); Hematocrit 35.4 % (40-54); Hemoglobin 12.6 g/dL (13.0-16.5); Lymphocyte # 0.61 X10^3/ul (4.0); Lymphocyte % 35.5 % (19-41); Mean Corp Hgb Conc 35.6 g/dL (32-36); Mean Corpuscular Hgb 32.6 pg (27.0-32.0); Mean Corpuscular Volume 91.7 fL (80-94); Mean Platelet Vol. 9.2 fl (6.2-12.0); Monocyte# 0.34 X10^3/uL; Monocyte% 19.8 % (0-10); NRBC Flagged by Analyzer 0 % (0-5); Neutrophil # 0.75 X10^3/uL (2.7-7.7); Neutrophil % 43.5 % (47-70); POSITIVE DIFFERENTIAL YES; Platelet Count 66 K/mm3 (150-450); RBC Distribution Width CV 14.3 % (11.6-14.6); RBC Distribution Width SD 48.2 fl (35.1-43.9); Red Blood Count 3.86 M/mm3 (4.6-6.2); White Blood Count 1.7 K/mm3 (4.4-11.0)
[2019-05-23 16:08] LABS: Bacteria 0 SEEN /hpf (None Seen)
[2019-05-23 16:14] LABS: Color, Urine Yellow (Yellow); Glucose, Dipstick Normal (Normal); Ketone-Dipstick 15 mg/dl (Negative); Leukocyte Esterase-Dipstick 25 /ul (Negative); Nitrite-Dipstick Negative (Negative); Occult Blood-Urine 25 /ul (Negative); Protein-Dipstick 100 mg/dl (Negative); Specific Gravity, Urine 1.025 (1.002-1.030); Urine Clarity Sl. Cloudy (Clear); Urine Urobilinogen 8 mg/dl (Normal)
[2019-05-23 16:17] LABS: Urine Bilirubin Dipstick 3 mg/dL (Negative)
[2019-05-23 16:20] LABS: Amphetamine Urine VISTA NEGATIVE (<1000 ng/mL); Barbiturate Urine VISTA NEGATIVE (< 200 ng/mL); Benzodiazepine Urine VISTA NEGATIVE (< 200 ng/mL); Cocaine Urine VISTA NEGATIVE (< 300 ng/mL); Ecstacy Urine VISTA NEGATIVE (< 500 ng/mL); Methadone Urine VISTA NEGATIVE (< 300 ng/mL); PCP Urine VISTA NEGATIVE (< 25 ng/mL); THC Urine VISTA POSITIVE (< 50 ng/mL); Vista UDS pH Range 6
[2019-05-23 16:22] LABS: Differential Indicated SCAN CRITERIA MET
[2019-05-23 16:24] LABS: ALB/GLOB Ratio 0.8 RATIO (0.9-2.4); AST(SGOT) 481 U/L (15-37); Alanine Aminotransfer ALT/SGPT 225 U/L (16-61); Albumin, Serum 3.5 g/dL (3.2-5.0); Alkaline Phosphatase 208 U/L (45-117); Anion Gap 10 (5-15); BUN 10 mg/dL (7-18); BUN/Creat Ratio 13.1 RATIO (10-20); Calcium,Total 8.6 mg/dL (8.5-10.1); Chloride 96 mmol/L (98-107); Creatinine, Serum 0.76 mg/dL (0.70-1.30); EST Glomerular Filtration Rate 122 mL/min (>60); Est Glom Filt Rate - Afr Amer 147 mL/min (>60); Estimated Creatinine Clearance 136.07 ml/min; Globulin 4.4 g/dL (2.2-4.2); Glucose 118 mg/dL (74-106); Lipase 1571 U/L (73-393); Potassium 3.6 mmol/L (3.5-5.1); Protein, Total 7.9 g/dL (6.4-8.2); Sodium Level 134 mmol/L (136-145)
[2019-05-23 16:28] LABS: Hyaline Cast 5-10 SEEN /lpf (0-5); Mucous, Urine 1+ /hpf (<or=2+); Red Blood Cells-Urine 0-5 SEEN /hpf (0-5); Squamous Epithelial Cells - UA 0-5 SEEN /hpf (0-5); White Blood Cells 0-5 SEEN /hpf (0-5)
[2019-05-23 16:29] LABS: Amorphous Sediment 1+ URATE
[2019-05-23 16:45] LABS: Prothrombin Time (Protime)PT. 12.7 SECONDS (11.7-14.9)
[2019-05-23 16:47] LABS: Differential Comment SCANNED
--- NOTE | 2019-05-23 16:50 | CT_ITS ---
STUDY: CT ABDOMEN AND PELVIS WITH CONTRAST REASON FOR EXAM: Male, 39 years old. Pancreatitis RADIATION DOSAGE (If Supplied By Facility): DLP = ( 405.46 ) mGycm TECHNIQUE: Transaxial images were obtained from the dome of the diaphragm to the symphysis pubis without oral contrast. 100 ml of Isovue 300 contrast was administered. Sagittal and coronal images were reconstructed. Individualized dose optimization techniques were used for this CT. COMPARISON: None. FINDINGS: Bibasilar atelectasis is present. The visualized portions of the heart and pericardium are within normal limits. There are no calcified gallstones present. There is decreased hepatic attenuation. The liver is enlarged. There are no suspicious hepatic lesions. The spleen is normal in size. There is mild increased fat attenuation/trace fluid surrounding the tail of the pancreas. The adrenal glands are within normal limits. There are no obstructing renal stones. There is no hydronephrosis. There are no focal renal lesions. Normal visualized stomach. There is no evidence of bowel obstruction. There is mild mural thickening of the ascending colon. The aorta is normal in caliber. There is no abdominal or pelvic free air, fluid collection or lymphadenopathy. There are no destructive osseous lesions. CT/Abdomen/Pelvis W IV Cont ONLY IMPRESSION: Fatty liver and hepatomegaly. Mild increased fat attenuation/trace fluid setting the tail of the pancreas, which can be secondary to reported pancreatitis. No pseudocyst. Mild mural thickening of the ascending colon, suggesting mild colitis. Electronically Signed: Harpal Bueno, at 18:00 EDT Tel , Service support ,
[2019-05-23] MEDS: Ondansetron 4 MG/2 ML Vial IV (17:54)
--- NOTE | 2019-05-23 18:07 | NURSING ---
322 DAJUAN ALCOHOLIC PANCREATITIS, INTOX
--- NOTE | 2019-05-23 18:16 | HP.PCM_ITS ---
Problem List (1) Acute alcohol intoxication Status: Acute (2) Alcohol withdrawal seizure Status: Chronic (3) Alcoholic pancreatitis Status: Acute (4) Chronic alcoholic hepatitis Status: Chronic (5) Pancytopenia Status: Chronic History of Present Illness Date of Admission: 05/23/19 Chief Complaint: Alcohol detox The patient is a 39 year old M with history of chronic alcohol use since teenage, about half of bottle of vodka daily last drink about an hour prior to arrival came to ER for alcohol detox. Patient is accompanied by his father and mother. Patient complained of abdominal discomfort but could not give detail of abdominal pain. He also has rash over his chest abdomen and back which is unaware of. His mother noticed today. In ED, blood pressure is 128/94, heart rate in the 80s. The patient has mild tremors. Denies seizure now but has history of alcohol withdrawal seizure. Patient also vomited one time yesterday and 1 today in ER, gastric in nature. His blood work is significantly abnormal for pancytopenia, alcohol level 448, inverse A/G ratio elevated LFT and lipase 1571. Past Medical History Past Medical History (Chronic Problems): Chronic Problems (Last Updated 06/21/18 @ 02:20 by Corey Cleaning MD) Alcohol withdrawal seizure (Chronic) Chronic alcoholic hepatitis (Chronic) Pancytopenia (Chronic) Medical History: Medical History (Last Updated 06/21/18 @ 02:20 by Corey Cleaning MD) Hypertension I10 Allergies No Known Allergies Allergy (Verified 05/23/19 15:16) Home Medications: Ambulatory Orders Medication Instructions Recorded Carvedilol [Coreg (Beta Nieves)] 12.5 mg PO BID 05/23/19 Ergocalciferol (Vitamin D2) 50,000 units PO WE 05/23/19 [Vitamin D2] Fluoxetine [Prozac] 40 mg PO DAILY 05/23/19 Surgical History: no surgical history Psychiatric History: No pertinent psych hx Smoking Status: Current every day smoker - *Family History Maternal History Items: No pertinent history Paternal History Items: - - History of chronic alcohol use. Patient father quit 3 years ago Review of Systems Constitutional: Reports: Anorexia, Weakness HEENT: Denies: Head Aches, Sinus Congestion, Sinus Drainage Cardiovascular: Denies: Chest Pain, Palpitations Respiratory: Denies: Cough, Shortness of breath at rest, Sputum production Gastrointestinal: Reports: Abdominal Pain, Nausea, Vomiting. Denies: Hematemesis, Hematochezia, Melena Genitourinary: Denies: Dysuria Musculoskeletal: Denies: Joint Pain, Joint Tenderness Skin: Denies: Rash, Wounds Neurological: Denies: Numbness, Tingling, Focal weakness Psychiatric: Reports: Anxiety. Denies: Depression, Homicidal Ideations, Suicidal Ideations Hematologic/ Lymphatic: Denies: Easy Bruising, Easy Bleeding VTE Information - Inpt Only VTE Present on Admission: No VTE Mechan Device Prophylaxis: None VTE Pharm Prophylaxis ordered?: No Reason prophylaxis not ordered:: Procedure Not Indicated Patient Problems: Active and Suspected Problems (Last Updated 06/21/18 @ 02:20 by Corey Cleaning MD) Alcoholic pancreatitis (Acute) Acute alcohol intoxication (Acute) - Physical Exam General: Oriented x3, Cooperative, Lethargic HEENT: Atraumatic, PERRLA, EOMI, Normocephalic Oral: Dry Mucosa, - - Tongue is heavily coated. Poor oral hygiene Neck: Supple, No JVD, Negative Carotid Bruits Lungs: Clear to auscultation, Normal air movement, No rhonchi, No wheeze, No rales Cardiovascular: Regular rate, Regular Rhythm, Normal S1, Normal S2, No murmurs Abdomen: Bowel Sounds Present, Soft, Non-Distended, Tender - Mild tenderness present in epigastrium Extremities: No edema, Capillary Refill Less than 3 Seconds Skin: No rashes, No breakdown Musculoskeletal: No Tenderness to Palpation of Joints or Extremities Neurological: Cranial nerves II-XII grossly intact, Deep Tendon Reflexes 2+/4 and Symmetrical, Neuro grossly intact, Motor Exam 5/5 strength throughout, - - Tremors present in both hands. Psych/Mental Status: Normal Affect, Appropriate Vital Signs Temp Pulse Resp BP Pulse Ox 97.8 F 96 19 H 127/89 H 100 05/23/19 15:14 05/23/19 18:07 05/23/19 18:07 05/23/19 18:07 05/23/19 18:07 Oxygen Delivery Method Room Air Weight: 165 lb Body Mass Index (BMI) 23.6 Laboratory Tests Past 24 Hrs 05/23/19 05/23/19 05/23/19 15:56 15:56 15:56 WBC 1.7 L RBC 3.86 L Hgb 12.6 L Hct 35.4 L MCV 91.7 MCH 32.6 H MCHC 35.6 RDW Std Deviation 48.2 H RDW Coeff of Reilly 14.3 Plt Count 66 L MPV 9.2 Immature Gran % (Auto) 0.600 Neut % (Auto) 43.5 L Lymph % (Auto) 35.5 [place] % (Auto) 19.8 H Eos % (Auto) 0.6 Baso % (Auto) 0.0 Absolute Neuts (auto) Not Reportable Absolute Lymphs (auto) 0.61 L Absolute Nucleated RBC 0.00 Nucleated RBC % 0 Differential Comment SCANNED PT 12.7 INR 1.0 Sodium 134 L Potassium 3.6 Chloride 96 L Carbon Dioxide 28.0 Anion Gap 10 BUN 10 Creatinine 0.76 Estim Creat Clear Calc 136.07 Est GFR (MDRD) Af Amer 147 Est GFR (MDRD) Non-Af 122 BUN/Creatinine Ratio 13.1 Glucose 118 H Calcium 8.6 Total Bilirubin 0.50 AST 481 H ALT 225 H Alkaline Phosphatase 208 H Troponin I < 0.015 Total Protein 7.9 Albumin 3.5 Globulin 4.4 H Albumin/Globulin Ratio 0.8 L Lipase 1571 H Urine Color Urine Clarity Urine pH Ur Specific [place] Urine Protein Urine Glucose (UA) Urine Ketones Urine Occult Blood Urine Nitrite Urine Bilirubin Urine Urobilinogen Ur Leukocyte Esterase Urine RBC Urine WBC Ur Squamous Epith Cells Amorphous Sediment Urine Bacteria Hyaline Casts Urine Mucus Urine Opiates Screen Urine Methadone Screen Ur Barbiturates Screen Ur Phencyclidine Scrn Ur Amphetamines Screen U Methamphetamin-MDMA U Benzodiazepines Scrn Urine Cocaine Screen U Cannabinoids Screen Ur Drug Screen Comment Ethyl Alcohol 05/23/19 05/23/19 05/23/19 15:56 16:04 16:04 WBC RBC Hgb Hct MCV MCH MCHC RDW Std Deviation RDW Coeff of [place] Plt Count MPV Immature Gran % (Auto) Neut % (Auto) Lymph % (Auto) [place] % (Auto) Eos % (Auto) Baso % (Auto) Absolute Neuts (auto) Absolute Lymphs (auto) Absolute Nucleated RBC Nucleated RBC % Differential Comment PT INR Sodium Potassium Chloride Carbon Dioxide Anion Gap BUN Creatinine Estim Creat Clear Calc Est GFR (MDRD) Af Amer Est GFR (MDRD) Non-Af BUN/Creatinine Ratio Glucose Calcium Total Bilirubin AST ALT Alkaline Phosphatase Troponin I Total Protein Albumin Globulin Albumin/Globulin Ratio Lipase Urine Color Yellow Urine Clarity Sl. Cloudy Urine pH 6.0 Ur Specific [place] 1.025 Urine Protein 100 H Urine Glucose (UA) Normal Urine Ketones 15 H Urine Occult Blood 25 H Urine Nitrite Negative Urine Bilirubin 3 H Urine Urobilinogen 8 H Ur Leukocyte Esterase 25 H Urine RBC 0-5 SEEN Urine WBC 0-5 SEEN Ur Squamous Epith Cells 0-5 SEEN Amorphous Sediment 1+ URATE Urine Bacteria 0 SEEN Hyaline Casts 5-10 SEEN Urine Mucus 1+ Urine Opiates Screen NEGATIVE Urine Methadone Screen NEGATIVE Ur Barbiturates Screen NEGATIVE Ur Phencyclidine Scrn NEGATIVE Ur Amphetamines Screen NEGATIVE U Methamphetamin-MDMA NEGATIVE U Benzodiazepines Scrn NEGATIVE Urine Cocaine Screen NEGATIVE U Cannabinoids Screen POSITIVE H Ur Drug Screen Comment Ethyl Alcohol 448.0 H* Assessment/Plan All Active Problems (Last Updated 06/21/18 @ 02:20 by Corey Cleaning MD) Alcoholic pancreatitis (Acute) Acute alcohol intoxication (Acute) The patient is a 39 year old M with history of chronic alcohol use since teenage, about half of bottle of vodka daily last drink about an hour prior to arrival came to ER for alcohol detox. Patient is accompanied by his father and mother. Patient complained of abdominal discomfort but could not give detail of abdominal pain. He also has rash over his chest abdomen and back which is unaware of. His mother noticed today. In ED, blood pressure is 128/94, heart rate in the 80s. The patient has mild tremors. Denies seizure now but has history of alcohol withdrawal seizure. Patient also vomited one time yesterday and 1 today in ER, gastric in nature. His blood work is significantly abnormal for pancytopenia, alcohol level 448, inverse A/G ratio elevated LFT and lipase 1571. He was last admitted in 2017 for acute alcohol withdrawal. 1. Acute alcoholic pancreatitis: Her mother recall that she was diagnosed of pancreatitis last year. Follow acute bronchitis protocol with n.p.o., IV fluid normal saline, clinical monitoring, LFT and lipase follow-up. Once abdominal pain/discomfort is resolved, allow oral liquid. Continue antiemetic and pain control for symptomatic management. 2. Chronic alcoholic hepatitis: In October 2018, AST/ALT was 538/156, alk phos 178. It is slightly elevated this time, ALT 225, alkaline phosphate 208 but total bili normal. Follow LFT. 3. Acute on chronic alcohol use and dependence with history of alcohol withdrawal seizure: Patient also use cannabinoids. Case management consult for rehab placement. CIWA monitoring and IV lorazepam as needed per CIWA score. Continue IV thiamine, folic acid and multivitamin. 4. Pancytopenia, chronic: Metabolic profile reflects gradually worsening of pancytopenia with WBC count decreased from 3.2 thousand - 1.7 thousand. Platelet count 66,000 H&H 12.6/35. The patient platelet count is 66,000 most probably alcohol induced thrombocytopenia. 5. Maculopapular rash: Exact etiology unclear: Symptomatic management. Patient denies history of fever, chills or viral related URI symptoms. No diarrhea. DVT prophylaxis: Moderate risk patient is also has contraindication of pharmacological prophylaxis secondary to severe thrombocytopenia. Bilateral SCDs Laboratory Results 05/23/19 15:56: WBC 1.7 L, RBC 3.86 L, Hgb 12.6 L, Hct 35.4 L, MCV 91.7, MCH 32.6 H, MCHC 35.6, RDW Std Deviation 48.2 H, RDW Coeff of Reilly 14.3, Plt Count 66 L, MPV 9.2, Immature Gran % (Auto) 0.600, Neut % (Auto) 43.5 L, Lymph % (Auto) 35.5, [place] % (Auto) 19.8 H, Eos % (Auto) 0.6, Baso % (Auto) 0.0, Absolute Neuts (auto) Not Reportable, Absolute Lymphs (auto) 0.61 L, Absolute Nucleated RBC 0.00, Nucleated RBC % 0, Differential Comment SCANNED 05/23/19 15:56: PT 12.7, INR 1.0 05/23/19 15:56: Sodium 134 L, Potassium 3.6, Chloride 96 L, Carbon Dioxide 28.0, Anion Gap 10, BUN 10, Creatinine 0.76, Estim Creat Clear Calc 136.07, Est GFR (MDRD) Af Amer 147, Est GFR (MDRD) Non-Af 122, BUN/Creatinine Ratio 13.1, Glucose 118 H, Calcium 8.6, Total Bilirubin 0.50, AST 481 H, ALT 225 H, Alkaline Phosphatase 208 H, Troponin I < 0.015, Total Protein 7.9, Albumin 3.5, Globulin 4.4 H, Albumin/Globulin Ratio 0.8 L, Lipase 1571 H 05/23/19 15:56: Ethyl Alcohol 448.0 H* 05/23/19 16:04: Urine Color Yellow, Urine Clarity Sl. Cloudy, Urine pH 6.0, Ur Specific [place] 1.025, Urine Protein 100 H, Urine Glucose (UA) Normal, Urine Ketones 15 H, Urine Occult Blood 25 H, Urine Nitrite Negative, Urine Bilirubin 3 H, Urine Urobilinogen 8 H, Ur Leukocyte Esterase 25 H, Urine RBC 0-5 SEEN, Urine WBC 0-5 SEEN, Ur Squamous Epith Cells 0-5 SEEN, Amorphous Sediment 1+ URATE, Urine Bacteria 0 SEEN, Hyaline Casts 5-10 SEEN, Urine Mucus 1+ 05/23/19 16:04: Urine Opiates Screen NEGATIVE, Urine Methadone Screen NEGATIVE, Ur Barbiturates Screen NEGATIVE, Ur Phencyclidine Scrn NEGATIVE, Ur Amphetamines Screen NEGATIVE, U Methamphetamin-MDMA NEGATIVE, U Benzodiazepines Scrn NEGATIVE, Urine Cocaine Screen NEGATIVE, U Cannabinoids Screen POSITIVE H, Ur Drug Screen Comment Code Visit Inpatient E&M: 58753 Init Hosp L3
[2019-05-23 18:56] LABS: Magnesium 1.6 mg/dL (1.6-2.6)
[2019-05-23] MEDS: proMETHazine 25 MG/ML Syringe 12.5 MG IV (19:02)
[2019-05-23] MEDS: 0.9% Normal Saline 1,000 ML 200 ML IV (19:03)
[2019-05-23] MEDS: LORazepam 1 MG Tablet PO ×2 (19:41→22:35)
[2019-05-23 20:05] LABS: Bedside Glucose 110 mg/dL (70-110)
[2019-05-23] MEDS: Carvedilol 12.5 MG Tablet PO (22:45)
[2019-05-24] VITALS (8 sets, daily range): BP systolic 139–161; BP diastolic 95–102; PULSE 69–106; RESP 16–18; TEMP 37–37.7; O2SAT 92–97
[2019-05-24] MEDS: 0.9% Normal Saline 1,000 ML 200 ML IV (00:27)
[2019-05-24] MEDS: LORazepam 1 MG Tablet PO ×5 (02:35→20:33)
[2019-05-24 05:41] LABS: Absolute Lymphocyte Count 0.48 X10^3/uL (0.83-4.51); Basophil# 0.02 X10^3/uL; Basophil% 1.1 % (0-1); Eosinophil# 0.01 X10^3/uL; Eosinophils% 0.6 % (0-5); Hematocrit 33.6 % (40-54); Hemoglobin 11.4 g/dL (13.0-16.5); Lymphocyte # 0.48 X10^3/ul (4.0); Lymphocyte % 27.1 % (19-41); Mean Corp Hgb Conc 33.9 g/dL (32-36); Mean Corpuscular Hgb 31.4 pg (27.0-32.0); Mean Corpuscular Volume 92.6 fL (80-94); Mean Platelet Vol. 9.6 fl (6.2-12.0); Monocyte# 0.31 X10^3/uL; Monocyte% 17.5 % (0-10); NRBC Flagged by Analyzer 0 % (0-5); Neutrophil # 0.93 X10^3/uL (2.7-7.7); Neutrophil % 52.6 % (47-70); POSITIVE DIFFERENTIAL YES; Platelet Count 63 K/mm3 (150-450); RBC Distribution Width CV 14.1 % (11.6-14.6); RBC Distribution Width SD 47.9 fl (35.1-43.9); Red Blood Count 3.63 M/mm3 (4.6-6.2); White Blood Count 1.8 K/mm3 (4.4-11.0)
[2019-05-24 06:07] LABS: Differential Indicated SCAN CRITERIA MET
[2019-05-24 06:09] LABS: ALB/GLOB Ratio 0.9 RATIO (0.9-2.4); AST(SGOT) 335 U/L (15-37); Alanine Aminotransfer ALT/SGPT 185 U/L (16-61); Albumin, Serum 3.2 g/dL (3.2-5.0); Alkaline Phosphatase 179 U/L (45-117); Anion Gap 12 (5-15); BUN 7 mg/dL (7-18); BUN/Creat Ratio 11.3 RATIO (10-20); Calcium,Total 8.2 mg/dL (8.5-10.1); Chloride 101 mmol/L (98-107); Creatinine, Serum 0.62 mg/dL (0.70-1.30); EST Glomerular Filtration Rate 154 mL/min (>60); Est Glom Filt Rate - Afr Amer 186 mL/min (>60); Estimated Creatinine Clearance 163.83 ml/min; Globulin 3.5 g/dL (2.2-4.2); Glucose 71 mg/dL (74-106); Potassium 3.9 mmol/L (3.5-5.1); Protein, Total 6.7 g/dL (6.4-8.2); Sodium Level 140 mmol/L (136-145); Thyroid Stim Hormone (TSH) 3.75 uIU/mL (0.358-3.74)
[2019-05-24 06:25] LABS: Lipase 1196 U/L (73-393)
[2019-05-24] MEDS: LORazepam 2 MG/ML Syringe 1 MG IV ×4 (06:25→21:48)
[2019-05-24] MEDS: Ondansetron 4 MG/2 ML Vial IV (06:25)
[2019-05-24 06:49] LABS: Differential Comment SCANNED
[2019-05-24] MEDS: Multivitamins,Therapeutic Tablet 1 TABLET PO (07:38)
[2019-05-24] MEDS: Folic Acid 1 MG Tablet PO (07:38)
[2019-05-24] MEDS: Thiamine Hydrochloride 100 MG Tablet PO (07:38)
[2019-05-24 09:45] LABS: Pathologist Review Reviewed
[2019-05-24] MEDS: proMETHazine 25 MG/ML Syringe 12.5 MG IV ×2 (09:45→22:42)
[2019-05-24] MEDS: Dextrose 5%/0.9% NaCl 1,000 ML 100 ML IV ×2 (09:46→17:42)
[2019-05-24] MEDS: Famotidine 20 MG Tablet 40 MG PO (09:50)
[2019-05-24] MEDS: FLUoxetine 20 MG Capsule 40 MG PO (09:53)
[2019-05-24] MEDS: Carvedilol 12.5 MG Tablet PO ×2 (09:53→21:50)
[2019-05-24] MEDS: 0.9% NaCl Peripheral Flush Adult/Peds IV (09:58)
--- NOTE | 2019-05-24 11:25 | PCM.PN.HOSP ---
Patient Problems: Active and Suspected Problems (Last Updated 06/21/18 @ 02:20 by Corey Cleaning MD) Alcoholic pancreatitis (Acute) Acute alcohol intoxication (Acute) Subjective: Feels little bit better today, though he is shaking. He does have abdominal pain which is a little bit improved. Vitals/I&O's: Vital Signs Temp Pulse Resp BP Pulse Ox 99.0 F 69 18 161/100 H 92 05/24/19 09:35 05/24/19 09:35 05/24/19 09:35 05/24/19 09:35 05/24/19 07:32 Oxygen Delivery Method Room Air Weight: 158 lb 1.143 oz Body Mass Index (BMI) 22.6 Intake and Output for Last 24 Hours 05/22/19 05/23/19 05/24/19 23:59 23:59 23:59 Intake Total 2182 / 2182 Output Total 750 / 750 Balance 1432 / 1432 General: Alert, Oriented x3, Cooperative, No apparent distress, - - Slight tremor HEENT: Atraumatic, PERRLA, EOMI, Normocephalic Oral: Moist Mucosa Neck: Supple, No JVD Lungs: Clear to auscultation, Normal air movement, No rhonchi, No wheeze, No rales, Diminished Cardiovascular: Regular rate, Regular Rhythm, Normal S1, Normal S2, No murmurs Abdomen: Soft, Non Tender, Non-Distended, No Hepato-splenomegaly Extremities: No edema, Capillary Refill Less than 3 Seconds Skin: - - Multiple blanching rash, nonraised on his chest, abdomen, and extremities. Nontender Neurological: Neuro grossly intact, Sensory exam intact to light touch and pain Psych/Mental Status: Normal Affect, Appropriate Laboratory Results 05/23/19 15:56: WBC 1.7 L, RBC 3.86 L, Hgb 12.6 L, Hct 35.4 L, MCV 91.7, MCH 32.6 H, MCHC 35.6, RDW Std Deviation 48.2 H, RDW Coeff of Reilly 14.3, Plt Count 66 L, MPV 9.2, Immature Gran % (Auto) 0.600, Neut % (Auto) 43.5 L, Lymph % (Auto) 35.5, [place] % (Auto) 19.8 H, Eos % (Auto) 0.6, Baso % (Auto) 0.0, Absolute Neuts (auto) Not Reportable, Absolute Lymphs (auto) 0.61 L, Absolute Nucleated RBC 0.00, Nucleated RBC % 0, Differential Comment SCANNED 05/23/19 15:56: PT 12.7, INR 1.0 05/23/19 15:56: Sodium 134 L, Potassium 3.6, Chloride 96 L, Carbon Dioxide 28.0, Anion Gap 10, BUN 10, Creatinine 0.76, Estim Creat Clear Calc 136.07, Est GFR (MDRD) Af Amer 147, Est GFR (MDRD) Non-Af 122, BUN/Creatinine Ratio 13.1, Glucose 118 H, Calcium 8.6, Total Bilirubin 0.50, AST 481 H, ALT 225 H, Alkaline Phosphatase 208 H, Troponin I < 0.015, Total Protein 7.9, Albumin 3.5, Globulin 4.4 H, Albumin/Globulin Ratio 0.8 L, Lipase 1571 H 05/23/19 15:56: Ethyl Alcohol 448.0 H* 05/23/19 15:56: Magnesium 1.6 05/23/19 16:04: Urine Color Yellow, Urine Clarity Sl. Cloudy, Urine pH 6.0, Ur Specific [place] 1.025, Urine Protein 100 H, Urine Glucose (UA) Normal, Urine Ketones 15 H, Urine Occult Blood 25 H, Urine Nitrite Negative, Urine Bilirubin 3 H, Urine Urobilinogen 8 H, Ur Leukocyte Esterase 25 H, Urine RBC 0-5 SEEN, Urine WBC 0-5 SEEN, Ur Squamous Epith Cells 0-5 SEEN, Amorphous Sediment 1+ URATE, Urine Bacteria 0 SEEN, Hyaline Casts 5-10 SEEN, Urine Mucus 1+ 05/23/19 16:04: Urine Opiates Screen NEGATIVE, Urine Methadone Screen NEGATIVE, Ur Barbiturates Screen NEGATIVE, Ur Phencyclidine Scrn NEGATIVE, Ur Amphetamines Screen NEGATIVE, U Methamphetamin-MDMA NEGATIVE, U Benzodiazepines Scrn NEGATIVE, Urine Cocaine Screen NEGATIVE, U Cannabinoids Screen POSITIVE H, Ur Drug Screen Comment 05/23/19 19:44: POC Glucose 110 05/24/19 05:20: WBC 1.8 L, RBC 3.63 L, Hgb 11.4 L, Hct 33.6 L, MCV 92.6, MCH 31.4, MCHC 33.9, RDW Std Deviation 47.9 H, RDW Coeff of [place]illy 14.1, Plt Count 63 L, MPV 9.6, Immature Gran % (Auto) 1.100 H, Neut % (Auto) 52.6, Lymph % (Auto) 27.1, [place] % (Auto) 17.5 H, Eos % (Auto) 0.6, Baso % (Auto) 1.1 H, Absolute Neuts (auto) Not Reportable, Absolute Lymphs (auto) 0.48 L, Absolute Nucleated RBC 0.00, Nucleated RBC % 0, Differential Comment SCANNED, Diff Path Review Reviewed 05/24/19 05:20: Sodium 140, Potassium 3.9, Chloride 101, Carbon Dioxide 27.0, Anion Gap 12, BUN 7, Creatinine 0.62 L, Estim Creat Clear Calc 163.83, Est GFR (MDRD) Af Amer 186, Est GFR (MDRD) Non-Af 154, BUN/Creatinine Ratio 11.3, Glucose 71 L, Calcium 8.2 L, Total Bilirubin 0.50, AST 335 H, ALT 185 H, Alkaline Phosphatase 179 H, Total Protein 6.7, Albumin 3.2, Globulin 3.5, Albumin/Globulin Ratio 0.9, TSH 3.75 H 05/24/19 05:20: Lipase 1196 H Current Medications Albuterol Sulfate (Ventolin Aerosols) 2.5 mg INHALATION Q2H PRN PRN PRN Reason: Shortness of Breath/Wheezing Carvedilol (Coreg) 12.5 mg PO BID [facility] Last Admin: 05/24/19 09:53 Dose: 12.5 mg Documented by: Ergocalciferol (Vitamin D) 50,000 unit PO WE [facility] Famotidine (Pepcid) 40 mg PO DAILY [facility] Last Admin: 05/24/19 09:50 Dose: 40 mg Documented by: Fluoxetine HCl (Prozac) 40 mg PO DAILY [facility] Last Admin: 05/24/19 09:53 Dose: 40 mg Documented by: [facility] ([facility] Acid) [facility] Stop: 05/26/19 08:01 Last Admin: 05/24/19 07:38 Dose: 1 mg Documented by: Dextrose/Sodium Chloride (Dextrose 5%/0.9% Nacl) 1,000 mls @ 100 mls/hr IV .Q10H [facility] Last Admin: 05/24/19 09:46 Dose: 100 mls/hr Documented by: Lorazepam (Ativan) 2 mg IV X1 PRN PRN Reason: Seizure Lorazepam (Ativan) 1 mg PO Q4H [facility]; Taper Stop: 05/26/19 23:14 Last Admin: 05/24/19 07:38 Dose: 1 mg Documented by: Lorazepam (Ativan) 1 mg IV Q2H PRN PRN PRN Reason: Severe Anxiety Last Admin: 05/24/19 09:46 Dose: 1 mg Documented by: Morphine Sulfate () 2 mg IV Q3H PRN PRN PRN Reason: Severe pain ([id number]) Multivitamins (Multivitamin) [facility] Last Admin: 05/24/19 07:38 Dose: 1 tablet Documented by: Nicotine (Nicoderm Cq (Pbkc)) 21 mg TRANSDERM. DAILY [facility] Last Admin: 05/24/19 09:46 Dose: 21 mg Documented by: Ondansetron HCl (Zofran) 4 mg IV Q8H PRN PRN PRN Reason: NAUSEA/VOMITING Last Admin: 05/24/19 06:25 Dose: 4 mg Documented by: Promethazine HCl (Phenergan) 12.5 mg IV Q6H PRN PRN PRN Reason: Breakthrough nausea/vomiting Last Admin: 05/24/19 09:45 Dose: 12.5 mg Documented by: Sodium Chloride () 10 - 40 ml IV UD PRN PRN Reason: SALINE FLUSH Last Admin: 05/24/19 09:58 Dose: 20 ml Documented by: Thiamine HCl (Vitamin B1) [facility] Stop: 05/26/19 08:01 Last Admin: 05/24/19 07:38 Dose: 100 mg Documented by: Medical Necessity - Tobacco Use Smoking Status: Current every day smoker Tobacco Use: Cigarettes Assessment/Plan All Active Problems (Last Updated 06/21/18 @ 02:20 by Corey Cleaning MD) Alcoholic pancreatitis (Acute) Acute alcohol intoxication (Acute) 1. Acute alcohol pancreatitis/chronic alcoholic hepatitis/acute on chronic alcohol use -He had an episode of pancreatitis last year -Continue with IV fluids and n.p.o. status -Pain medication as needed though there is a possibility of him using a friend's Suboxone so we will monitor for withdrawal and may need to initiate the opiate withdrawal protocol -Continue with the alcohol withdrawal protocol -We will have [facility] see the patient to see if there can be any placement for him on discharge -LFTs are slightly worse than what they were October 2018 however this to be expected given the pancreatitis, will monitor for now 2. Chronic pancytopenia -A lot of this is likely secondary chronic alcoholism -Because of his moderate thrombocytopenia, will continue with SCDs 3. Rash -This is a blanching nontender rash -Unsure as to etiology but instead of a PPI will place on Pepcid and see if the H2 jose assists with possible urticaria -We will continue to monitor 4. Depression/anxiety -Stable -Continue with his Prozac DVT: SCDs Code Visit Inpatient E&M: 52610 Subs Hosp L2
--- NOTE | 2019-05-24 12:16 | NEWVISION ---
I went to see patient regarding [facility] consult. Patient states he is here until his enzymes improve and then he will go home. I asked patient if he is interested in completed medical stabilization, patient continued to state that he will go home when he's better and would not give clear answer as to motivation to be sober. Patient stated he will think about resuming services with counselor through [facility] upon discharge but does not know if he will have the time.
[2019-05-24] MEDS: Morphine 2 MG/ML Syringe IV (22:43)
[2019-05-25] VITALS (9 sets, daily range): BP systolic 100–148; BP diastolic 68–110; PULSE 97–120; RESP 16–18; TEMP 36.4–37.6; O2SAT 96–100
[2019-05-25] MEDS: LORazepam 2 MG/ML Syringe 1 MG IV ×11 (00:05→21:00)
[2019-05-25] MEDS: LORazepam 1 MG Tablet PO ×4 (02:36→22:36)
[2019-05-25] MEDS: Dextrose 5%/0.9% NaCl 1,000 ML 100 ML IV ×2 (03:05→13:25)
[2019-05-25] MEDS: Morphine 2 MG/ML Syringe IV ×4 (03:29→18:02)
[2019-05-25 07:34] LABS: Absolute Lymphocyte Count 0.98 X10^3/uL (0.83-4.51); Absolute Neutrophil Count 2.2 X10^3/uL (2.0-7.7); Basophil# 0.02 X10^3/uL; Basophil% 0.5 % (0-1); Eosinophil# 0.03 X10^3/uL; Eosinophils% 0.7 % (0-5); Hematocrit 41.1 % (40-54); Hemoglobin 14.6 g/dL (13.0-16.5); Lymphocyte # 0.98 X10^3/ul (4.0); Lymphocyte % 24.1 % (19-41); Mean Corp Hgb Conc 35.5 g/dL (32-36); Mean Corpuscular Hgb 32.3 pg (27.0-32.0); Mean Corpuscular Volume 90.9 fL (80-94); Mean Platelet Vol. 10.4 fl (6.2-12.0); Monocyte# 0.78 X10^3/uL; Monocyte% 19.2 % (0-10); NRBC Flagged by Analyzer 0 % (0-5); Neutrophil # 2.23 X10^3/uL (2.7-7.7); Platelet Count 79 K/mm3 (150-450); RBC Distribution Width CV 13.4 % (11.6-14.6); RBC Distribution Width SD 45.1 fl (35.1-43.9); Red Blood Count 4.52 M/mm3 (4.6-6.2); White Blood Count 4.1 K/mm3 (4.4-11.0)
[2019-05-25 08:03] LABS: ALB/GLOB Ratio 0.8 RATIO (0.9-2.4); AST(SGOT) 246 U/L (15-37); Alanine Aminotransfer ALT/SGPT 169 U/L (16-61); Albumin, Serum 3.7 g/dL (3.2-5.0); Alkaline Phosphatase 207 U/L (45-117); Anion Gap 7 (5-15); BUN 7 mg/dL (7-18); BUN/Creat Ratio 8.4 RATIO (10-20); Calcium,Total 9.5 mg/dL (8.5-10.1); Chloride 91 mmol/L (98-107); Creatinine, Serum 0.84 mg/dL (0.70-1.30); EST Glomerular Filtration Rate 109 mL/min (>60); Est Glom Filt Rate - Afr Amer 132 mL/min (>60); Estimated Creatinine Clearance 120.92 ml/min; Globulin 4.5 g/dL (2.2-4.2); Glucose 134 mg/dL (74-106); Potassium 3.7 mmol/L (3.5-5.1); Protein, Total 8.2 g/dL (6.4-8.2); Sodium Level 130 mmol/L (136-145)
[2019-05-25] MEDS: 0.9% NaCl Peripheral Flush Adult/Peds IV ×8 (08:48→18:57)
[2019-05-25] MEDS: Folic Acid 1 MG Tablet PO (08:48)
[2019-05-25] MEDS: Thiamine Hydrochloride 100 MG Tablet PO (08:48)
[2019-05-25] MEDS: Multivitamins,Therapeutic Tablet 1 TABLET PO (08:48)
--- NOTE | 2019-05-25 09:12 | NURSING ---
pt with increasing agitation attempting to leave the room and go get smokes anthony senior cost accountant remains with patient, verbal de-esculation attempted. pt remains agitated. security called to room as well as primary RN. pt was compliant with security and returned to bed. pt talking with security. sitter senior cost accountant anthony remains in room. physician paged.
[2019-05-25] MEDS: Famotidine 20 MG Tablet 40 MG PO (09:32)
[2019-05-25] MEDS: Carvedilol 12.5 MG Tablet PO ×2 (09:32→21:00)
[2019-05-25] MEDS: FLUoxetine 20 MG Capsule 40 MG PO (09:32)
--- NOTE | 2019-05-25 09:34 | PCM.PN.HOSP ---
Patient Problems: Active and Suspected Problems (Last Updated 06/21/18 @ 02:20 by Corey Cleaning MD) Alcoholic pancreatitis (Acute) Acute alcohol intoxication (Acute) Subjective: Rash improving, but he is more agitated today Vitals/I&O's: Vital Signs Temp Pulse Resp BP Pulse Ox 97.9 F 120 H 18 126/92 H 100 05/25/19 08:53 05/25/19 08:53 05/25/19 08:53 05/25/19 08:53 05/25/19 08:53 Oxygen Delivery Method Room Air Weight: 158 lb 1.143 oz Body Mass Index (BMI) 22.6 Intake and Output for Last 24 Hours 05/23/19 05/24/19 05/25/19 23:59 23:59 23:59 Intake Total 2947 / 2947 1264 / 1264 Output Total 1850 / 1850 1030 / 1030 Balance 1097 / 1097 234 / 234 General: Alert, Oriented x3, Cooperative, No apparent distress, tremor HEENT: Atraumatic, PERRLA, EOMI, Normocephalic Oral: Moist Mucosa Neck: Supple, No JVD Lungs: Clear to auscultation, Normal air movement, No rhonchi, No wheeze, No rales, Diminished Cardiovascular: Regular rate, Regular Rhythm, Normal S1, Normal S2, No murmurs Abdomen: Soft, Non Tender, Non-Distended, No Hepato-splenomegaly Extremities: No edema, Capillary Refill Less than 3 Seconds Skin: - - Multiple blanching rash, nonraised on his chest, abdomen, and extremities. Nontender Neurological: Neuro grossly intact, Sensory exam intact to light touch and pain Psych/Mental Status: A little agitated and restless Laboratory Results 05/24/19 05:20: Diff Path Review Reviewed 05/25/19 07:20: WBC 4.1 L, RBC 4.52 L, Hgb 14.6, Hct 41.1, MCV 90.9, MCH 32.3 H, MCHC 35.5, RDW Std Deviation 45.1 H, RDW Coeff of Reilly 13.4, Plt Count 79 L, MPV 10.4, Immature Gran % (Auto) 0.500, Neut % (Auto) 55.0, Lymph % (Auto) 24.1, [place] % (Auto) 19.2 H, Eos % (Auto) 0.7, Baso % (Auto) 0.5, Absolute Neuts (auto) 2.2, Absolute Lymphs (auto) 0.98, Absolute Nucleated RBC 0.00, Nucleated RBC % 0 05/25/19 07:20: Sodium 130 L, Potassium 3.7, Chloride 91 L, Carbon Dioxide 32.0, Anion Gap 7, BUN 7, Creatinine 0.84, Estim Creat Clear Calc 120.92, Est GFR (MDRD) Af Amer 132, Est GFR (MDRD) Non-Af 109, BUN/Creatinine Ratio 8.4 L, Glucose 134 H, Calcium 9.5, Total Bilirubin 1.00, AST 246 H, ALT 169 H, Alkaline Phosphatase 207 H, Total Protein 8.2, Albumin 3.7, Globulin 4.5 H, Albumin/Globulin Ratio 0.8 L Current Medications Albuterol Sulfate (Ventolin Aerosols) 2.5 mg INHALATION Q2H PRN PRN PRN Reason: Shortness of Breath/Wheezing Carvedilol (Coreg) 12.5 mg PO BID [facility] Last Admin: 05/25/19 09:32 Dose: 12.5 mg Documented by: Ergocalciferol (Vitamin D) 50,000 unit PO WE [facility] Famotidine (Pepcid) 40 mg PO DAILY [facility] Last Admin: 05/25/19 09:32 Dose: 40 mg Documented by: Fluoxetine HCl (Prozac) 40 mg PO DAILY [facility] Last Admin: 05/25/19 09:32 Dose: 40 mg Documented by: [facility]olic [facility] ([facility]) [facility] Stop: 05/26/19 08:01 Last Admin: 05/25/19 08:48 Dose: 1 mg Documented by: Dextrose/Sodium Chloride (Dextrose 5%/0.9% Nacl) 1,000 mls @ 100 mls/hr IV .Q10H [facility] Last Admin: 05/25/19 03:05 Dose: 100 mls/hr Documented by: Lorazepam (Ativan) 2 mg IV X1 PRN PRN Reason: Seizure Lorazepam (Ativan) 1 mg PO Q6H [facility]; Taper Stop: 05/26/19 23:14 Last Admin: 05/25/19 09:12 Dose: 1 mg Documented by: Lorazepam (Ativan) 1 mg IV Q2H PRN PRN PRN Reason: Severe Anxiety Last Admin: 05/25/19 08:48 Dose: 1 mg Documented by: Morphine Sulfate () 2 mg IV Q3H PRN PRN PRN Reason: Severe pain (7-08/15) Last Admin: 05/25/19 03:29 Dose: 2 mg Documented by: Multivitamins ([facility]ivitamin) [facility] Last Admin: 05/25/19 08:48 Dose: 1 tablet Documented by: Nicotine (Nicoderm Cq (Pbkc)) 21 mg TRANSDERM. DAILY [facility] Last Admin: 05/25/19 09:31 Dose: 21 mg Documented by: Ondansetron HCl (Zofran) 4 mg IV Q8H PRN PRN PRN Reason: NAUSEA/VOMITING Last Admin: 05/24/19 06:25 Dose: 4 mg Documented by: Promethazine HCl (Phenergan) 12.5 mg IV Q6H PRN PRN PRN Reason: Breakthrough nausea/vomiting Last Admin: 05/24/19 22:42 Dose: 12.5 mg Documented by: Sodium Chloride () 10 - 40 ml IV UD PRN PRN Reason: SALINE FLUSH Last Admin: 05/25/19 09:30 Dose: 10 ml Documented by: Thiamine HCl (Vitamin B1) [facility] Stop: 05/26/19 08:01 Last Admin: 05/25/19 08:48 Dose: 100 mg Documented by: Medical Necessity - Tobacco Use Smoking Status: Current every day smoker Tobacco Use: Cigarettes Assessment/Plan All Active Problems (Last Updated 06/21/18 @ 02:20 by Corey Cleaning MD) Alcoholic pancreatitis (Acute) Acute alcohol intoxication (Acute) 1. Acute alcohol pancreatitis/chronic alcoholic hepatitis/acute on chronic alcohol use -He had an episode of pancreatitis last year -Continue with IV fluids and n.p.o. status -Pain medication as needed though there is a possibility of him using a friend's Suboxone so we will monitor for withdrawal and may need to initiate the opiate withdrawal protocol -Continue with the alcohol withdrawal protocol will give an extra dose of Ativan today since he appears to be more agitated this morning -We will have [facility] see the patient to see if there can be any placement for him on discharge -LFTs are slightly worse than what they were October 2018 however this to be expected given the pancreatitis, will monitor for now 2. Chronic pancytopenia -A lot of this is likely secondary chronic alcoholism -Because of his moderate thrombocytopenia, will continue with SCDs 3. Rash -This is a blanching nontender rash -Unsure as to etiology but instead of a PPI will place on Pepcid and see if the H2 jose assists with possible urticaria, does appear to be improving -We will continue to monitor 4. Depression/anxiety -Stable -Continue with his Prozac DVT: SCDs Code Visit Inpatient E&M: 54139 Subs Hosp L2
--- NOTE | 2019-05-25 17:04 | NURSING ---
Pt agitated, walking hallways and seeing people. Pt refusing to stay in room and entering other patient's rooms and attempting to leave hospital. Sitter with pt and assisting in hallway. Emotional support provided and pt encouraged
[2019-05-25] MEDS: Haloperidol Lactate 5 MG/ML Vial 2 MG IM (23:11)
--- NOTE | 2019-05-25 23:37 | NURSING ---
Pt up ambulating in hallway at this time, sitter present.
[2019-05-26] VITALS (33 sets, daily range): BP systolic 108–144; BP diastolic 73–109; PULSE 76–110; RESP 12–28; TEMP 36.6–37.3; O2SAT 96–100
[2019-05-26] MEDS: LORazepam 2 MG/ML Syringe 1 MG IV (00:14)
[2019-05-26] MEDS: Dextrose 5%/0.9% NaCl 1,000 ML 100 ML IV ×4 (00:17→21:30)
--- NOTE | 2019-05-26 01:25 | NURSING ---
Pt restless this evening, pacing the unit, sitter continually present with pt. Pt has bitten his IV tubing in half, removed his IV; a new IV was started and new tubing hung. Pt continued to pull on IV tubing; IV unhooked from pt dt pt refusing. PRN medications Haldol and Ativan given as needed with no effect on pt. Pt agitation increasing throughout shift. Dr Cleaning notified. N.O. to transfer pt to ICU.
--- NOTE | 2019-05-26 01:25 | PCM.PN.BLA ---
Progress Note Nurse called because patient was increasingly agitated and had a CIWA score of 27. Patient on Ativan for CIWA. Added IM Haldol. However because patient remained agitated in restless, pacing unit, refusing IV fluids will transfer patient to the unit and start him on Precedex drip. Also patient is being treated for acute pancreatitis. Continue IV fluids.
[2019-05-26] MEDS: 0.9% NaCl Peripheral Flush Adult/Peds IV ×4 (02:07→22:52)
[2019-05-26] MEDS: chlordiazePOXIDE 25 MG Capsule PO ×4 (02:25→19:58)
--- NOTE | 2019-05-26 02:25 | NURSING ---
Pt educated on need to take PO Librium to help manage ETOH withdrawal for which pt was transferred to intensive care. Pt initially refused this medication stating I've taken that before. This RN again educated pt that he has not taken this medication yet this hospital stay. Pt was then agreeable, but upon assisting pt with taking medication and swallowing pills it was noted that pt had spit out one of the two librium capsules. This capsule was recovered. Pt had swallowed one of the two capsules. Pt was again educated on importance of taking full dosages of prescribed medications. Pt was eventually agreeable to take second librium capsule. Pt's cheeks and underneath tongue were then checked for pocketing. Second capsule appeared to have been swallowed.
[2019-05-26 04:19] LABS: Absolute Lymphocyte Count 0.75 X10^3/uL (0.83-4.51); Absolute Neutrophil Count 1.3 X10^3/uL (2.0-7.7); Basophil# 0.01 X10^3/uL; Basophil% 0.4 % (0-1); Eosinophil# 0.02 X10^3/uL; Eosinophils% 0.7 % (0-5); Hematocrit 33.8 % (40-54); Hemoglobin 11.7 g/dL (13.0-16.5); Lymphocyte # 0.75 X10^3/ul (4.0); Lymphocyte % 28.1 % (19-41); Mean Corp Hgb Conc 34.6 g/dL (32-36); Mean Corpuscular Hgb 31.8 pg (27.0-32.0); Mean Corpuscular Volume 91.8 fL (80-94); Mean Platelet Vol. 10.3 fl (6.2-12.0); Monocyte# 0.59 X10^3/uL; Monocyte% 22.1 % (0-10); NRBC Flagged by Analyzer 0 % (0-5); Neutrophil # 1.29 X10^3/uL (2.7-7.7); Neutrophil % 48.3 % (47-70); Platelet Count 60 K/mm3 (150-450); RBC Distribution Width CV 13.6 % (11.6-14.6); RBC Distribution Width SD 46.5 fl (35.1-43.9); Red Blood Count 3.68 M/mm3 (4.6-6.2); White Blood Count 2.7 K/mm3 (4.4-11.0)
--- NOTE | 2019-05-26 04:26 | NURSING ---
Spoke with Roseanne Chowdhury. Notified that pt was transferred to ICU bed 2.
[2019-05-26 04:55] LABS: Anion Gap 16 (5-15); BUN 14 mg/dL (7-18); Calcium,Total 9.1 mg/dL (8.5-10.1); Chloride 99 mmol/L (98-107); Creatinine, Serum 0.74 mg/dL (0.70-1.30); EST Glomerular Filtration Rate 127 mL/min (>60); Est Glom Filt Rate - Afr Amer 153 mL/min (>60); Glucose 119 mg/dL (74-106); Potassium 3.2 mmol/L (3.5-5.1); Sodium Level 139 mmol/L (136-145)
[2019-05-26] MEDS: LORazepam 2 MG/ML Syringe IV (05:58)
[2019-05-26] MEDS: Potassium Chloride 10mEq/100mL 10 MEQ/100 ML IV.SOLN. 100 MEQ IV BOLUS ×4 (06:48→10:09)
--- NOTE | 2019-05-26 06:59 | CON.PCM_ITS ---
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 Patient reportedly has 10-20 drinks of vodka per day and last consumption was approximately 1 hour prior to arrival. Patient had reported a pruritic rash throughout the chest, abdomen and back. Patient did not have any difficulty with sore throat, difficulty swallowing, hallucinations or weakness at that time. Patient does report paresthesias of his feet bilaterally at baseline. Laboratory work-up was relatively unremarkable except for an elevated lipase at 1571, mildly elevated alk phos at 208, ALT at 225 and AST at 481. Tox screen was positive for THC and alcohol level was 448. Patient was admitted to the hospital for alcoholic pancreatitis and withdrawal. Overnight, patient continued to have increasing agitation with a CIWA score of 27. IM Haldol was attempted and unsuccessful. Patient was eventually initiated on a Precedex drip and transferred to the intensive care unit for further monitoring. Patient is currently restrained and sedated and unable to provide any additional history. Patient has been seen by myself on multiple previous admissions. Patient does have a history of hallucinations associated with alcohol withdrawal. Patient was initiated on Librium taper and Ativan, in addition to the Precedex. Patient's current CIWA score is 10. Patient is protecting his airway and will open his eyes with tactile stimulation. Unable to complete a review of systems at this time. Past Medical History Past Medical History (Chronic Problems): Chronic Problems (Last Updated 06/21/18 @ 02:20 by Corey Cleaning MD) Alcohol withdrawal seizure (Chronic) Chronic alcoholic hepatitis (Chronic) Pancytopenia (Chronic) Medical History: Medical History (Last Updated 06/21/18 @ 02:20 by Corey Cleaning MD) Hypertension I10 Allergies No Known Allergies Allergy (Verified 05/23/19 15:16) Home Medications: Ambulatory Orders Medication Instructions Recorded Carvedilol [Coreg (Beta Nieves)] 12.5 mg PO BID 05/23/19 Ergocalciferol (Vitamin D2) 50,000 units PO WE 05/23/19 [Vitamin D2] Fluoxetine [Prozac] 40 mg PO DAILY 05/23/19 Multivitamin [Multivitamins] 1 ea PO DAILY 05/23/19 Surgical History: no surgical history Psychiatric History: No pertinent psych hx Smoking Status: Current every day smoker Tobacco Use: Cigarettes - *Family History Maternal History Items: No pertinent history Paternal History Items: - - History of chronic alcohol use. Patient father quit 3 years ago Review of Systems Unable to obtain accurate/complete ROS d/t: Sedated Patient Problems: Active and Suspected Problems (Last Updated 06/21/18 @ 02:20 by Corey Cleaning MD) Alcoholic pancreatitis (Acute) Acute alcohol intoxication (Acute) Objective: CT of the abdomen shows mild increased fat attenuation in the tail of the pancreas without pseudocyst, mild mural thickening of the ascending colon. Patient is never had an echocardiogram or pulmonary function test at this institution. - Physical Exam General: No apparent distress, Confused, Disoriented, - - Sedated. Follows simple commands. HEENT: Atraumatic, PERRLA, EOMI, Normocephalic, - - Slight scleral injection w ithout icterus Oral: No Gingival or Mucosal Lesions/ Ulcerations, Dry Mucosa Neck: Supple, No JVD, No Nodes, Trachea Midline Lungs: Clear to auscultation, Normal air movement, No rhonchi, No wheeze, No rales Cardiovascular: Regular rate, Regular Rhythm, Normal S1, Normal S2, No murmurs, No rub noted, No Gallop Abdomen: Bowel Sounds Present, Soft, Non Tender, Non-Distended, - - No guarding or rebound noted. Extremities: No clubbing, No cyanosis, No edema, Capillary Refill Less than 3 Seconds Skin: - - Papular rash noted on chest, abdomen and back Musculoskeletal: No Tenderness to Palpation of Joints or Extremities Lymphatic: No Cervical, Supraclavicular, or Inguinal Adenopathy Neurological: Cranial nerves II-XII grossly intact, Neuro grossly intact Psych/Mental Status: Flat Affect, Impulsive Vital Signs Temp Pulse Resp BP Pulse Ox 36.6 C 77 17 131/104 H 98 05/26/19 04:00 05/26/19 06:00 05/26/19 06:00 05/26/19 06:00 05/26/19 06:00 Oxygen Delivery Method Room Air Weight: 63.1 kg Body Mass Index (BMI) 22.6 Intake and Output for Last 24 Hours 05/24/19 05/25/19 05/26/19 23:59 23:59 23:59 Intake Total 2947 / 2947 3041 / 3170 668.3 / 668.3 Output Total 1850 / 1850 1030 / 1030 Balance 1097 / 1097 2010 / 2139 668.3 / 668.3 Laboratory Tests Past 24 Hrs 05/25/19 05/25/19 05/26/19 07:20 07:20 04:10 WBC 4.1 L 2.7 L RBC 4.52 L 3.68 L Hgb 14.6 11.7 L Hct 41.1 33.8 L MCV 90.9 91.8 MCH 32.3 H 31.8 MCHC 35.5 34.6 RDW Std Deviation 45.1 H 46.5 H RDW Coeff of Reilly 13.4 13.6 Plt Count 79 L 60 L MPV 10.4 10.3 Immature Gran % (Auto) 0.500 0.400 Neut % (Auto) 55.0 48.3 Lymph % (Auto) 24.1 28.1 [place] % (Auto) 19.2 H 22.1 H Eos % (Auto) 0.7 0.7 Baso % (Auto) 0.5 0.4 Absolute Neuts (auto) 2.2 1.3 L Absolute Lymphs (auto) 0.98 0.75 L Absolute Nucleated RBC 0.00 0.00 Nucleated RBC % 0 0 Sodium 130 L Potassium 3.7 Chloride 91 L Carbon Dioxide 32.0 Anion Gap 7 BUN 7 Creatinine 0.84 Estim Creat Clear Calc 120.92 Est GFR (MDRD) Af Amer 132 Est GFR (MDRD) Non-Af 109 BUN/Creatinine Ratio 8.4 L Glucose 134 H Calcium 9.5 Total Bilirubin 1.00 AST 246 H ALT 169 H Alkaline Phosphatase 207 H Total Protein 8.2 Albumin 3.7 Globulin 4.5 H Albumin/Globulin Ratio 0.8 L 05/26/19 04:10 WBC RBC Hgb Hct MCV MCH MCHC RDW Std Deviation RDW Coeff of Reilly Plt Count MPV Immature Gran % (Auto) Neut % (Auto) Lymph % (Auto) [place] % (Auto) Eos % (Auto) Baso % (Auto) Absolute Neuts (auto) Absolute Lymphs (auto) Absolute Nucleated RBC Nucleated RBC % Sodium 139 Potassium 3.2 L Chloride 99 Carbon Dioxide 24.0 Anion Gap 16 H BUN 14 Creatinine 0.74 Estim Creat Clear Calc 120.80 Est GFR (MDRD) Af Amer 153 Est GFR (MDRD) Non-Af 127 BUN/Creatinine Ratio 19.0 Glucose 119 H Calcium 9.1 Total Bilirubin AST ALT Alkaline Phosphatase Total Protein Albumin Globulin Albumin/Globulin Ratio Clinical Impression(s) from Imaging Studies Abdomen/Pelvis CT 05/23/19 16:50 IMPRESSION: Fatty liver and hepatomegaly. Mild increased fat attenuation/trace fluid setting the tail of the pancreas, which can be secondary to reported pancreatitis. No pseudocyst. Mild mural thickening of the ascending colon, suggesting mild colitis. Electronically Signed: Harpal Patricioi, at 18:00 EDT Tel , Service support , Assessment/Plan Active and Suspected Problems (Last Updated 06/21/18 @ 02:20 by Corey Cleaning MD) Alcoholic pancreatitis (Acute) Acute alcohol intoxication (Acute) RECOMMENDATIONS: 1. Continue alcohol withdrawal taper with Librium 2. Wean Precedex as tolerated 3. Continue restraints until patient more directable 4. Continue IV fluids 5. Electrolyte repletion as indicated 6. Monitor for refeeding syndrome IMPRESSIONS: 1. Acute on chronic alcoholic pancreatitis secondary to acute on chronic alc ohol use Patient's coagulation studies are within normal limits. Patient does have an elevated lipase. Patient receiving bowel rest at this time. Patient was reinitiated on Librium and Ativan. Liver enzymes appear to be improving with conservative therapy. Wean Precedex as tolerated. No significant bradycardia has been noted with Precedex requirements. 2. Chronic pancytopenia Patient does have a history of chronic pancytopenia that is thought to be secondary to chronic alcoholism. Patient is on SCDs, but no chemical prophylaxis given moderate thrombocytopenia. No bleeding complications have been reported. No indication for transfusion at this time. 3. Depression/anxiety/rash Complicates care, management, recovery and prognosis. Rash is blanching and nontender and appears to be allergic in appearance. This reportedly is improving. Code Visit Inpatient E&M: 64188 Init Hosp L2
[2019-05-26 07:41] LABS: Lipase 956 U/L (73-393)
--- NOTE | 2019-05-26 07:56 | PN_ITS ---
Patient Problems: Active and Suspected Problems (Last Updated 06/21/18 @ 02:20 by Corey Cleaning MD) Alcoholic pancreatitis (Acute) Acute alcohol intoxication (Acute) Subjective: He became more agitated overnight and cannot be controlled with PRN Ativan and therefore was transferred to the ICU for Precedex drip. Resting. Objective: General: Sedated HEENT: Atraumatic, PERRLA, Normocephalic Oral: Moist Mucosa Neck: Supple, No JVD Lungs: Clear to auscultation, Normal air movement, No rhonchi, No wheeze, No rales, Diminished Cardiovascular: Regular rate, Regular Rhythm, Normal S1, Normal S2, No murmurs Abdomen: Soft, Non Tender, Non-Distended, No Hepato-splenomegaly Extremities: No edema, Capillary Refill Less than 3 Seconds Skin: - - Multiple blanching rash, nonraised on his chest, abdomen, and extremities. Nontender significantly improved Neurological: Sedated on Precedex Psych/Mental Status: Sedated on Precedex Vitals/I&O's: Vital Signs Temp Pulse Resp BP Pulse Ox 97.8 F 76 16 133/102 H 98 05/26/19 04:00 05/26/19 07:15 05/26/19 07:00 05/26/19 07:00 05/26/19 07:00 Oxygen Delivery Method Room Air Weight: 139 lb 1.787 oz Body Mass Index (BMI) 22.6 Intake and Output for Last 24 Hours 05/24/19 05/25/19 05/26/19 23:59 23:59 23:59 Intake Total 2947 / 2947 3041 / 3170 668.3 / 668.3 Output Total 1850 / 1850 1030 / 1030 Balance 1097 / 1097 2010 668.3 / 668.3 Laboratory Results 05/25/19 07:20: Sodium 130 L, Potassium 3.7, Chloride 91 L, Carbon Dioxide 32.0, Anion Gap 7, BUN 7, Creatinine 0.84, Estim Creat Clear Calc 120.92, Est GFR (MDRD) Af Amer 132, Est GFR (MDRD) Non-Af 109, BUN/Creatinine Ratio 8.4 L, Glucose 134 H, Calcium 9.5, Total Bilirubin 1.00, AST 246 H, ALT 169 H, Alkaline Phosphatase 207 H, Total Protein 8.2, Albumin 3.7, Globulin 4.5 H, Albumin/Globulin Ratio 0.8 L 05/26/19 04:10: WBC 2.7 L, RBC 3.68 L, Hgb 11.7 L, Hct 33.8 L, MCV 91.8, MCH 31.8, MCHC 34.6, RDW Std Deviation 46.5 H, RDW Coeff of Reilly 13.6, Plt Count 60 L , MPV 10.3, Immature Gran % (Auto) 0.400, Neut % (Auto) 48.3, Lymph % (Auto) 28.1, [place] % (Auto) 22.1 H, Eos % (Auto) 0.7, Baso % (Auto) 0.4, Absolute Neuts (auto) 1.3 L, Absolute Lymphs (auto) 0.75 L, Absolute Nucleated RBC 0.00, Nucleated RBC % 0 05/26/19 04:10: Sodium 139, Potassium 3.2 L, Chloride 99, Carbon Dioxide 24.0, Anion Gap 16 H, BUN 14, Creatinine 0.74, Estim Creat Clear Calc 120.80, Est GFR (MDRD) Af Amer 153, Est GFR (MDRD) Non-Af 127, BUN/Creatinine Ratio 19.0, Glucose 119 H, Calcium 9.1 05/26/19 04:10: Lipase 956 H Current Medications Albuterol Sulfate (Ventolin Aerosols) 2.5 mg INHALATION Q2H PRN PRN PRN Reason: Shortness of Breath/Wheezing Carvedilol (Coreg) 12.5 mg PO BID [facility] Last Admin: 05/25/19 21:00 Dose: 12.5 mg Documented by: Chlordiazepoxide (Librium) 50 mg PO Q6H [facility]; Taper Stop: 05/29/19 04:19 Last Admin: 05/26/19 02:25 Dose: 50 mg Documented by: Ergocalciferol (Vitamin D) 50,000 unit PO [facility] Famotidine (Pepcid) 40 mg PO DAILY [facility] Last Admin: 05/25/19 09:32 Dose: 40 mg Documented by: Fluoxetine HCl (Prozac) 40 mg PO DAILY [facility] Last Admin: 05/25/19 09:32 Dose: 40 mg Documented by: Folic [facility] ([facility]) [facility] Stop: 05/26/19 08:01 Last Admin: 05/25/19 08:48 Dose: 1 mg Documented by: Haloperidol Lactate (Haldol) 2 mg IM Q4H PRN PRN PRN Reason: AGITATION Last Admin: 05/25/19 23:11 Dose: 2 mg Documented by: Dextrose/Sodium Chloride (Dextrose 5%/0.9% Nacl) 1,000 mls @ 100 mls/hr IV .Q10H [facility] Last Admin: 05/26/19 02:06 Dose: 100 mls/hr Documented by: Dexmedetomidine HCl 400 mcg/ (Sodium Chloride) 100 mls @ 8.963 mls/hr CONT INF .[id number] [facility] Last Admin: 05/26/19 01:45 Dose: 8.963 mls/hr Documented by: Potassium Chloride () 10 meq in 100 mls @ 100 mls/hr IV BOLUS Q1H [facility] Stop: 05/26/19 10:29 Last Admin: 05/26/19 06:48 Dose: 100 mls/hr Documented by: Lorazepam (Ativan) 2 mg PO Q2H PRN PRN; Protocol PRN Reason: CIWA score > 8 but <15 Lorazepam (Ativan) 2 mg PO UD PRN; Protocol PRN Reason: CIWA score >/=15. Lorazepam (Ativan) 2 mg IV Q2H PRN PRN; Protocol PRN Reason: CIWA score > 8 but <15 Last Admin: 05/26/19 05:58 Dose: 2 mg Documented by: Lorazepam (Ativan) 2 mg IV UD PRN; Protocol PRN Reason: CIWA score >/=15. Morphine Sulfate () 2 mg IV Q3H PRN PRN PRN Reason: Severe pain (7-10/10) Last Admin: 05/25/19 18:02 Dose: 2 mg Documented by: Multivitamins ([facility]itamin) [facility] Last Admin: 05/25/19 08:48 Dose: 1 tablet Documented by: Nicotine (Nicoderm Cq (Pbkc)) 21 mg TRANSDERM. DAILY [facility] Last Admin: 05/25/19 09:31 Dose: 21 mg Documented by: Ondansetron HCl (Zofran) 4 mg IV Q8H PRN PRN PRN Reason: NAUSEA/VOMITING Last Admin: 05/24/19 06:25 Dose: 4 mg Documented by: Promethazine HCl (Phenergan) 12.5 mg IV Q6H PRN PRN PRN Reason: Breakthrough nausea/vomiting Last Admin: 05/24/19 22:42 Dose: 12.5 mg Documented by: Sodium Chloride () 10 - 40 ml IV UD PRN PRN Reason: SALINE FLUSH Last Admin: 05/26/19 06:02 Dose: 10 ml Documented by: Thiamine HCl (Vitamin B1) 100 mg PO DAILY[facility] Stop: 05/26/19 08:01 Last Admin: 05/25/19 08:48 Dose: 100 mg Documented by: Medical Necessity - Tobacco Use Smoking Status: Current every day smoker Tobacco Use: Cigarettes Assessment/Plan All Active Problems (Last Updated 06/21/18 @ 02:20 by Corey Cleaning MD) Alcoholic pancreatitis (Acute) Acute alcohol intoxication (Acute) 1. Acute alcohol pancreatitis/chronic alcoholic hepatitis/acute on chronic alcohol use -He had an episode of pancreatitis last year -Continue with IV fluids transition to a low-fat diet once he is alert to eat -Pain medication as needed though there is a possibility of him using a friend's Suboxone so we will monitor for withdrawal and may need to initiate the opiate withdrawal protocol -Started on Librium and Precedex, will be very careful with monitoring his liver functions as they are elevated -We will have [facility] see the patient to see if there can be any placement for him on discharge -LFTs are slightly worse than what they were October 2018 however this to be expected given the pancreatitis, will monitor for now 2. Chronic pancytopenia -A lot of this is likely secondary chronic alcoholism -Because of his moderate thrombocytopenia, will continue with SCDs 3. Rash -This is a blanching nontender rash -Unsure as to etiology but instead of a PPI will place on Pepcid and see if the H2 jose assists with possible urticaria, does appear to be improving -We will continue to monitor 4. Depression/anxiety -Stable -Continue with his Prozac DVT: SCDs Code Visit Inpatient E&M: 62791 Subs Hosp L2
[2019-05-26] MEDS: FLUoxetine 20 MG Capsule 40 MG PO (08:14)
[2019-05-26] MEDS: Multivitamins,Therapeutic Tablet 1 TABLET PO (08:14)
[2019-05-26] MEDS: Carvedilol 12.5 MG Tablet PO ×2 (08:15→19:58)
[2019-05-26] MEDS: Famotidine 20 MG Tablet 40 MG PO (08:15)
[2019-05-26] MEDS: Folic Acid 1 MG Tablet PO (08:16)
[2019-05-26] MEDS: Thiamine Hydrochloride 100 MG Tablet PO (08:16)
[2019-05-26] MEDS: LORazepam 1 MG Tablet 2 MG PO ×2 (17:18→22:47)
[2019-05-26] MEDS: Morphine 2 MG/ML Syringe IV (22:47)
[2019-05-27] VITALS (13 sets, daily range): BP systolic 105–133; BP diastolic 70–106; PULSE 84–105; RESP 13–28; TEMP 36.6–37; O2SAT 98–100
[2019-05-27] MEDS: LORazepam 1 MG Tablet 2 MG PO ×3 (03:54→15:24)
[2019-05-27] MEDS: chlordiazePOXIDE 25 MG Capsule PO ×3 (03:54→20:06)
[2019-05-27] MEDS: Morphine 2 MG/ML Syringe IV (04:07)
[2019-05-27] MEDS: 0.9% NaCl Peripheral Flush Adult/Peds IV ×3 (04:08→15:24)
[2019-05-27 05:01] LABS: ALB/GLOB Ratio 0.8 RATIO (0.9-2.4); AST(SGOT) 82 U/L (15-37); Alanine Aminotransfer ALT/SGPT 106 U/L (16-61); Albumin, Serum 3.2 g/dL (3.2-5.0); Alkaline Phosphatase 150 U/L (45-117); Anion Gap 12 (5-15); BUN 8 mg/dL (7-18); BUN/Creat Ratio 10.6 RATIO (10-20); Calcium,Total 8.8 mg/dL (8.5-10.1); Chloride 100 mmol/L (98-107); Creatinine, Serum 0.76 mg/dL (0.70-1.30); EST Glomerular Filtration Rate 123 mL/min (>60); Est Glom Filt Rate - Afr Amer 149 mL/min (>60); Estimated Creatinine Clearance 117.62 ml/min; Globulin 3.8 g/dL (2.2-4.2); Glucose 98 mg/dL (74-106); Magnesium 0.9 mg/dL (1.6-2.6); Potassium 3.6 mmol/L (3.5-5.1); Sodium Level 140 mmol/L (136-145)
[2019-05-27] MEDS: Magnesium Sulfate 4gm/100mL 4 GM/100 ML IV.SOLN. IV (05:15)
--- NOTE | 2019-05-27 06:48 | PCM.PN.INT ---
Subjective: Patient did well overnight. No acute issues were reported. Patient was taken off of Precedex at approximately 5 AM. Patient's CIWA scores have been 9-10. Patient does report that he has been taking his friend's Suboxone and is concerned he may be going through opiate withdrawal also. Patient reports a right upper quadrant abdominal pain that is a dull achy, but can be a sharp stabbing pain with some movement. Patient is reporting hunger and has ordered breakfast. General: Alert, Oriented x3, Cooperative, No apparent distress, Well developed, Well nourished, - - No conversational dyspnea. HEENT: Atraumatic, PERRLA, EOMI, Normocephalic, - - Slight scleral injection without icterus Oral: Moist Mucosa, No Gingival or Mucosal Lesions/ Ulcerations Neck: Supple, No JVD, No Nodes, Trachea Midline Lungs: Clear to auscultation, Normal air movement, No rhonchi, No wheeze, No rales Cardiovascular: Regular rate, Regular Rhythm, Normal S1, Normal S2, No murmurs, No rub noted, No Gallop Abdomen: Bowel Sounds Present, Soft, Non-Distended, Tender - Palpation in right upper quadrant. No rebound and only mild guarding noted. Extremities: No clubbing, No cyanosis, No edema, Capillary Refill Less than 3 Seconds Skin: No rashes, No breakdown Musculoskeletal: No Tenderness to Palpation of Joints or Extremities Lymphatic: No Cervical, Supraclavicular, or Inguinal Adenopathy Neurological: Cranial nerves II-XII grossly intact, Neuro grossly intact, Motor Exam 5/5 strength throughout, Sensory exam intact to light touch and pain Psych/Mental Status: Alert and oriented to time, place, person, mood and affect Vital Signs Temp Pulse Resp BP Pulse Ox 36.8 C 103 H 17 130/101 H 100 05/27/19 04:00 05/27/19 06:00 05/27/19 06:00 05/27/19 06:00 05/27/19 06:00 Oxygen Flow Rate (L/min) 2 Oxygen Delivery Method Room Air Weight: 65 kg Body Mass Index (BMI) 22.6 Intake and Output for Last 24 Hours 05/25/19 05/26/19 05/27/19 23:59 23:59 23:59 Intake Total 3041 / 3170 2488.8 / 2488.8 733.8 / 733.8 Output Total 1030 / 1030 1475 / 1475 825 / 825 Balance 2010 1013.8 / 1013.8 -91.2 / -91.2 Labs (Last 48 Hours) 05/25/19 05/25/19 05/26/19 07:20 07:20 04:10 WBC 4.1 L 2.7 L RBC 4.52 L 3.68 L Hgb 14.6 11.7 L Hct 41.1 33.8 L MCV 90.9 91.8 MCH 32.3 H 31.8 MCHC 35.5 34.6 RDW Std Deviation 45.1 H 46.5 H RDW Coeff of Reilly 13.4 13.6 Plt Count 79 L 60 L MPV 10.4 10.3 Immature Gran % (Auto) 0.500 0.400 Neut % (Auto) 55.0 48.3 Lymph % (Auto) 24.1 28.1 [place] % (Auto) 19.2 H 22.1 H Eos % (Auto) 0.7 0.7 Baso % (Auto) 0.5 0.4 Absolute Neuts (auto) 2.2 1.3 L Absolute Lymphs (auto) 0.98 0.75 L Absolute Nucleated RBC 0.00 0.00 Nucleated RBC % 0 0 Sodium 130 L Potassium 3.7 Chloride 91 L Carbon Dioxide 32.0 Anion Gap 7 BUN 7 Creatinine 0.84 Estim Creat Clear Calc 120.92 Est GFR (MDRD) Af Amer 132 Est GFR (MDRD) Non-Af 109 BUN/Creatinine Ratio 8.4 L Glucose 134 H Calcium 9.5 Magnesium Total Bilirubin 1.00 AST 246 H ALT 169 H Alkaline Phosphatase 207 H Total Protein 8.2 Albumin 3.7 Globulin 4.5 H Albumin/Globulin Ratio 0.8 L Lipase 05/26/19 05/26/19 05/27/19 04:10 04:10 04:00 WBC RBC Hgb Hct MCV MCH MCHC RDW Std Deviation RDW Coeff of Reilly Plt Count MPV Immature Gran % (Auto) Neut % (Auto) Lymph % (Auto) [place] % (Auto) Eos % (Auto) Baso % (Auto) Absolute Neuts (auto) Absolute Lymphs (auto) Absolute Nucleated RBC Nucleated RBC % Sodium 139 140 Potassium 3.2 L 3.6 Chloride 99 100 Carbon Dioxide 24.0 28.0 Anion Gap 16 H 12 BUN 14 8 Creatinine 0.74 0.76 Estim Creat Clear Calc 120.80 117.62 Est GFR (MDRD) Af Amer 153 149 Est GFR (MDRD) Non-Af 127 123 BUN/Creatinine Ratio 19.0 10.6 Glucose 119 H 98 Calcium 9.1 8.8 Magnesium 0.9 L* Total Bilirubin 0.80 AST 82 H ALT 106 H Alkaline Phosphatase 150 H Total Protein 7.0 Albumin 3.2 Globulin 3.8 Albumin/Globulin Ratio 0.8 L Lipase 956 H Medical Necessity - Tobacco Use Smoking Status: Current every day smoker Tobacco Use: Cigarettes Assessment/Plan All Active Problems (Last Updated 06/21/18 @ 02:20 by Corey Cleaning MD) Alcoholic pancreatitis (Acute) Acute alcohol intoxication (Acute) RECOMMENDATIONS: 1. Continue alcohol withdrawal taper with Librium 2. Okay to discontinue Precedex 3. Discontinue IV fluids if patient can tolerate p.o. 4. Okay to leave the intensive care unit from my perspective 5. Hemodynamically stable on room air. Will sign off from a critical care perspective IMPRESSIONS: 1. Acute on chronic alcoholic pancreatitis secondary to acute on chronic alcohol use Patient's coagulation studies are within normal limits. Patient did have an elevated lipase initially, but this was decreasing. Patient to attempt p.o. intake this morning. If able to tolerate, discontinuation of IV fluids would be appropriate.. Patient was reinitiated on Librium and Ativan. Liver enzymes appear to be improving with conservative therapy. Okay to discontinue Precedex, but continue with Librium taper and CIWA protocol. 2. Chronic pancytopenia Patient does have a history of chronic pancytopenia that is thought to be secondary to chronic alcoholism. Patient is on SCDs, but no chemical prophylaxis given moderate thrombocytopenia. No bleeding complications have been reported. No indication for transfusion at this time. 3. Depression/anxiety/rash Complicates care, management, recovery and prognosis. Rash is blanching and nontender and appears to be allergic in appearance. This is improving. Code Visit Inpatient E&M: 90583 Subs Hosp L2
--- NOTE | 2019-05-27 07:17 | PN_ITS ---
Patient Problems: Active and Suspected Problems (Last Updated 06/21/18 @ 02:20 by Corey Cleaning MD) Alcoholic pancreatitis (Acute) Acute alcohol intoxication (Acute) Subjective: Patient seen and examined. He has been off Precedex since 5 AM. He complains of bilateral flank pain as well as bilateral lower back pain. His pain is worse when he moves around. It is reproducible. Denies any dizziness or palpitations or shortness of breath. No other acute events overnight. Vitals/I&O's: Vital Signs Temp Pulse Resp BP Pulse Ox 98.2 F 103 H 17 130/101 H 100 05/27/19 04:00 05/27/19 06:00 05/27/19 06:00 05/27/19 06:00 05/27/19 06:00 Oxygen Flow Rate (L/min) 2 Oxygen Delivery Method Room Air Weight: 65 kg Body Mass Index (BMI) 22.6 Intake and Output for Last 24 Hours 05/25/19 05/26/19 05/27/19 23:59 23:59 23:59 Intake Total 3041 / 3170 2488.8 / 2488.8 733.8 / 733.8 Output Total 1030 / 1030 1475 / 1475 825 / 825 Balance 2010 1013.8 / 1013.8 -91.2 / -91.2 General: Alert, Oriented x3, Cooperative, No apparent distress HEENT: Atraumatic, PERRLA, EOMI, Normocephalic Oral: Moist Mucosa Neck: Supple Lungs: Clear to auscultation, Normal air movement Cardiovascular: Regular rate, Regular Rhythm, Normal S1, Normal S2, No murmurs Abdomen: Bowel Sounds Present, Soft, Non Tender, Non-Distended, No Hepato- splenomegaly Extremities: No edema Skin: No rashes, No breakdown Musculoskeletal: Tenderness - over bilateral flanks and bilateral lumbar regions Neurological: Cranial nerves II-XII grossly intact, Neuro grossly intact Psych/Mental Status: Normal Affect, Appropriate Laboratory Results 05/26/19 04:10: Lipase 956 H 05/27/19 04:00: Sodium 140, Potassium 3.6, Chloride 100, Carbon Dioxide 28.0, Anion Gap 12, BUN 8, Creatinine 0.76, Estim Creat Clear Calc 117.62, Est GFR (MDRD) Af Amer 149, Est GFR (MDRD) Non-Af 123, BUN/Creatinine Ratio 10.6, Glucose 98, Calcium 8.8, Magnesium 0.9 L*, Total Bilirubin 0.80, AST 82 H, ALT 106 H, Alkaline Phosphatase 150 H, Total Protein 7.0, Albumin 3.2, Globulin 3.8, Albumin/Globulin Ratio 0.8 L Current Medications Albuterol Sulfate (Ventolin Aerosols) 2.5 mg INHALATION Q2H PRN PRN PRN Reason: Shortness of Breath/Wheezing Carvedilol (Coreg) 12.5 mg PO BID [facility] Last Admin: 05/26/19 19:58 Dose: 12.5 mg Documented by: Chlordiazepoxide (Librium) 50 mg PO Q8H [facility]; Taper Stop: 05/29/19 04:19 Last Admin: 05/27/19 03:54 Dose: 50 mg Documented by: Ergocalciferol (Vitamin D) 50,000 unit PO [facility] Famotidine (Pepcid) 40 mg PO DAILY [facility] Last Admin: 05/26/19 08:15 Dose: 40 mg Documented by: Fluoxetine HCl (Prozac) 40 mg PO DAILY [facility] Last Admin: 05/26/19 08:14 Dose: 40 mg Documented by: Haloperidol Lactate (Haldol) 2 mg IM Q4H PRN PRN PRN Reason: AGITATION Last Admin: 05/25/19 23:11 Dose: 2 mg Documented by: Dextrose/Sodium Chloride (Dextrose 5%/0.9% Nacl) 1,000 mls @ 100 mls/hr IV .Q10H [facility] Last Admin: 05/26/19 21:30 Dose: 100 mls/hr Documented by: Dexmedetomidine HCl 400 mcg/ (Sodium Chloride) 100 mls @ 8.963 mls/hr CONT INF .[id number] [facility] Last Admin: 05/26/19 22:43 Dose: 8.963 mls/hr Documented by: Magnesium Sulfate () 4 gm in 100 mls @ 25 mls/hr IV X1 ONE Stop: 05/27/19 09:01 Last Admin: 05/27/19 05:15 Dose: 25 mls/hr Documented by: Lorazepam (Ativan) 2 mg PO Q2H PRN PRN; Protocol PRN Reason: CIWA score > 8 but <15 Last Admin: 05/27/19 03:54 Dose: 2 mg Documented by: Lorazepam (Ativan) 2 mg PO UD PRN; Protocol PRN Reason: CIWA score >/=15. Lorazepam (Ativan) 2 mg IV Q2H PRN PRN; Protocol PRN Reason: CIWA score > 8 but <15 Last Admin: 05/26/19 05:58 Dose: 2 mg Documented by: Lorazepam (Ativan) 2 mg IV UD PRN; Protocol PRN Reason: CIWA score >/=15. Morphine Sulfate () 2 mg IV Q3H PRN PRN PRN Reason: Severe pain (7-10/10) Last Admin: 05/27/19 04:07 Dose: 2 mg Documented by: Multivitamins (Multivitamin) 1 tablet PO DAILYCM BREE Last Admin: 05/26/19 08:14 Dose: 1 tablet Documented by: Nicotine (Nicoderm Cq (Pbkc)) 21 mg TRANSDERM. DAILY [facility] Last Admin: 05/26/19 08:16 Dose: 21 mg Documented by: Ondansetron HCl (Zofran) 4 mg IV Q8H PRN PRN PRN Reason: NAUSEA/VOMITING Last Admin: 05/24/19 06:25 Dose: 4 mg Documented by: Promethazine HCl (Phenergan) 12.5 mg IV Q6H PRN PRN PRN Reason: Breakthrough nausea/vomiting Last Admin: 05/24/19 22:42 Dose: 12.5 mg Documented by: Sodium Chloride () 10 - 40 ml IV UD PRN PRN Reason: SALINE FLUSH Last Admin: 05/27/19 04:08 Dose: 10 ml Documented by: Medical Necessity - Tobacco Use Smoking Status: Current every day smoker Tobacco Use: Cigarettes Assessment/Plan All Active Problems (Last Updated 06/21/18 @ 02:20 by Corey Cleaning MD) Alcoholic pancreatitis (Acute) Acute alcohol intoxication (Acute) 39-year-old male with past medical history of chronic alcohol use disorder, drinks about half a bottle of vodka daily who comes in for medical stabilization under the [facility] program. He last drank alcohol 1 hour prior to his admission. Patient has been monitored on the CIWA protocol. He was on the Librium and Ativan and had persistent agitation and was transferred to the ICU on Precedex. Blood work is significant for pancytopenia, elevated transaminases, and elevated lipase and alcohol levels on admission. 1. Acute alcohol withdrawal, improved, currently CIWA score is 10, off Precedex, Will keep on Librium and Ativan as needed, [facility] consulted to evaluate for assistance/guidance on treatment plan/facilities post discharge. 2. Opiate dependence, patient admits to using his friend's Subutex, no signs of active withdrawal now as patient was receiving morphine for abdominal pain We will discontinue IV morphine, continue on Tylenol as needed for pain, start on opiate withdrawal protocol 3. Acute alcoholic pancreatitis, improving, patient is tolerating advancement in diet, will monitor 4. Acute alcoholic hepatitis, improving, LFTs appear improved compared to previous, will continue to monitor 5. Hypomagnesemia secondary to chronic alcohol use, replace, recheck in a.m. 6. Pancytopenia, chronic, will monitor 7. DVT PPx- SCDs 8. GI PPx- famotidine po Code Visit Inpatient E&M: 98127 Subs Hosp L2
[2019-05-27] MEDS: Dextrose 5%/0.9% NaCl 1,000 ML 100 ML IV (07:24)
[2019-05-27] MEDS: Methocarbamol 750 MG Tablet PO (08:19)
[2019-05-27] MEDS: Ibuprofen 400 MG Tablet PO (08:19)
[2019-05-27] MEDS: LORazepam 2 MG/ML Syringe IV (08:20)
[2019-05-27] MEDS: Dicyclomine 10 MG Capsule 20 MG PO (09:29)
[2019-05-27] MEDS: Famotidine 20 MG Tablet 40 MG PO (09:30)
[2019-05-27] MEDS: FLUoxetine 20 MG Capsule 40 MG PO (09:30)
[2019-05-27] MEDS: Carvedilol 12.5 MG Tablet PO ×2 (09:30→20:06)
--- NOTE | 2019-05-27 09:50 | CASEMGMT ---
CASANDRA MCKAY Assessment Presentation: Acute alcoholic pancreatitis, chronic alcoholic hepatitis, ETOH. Myron Fishman Luz entered note that she spoke with pt. Pt to ICU for medical stabilization of symptoms. PCP: [facility] Specialists: Dr. Palmer Preferred Pharmacy: [facility] Insurance: [employer] Prescription Benefit: yes LNOK: Mother, Roseanne Chowdhury, father Xavier Chowdhury Living Arrangements: lives independently with parents. SW Consult: Pt was seen by Myron fishman. DC PLAN: per Myron Fishman/SW re: ETOH. If DC planning needs arise, RN NELY can evaluate. Ramonita BANKS RN ACM
[2019-05-27] MEDS: hydrOXYzine PAM 25 MG Capsule 50 MG PO ×2 (14:43→21:47)
[2019-05-28 02:00] VITALS: BP 117/79; PULSE 83; RESP 18; TEMP 36.9; O2SAT 100
[2019-05-28] MEDS: LORazepam 1 MG Tablet 2 MG PO ×3 (02:03→14:31)
[2019-05-28] MEDS: chlordiazePOXIDE 25 MG Capsule PO ×2 (04:02→15:58)
[2019-05-28 04:22] LABS: Absolute Lymphocyte Count 0.85 X10^3/uL (0.83-4.51); Absolute Neutrophil Count 1.7 X10^3/uL (2.0-7.7); Basophil# 0.03 X10^3/uL; Basophil% 0.9 % (0-1); Eosinophil# 0.07 X10^3/uL; Eosinophils% 2.1 % (0-5); Hematocrit 33.9 % (40-54); Hemoglobin 11.7 g/dL (13.0-16.5); Lymphocyte # 0.85 X10^3/ul (4.0); Lymphocyte % 25.1 % (19-41); Mean Corp Hgb Conc 34.5 g/dL (32-36); Mean Corpuscular Hgb 32.3 pg (27.0-32.0); Mean Corpuscular Volume 93.6 fL (80-94); Mean Platelet Vol. 9.7 fl (6.2-12.0); Monocyte# 0.76 X10^3/uL; Monocyte% 22.5 % (0-10); NRBC Flagged by Analyzer 0 % (0-5); Neutrophil # 1.65 X10^3/uL (2.7-7.7); Neutrophil % 48.8 % (47-70); Platelet Count 124 K/mm3 (150-450); RBC Distribution Width SD 47.7 fl (35.1-43.9); Red Blood Count 3.62 M/mm3 (4.6-6.2); White Blood Count 3.4 K/mm3 (4.4-11.0)
[2019-05-28 04:30] LABS: ALB/GLOB Ratio 0.8 RATIO (0.9-2.4); AST(SGOT) 78 U/L (15-37); Alanine Aminotransfer ALT/SGPT 101 U/L (16-61); Albumin, Serum 3.3 g/dL (3.2-5.0); Alkaline Phosphatase 144 U/L (45-117); Anion Gap 10 (5-15); BUN 10 mg/dL (7-18); BUN/Creat Ratio 11.2 RATIO (10-20); Calcium,Total 9.2 mg/dL (8.5-10.1); Chloride 102 mmol/L (98-107); Creatinine, Serum 0.89 mg/dL (0.70-1.30); EST Glomerular Filtration Rate 101 mL/min (>60); Est Glom Filt Rate - Afr Amer 122 mL/min (>60); Estimated Creatinine Clearance 103.46 ml/min; Globulin 3.9 g/dL (2.2-4.2); Glucose 98 mg/dL (74-106); Magnesium 1.7 mg/dL (1.6-2.6); Potassium 3.5 mmol/L (3.5-5.1); Protein, Total 7.2 g/dL (6.4-8.2); Sodium Level 141 mmol/L (136-145)
[2019-05-28] MEDS: Glycerin/Hypromellose/PEG400 15 ml Bottle 1 DRP EACH EYE (05:20)
[2019-05-28 07:56] VITALS: BP 123/93; PULSE 87; RESP 16; TEMP 36.4; O2SAT 100
[2019-05-28] MEDS: Dicyclomine 10 MG Capsule 20 MG PO (08:05)
[2019-05-28] MEDS: 0.9% NaCl Peripheral Flush Adult/Peds IV (08:05)
[2019-05-28] MEDS: Ondansetron 4 MG/2 ML Vial IV (08:06)
[2019-05-28] MEDS: Multivitamins,Therapeutic Tablet 1 TABLET PO (08:06)
--- NOTE | 2019-05-28 08:31 | PCM.DC ---
- Discharge Diagnoses Current Active Problems: Current Active and Chronic Problems (Last Updated 06/21/18 @ 02:20 by Corey Cleaning MD) Alcoholic pancreatitis (Acute) Acute alcohol intoxication (Acute) Chronic alcoholic hepatitis (Chronic) Pancytopenia (Chronic) Reason(s) for Visit for Discharge Instructions: Acute alcohol withdrawal You will use the following diet at home:: Regular Your food should be the consistency of: Regular Your liquids should be the consistency of: Regular/Thin Discharge Activity: Return to Normal Activity Additional Instructions: You are strongly advised to continue to avoid drinking alcohol or smoking. Continue to follow-up with your outpatient AA meetings as well as drug treatment programs as planned. Follow-up with your primary care doctor within 1 to 2 weeks. Continue on a soft diet and increase the consistency of your diet as you can tolerate to normal. Allergies/Adverse Reactions: Allergies No Known Allergies Allergy (Verified 05/23/19 15:16) Medications to take at Discharge Carvedilol [Coreg (Beta Nieves)] 12.5 mg PO BID 05/23/19 Ergocalciferol (Vitamin D2) [Vitamin D2] 50,000 units PO WE 05/23/19 Fluoxetine [Prozac] 40 mg PO DAILY 05/23/19 Multivitamin [Multivitamins] 1 ea PO DAILY 05/23/19 Ibuprofen [Motrin] 400 mg PO TID PRN tablet 05/28/19 Nicotine [Nicoderm Cq] 21 mg TRANSDERM. DAILY #30 patch 05/28/19 The following prescriptions were given: Nicotine [Nicoderm Cq] 21 mg TRANSDERM. DAILY #30 patch Transmission Status: Pending to [facility] [id number] [address] [employer] Primary Care Physician: Mario Osborn,Out of [NON-STAFF] - Please follow up with your Primary Care Physician in: within 1-2 weeks or as scheduled Test Results: Test results from this visit will be discussed in further detail at your follow-up appointment, if applicable. Proposed Discharge Date: 05/28/19
--- NOTE | 2019-05-28 08:33 | PCM.DC.SUM ---
Discharge Date and Diagnosis - Problem List Patient Problems: Active and Suspected Problems (Last Updated 06/21/18 @ 02:20 by Corey Cleaning MD) Alcoholic pancreatitis (Acute) Acute alcohol intoxication (Acute) Date of Admission: 05/23/19 Date of Discharge: 05/28/19 - Primary Discharge Diagnosis Active and Suspected Problems (Last Updated 06/21/18 @ 02:20 by Corey Cleaning MD) Alcoholic pancreatitis (Acute) Acute alcohol intoxication (Acute) Acute opioid withdrawal Acute alcohol withdrawal - Secondary Discharge Diagnosis Chronic Problems (Last Updated 06/21/18 @ 02:20 by Corey Cleaning MD) Alcohol withdrawal seizure (Chronic) Chronic alcoholic hepatitis (Chronic) Pancytopenia (Chronic) Hospital Course and Treatment Imaging Results: Clinical Impression(s) from Imaging Studies Abdomen/Pelvis CT 05/23/19 16:50 IMPRESSION: Fatty liver and hepatomegaly. Mild increased fat attenuation/trace fluid setting the tail of the pancreas, which can be secondary to reported pancreatitis. No pseudocyst. Mild mural thickening of the ascending colon, suggesting mild colitis. Electronically Signed: Harpal Bueno, at 18:00 EDT Tel , Service support , Doctor Of Naturopathic Medicine Operations: None Procedures: None Summary of Care Provided: 39-year-old male with past medical history of chronic alcohol use disorder, who drinks about half a bottle of vodka daily. He was admitted for medical stabilization under the [facility] program. He last drank alcohol 1 hour prior to his admission. Patient initially was admitted to the Medr floor and was monitored on the [facility] protocol. His admitting blood work was significant for pancytopenia, elevated transaminases, and elevated lipase and alcohol levels. His admitting alcohol level was 448. His urine tox was positive for cannabinoids. He was on the Librium and Ativan and had persistent agitation and was then transferred to the ICU. He was started on Precedex. He improved in the ICU on the Precedex drip and was eventually weaned off. He was continued on Librium and Ativan as needed. He was also monitored for opioid withdrawal as he admitted to using his friend's Subutex. He was also managed as acute alcoholic pancreatitis and acute alcoholic hepatitis and he gradually improved in his diet. His liver function tests also improved over his hospital stay. He had low levels of magnesium secondary to his chronic alcohol use that was replaced. He was noted to have pancytopenia which appeared to be chronic for him. Patient was seen by [facility] and resources offered to him. He will follow-up in the outpatient with resources including AA meetings and his counselor in [place]. Patient Problems: Active and Suspected Problems (Last Updated 06/21/18 @ 02:20 by Corey Cleaning MD) Alcoholic pancreatitis (Acute) Acute alcohol intoxication (Acute) Subjective: On the day of discharge, patient was seen and examined. Denied any new complaints. He has been tolerating his diet. Denies any nausea or vomiting. Objective: Physical exam: General: Alert, Oriented x3, Cooperative, No apparent distress HEENT: Atraumatic, PERRLA, EOMI, Normocephalic Oral: Moist Mucosa Neck: Supple Lungs: Clear to auscultation, Normal air movement Cardiovascular: Regular rate, Regular Rhythm, Normal S1, Normal S2, No murmurs Abdomen: Bowel Sounds Present, Soft, Non Tender, Non-Distended, No Hepato-splenomegaly Extremities: No edema Skin: No rashes, No breakdown Musculoskeletal: Tenderness - over bilateral flanks and bilateral lumbar regions Neurological: Cranial nerves II-XII grossly intact, Neuro grossly intact Psych/Mental Status: Normal Affect, Appropriate - Physical Exam Vital Signs Temp Pulse Resp BP Pulse Ox 97.6 F L 87 16 123/93 H 100 05/28/19 07:56 05/28/19 07:56 05/28/19 07:56 05/28/19 07:56 05/28/19 07:56 Oxygen Flow Rate (L/min) 2 Oxygen Delivery Method Room Air Weight: 62.5 kg Body Mass Index (BMI) 22.6 Intake and Output for Last 24 Hours 05/26/19 05/27/19 05/28/19 23:59 23:59 23:59 Intake Total 2488.8 / 2488.8 2304.8 / 2304.8 250 / 250 Output Total 1475 / 1475 2425 / 2425 650 / 650 Balance 1013.8 / 1013.8 -120.2 / -120.2 -400 / -400 Laboratory Tests Past 24 Hrs 05/28/19 05/28/19 04:05 04:05 WBC 3.4 L RBC 3.62 L Hgb 11.7 L Hct 33.9 L MCV 93.6 MCH 32.3 H MCHC 34.5 RDW Std Deviation 47.7 H RDW Coeff of Reilly 14.0 Plt Count 124 L MPV 9.7 Immature Gran % (Auto) 0.600 Neut % (Auto) 48.8 Lymph % (Auto) 25.1 [place] % (Auto) 22.5 H Eos % (Auto) 2.1 Baso % (Auto) 0.9 Absolute Neuts (auto) 1.7 L Absolute Lymphs (auto) 0.85 Absolute Nucleated RBC 0.00 Nucleated RBC % 0 Sodium 141 Potassium 3.5 Chloride 102 Carbon Dioxide 29.0 Anion Gap 10 BUN 10 Creatinine 0.89 Estim Creat Clear Calc 103.46 Est GFR (MDRD) Af Amer 122 Est GFR (MDRD) Non-Af 101 BUN/Creatinine Ratio 11.2 Glucose 98 Calcium 9.2 Magnesium 1.7 Total Bilirubin 0.70 AST 78 H ALT 101 H Alkaline Phosphatase 144 H Total Protein 7.2 Albumin 3.3 Globulin 3.9 Albumin/Globulin Ratio 0.8 L Discharge Diet: No Restrictions Discharge Activity: Return to Normal Activity Home Medications: Medications to take at Discharge Carvedilol [Coreg (Beta Nieves)] 12.5 mg PO BID 05/23/19 Ergocalciferol (Vitamin D2) [Vitamin D2] 50,000 units PO WE 05/23/19 Fluoxetine [Prozac] 40 mg PO DAILY 05/23/19 Multivitamin [Multivitamins] 1 ea PO DAILY 05/23/19 Ibuprofen [Motrin] 400 mg PO TID PRN tab 05/28/19 Nicotine [Nicoderm Cq] 21 mg TRANSDERM. DAILY #30 patch 05/28/19 Following Prescrptions Were Given to Patient: Nicotine [Nicoderm Cq] 21 mg TRANSDERM. DAILY #30 patch Transmission Status: Received by [facility] [id number] [address] [employer] Primary Care Physician: Mario Doctor,Out of [NON-STAFF] - Please follow up with your Primary Care Physician in: within 1-2 weeks or as scheduled Disposition: Home Minutes spent on discharge:: 40 Patient Condition:: Stable Medical Necessity - Tobacco Use Smoking Status: Current every day smoker Tobacco Use: Cigarettes Meaningful Use Info Meaningful Use Diagnoses (Choose all that apply): None applicable Code Visit Inpatient E&M: 32941 Disch Hosp
[2019-05-28] MEDS: FLUoxetine 20 MG Capsule 40 MG PO (09:09)
[2019-05-28] MEDS: Carvedilol 12.5 MG Tablet PO (09:09)
[2019-05-28] MEDS: Famotidine 20 MG Tablet 40 MG PO (09:09)
--- NOTE | 2019-05-28 09:17 | NURSING ---
Hellen from [facility] in to see patient
--- NOTE | 2019-05-28 10:20 | [facility]VISION ---
Patient and Ship Engineer called patient's counselor at [facility] to re-establish services. Patient left voicemail with his counselor who he reports to like very much. Andie also interested to do the 90 day AA challenge of one meeting every day for 90 days.
[2019-05-28] MEDS: Methocarbamol 750 MG Tablet PO (11:02)
[2019-05-28] MEDS: hydrOXYzine PAM 25 MG Capsule 50 MG PO (11:02)
[2019-05-28 12:42] VITALS: BP 118/75; PULSE 86; RESP 14; TEMP 36.7; O2SAT 100
[2019-05-28 16:01] VITALS: BP 113/83; PULSE 72; RESP 14; TEMP 36.4; O2SAT 100
--- NOTE | 2019-05-28 16:07 | CASEMGMT ---
RN CM Note: Call received from nurse Rand with [facility]. Call back # [phone], Nurse states if assist is needed for dc planning re: [facility], DME to call and they will assist. Per CM they also follow the patient once home and assist with compliance for f/u. A.Jered BSN RN AC
== END 2019-05-28 16:30 | disposition home or self-care (01) | DRG 282 ==
LOC: ED 17:53 → MS3 18:02 → ICU 05-26 01:58
PROVIDERS: Family Medicine; Internal Medicine Critical Care Medicine; Admitting Provider Internal Medicine; Emergency Provider Emergency Medicine; Family Provider Nurse Practitioner; PCP Nurse Practitioner; Visit Provider Internal Medicine
DX: K85.20 Alcohol induced acute pancreatitis without necrosis or infection (principal); Y90.8 Blood alcohol level of 240 mg/100 ml or more; K70.10 Alcoholic hepatitis without ascites; Z78.1 Physical restraint status; F17.210 Nicotine dependence, cigarettes, uncomplicated; F10.229 Alcohol dependence with intoxication, unspecified; R21 Rash and other nonspecific skin eruption; F10.239 Alcohol dependence with withdrawal, unspecified; E83.42 Hypomagnesemia; F11.23 Opioid dependence with withdrawal; D61.818 Other pancytopenia
CPT/HCPCS: 36415; 74177; 80048; 80053; 80307; 80320; 81001; 82962; 83690; 83735; 84443; 84484; 85025; 85610; 93005; 97802; 99284; 99406; J7030; Q9967; A4216; G0480; J2405; J3490

== ENCOUNTER 2019-10-13 10:29 | Inpatient (IN) | payer MEDICAID, SELFPAY ==
[2019-10-13 10:29] VITALS: BMI 23.6
[2019-10-13 10:30] VITALS: BP 122/76; PULSE 93; RESP 18; TEMP 36.6; O2SAT 98; BMI 21.5
--- NOTE | 2019-10-13 11:08 | ED.VISSUMM ---
- ER Visit Summary Date of Service: 10/13/19 Chief Complaint: Requesting detox History of Present Illness: The patient is a 39 M 3 of chronic alcoholism and prior pancreatitis and hypertension. Patient states he would like to be admitted for detox. I believe he may have been detox earlier this year. Is also had some intermittent nausea vomiting. Really no significant abdominal pain. No melena. No hematemesis. Physical Examination: Middle-aged male no acute distress vital signs stable afebrile. H EENT exam unremarkable. His eyes are bloodshot. He looks intoxicated and hung over. Neck nontender. No lymphadenopathy. No signs of trauma to his face or scalp. Lungs clear to auscultation bilaterally. Heart regular rhythm no murmur. Abdomen is soft and nontender normal bowel sounds no peritoneal signs. Patient is moving all 4 extremities. Neurovascular intact. No edema. No trauma. Nontender. Neurologically is awake and alert. He appears intoxicated. But he is responding and answering questions normally. Test Results: CBC shows pancytopenia with a white count of 1.6. Hemoglobin 12.5. Platelet count of 55,000. He has had similar labs before in the past. Electrolytes unremarkable. Liver enzymes are slightly elevated. And lipase is normal. Emergency Department Course and Treatment: Screening labs being obtained. Treatment Plan: I will speak to the hospitalist about admission for detox. Patient was given p.o. Ativan due to start to have withdrawal symptoms. Disposition: Admission Impression: Acute on chronic alcohol abuse Requesting detox History of pancreatitis This note was generated with [employer] dictation software. It may contain incorrect words, spelling, and punctuation that were not noted in review of the chart prior to signing ED Disposition - Plan for ED Patient: Referrals: Michelle Douglas [Primary Care Provider] -
[2019-10-13 11:26] LABS: Absolute Lymphocyte Count 0.77 X10^3/uL (0.83-4.51); Absolute Neutrophil Count 0.5 X10^3/uL (2.0-7.7); Basophil# 0.02 X10^3/uL; Basophil% 1.2 % (0-1); Eosinophil# 0.03 X10^3/uL; Eosinophils% 1.9 % (0-5); Hematocrit 34.3 % (40-54); Hemoglobin 12.5 g/dL (13.0-16.5); Lymphocyte # 0.77 X10^3/ul (4.0); Lymphocyte % 47.5 % (19-41); Mean Corp Hgb Conc 36.4 g/dL (32-36); Mean Corpuscular Volume 93.2 fL (80-94); Mean Platelet Vol. 9.5 fl (6.2-12.0); Monocyte# 0.32 X10^3/uL; Monocyte% 19.8 % (0-10); NRBC Flagged by Analyzer 0 % (0-5); Neutrophil # 0.47 X10^3/uL (2.7-7.7); POSITIVE COUNT YES; POSITIVE DIFFERENTIAL YES; Platelet Count 55 K/mm3 (150-450); RBC Distribution Width CV 13.5 % (11.6-14.6); RBC Distribution Width SD 46.3 fl (35.1-43.9); Red Blood Count 3.68 M/mm3 (4.6-6.2); White Blood Count 1.6 K/mm3 (4.4-11.0)
[2019-10-13 11:29] LABS: Differential Indicated SCAN CRITERIA MET
[2019-10-13 11:40] LABS: AST(SGOT) 407 U/L (15-37); Alanine Aminotransfer ALT/SGPT 201 U/L (16-61); Albumin, Serum 4.5 g/dL (3.2-5.0); Alkaline Phosphatase 111 U/L (45-117); Anion Gap 9 (5-15); BUN 12 mg/dL (7-18); BUN/Creat Ratio 13.3 RATIO (10-20); Chloride 96 mmol/L (98-107); EST Glomerular Filtration Rate 100 mL/min (>60); Est Glom Filt Rate - Afr Amer 121 mL/min (>60); Globulin 4.1 g/dL (2.2-4.2); Glucose 99 mg/dL (74-106); Lipase 232 U/L (73-393); Potassium 3.5 mmol/L (3.5-5.1); Protein, Total 8.6 g/dL (6.4-8.2); Sodium Level 137 mmol/L (136-145)
[2019-10-13 11:53] LABS: Differential Comment SCANNED; Platelet Estimate MKD DEC (ADEQ)
--- NOTE | 2019-10-13 12:06 | HP.PCM_ITS ---
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 Patient last drink was about 10 AM in the morning. He drinks half bottle vodka every day. He was last admitted in May 2019 for acute alcoholic intoxication with alcoholic panc reatitis. Last time he was admitted in ICU and was on Precedex drip. Currently patient has mild tremors. Denies abdominal cramps, muscle cramps or nausea or vomiting. Patient has chronic numbness of bilateral feet. He has a history of opioid use but currently denies morphine, fentanyl, heroin or other opioids. He smokes weights and cigarettes. [Basic blood work shows leukopenia, WBC 1.6 thousand, ANC 0.5 thousand, thrombocytopenia platelet count 55,000 and mild anemia H&H 12.5/34.3. LFTs shows elevated AST and ALT in the ratio of 2 is 2 1. Total bili 1.5. Magnesium 1.3. Serum alcohol 469, GGT 3034. Albumin is 4.5. Lipase normal Past Medical History Past Medical History (Chronic Problems): Chronic Problems (Last Updated 06/21/18 @ 02:20 by Corey Cleaning MD) Alcohol withdrawal seizure (Chronic) Chronic alcoholic hepatitis (Chronic) Pancytopenia (Chronic) Medical History: Medical History (Last Updated 06/21/18 @ 02:20 by Corey Cleaning MD) Hypertension I10 Allergies No Known Allergies Allergy (Verified 10/13/19 10:33) Home Medications: Ambulatory Orders Medication Instructions Recorded Carvedilol [Coreg (Beta Nieves)] 12.5 mg PO DAILY 05/23/19 Ergocalciferol (Vitamin D2) 50,000 units PO WE 05/23/19 [Vitamin D2] Fluoxetine [Prozac] 40 mg PO DAILY 05/23/19 Multivitamin [Multivitamins] 1 ea PO DAILY 05/23/19 Ibuprofen [Motrin] 400 mg PO TID PRN tab 05/28/19 Nicotine [Nicoderm Cq] 21 mg TRANSDERM. DAILY #30 patch 05/28/19 Surgical History: no surgical history Psychiatric History: No pertinent psych hx Smoking Status: Current every day smoker - *Family History Paternal History Items: - - History of chronic alcohol use. Patient father quit 3 years ago Maternal History Items: Heart Disease - Father had heart failure. Review of Systems Constitutional: Reports: Malaise, Weakness, Fatigue. Denies: Chills, Fever, Weight Change HEENT: Denies: Head Aches, Sinus Congestion, Sinus Drainage Cardiovascular: Denies: Chest Pain, Palpitations Respiratory: Denies: Cough, Shortness of breath at rest, Sputum production Gastrointestinal: Denies: Abdominal Pain, Nausea, Vomiting Genitourinary: Denies: Dysuria, Frequency, Hematuria Musculoskeletal: Denies: Joint Pain, Joint Tenderness Skin: Denies: Rash, Wounds Neurological: Reports: Balance problems, Numbness. Denies: Focal weakness, Tingling Psychiatric: Denies: Anxiety, Depression, Homicidal Ideations, Suicidal Ideations Hematologic/ Lymphatic: Denies: Easy Bruising, Easy Bleeding VTE Information - Inpt Only VTE Present on Admission: No VTE Mechan Device Prophylaxis: SCD's VTE Pharm Prophylaxis ordered?: No Reason prophylaxis not ordered:: Medical Contraindication - Pancytopenia - Physical Exam Vitals/I&O's: Vital Signs Temp Pulse Resp BP Pulse Ox 97.8 F 93 18 122/76 H 98 10/13/19 10:30 10/13/19 10:30 10/13/19 10:30 10/13/19 10:30 10/13/19 10:30 Oxygen Delivery Method Room Air Weight: 150 lb Body Mass Index (BMI) 21.5 General: Alert, Oriented x3, Cooperative HEENT: Atraumatic, PERRLA, EOMI, Normocephalic Oral: No Gingival or Mucosal Lesions/ Ulcerations, Dry Mucosa Neck: Supple, No JVD, Negative Carotid Bruits Lungs: Clear to auscultation, Normal air movement, No rhonchi, No wheeze, No rales Cardiovascular: Regular rate, Regular Rhythm, Normal S1, Normal S2, No murmurs Abdomen: Bowel Sounds Present, Soft, Non Tender, Non-Distended, - - Mild hepatomegaly, liver edge palpable 2 cm below right costal margin Extremities: No edema, Capillary Refill Less than 3 Seconds Skin: No rashes, No breakdown Musculoskeletal: No Tenderness to Palpation of Joints or Extremities Neurological: Cranial nerves II-XII grossly intact, Deep Tendon Reflexes 2+/4 and Symmetrical, Neuro grossly intact, - - Toe position sense and gross touch and pressure sensation intact in both feet and legs. Psych/Mental Status: Normal Affect, Appropriate Laboratory Results 10/13/19 11:15: WBC 1.6 L, RBC 3.68 L, Hgb 12.5 L, Hct 34.3 L, MCV 93.2, MCH 34.0 H, MCHC 36.4 H, RDW Std Deviation 46.3 H, RDW Coeff of [place] 13.5, Plt Count 55 L, MPV 9.5, Immature Gran % (Auto) 0.600, Neut % (Auto) 29.0 L, Lymph % (Auto) 47.5 H, [place] % (Auto) 19.8 H, Eos % (Auto) 1.9, Baso % (Auto) 1.2 H, Absolute Neuts (auto) 0.5 L, Absolute Lymphs (auto) 0.77 L, Nucleated RBC % 0, Differential Comment SCANNED, Platelet Estimate MKD 10/13/19 11:15: Sodium 137, Potassium 3.5, Chloride 96 L, Carbon Dioxide 32.0, Anion Gap 9, BUN 12, Creatinine 0.90, Estim Creat Clear Calc 107.10, Est GFR (MDRD) Af Amer 121, Est GFR (MDRD) Non-Af 100, BUN/Creatinine Ratio 13.3, Glucose 99, Calcium 9.0, Total Bilirubin 1.50 H, Direct Bilirubin 0.80 H, AST 407 H, ALT 201 H, Alkaline Phosphatase 111, Total Protein 8.6 H, Albumin 4.5, Globulin 4.1, Lipase 232 Assessment/Plan All Active Problems (Last Updated 06/21/18 @ 02:20 by Corey Cleaning MD) Acute alcohol intoxication (Acute) The patient is a 39 year old M with history of chronic alcohol use and dependence came to ER with acute alcohol intoxication. Patient last drink was about 10 AM in the morning. He drinks half bottle vodka every day. He was last admitted in May 2019 for acute alcoholic intoxication with alcoholic pancreatitis. Last time he was admitted in ICU and was on Precedex 1. Acute alcohol intoxication with high possibility of going into withdrawal syndrome: Patient is being admitted on MedSurg. Serum alcohol 469, GGT 3034. Albumin is 4.5. Lipase normal The patient is dehydrated and started on IV Ringer lactate at 100 mL/h. Started on medical stabilization of alcohol withdrawal on Librium and Ativan IV as needed. IV thiamine 1 dose given. On other symptom control medications including trazodone, Bentyl, Imodium and methocarbamol. On folic acid and B12. 2. Chronic numbness of bilateral feet: B12, folic acid, vitamin D and thiamine ordered. 3. Hypomagnesemia: Magnesium 1.3. On magnesium sulfate 2 g IV 1 dose ordered. 4. Acute alcoholic hepatitis: LFTs shows elevated AST and ALT in the ratio of 2 is 2 1. Total bili 1.5. Follow liver function test. Last CT scan abdomen in May 2019 reported as enlarged liver with decreased hepatic artery suggestive of fatty liver. 5. History of alcohol induced seizure: Patient has alcohol-related seizure about 4 to 5 years ago. Fall and seizure precaution. 6. Pancytopenia: Leukopenia, WBC 1.6 thousand, ANC 0.5 thousand, thrombocytopenia platelet count 55,000 and mild anemia H&H 12.5/34.3 most likely alcohol related bone marrow suppression. Follow CBC daily. Antiplatelet and antithrombotic agents are contraindicated DVT prophylaxis low risk bilateral SCDs. Code Visit Inpatient E&M: 36271 Init Hosp L3
[2019-10-13] MEDS: LORazepam 1 MG Tablet PO (12:09)
[2019-10-13 12:33] LABS: Phosphorus 3.5 mg/dL (2.5-4.9)
[2019-10-13 12:37] LABS: GGTP 3034 U/L (15-85); Magnesium 1.3 mg/dL (1.6-2.6)
[2019-10-13 13:23] LABS: International Normalized Ratio 1.1; Prothrombin Time (Protime)PT. 13.6 SECONDS (11.7-14.9)
[2019-10-13 13:24] VITALS: BMI 20.8
[2019-10-13 13:32] VITALS: BMI 20.9
[2019-10-13 13:45] VITALS: BP 133/93; PULSE 82; RESP 16; TEMP 36.8; O2SAT 98
[2019-10-13] MEDS: Lactated Ringers 1,000 ML 125 ML IV ×2 (13:51→23:45)
[2019-10-13] MEDS: 0.9% Saline Lock 10 ML Syringe IV (13:52)
[2019-10-13] MEDS: Ondansetron ODT 4 MG Tablet PO ×2 (13:55→23:45)
[2019-10-13] MEDS: chlordiazePOXIDE 25 MG Capsule 50 MG PO ×2 (13:55→20:25)
[2019-10-13] MEDS: Dicyclomine 10 MG Capsule 20 MG PO ×2 (13:55→23:43)
[2019-10-13] MEDS: Methocarbamol 750 MG Tablet PO (16:06)
[2019-10-13] MEDS: hydrOXYzine PAM 25 MG Capsule 50 MG PO ×2 (16:06→23:43)
[2019-10-13 16:23] LABS: Bacteria 0 SEEN /hpf (None Seen); Mucous, Urine 0 SEEN /hpf (<or=2+); White Blood Cells 0 SEEN /hpf (0-5)
[2019-10-13 16:25] LABS: Color, Urine Yellow (Yellow); Glucose, Dipstick Normal (Normal); Ketone-Dipstick 5 mg/dl (Negative); Leukocyte Esterase-Dipstick Negative /ul (Negative); Nitrite-Dipstick Negative (Negative); Occult Blood-Urine 10 /ul (Negative); Protein-Dipstick 100 mg/dl (Negative); Specific Gravity, Urine 1.015 (1.002-1.030); Urine Clarity Clear (Clear); Urine Urobilinogen 8 mg/dl (Normal)
[2019-10-13 16:27] LABS: Urine Bilirubin Dipstick 1 mg/dL (Negative)
[2019-10-13 16:37] LABS: Hyaline Cast 0-5 SEEN /lpf (0-5); Red Blood Cells-Urine 0-5 SEEN /hpf (0-5); Squamous Epithelial Cells - UA 0-5 SEEN /hpf (0-5)
[2019-10-13 16:40] LABS: Amphetamine Urine VISTA POSITIVE (<1000 ng/mL); Barbiturate Urine VISTA NEGATIVE (< 200 ng/mL); Benzodiazepine Urine VISTA NEGATIVE (< 200 ng/mL); Cocaine Urine VISTA NEGATIVE (< 300 ng/mL); Ecstacy Urine VISTA NEGATIVE (< 500 ng/mL); Methadone Urine VISTA NEGATIVE (< 300 ng/mL); PCP Urine VISTA NEGATIVE (< 25 ng/mL); THC Urine VISTA POSITIVE (< 50 ng/mL); Vista UDS pH Range 6
[2019-10-13] MEDS: Ibuprofen 600 MG Tablet 400 MG PO (17:39)
[2019-10-13 18:00] VITALS: BP 127/77; PULSE 80; RESP 16; TEMP 36.7; O2SAT 98
[2019-10-13 22:00] VITALS: BP 129/90; PULSE 99; RESP 16; TEMP 36.6; O2SAT 95
[2019-10-13] MEDS: traZODone 50 MG Tablet PO (22:32)
[2019-10-14] VITALS (7 sets, daily range): BP systolic 137–161; BP diastolic 83–109; PULSE 78–93; RESP 16–20; TEMP 36.6–37.1; O2SAT 96–98
[2019-10-14] MEDS: chlordiazePOXIDE 25 MG Capsule 50 MG PO ×3 (02:10→16:18)
[2019-10-14] MEDS: Methocarbamol 750 MG Tablet PO ×4 (02:11→20:55)
[2019-10-14] MEDS: LORazepam 2 MG/ML Syringe 1 MG IV ×4 (05:47→20:06)
[2019-10-14] MEDS: 0.9% Saline Lock 10 ML Syringe IV ×5 (05:54→23:58)
[2019-10-14 06:31] LABS: AST(SGOT) 468 U/L (15-37); Alanine Aminotransfer ALT/SGPT 195 U/L (16-61); Albumin, Serum 4.3 g/dL (3.2-5.0); Alkaline Phosphatase 132 U/L (45-117); Anion Gap 8 (5-15); BUN 10 mg/dL (7-18); BUN/Creat Ratio 11.7 RATIO (10-20); Bilirubin, Direct 0.84 mg/dL (0.00-0.30); Calcium,Total 9.1 mg/dL (8.5-10.1); Chloride 95 mmol/L (98-107); Creatinine, Serum 0.86 mg/dL (0.70-1.30); EST Glomerular Filtration Rate 106 mL/min (>60); Est Glom Filt Rate - Afr Amer 128 mL/min (>60); Estimated Creatinine Clearance 105.65 ml/min; Globulin 3.7 g/dL (2.2-4.2); Glucose 109 mg/dL (74-106); Magnesium 1.4 mg/dL (1.6-2.6); Potassium 3.6 mmol/L (3.5-5.1); Sodium Level 135 mmol/L (136-145)
[2019-10-14] MEDS: Thiamine Hydrochloride 100 MG Tablet PO (07:58)
[2019-10-14] MEDS: Folic Acid 1 MG Tablet PO (07:58)
[2019-10-14] MEDS: Multivitamins,Therapeutic Tablet 1 TABLET PO (07:58)
[2019-10-14] MEDS: Ondansetron ODT 4 MG Tablet PO ×2 (08:33→14:49)
[2019-10-14] MEDS: Dicyclomine 10 MG Capsule 20 MG PO ×3 (08:33→20:55)
--- NOTE | 2019-10-14 09:42 | PN_ITS ---
Patient Problems: Active and Suspected Problems (Last Updated 06/21/18 @ 02:20 by Corey Cleaning MD) Alcohol withdrawal (Acute) Reason for Visit: Tremulous, nauseous, headache, restless legs, diaphoretic. Vitals/I&O's: Vital Signs Temp Pulse Resp BP Pulse Ox 37.0 C 78 18 161/108 H 97 10/14/19 05:44 10/14/19 05:44 10/14/19 05:44 10/14/19 05:44 10/14/19 05:44 Oxygen Delivery Method Room Air Weight: 64.138 kg Body Mass Index (BMI) 20.8 Intake and Output for Last 24 Hours 10/12/19 10/13/19 10/14/19 23:59 23:59 23:59 Intake Total 1379.33 / 1529.33 1450 / 1450 Output Total 100 / 100 0 / 0 Balance 1279.33 / 1429.33 1450 / 1450 General: Alert, No apparent distress HEENT: Atraumatic, Normocephalic, - - no icterus Oral: Moist Mucosa, No Gingival or Mucosal Lesions/ Ulcerations Neck: No Nodes, Trachea Midline Lungs: Clear to auscultation, Normal air movement, No rhonchi, No wheeze Cardiovascular: Regular rate, Regular Rhythm, Normal S1, Normal S2, No murmurs Abdomen: Bowel Sounds Present, Soft, Non Tender, Non-Distended, No Hepato- splenomegaly Extremities: No edema, No Calf Tenderness Skin: No rashes, No breakdown Musculoskeletal: No Tenderness to Palpation of Joints or Extremities, No Muscle Wasting Neurological: Coordination normal, - - tremulous in upper extremities at rest Psych/Mental Status: Anxious Laboratory Results 10/13/19 11:15: WBC 1.6 L, RBC 3.68 L, Hgb 12.5 L, Hct 34.3 L, MCV 93.2, MCH 34.0 H, MCHC 36.4 H, RDW Std Deviation 46.3 H, RDW Coeff of [place] 13.5, Plt Count 55 L, MPV 9.5, Immature Gran % (Auto) 0.600, Neut % (Auto) 29.0 L, Lymph % (Auto) 47.5 H, [place] % (Auto) 19.8 H, Eos % (Auto) 1.9, Baso % (Auto) 1.2 H, Absolute Neuts (auto) 0.5 L, Absolute Lymphs (auto) 0.77 L, Nucleated RBC % 0, Differential Comment SCANNED, Platelet Estimate MKD DEC 10/13/19 11:15: Sodium 137, Potassium 3.5, Chloride 96 L, Carbon Dioxide 32.0, Anion Gap 9, BUN 12, Creatinine 0.90, Estim Creat Clear Calc 107.10, Est GFR (MDRD) Af Amer 121, Est GFR (MDRD) Non-Af 100, BUN/Creatinine Ratio 13.3, Glucose 99, Calcium 9.0, Total Bilirubin 1.50 H, Direct Bilirubin 0.80 H, AST 407 H, ALT 201 H, Alkaline Phosphatase 111, Total Protein 8.6 H, Albumin 4.5, Globulin 4.1, Lipase 232 10/13/19 11:15: PT 13.6, INR 1.1 10/13/19 11:18: Magnesium 1.3 L, GGT 3034 H 10/13/19 11:18: Ethyl Alcohol 469.0 H* 10/13/19 11:18: Phosphorus 3.5 10/13/19 15:55: Urine Opiates Screen NEGATIVE, Urine Methadone Screen NEGATIVE, Ur Barbiturates Screen NEGATIVE, Ur Phencyclidine Scrn NEGATIVE, Ur Amphetamines Screen POSITIVE H, U Methamphetamin-MDMA NEGATIVE, U Benzodiazepines Scrn NEGATIVE, Urine Cocaine Screen NEGATIVE, U Cannabinoids Screen POSITIVE H, Ur Drug Screen Comment 10/13/19 15:55: Urine Color Yellow, Urine Clarity Clear, Urine pH 6.0, Ur Specific [place] 1.015, Urine Protein 100 H, Urine Glucose (UA) Normal, Urine Ketones 5 H, Urine Occult Blood 10 H, Urine Nitrite Negative, Urine Bilirubin 1 H, Urine Urobilinogen 8 H, Ur Leukocyte Esterase Negative, Urine RBC 0-5 SEEN, Urine WBC 0 SEEN, Ur Squamous Epith Cells 0-5 SEEN, Urine Bacteria 0 SEEN, Hyaline Casts 0-5 SEEN, Urine Mucus 0 SEEN 10/14/19 05:32: Sodium 135 L, Potassium 3.6, Chloride 95 L, Carbon Dioxide 32.0, Anion Gap 8, BUN 10, Creatinine 0.86, Estim Creat Clear Calc 105.65, Est GFR (MDRD) Af Amer 128, Est GFR (MDRD) Non-Af 106, BUN/Creatinine Ratio 11.7, Glucose 109 H, Calcium 9.1, Magnesium 1.4 L, Total Bilirubin 2.00 H, Direct Bilirubin 0.84 H, AST 468 H, ALT 195 H, Alkaline Phosphatase 132 H, Total Protein 8.0, Albumin 4.3, Globulin 3.7, Folate 6.20 10/14/19 05:32: Vitamin B12 Pending 10/14/19 05:32: Vit D 1,25-Dihydroxy Pending 10/14/19 05:32: Whole Bld Vitamin B1 Pending Current Medications Al Hydroxide/Mg Hydroxide (Mylanta Ii) 30 ml PO Q6H PRN PRN PRN Reason: dyspesia Bisacodyl (Dulcolax) 10 mg RECTAL DAILY PRN PRN Reason: Constipation Chlordiazepoxide (Librium) 50 mg PO Q8H BREE; Taper Stop: 10/16/19 15:59 Last Admin: 10/14/19 07:57 Dose: 50 mg Documented by: Dicyclomine HCl (Bentyl) 20 mg PO Q6H PRN PRN PRN Reason: abdominal discomfort Last Admin: 10/14/19 08:33 Dose: 20 mg Documented by: Folic Acid (Folic Acid) 1 mg PO DAILYCM BREE Stop: 10/16/19 08:01 Last Admin: 10/14/19 07:58 Dose: 1 mg Documented by: Hydroxyzine Pamoate (Vistaril Pamoate Capsule) 50 mg PO Q6H PRN PRN PRN Reason: Mild Anxiety (score 1/3) Last Admin: 10/13/19 23:43 Dose: 50 mg Documented by: Ibuprofen (Motrin) 400 mg PO Q8H PRN PRN PRN Reason: Pain Score 1-5/10/fever Last Admin: 10/13/19 17:39 Dose: 400 mg Documented by: Influenza Virus Vaccine Quadrival (Flucelvax /Fluzone ) 0.5 ml IM .ONCE ONE Stop: 10/14/19 10:01 Last Admin: 10/14/19 08:15 Dose: 0.5 ml Documented by: Loperamide HCl (Imodium) 2 - 4 mg PO UD PRN PRN Reason: LOOSE STOOLS Lorazepam (Ativan) 1 mg IV Q4H PRN PRN PRN Reason: Severe Anxiety Last Admin: 10/14/19 05:47 Dose: 1 mg Documented by: Lorazepam (Ativan) 2 mg IV X1 PRN PRN Reason: Seizure Methocarbamol (Methocarbamol) 750 mg PO Q6H PRN PRN PRN Reason: Muscle Aches Last Admin: 10/14/19 08:33 Dose: 750 mg Documented by: [facility]) [facility] Last Admin: 10/14/19 07:58 Dose: 1 tablet Documented by: Nicotine (Nicoderm Cq (Pbkc)) 21 mg TRANSDERM. DAILY [facility] Last Admin: 10/14/19 08:14 Dose: 21 mg Documented by: Ondansetron HCl (Zofran Odt) 4 mg PO Q6H PRN PRN PRN Reason: NAUSEA Last Admin: 10/14/19 08:33 Dose: 4 mg Documented by: Senna (Senokot) 1 tablet PO QHS PRN PRN PRN Reason: Constipation Sodium Chloride () 10 - 40 ml IV UD PRN PRN Reason: SALINE FLUSH Last Admin: 10/14/19 05:54 Dose: 10 ml Documented by: Thiamine HCl (Vitamin B1) [facility] Stop: 10/16/19 08:01 Last Admin: 10/14/19 07:58 Dose: 100 mg Documented by: Trazodone HCl (Desyrel) 50 mg PO QHS [facility] Last Admin: 10/13/19 22:32 Dose: 50 mg Documented by: STROKE Vital Signs/Narrative: Vital Signs Temp Pulse Resp BP Pulse Ox 10/14/19 05:44 37.0 C 78 18 161/108 H 97 Medical Necessity - Tobacco Use Smoking Status: Current every day smoker Tobacco Use: Cigarettes Assessment/Plan All Active Problems (Last Updated 06/21/18 @ 02:20 by Corey Cleaning MD) Acute alcohol intoxication (Acute) Alcohol withdrawal (Acute) 1. Acute alcohol withdrawal * ongoing and severe * Patient reports that his last consumption was approximately 2 days ago * Alcohol level was 469 when he came in * Patient had a calculated CIWA of 22, which equates to high risk of delirium tremens * Patient has had severe withdrawal in the past requiring Precedex * Will continue with chlordiazepoxide for now, but if deescalates, may require ICU and Precedex again * continue thiamine and folate 2. Polysubstance abuse * chronic * EtOH and THC * amphetamines may be a false + * complicates care 3. VTE prophylaxis: low risk, but if requires ICU and immobilization, will require VTE prophylaxis. Code Visit Inpatient E&M: 58250 Subs Hosp L3
[2019-10-14 09:55] LABS: Vitamin B12 798 pg/mL (211-911)
--- NOTE | 2019-10-14 12:22 | CASEMGMT ---
Social Work SW met with pt in room for ETOH detox. Pt at [facility] 10/2018 and 05/24 for detox. Pt stating that he returns home where he lives with parents but independently and is able to refrain from drinking for a few months and then falls back into drinking habits. Pt stating that he goes to AA meetings two times a week in [place] and [place]. Pt also states that he has seen a counselor, Nisa, at [facility] and she has recommending an IOP program but pt does not want to do this. Pt is agreeable at this time for SW to call Nisa and set up an appointment. Phone call placed and appointment made for 10/21/19 at 10:00. Written and verbal information given to pt about appointment time and pt is agreeable. Pt denies further needs at this time. GUILLERMO Holland
[2019-10-14] MEDS: Ensure Clear 120 ML Liquid PO ×3 (14:49→20:54)
[2019-10-14] MEDS: hydrOXYzine PAM 25 MG Capsule 50 MG PO (16:22)
[2019-10-14 16:45] LABS: Bedside Glucose 136 mg/dL (70-110)
[2019-10-14] MEDS: traZODone 50 MG Tablet PO (20:54)
[2019-10-15] VITALS (23 sets, daily range): BP systolic 136–172; BP diastolic 87–121; PULSE 68–99; RESP 15–22; TEMP 36.6–37; O2SAT 94–99
[2019-10-15] MEDS: chlordiazePOXIDE 25 MG Capsule 50 MG PO ×2 (00:02→08:07)
[2019-10-15] MEDS: hydrOXYzine PAM 25 MG Capsule 50 MG PO ×2 (00:58→08:09)
[2019-10-15] MEDS: Dicyclomine 10 MG Capsule 20 MG PO (02:55)
[2019-10-15] MEDS: Methocarbamol 750 MG Tablet PO (02:55)
[2019-10-15] MEDS: LORazepam 2 MG/ML Syringe 1 MG IV ×3 (03:54→08:11)
[2019-10-15] MEDS: 0.9% Saline Lock 10 ML Syringe IV ×3 (03:55→10:30)
[2019-10-15] MEDS: Ibuprofen 600 MG Tablet 400 MG PO (08:06)
[2019-10-15] MEDS: Multivitamins,Therapeutic Tablet 1 TABLET PO (08:06)
[2019-10-15] MEDS: Thiamine Hydrochloride 100 MG Tablet PO (08:07)
[2019-10-15] MEDS: Folic Acid 1 MG Tablet PO (08:07)
[2019-10-15] MEDS: Ondansetron ODT 4 MG Tablet PO (08:07)
[2019-10-15] MEDS: 0.9% Normal Saline 1,000 ML 150 ML IV ×3 (10:15→23:05)
[2019-10-15] MEDS: LORazepam 2 MG/ML Syringe IV (10:53)
[2019-10-15] MEDS: chlordiazePOXIDE 25 MG Capsule PO ×2 (13:50→18:27)
[2019-10-15] MEDS: Ensure Clear 120 ML Liquid PO ×2 (13:50→18:27)
--- NOTE | 2019-10-15 14:45 | PN_ITS ---
Patient Problems: Active and Suspected Problems (Last Updated 06/21/18 @ 02:20 by Corey Cleaning MD) Alcohol withdrawal (Acute) Reason for Visit: More confused this am. Was able to speak with nursing earlier today. Subjective: yells: My name is Niko, Niko me off! Vitals/I&O's: Vital Signs Temp Pulse Resp BP Pulse Ox 36.7 C 80 17 166/113 H 96 10/15/19 12:00 10/15/19 13:00 10/15/19 13:00 10/15/19 13:00 10/15/19 13:00 Oxygen Flow Rate (L/min) 3 Oxygen Delivery Method Room Air Weight: 64.138 kg Body Mass Index (BMI) 20.8 Intake and Output for Last 24 Hours 10/13/19 10/14/19 10/15/19 23:59 23:59 23:59 Intake Total 1379.33 / 1529.33 1450 / 1790 738.0 / 738.0 Output Total 100 / 100 1000 / 1200 775 / 775 Balance 1279.33 / 1429.33 450 / 590 -37.0 / -37.0 General: Confused, - - agitated. HEENT: Atraumatic, Normocephalic Oral: Moist Mucosa, No Gingival or Mucosal Lesions/ Ulcerations Neck: No Nodes, Trachea Midline Lungs: Clear to auscultation, Normal air movement, No rhonchi, No wheeze, No rales Cardiovascular: Regular rate, Regular Rhythm, Normal S1, Normal S2 Abdomen: Bowel Sounds Present, Soft, Non Tender, Non-Distended Extremities: No edema, No Calf Tenderness Skin: No rashes, No breakdown Musculoskeletal: No Tenderness to Palpation of Joints or Extremities, No Muscle Wasting Neurological: Muscle tone normal, - - no clonus. Psych/Mental Status: Agitated Laboratory Results 10/14/19 16:29: POC Glucose 136 H Current Medications Al Hydroxide/Mg Hydroxide (Mylanta Ii) 30 ml PO Q6H PRN PRN PRN Reason: dyspesia Bisacodyl (Dulcolax) 10 mg RECTAL DAILY PRN PRN Reason: Constipation Chlordiazepoxide (Librium) 50 mg PO Q6H BREE; Taper Stop: 10/18/19 14:59 Last Admin: 10/15/19 13:50 Dose: 50 mg Documented by: Dextrose (D50w Syringe) 0 gm IV X1 PRN; Protocol PRN Reason: Hypoglycemia Dicyclomine HCl (Bentyl) 20 mg PO Q6H PRN PRN PRN Reason: abdominal discomfort Last Admin: 10/15/19 02:55 Dose: 20 mg Documented by: Enoxaparin Sodium (Lovenox) 40 mg SC DAILY@0600 [facility] Folic Acid (Folic Acid) [facility] Stop: 10/16/19 08:01 Last Admin: 10/15/19 08:07 Dose: 1 mg Documented by: Glucagon () 1 mg IM .X1 PRN PRN Reason: Hypoglycemia Dexmedetomidine HCl 400 mcg/ (Sodium Chloride) 100 mls @ 8.017 mls/hr CONT INF .[id number] [facility]; Protocol Last Titration: 10/15/19 13:00 Dose: 1 mcg/kg/hr, 16 mls/hr Documented by: Sodium Chloride () 1,000 mls @ 150 mls/hr IV .Q6H40M [facility] Last Admin: 10/15/19 10:15 Dose: 150 mls/hr Documented by: Ibuprofen (Motrin) 400 mg PO Q8H PRN PRN PRN Reason: Pain Score 1-5/10/fever Last Admin: 10/15/19 08:06 Dose: 400 mg Documented by: Loperamide HCl (Imodium) 2 - 4 mg PO UD PRN PRN Reason: LOOSE STOOLS Lorazepam (Ativan) 2 mg IV X1 PRN PRN Reason: Seizure Lorazepam (Ativan) 2 mg PO Q2H PRN PRN; Protocol PRN Reason: CIWA score > 8 but <15 Lorazepam (Ativan) 2 mg PO UD PRN; Protocol PRN Reason: CIWA score >/=15. Lorazepam (Ativan) 2 mg IV Q2H PRN PRN; Protocol PRN Reason: CIWA score > 8 but <15 Lorazepam (Ativan) 2 mg IV UD PRN; Protocol PRN Reason: CIWA score >/=15. Methocarbamol (Methocarbamol) 750 mg PO Q6H PRN PRN PRN Reason: Muscle Aches Last Admin: 10/15/19 02:55 Dose: 750 mg Documented by: Multivitamins ([facility]ivitamin) [facility] Last Admin: 10/15/19 08:06 Dose: 1 tablet Documented by: Nicotine (Nicoderm Cq (Pbkc)) 21 mg TRANSDERM. DAILY [facility] Last Admin: 10/15/19 10:30 Dose: 21 mg Documented by: Nutritional Formula (Lactose Free) (Ensure Clear) 120 ml PO 4X/DAY [facility] Last Admin: 10/15/19 13:50 Dose: 120 ml Documented by: Ondansetron HCl (Zofran Odt) 4 mg PO Q6H PRN PRN PRN Reason: NAUSEA Last Admin: 10/15/19 08:07 Dose: 4 mg Documented by: Senna (Senokot) 1 tablet PO QHS PRN PRN PRN Reason: Constipation Sodium Chloride () 10 - 40 ml IV UD PRN PRN Reason: SALINE FLUSH Last Admin: 10/15/19 10:30 Dose: 10 ml Documented by: Thiamine HCl (Vitamin B1) 100 mg PO DAILYCM BREE Stop: 10/16/19 08:01 Last Admin: 10/15/19 08:07 Dose: 100 mg Documented by: STROKE Vital Signs/Narrative: Vital Signs Temp Pulse Resp BP BP Pulse Ox 10/15/19 13:00 80 17 166/113 H 96 10/15/19 12:00 36.7 C 75 18 172/112 H 98 10/15/19 11:30 92 15 136/98 H 99 10/15/19 11:00 92 15 136/98 H 99 Medical Necessity - Tobacco Use Smoking Status: Current every day smoker Tobacco Use: Cigarettes Assessment/Plan All Active Problems (Last Updated 06/21/18 @ 02:20 by Corey Cleaning MD) Alcohol withdrawal (Acute) Acute alcohol intoxication (Acute) 1. Acute alcohol withdrawal * worse. now in delirium tremens despite librium. start precedex and transfer to ICU * Patient reports that his last consumption was approximately 2 days ago * Alcohol level was 469 when he came in * Patient had a calculated CIWA of 22, which equates to high risk of delirium tremens 2. Polysubstance abuse * chronic * EtOH and THC * amphetamines may be a false + * complicates care 3. VTE prophylaxis: LMWH Code Visit Inpatient E&M: 75880 Subs Hosp L3
--- NOTE | 2019-10-15 15:35 | CON.PCM_ITS ---
Problem List (1) Alcohol withdrawal Status: Acute Qualifiers: Complication of substance-induced condition: with delirium Qualified Code(s): F10.231 - Alcohol dependence with withdrawal delirium (2) Alcoholic pancreatitis Status: Inactive Qualifiers: Chronicity: chronic Qualified Code(s): K86.0 - Alcohol-induced chronic pancreatitis (3) Chronic alcoholic hepatitis Status: Chronic (4) Pancytopenia Status: Chronic Reason for Consult Date of Consultation: 10/15/19 Reason for Consultation: Alcohol withdrawal History of Present Illness: The patient is a 39 year old M with past medical history listed below, who presented to [facility] on 10/13/2019 secondary to request for detoxification. Patient has had intermittent nausea and vomiting but denied any abdominal pain, melena or hematochezia on presentation. Patient reportedly appeared intoxicated in the ER. ER labs showed pancytopenia with a white blood cell count of 1.6, hemoglobin 12.5 and a platelet count of 55, which are similar to previous examinations. Electrolytes were unremarkable and patient was admitted to the regular floor and placed on p.o. Ativan. Over the course of patient's hospitalization, patient became more confused and started to require nasal cannula oxygen to maintain saturations. Given patient was already on Librium and as needed Ativan, patient was transferred to the intensive care unit with a CIWA score of 22 to be placed on a Precedex drip. Patient is unable to provide any reliable information on my evaluation. Patient continued to try to get out of bed requiring a sitter at the bedside. Patient reportedly has attempted alcohol withdrawal in the past, but is unable to provide any history as to seizure activity. Patient does carry a diagnosis of pancreatitis in the past. Unable to obtain a review of systems secondary to mental status. Past Medical History Past Medical History (Chronic Problems): Chronic Problems (Last Updated 06/21/18 @ 02:20 by Corey Cleaning MD) Alcohol withdrawal seizure (Chronic) Chronic alcoholic hepatitis (Chronic) Pancytopenia (Chronic) Medical History: Medical History (Last Updated 06/21/18 @ 02:20 by Corey Cleaning MD) Hypertension I10 Allergies No Known Allergies Allergy (Verified 10/13/19 10:33) Home Medications: Ambulatory Orders Medication Instructions Recorded Carvedilol [Coreg (Beta Nieves)] 12.5 mg PO DAILY 05/23/19 Ergocalciferol (Vitamin D2) 50,000 units PO WE 05/23/19 [Vitamin D2] Fluoxetine [Prozac] 40 mg PO DAILY 05/23/19 Multivitamin [Multivitamins] 1 ea PO DAILY 05/23/19 Ibuprofen [Motrin] 400 mg PO TID PRN tab 05/28/19 Nicotine [Nicoderm Cq] 21 mg TRANSDERM. DAILY #30 patch 05/28/19 Surgical History: no surgical history Psychiatric History: No pertinent psych hx Smoking Status: Current every day smoker Tobacco Use: Cigarettes - *Family History Maternal History Items: Heart Disease - Father had heart failure. Paternal History Items: - - History of chronic alcohol use. Patient father quit 3 years ago Review of Systems Unable to obtain accurate/complete ROS d/t: See HPI Patient Problems: Active and Suspected Problems (Last Updated 06/21/18 @ 02:20 by Corey Cleaning MD) Alcohol withdrawal (Acute) - Physical Exam Vitals/I&O's: Vital Signs Temp Pulse Resp BP Pulse Ox 36.7 C 80 17 166/113 H 96 10/15/19 12:00 10/15/19 13:00 10/15/19 13:00 10/15/19 13:00 10/15/19 13:00 Oxygen Flow Rate (L/min) 3 Oxygen Delivery Method Room Air Weight: 64.138 kg Body Mass Index (BMI) 20.8 Intake and Output for Last 24 Hours 10/13/19 10/14/19 10/15/19 23:59 23:59 23:59 Intake Total 1379.33 / 1529.33 1450 / 1790 738.0 / 738.0 Output Total 100 / 100 1000 / 1200 775 / 775 Balance 1279.33 / 1429.33 450 / 590 -37.0 / -37.0 General: Alert, Confused, Disoriented, Non-Cooperative, - - Agitated, but directable HEENT: Atraumatic, PERRLA, EOMI, Normocephalic, - - Scleral injection without icterus Oral: Moist Mucosa, No Gingival or Mucosal Lesions/ Ulcerations Neck: Supple, No JVD, No Nodes, Trachea Midline Lungs: Clear to auscultation, Normal air movement, No rhonchi, No wheeze, No rales Cardiovascular: Regular Rhythm, Normal S1, Normal S2, No murmurs, No rub noted, No Gallop, Tachycardic Abdomen: Bowel Sounds Present, Soft, Non Tender, Non-Distended Extremities: No clubbing, No cyanosis, No edema, - - No asterixis appreciated Skin: No rashes, No breakdown Musculoskeletal: No Tenderness to Palpation of Joints or Extremities Lymphatic: No Cervical, Supraclavicular, or Inguinal Adenopathy Neurological: Cranial nerves II-XII grossly intact, Neuro grossly intact, - - Minimally cooperative with exam. Moves all extremities. Psych/Mental Status: Agitated Laboratory Results 10/14/19 16:29: POC Glucose 136 H Current Medications Al Hydroxide/Mg Hydroxide (Mylanta Ii) 30 ml PO Q6H PRN PRN PRN Reason: dyspesia Bisacodyl (Dulcolax) 10 mg RECTAL DAILY PRN PRN Reason: Constipation Chlordiazepoxide (Librium) 50 mg PO Q6H BREE; Taper Stop: 10/18/19 14:59 Last Admin: 10/15/19 13:50 Dose: 50 mg Documented by: Dextrose (D50w Syringe) 0 gm IV X1 PRN; Protocol PRN Reason: Hypoglycemia Dicyclomine HCl (Bentyl) 20 mg PO Q6H PRN PRN PRN Reason: abdominal discomfort Last Admin: 10/15/19 02:55 Dose: 20 mg Documented by: Enoxaparin Sodium (Lovenox) 40 mg SC DAILY@0600 BREE Folic Acid (Folic Acid) 1 mg PO DAILYCM [facility] Stop: 10/16/19 08:01 Last Admin: 10/15/19 08:07 Dose: 1 mg Documented by: Glucagon () 1 mg IM .X1 PRN PRN Reason: Hypoglycemia Dexmedetomidine HCl 400 mcg/ (Sodium Chloride) 100 mls @ 8.017 mls/hr CONT INF .[id number] [facility]; Protocol Last Titration: 10/15/19 13:00 Dose: 1 mcg/kg/hr, 16 mls/hr Documented by: Sodium Chloride () 1,000 mls @ 150 mls/hr IV .Q6H40M [facility] Last Admin: 10/15/19 10:15 Dose: 150 mls/hr Documented by: Ibuprofen (Motrin) 400 mg PO Q8H PRN PRN PRN Reason: Pain Score 1-5/10/fever Last Admin: 10/15/19 08:06 Dose: 400 mg Documented by: Loperamide HCl (Imodium) 2 - 4 mg PO UD PRN PRN Reason: LOOSE STOOLS Lorazepam (Ativan) 2 mg IV X1 PRN PRN Reason: Seizure Lorazepam (Ativan) 2 mg PO Q2H PRN PRN; Protocol PRN Reason: CIWA score > 8 but <15 Lorazepam (Ativan) 2 mg PO UD PRN; Protocol PRN Reason: CIWA score >/=15. Lorazepam (Ativan) 2 mg IV Q2H PRN PRN; Protocol PRN Reason: CIWA score > 8 but <15 Lorazepam (Ativan) 2 mg IV UD PRN; Protocol PRN Reason: CIWA score >/=15. Methocarbamol (Methocarbamol) 750 mg PO Q6H PRN PRN PRN Reason: Muscle Aches Last Admin: 10/15/19 02:55 Dose: 750 mg Documented by: [facility]it[facility] ([facility]) [facility] Last Admin: 10/15/19 08:06 Dose: 1 tablet Documented by: Nicotine (Nicoderm Cq (Pbkc)) 21 mg TRANSDERM. DAILY [facility] Last Admin: 10/15/19 10:30 Dose: 21 mg Documented by: Nutritional Formula (Lactose Free) (Ensure Clear) 120 ml PO 4X/DAY [facility] Last Admin: 10/15/19 13:50 Dose: 120 ml Documented by: Ondansetron HCl (Zofran Odt) 4 mg PO Q6H PRN PRN PRN Reason: NAUSEA Last Admin: 10/15/19 08:07 Dose: 4 mg Documented by: Senna (Senokot) 1 tablet PO QHS PRN PRN PRN Reason: Constipation Sodium Chloride () 10 - 40 ml IV UD PRN PRN Reason: SALINE FLUSH Last Admin: 10/15/19 10:30 Dose: 10 ml Documented by: Thiamine HCl (Vitamin B1) 100 mg PO DAILYCM [facility] Stop: 10/16/19 08:01 Last Admin: 10/15/19 08:07 Dose: 100 mg Documented by: Assessment/Plan Active and Suspected Problems (Last Updated 06/21/18 @ 02:20 by Corey Cleaning MD) Alcohol withdrawal (Acute) RECOMMENDATIONS: 1. Reinitiate Librium taper 2. Aggressive Ativan dosing for CIWA 3. Initiate Precedex therapy 4. Wean oxygen as tolerated 5. Seizure precautions. Sitter at the bedside IMPRESSIONS: 1. Acute alcohol withdrawal Patient initially treated with Librium, but continues to progress. Patient did have an alcohol level of 469 on presentation and was vocalizing with the ER staff indicating advanced alcoholic disease. Patient will be continued on Librium, aggressive Ativan for CIWA protocol, in addition to the Precedex therapy. On appropriate vitamin repletion. 2. Polysubstance abuse/pancytopenia/chronic pancreatitis Complicates care, management, recovery and prognosis. Can use nicotine patch if necessary. Unclear if patient does use amphetamines at baseline. Code Visit Inpatient E&M: 20445 Init Hosp L3
[2019-10-15] MEDS: Carvedilol 12.5 MG Tablet PO (22:05)
[2019-10-16] VITALS (36 sets, daily range): BP systolic 89–164; BP diastolic 66–116; PULSE 74–106; RESP 17–28; TEMP 36.6–37.2; O2SAT 95–100
[2019-10-16] MEDS: chlordiazePOXIDE 25 MG Capsule PO ×3 (00:02→14:13)
[2019-10-16] MEDS: cloNIDine HCl 0.1 MG Tablet PO ×3 (01:40→20:16)
[2019-10-16 04:25] LABS: Absolute Lymphocyte Count 0.52 X10^3/uL (0.83-4.51); Absolute Neutrophil Count 2.6 X10^3/uL (2.0-7.7); Basophil# 0.02 X10^3/uL; Basophil% 0.5 % (0-1); Eosinophil# 0.08 X10^3/uL; Eosinophils% 2.2 % (0-5); Hemoglobin 12.3 g/dL (13.0-16.5); Lymphocyte # 0.52 X10^3/ul (4.0); Mean Corp Hgb Conc 36.2 g/dL (32-36); Mean Corpuscular Hgb 33.7 pg (27.0-32.0); Mean Corpuscular Volume 93.2 fL (80-94); Mean Platelet Vol. 10.4 fl (6.2-12.0); Monocyte# 0.51 X10^3/uL; Monocyte% 13.7 % (0-10); NRBC Flagged by Analyzer 0 % (0-5); Neutrophil # 2.56 X10^3/uL (2.7-7.7); Neutrophil % 69.1 % (47-70); POSITIVE COUNT YES; POSITIVE DIFFERENTIAL YES; RBC Distribution Width CV 12.7 % (11.6-14.6); RBC Distribution Width SD 44.2 fl (35.1-43.9); Red Blood Count 3.65 M/mm3 (4.6-6.2); White Blood Count 3.7 K/mm3 (4.4-11.0)
[2019-10-16 04:33] LABS: Differential Indicated SCAN CRITERIA MET
[2019-10-16 04:58] LABS: Platelet Count 50 K/mm3 (150-450)
[2019-10-16 05:05] LABS: ALB/GLOB Ratio 1.1 RATIO (0.9-2.4); AST(SGOT) 249 U/L (15-37); Alanine Aminotransfer ALT/SGPT 196 U/L (16-61); Alkaline Phosphatase 107 U/L (45-117); Anion Gap 8 (5-15); BUN 10 mg/dL (7-18); Calcium,Total 8.7 mg/dL (8.5-10.1); Chloride 97 mmol/L (98-107); Creatinine, Serum 0.71 mg/dL (0.70-1.30); EST Glomerular Filtration Rate 131 mL/min (>60); Est Glom Filt Rate - Afr Amer 159 mL/min (>60); Estimated Creatinine Clearance 127.97 ml/min; Globulin 3.8 g/dL (2.2-4.2); Glucose 116 mg/dL (74-106); Potassium 3.5 mmol/L (3.5-5.1); Protein, Total 7.8 g/dL (6.4-8.2); Sodium Level 133 mmol/L (136-145)
[2019-10-16] MEDS: 0.9% Normal Saline 1,000 ML 150 ML IV ×2 (05:34→12:08)
[2019-10-16 05:46] LABS: Differential Comment SCANNED
[2019-10-16 05:47] LABS: Platelet Estimate MOD DEC (ADEQ)
[2019-10-16] MEDS: Enoxaparin 40 MG/0.4 ML Syringe SC (05:53)
[2019-10-16] MEDS: hydrALAZINE 20 MG/ML Vial 10 MG IV ×2 (06:29→18:16)
[2019-10-16] MEDS: 0.9% Saline Lock 10 ML Syringe IV (06:29)
--- NOTE | 2019-10-16 06:45 | PN_ITS ---
Subjective: Patient did okay overnight. Patient remains on the Precedex drip, but did not require any as needed Ativan overnight. Patient did not have any fever, but was hypertensive overnight. No bleeding complications have been reported. Patient has remained on room air. No seizure activity or emesis has been reported. General: No apparent distress, Confused, Disoriented, - - RASS -1. HEENT: Atraumatic, PERRLA, EOMI, Normocephalic, - - Slight scleral injection without icterus Oral: Moist Mucosa, No Gingival or Mucosal Lesions/ Ulcerations Neck: Supple, No JVD, No Nodes, Trachea Midline Lungs: Clear to auscultation, Normal air movement, No rhonchi, No wheeze, No rales Cardiovascular: Regular rate, Regular Rhythm, Normal S1, Normal S2, No murmurs, No rub noted, No Gallop Abdomen: Bowel Sounds Present, Soft, Non Tender, Non-Distended Extremities: No clubbing, No cyanosis, Edema - Trace Skin: No rashes, No breakdown Musculoskeletal: No Tenderness to Palpation of Joints or Extremities Lymphatic: No Cervical, Supraclavicular, or Inguinal Adenopathy Neurological: Cranial nerves II-XII grossly intact, Neuro grossly intact, Motor Exam 5/5 strength throughout, - - No asterixis appreciated Psych/Mental Status: Flat Affect, Impulsive Vital Signs Temp Pulse Resp BP Pulse Ox 36.8 C 98 22 H 109/84 H 99 10/16/19 04:00 10/16/19 06:40 10/16/19 06:00 10/16/19 06:40 10/16/19 06:00 Oxygen Flow Rate (L/min) 3 Oxygen Delivery Method Room Air Weight: 66.6 kg Body Mass Index (BMI) 20.8 Intake and Output for Last 24 Hours 10/14/19 10/15/19 10/16/19 23:59 23:59 23:59 Intake Total 1450 / 1790 3021.17 / 3241.17 1522.1 / 1522.1 Output Total 1000 / 1200 775 / 1275 1450 / 1450 Balance 450 / 590 2246.17 / 1966.17 72.1 / 72.1 Labs (Last 48 Hours) 10/14/19 10/14/19 10/16/19 05:32 16:29 04:10 WBC 3.7 L RBC 3.65 L Hgb 12.3 L Hct 34.0 L MCV 93.2 MCH 33.7 H MCHC 36.2 H RDW Std Deviation 44.2 H RDW Coeff of Reilly 12.7 Plt Count 50 L* MPV 10.4 Immature Gran % (Auto) 0.500 Neut % (Auto) 69.1 Lymph % (Auto) 14.0 L [place] % (Auto) 13.7 H Eos % (Auto) 2.2 Baso % (Auto) 0.5 Absolute Neuts (auto) 2.6 Absolute Lymphs (auto) 0.52 L Nucleated RBC % 0 Differential Comment SCANNED Diff Path Review May foll Platelet Estimate MOD DEC Sodium Potassium Chloride Carbon Dioxide Anion Gap BUN Creatinine Estim Creat Clear Calc Est GFR (MDRD) Af Amer Est GFR (MDRD) Non-Af BUN/Creatinine Ratio Glucose Calcium Total Bilirubin AST ALT Alkaline Phosphatase Total Protein Albumin Globulin Albumin/Globulin Ratio Vitamin B12 798 POC Glucose 136 H 10/16/19 04:10 WBC RBC Hgb Hct MCV MCH MCHC RDW Std Deviation RDW Coeff of Reilly Plt Count MPV Immature Gran % (Auto) Neut % (Auto) Lymph % (Auto) [place] % (Auto) Eos % (Auto) Baso % (Auto) Absolute Neuts (auto) Absolute Lymphs (auto) Nucleated RBC % Differential Comment Diff Path Review Platelet Estimate Sodium 133 L Potassium 3.5 Chloride 97 L Carbon Dioxide 28.0 Anion Gap 8 BUN 10 Creatinine 0.71 Estim Creat Clear Calc 127.97 Est GFR (MDRD) Af Amer 159 Est GFR (MDRD) Non-Af 131 BUN/Creatinine Ratio 14.0 Glucose 116 H Calcium 8.7 Total Bilirubin 3.30 H AST 249 H ALT 196 H Alkaline Phosphatase 107 Total Protein 7.8 Albumin 4.0 Globulin 3.8 Albumin/Globulin Ratio 1.1 Vitamin B12 POC Glucose Medical Necessity - Tobacco Use Smoking Status: Current every day smoker Tobacco Use: Cigarettes Assessment/Plan All Active Problems (Last Updated 06/21/18 @ 02:20 by Corey Cleaning MD) Alcohol withdrawal (Acute) Acute alcohol intoxication (Acute) RECOMMENDATIONS: 1. Continue Librium taper and Precedex 2. Attempt to use as needed Ativan to allow for Precedex titration 3. Continue seizure precautions 4. Continue to monitor in the intensive care unit IMPRESSIONS: 1. Acute alcohol withdrawal Patient appears to be responding well to Precedex therapy. Patient has received Librium and Precedex, but is not receiving Ativan. Will attempt to use more Ativan to allow for weaning of Precedex drip. No seizure activity, nausea or vomiting has been reported. Anticipate another 24 to 48 hours of Precedex requirement given alcohol level on presentation 2. Polysubstance abuse/pancytopenia/chronic pancreatitis Complicates care, management, recovery and prognosis. Can use nicotine patch if necessary. Unclear if patient does use amphetamines at baseline. Patient may have an element of alcoholic hepatitis, but liver function studies appear to be improving. Code Visit Inpatient E&M: 39095 Subs Hosp L3
[2019-10-16] MEDS: Multivitamins,Therapeutic Tablet 1 TABLET PO (07:55)
[2019-10-16] MEDS: Folic Acid 1 MG Tablet PO (07:55)
[2019-10-16] MEDS: Thiamine Hydrochloride 100 MG Tablet PO (08:05)
--- NOTE | 2019-10-16 09:09 | PN_ITS ---
Patient Problems: Active and Suspected Problems (Last Updated 06/21/18 @ 02:20 by Corey Cleaning MD) Alcohol withdrawal (Acute) Reason for Visit: Calmer today. No recollection of events from 10/15. Vitals/I&O's: Vital Signs Temp Pulse Resp BP Pulse Ox 37.2 C 104 H 18 145/100 H 100 10/16/19 08:00 10/16/19 08:00 10/16/19 08:00 10/16/19 08:00 10/16/19 08:00 Oxygen Flow Rate (L/min) 3 Oxygen Delivery Method Room Air Weight: 66.6 kg Body Mass Index (BMI) 20.8 Intake and Output for Last 24 Hours 10/14/19 10/15/19 10/16/19 23:59 23:59 23:59 Intake Total 1450 / 1790 3021.17 / 3241.17 1533.17 / 1533.17 Output Total 1000 / 1200 775 / 1275 1450 / 1450 Balance 450 / 590 2246.17 / 1966.17 83.17 / 83.17 General: Alert, No apparent distress HEENT: Atraumatic, Normocephalic Oral: Moist Mucosa, No Gingival or Mucosal Lesions/ Ulcerations Neck: No Nodes, Trachea Midline Lungs: Clear to auscultation, Normal air movement, No rhonchi, No wheeze, No rales Cardiovascular: Regular rate, Regular Rhythm, Normal S1, Normal S2, No murmurs Abdomen: Bowel Sounds Present, Soft, Non Tender, Non-Distended, No Hepato- splenomegaly Extremities: No edema, No Calf Tenderness Skin: No rashes, No breakdown Musculoskeletal: No Tenderness to Palpation of Joints or Extremities, No Muscle Wasting Neurological: Deep Tendon Reflexes 2+/4 and Symmetrical, - - no clonsu Psych/Mental Status: Appropriate, Flat Affect Laboratory Results 10/16/19 04:10: WBC 3.7 L, RBC 3.65 L, Hgb 12.3 L, Hct 34.0 L, MCV 93.2, MCH 33.7 H, MCHC 36.2 H, RDW Std Deviation 44.2 H, RDW Coeff of Reilly 12.7, Plt Count 50 L*, MPV 10.4, Immature Gran % (Auto) 0.500, Neut % (Auto) 69.1, Lymph % (Auto) 14.0 L, [place] % (Auto) 13.7 H, Eos % (Auto) 2.2, Baso % (Auto) 0.5, Absolute Neuts (auto) 2.6, Absolute Lymphs (auto) 0.52 L, Nucleated RBC % 0, Differential Comment SCANNED, Diff Path Review March, Platelet Estimate MOD DEC 10/16/19 04:10: Sodium 133 L, Potassium 3.5, Chloride 97 L, Carbon Dioxide 28.0, Anion Gap 8, BUN 10, Creatinine 0.71, Estim Creat Clear Calc 127.97, Est GFR (MDRD) Af Amer 159, Est GFR (MDRD) Non-Af 131, BUN/Creatinine Ratio 14.0, Glucose 116 H, Calcium 8.7, Total Bilirubin 3.30 H, AST 249 H, ALT 196 H, Alkaline Phosphatase 107, Total Protein 7.8, Albumin 4.0, Globulin 3.8, Albumin/Globulin Ratio 1.1 Current Medications Al Hydroxide/Mg Hydroxide (Mylanta Ii) 30 ml PO Q6H PRN PRN PRN Reason: dyspesia Bisacodyl (Dulcolax) 10 mg RECTAL DAILY PRN PRN Reason: Constipation Carvedilol (Coreg) 12.5 mg PO DAILY [facility] Chlordiazepoxide (Librium) 50 mg PO Q8H BREE; Taper Stop: 10/18/19 14:59 Last Admin: 10/16/19 06:14 Dose: 50 mg Documented by: Clonidine (Catapres) 0.1 mg PO Q6H [facility] Last Admin: 10/16/19 07:54 Dose: 0.1 mg Documented by: Dextrose (D50w Syringe) 0 gm IV X1 PRN; Protocol PRN Reason: Hypoglycemia Dicyclomine HCl (Bentyl) 20 mg PO Q6H PRN PRN PRN Reason: abdominal discomfort Last Admin: 10/15/19 02:55 Dose: 20 mg Documented by: Enoxaparin Sodium (Lovenox) 40 mg SC DAILY@0600 [facility] Last Admin: 10/16/19 05:53 Dose: 40 mg Documented by: Glucagon () 1 mg IM .X1 PRN PRN Reason: Hypoglycemia Hydralazine HCl (Apresoline Iv) 10 mg IV Q6H PRN PRN PRN Reason: diastolic >100 Last Admin: 10/16/19 06:29 Dose: 10 mg Documented by: Dexmedetomidine HCl 400 mcg/ (Sodium Chloride) 100 mls @ 8.017 mls/hr CONT INF .[id number] [facility]; Protocol Last Titration: 10/16/19 08:00 Dose: 0.5 mcg/kg/hr, 8 mls/hr Documented by: Sodium Chloride () 1,000 mls @ 150 mls/hr IV .Q6H40M [facility] Last Admin: 10/16/19 05:34 Dose: 150 mls/hr Documented by: Ibuprofen (Motrin) 400 mg PO Q8H PRN PRN PRN Reason: Pain Score 1-5/10/fever Last Admin: 10/15/19 08:06 Dose: 400 mg Documented by: Loperamide HCl (Imodium) 2 - 4 mg PO UD PRN PRN Reason: LOOSE STOOLS Lorazepam (Ativan) 2 mg IV X1 PRN PRN Reason: Seizure Lorazepam (Ativan) 2 mg PO Q2H PRN PRN; Protocol PRN Reason: CIWA score > 8 but <15 Lorazepam (Ativan) 2 mg PO UD PRN; Protocol PRN Reason: CIWA score >/=15. Lorazepam (Ativan) 2 mg IV Q2H PRN PRN; Protocol PRN Reason: CIWA score > 8 but <15 Lorazepam (Ativan) 2 mg IV UD PRN; Protocol PRN Reason: CIWA score >/=15. Methocarbamol (Methocarbamol) 750 mg PO Q6H PRN PRN PRN Reason: Muscle Aches Last Admin: 10/15/19 02:55 Dose: 750 mg Documented by: Multivitamins ([facility]itamin) [facility] Last Admin: 10/16/19 07:55 Dose: 1 tablet Documented by: Nicotine (Nicoderm Cq (Pbkc)) 21 mg TRANSDERM. DAILY [facility] Last Admin: 10/15/19 10:30 Dose: 21 mg Documented by: Nutritional Formula (Lactose Free) (Ensure Clear) 120 ml PO 4X/DAY [facility] Last Admin: 10/15/19 22:06 Dose: Not Given Documented by: Ondansetron HCl (Zofran Odt) 4 mg PO Q6H PRN PRN PRN Reason: NAUSEA Last Admin: 10/15/19 08:07 Dose: 4 mg Documented by: James (Senokot) 1 tablet PO QHS PRN PRN PRN Reason: Constipation Sodium Chloride () 10 - 40 ml IV UD PRN PRN Reason: SALINE FLUSH Last Admin: 10/16/19 06:29 Dose: 40 ml Documented by: STROKE Vital Signs/Narrative: Vital Signs Temp Pulse Resp BP Pulse Ox 10/16/19 08:00 37.2 C 104 H 18 145/100 H 100 10/16/19 07:22 98 10/16/19 07:00 93 17 116/84 H 100 10/16/19 06:50 99 10/16/19 06:45 90 127/94 H 10/16/19 06:40 98 109/84 H 10/16/19 06:35 101 H 130/101 H 10/16/19 06:30 99 118/107 H 10/16/19 06:29 94 10/16/19 06:00 89 22 H 150/114 H 99 Medical Necessity - Tobacco Use Smoking Status: Current every day smoker Tobacco Use: Cigarettes Assessment/Plan All Active Problems (Last Updated 06/21/18 @ 02:20 by Corey Cleaning MD) Alcohol withdrawal (Acute) Acute alcohol intoxication (Acute) 1. Acute alcohol withdrawal * improved from 10/15. * precedex gtt started on 10/15 , continue ICU level of care for now * Alcohol level was 469 when he came in * chlordiazepoxide resumed 10/15 2. Polysubstance abuse * chronic * EtOH and THC * amphetamines may be a false + * complicates overall addiction and recovery 3. VTE prophylaxis: LMWH Code Visit Inpatient E&M: 71127 Subs Hosp L3
[2019-10-16] MEDS: LORazepam 2 MG/ML Syringe IV ×4 (09:11→17:15)
[2019-10-16] MEDS: Ensure Clear 120 ML Liquid PO ×3 (09:13→17:15)
[2019-10-16] MEDS: Carvedilol 12.5 MG Tablet PO (10:14)
[2019-10-16 15:03] LABS: Vitamin D 1,25-Dihydroxy 99.4 pg/mL (19.9-79.3)
--- NOTE | 2019-10-16 15:14 | CASEMGMT ---
CASANDRA MCKAY NOTE: Call received from Cara Webb CM. She was made aware pt is an In-pt and update given. Cara/Tracey MCKAY: . Graham BANKS RN CM
[2019-10-16 15:34] LABS: Pathologist Review Reviewed
[2019-10-17] VITALS (18 sets, daily range): BP systolic 88–155; BP diastolic 53–109; PULSE 76–108; RESP 12–22; TEMP 36.7–37.2; O2SAT 97–100
[2019-10-17] MEDS: chlordiazePOXIDE 25 MG Capsule PO ×4 (00:29→22:29)
[2019-10-17] MEDS: cloNIDine HCl 0.1 MG Tablet PO ×4 (01:28→20:39)
[2019-10-17] MEDS: TITRATION PARAMETER CHANGE 1 EACH IV (06:00)
--- NOTE | 2019-10-17 06:31 | PCM.PN.INT ---
Subjective: Patient did okay overnight. Patient has been able to be weaned to 0.3 of Precedex and is tolerating room air. Patient did not receive any as needed Ativan overnight. Nursing reports the patient only becomes agitated when he has to urinate. Patient is more directable. General: Alert, Cooperative, No apparent distress, - - No conversational dyspnea HEENT: Atraumatic, PERRLA, EOMI, Normocephalic, - - No scleral icterus or injection noted Oral: Moist Mucosa, No Gingival or Mucosal Lesions/ Ulcerations Neck: Supple, No JVD, No Nodes, Trachea Midline Lungs: Clear to auscultation, Normal air movement, No rhonchi, No wheeze, No rales Cardiovascular: Regular rate, Regular Rhythm, Normal S1, Normal S2, No murmurs, No rub noted, No Gallop Abdomen: Bowel Sounds Present, Soft, Non Tender, Non-Distended Extremities: No clubbing, No cyanosis, No edema, Capillary Refill Less than 3 Seconds Skin: No rashes, No breakdown Musculoskeletal: No Tenderness to Palpation of Joints or Extremities Lymphatic: No Cervical, Supraclavicular, or Inguinal Adenopathy Neurological: Cranial nerves II-XII grossly intact, Neuro grossly intact, Motor Exam 5/5 strength throughout Psych/Mental Status: Alert and oriented to time, place, person, mood and affect Vital Signs Temp Pulse Resp BP Pulse Ox 36.7 C 84 15 149/100 H 98 10/17/19 04:00 10/17/19 06:00 10/17/19 06:00 10/17/19 06:00 10/17/19 06:00 Oxygen Flow Rate (L/min) 3 Oxygen Delivery Method Room Air Weight: 66.7 kg Body Mass Index (BMI) 20.8 Intake and Output for Last 24 Hours 10/15/19 10/16/19 10/17/19 23:59 23:59 23:59 Intake Total 3021.17 / 3241.17 4302.30 / 4303.90 111.2 / 111.2 Output Total 775 / 1275 3250 / 3750 1500 / 1500 Balance 2246.17 / 1966.17 1052.30 / 553.90 -1388.8 / -1388.8 Labs (Last 48 Hours) 10/14/19 10/16/19 10/16/19 05:32 04:10 04:10 WBC 3.7 L RBC 3.65 L Hgb 12.3 L Hct 34.0 L MCV 93.2 MCH 33.7 H MCHC 36.2 H RDW Std Deviation 44.2 H RDW Coeff of Reilly 12.7 Plt Count 50 L* MPV 10.4 Immature Gran % (Auto) 0.500 Neut % (Auto) 69.1 Lymph % (Auto) 14.0 L [place] % (Auto) 13.7 H Eos % (Auto) 2.2 Baso % (Auto) 0.5 Absolute Neuts (auto) 2.6 Absolute Lymphs (auto) 0.52 L Nucleated RBC % 0 Differential Comment SCANNED Diff Path Review Reviewed Platelet Estimate MOD DEC Sodium 133 L Potassium 3.5 Chloride 97 L Carbon Dioxide 28.0 Anion Gap 8 BUN 10 Creatinine 0.71 Estim Creat Clear Calc 127.97 Est GFR (MDRD) Af Amer 159 Est GFR (MDRD) Non-Af 131 BUN/Creatinine Ratio 14.0 Glucose 116 H Calcium 8.7 Total Bilirubin 3.30 H AST 249 H ALT 196 H Alkaline Phosphatase 107 Total Protein 7.8 Albumin 4.0 Globulin 3.8 Albumin/Globulin Ratio 1.1 Vit D 1,25-Dihydroxy 99.4 H Medical Necessity - Tobacco Use Smoking Status: Current every day smoker Tobacco Use: Cigarettes Assessment/Plan All Active Problems (Last Updated 06/21/18 @ 02:20 by Corey Cleaning MD) Alcohol withdrawal (Acute) Acute alcohol intoxication (Acute) RECOMMENDATIONS: 1. Continue Librium taper and Precedex. Hopefully discontinue Precedex today 2. Attempt to use as needed Ativan to allow for Precedex titration 3. Continue seizure precautions 4. Possible transfer from the intensive care unit later today if able to tolerate off of Precedex. IMPRESSIONS: 1. Acute alcohol withdrawal Patient appears to be responding well to Precedex therapy. Will attempt to discontinue Precedex this morning and use as needed Ativan. If patient is able to tolerate this during the day, transfer out of the intensive care unit may be a possibility. No seizure activity, nausea or vomiting has been reported. 2. Polysubstance abuse/pancytopenia/chronic pancreatitis Complicates care, management, recovery and prognosis. Can use nicotine patch if necessary. Unclear if patient does use amphetamines at baseline. Patient may have an element of alcoholic hepatitis, but liver function studies appear to be improving. Patient reports he has used Suboxone in the past, but opiate abuse has not been reported. Code Visit Inpatient E&M: 36071 Subs Hosp L3
[2019-10-17] MEDS: Enoxaparin 40 MG/0.4 ML Syringe SC (06:34)
[2019-10-17] MEDS: Multivitamins,Therapeutic Tablet 1 TABLET PO (08:01)
[2019-10-17] MEDS: LORazepam 1 MG Tablet 2 MG PO ×4 (08:02→16:41)
[2019-10-17] MEDS: Ibuprofen 400 MG Tablet PO ×2 (08:08→16:41)
--- NOTE | 2019-10-17 09:23 | CASEMGMT ---
SW participated in ICU rounds this morning. After rounds, SW spoke w/pt briefly and gave him again the information [facility] SW remains available for any additional hospital social worker needs. HOMERO Rivas
[2019-10-17] MEDS: Carvedilol 12.5 MG Tablet PO (10:32)
[2019-10-17] MEDS: Ensure Clear 120 ML Liquid PO ×4 (10:35→21:14)
[2019-10-17] MEDS: 0.9% Saline Lock 10 ML Syringe IV (10:36)
[2019-10-17] MEDS: Dicyclomine 10 MG Capsule 20 MG PO ×2 (10:36→18:25)
--- NOTE | 2019-10-17 15:09 | PN_ITS ---
Reason for Visit: alcohol withdrawal Subjective: Doing better. Tolerating PO Vitals/I&O's: Vital Signs Temp Pulse Resp BP Pulse Ox 37.1 C 91 14 125/86 H 99 10/17/19 12:00 10/17/19 14:00 10/17/19 14:00 10/17/19 14:00 10/17/19 14:00 Oxygen Flow Rate (L/min) 3 Oxygen Delivery Method Room Air Weight: 66.7 kg Body Mass Index (BMI) 20.8 Intake and Output for Last 24 Hours 10/15/19 10/16/19 10/17/19 23:59 23:59 23:59 Intake Total 3021.17 / 3241.17 4302.30 / 4303.90 818.00 / 818.00 Output Total 775 / 1275 3250 / 3750 1500 / 1500 Balance 2246.17 / 1966.17 1052.30 / 553.90 -682.00 / -682.00 General: Alert, Cooperative, No apparent distress, - - slightly groggy. HEENT: Atraumatic, Normocephalic Oral: Moist Mucosa, No Gingival or Mucosal Lesions/ Ulcerations Neck: No Nodes, Trachea Midline Lungs: Clear to auscultation, Normal air movement, No rhonchi, No wheeze Cardiovascular: Regular rate, Regular Rhythm, Normal S1, Normal S2 Abdomen: Bowel Sounds Present, Soft, Non Tender, Non-Distended, No Hepato- splenomegaly Extremities: No edema, No Calf Tenderness Psych/Mental Status: Normal Affect, Appropriate Laboratory Results 10/16/19 04:10: Diff Path Review Reviewed Current Medications Al Hydroxide/Mg Hydroxide (Mylanta Ii) 30 ml PO Q6H PRN PRN PRN Reason: dyspesia Bisacodyl (Dulcolax) 10 mg RECTAL DAILY PRN PRN Reason: Constipation Carvedilol (Coreg) 12.5 mg PO DAILY [facility] Last Admin: 10/17/19 10:32 Dose: 12.5 mg Documented by: Chlordiazepoxide (Librium) 25 mg PO Q8H [facility]; Taper Stop: 10/18/19 14:59 Last Admin: 10/17/19 14:19 Dose: 25 mg Documented by: Clonidine (Catapres) 0.1 mg PO Q6H [facility] Last Admin: 10/17/19 14:20 Dose: 0.1 mg Documented by: Dicyclomine HCl (Bentyl) 20 mg PO Q6H PRN PRN PRN Reason: abdominal discomfort Last Admin: 10/17/19 10:36 Dose: 20 mg Documented by: Enoxaparin Sodium (Lovenox) 40 mg SC DAILY@0600 [facility] Last Admin: 10/17/19 06:34 Dose: 40 mg Documented by: Glucagon () 1 mg IM .X1 PRN PRN Reason: Hypoglycemia Hydralazine HCl (Apresoline Iv) 10 mg IV Q6H PRN PRN PRN Reason: diastolic >100 Last Admin: 10/16/19 18:16 Dose: 10 mg Documented by: Dexmedetomidine HCl 400 mcg/ (Sodium Chloride) 100 mls @ 8.338 mls/hr CONT INF .Q12H [facility]; Protocol Last Titration: 10/17/19 14:00 Dose: 0 mcg/kg/hr, 0 mls/hr Documented by: Dextrose (Dextrose 10%-Water) 250 mls @ 999 mls/hr IV X1 PRN; Protocol PRN Reason: HYPOGLYCEMIA Ibuprofen (Motrin) 400 mg PO Q8H PRN PRN PRN Reason: Pain Score 1-5/10/fever Last Admin: 10/17/19 08:08 Dose: 400 mg Documented by: Loperamide HCl (Imodium) 2 - 4 mg PO UD PRN PRN Reason: LOOSE STOOLS Lorazepam (Ativan) 2 mg IV X1 PRN PRN Reason: Seizure Lorazepam (Ativan) 2 mg PO Q2H PRN PRN; Protocol PRN Reason: CIWA score > 8 but <15 Last Admin: 10/17/19 14:19 Dose: 2 mg Documented by: Lorazepam (Ativan) 2 mg PO UD PRN; Protocol PRN Reason: CIWA score >/=15. Lorazepam (Ativan) 2 mg IV Q2H PRN PRN; Protocol PRN Reason: CIWA score > 8 but <15 Last Admin: 10/16/19 17:15 Dose: 2 mg Documented by: Lorazepam (Ativan) 2 mg IV UD PRN; Protocol PRN Reason: CIWA score >/=15. Methocarbamol (Methocarbamol) 750 mg PO Q6H PRN PRN PRN Reason: Muscle Aches Last Admin: 10/15/19 02:55 Dose: 750 mg Documented by: Multivitamins (Multivitamin) 1 tablet PO DAILYCM [facility] Last Admin: 10/17/19 08:01 Dose: 1 tablet Documented by: Nicotine (Nicoderm Cq (Pbkc)) 21 mg TRANSDERM. DAILY [facility] Last Admin: 10/17/19 10:33 Dose: 21 mg Documented by: Nutritional Formula (Lactose Free) (Ensure Clear) 120 ml PO 4X/DAY [facility] Last Admin: 10/17/19 14:19 Dose: 120 ml Documented by: Ondansetron HCl (Zofran Odt) 4 mg PO Q6H PRN PRN PRN Reason: NAUSEA Last Admin: 10/15/19 08:07 Dose: 4 mg Documented by: Senna (Senokot) 1 tablet PO QHS PRN PRN PRN Reason: Constipation Sodium Chloride () 10 - 40 ml IV UD PRN PRN Reason: SALINE FLUSH Last Admin: 10/17/19 10:36 Dose: 10 ml Documented by: STROKE Vital Signs/Narrative: Vital Signs Temp Pulse Resp BP BP Pulse Ox 10/17/19 14:00 91 14 125/86 H 99 10/17/19 13:00 97 13 123/83 H 100 10/17/19 12:00 37.1 C 94 16 123/81 H 100 Medical Necessity - Tobacco Use Smoking Status: Current every day smoker Tobacco Use: Cigarettes Assessment/Plan All Active Problems (Last Updated 06/21/18 @ 02:20 by Corey Cleaning MD) Alcohol withdrawal (Acute) Acute alcohol intoxication (Acute) 1. Acute alcohol withdrawal * improving, but still ongoing * precedex gtt stopped * Alcohol level was 469 when he came in * chlordiazepoxide resumed 10/15 * continue MVI 2. Polysubstance abuse * chronic * EtOH and THC * amphetamines may be a false + * complicates overall addiction and recovery 3. VTE prophylaxis: LMWH Code Visit Inpatient E&M: 04172 Subs Hosp L2
[2019-10-17 15:45] LABS: Vitamin B1, Thiamine 175.5 nmol/L (66.5-200.0)
--- NOTE | 2019-10-17 15:54 | NURSING ---
PT RECEIVED FROM ICU. PATIENTS WALLET AND CIGARETTES PLACED /LOCKED IN BOTTOM DRAWER OF MEDICATION DRAWERS. PT MADE AWARE.
[2019-10-17] MEDS: Methocarbamol 750 MG Tablet PO (18:25)
[2019-10-17] MEDS: Mag Hydrox/Al Hydrox/Simeth 30 ML UDC PO (21:14)
[2019-10-18 02:46] VITALS: BP 144/98; PULSE 77; RESP 16; TEMP 36.6; O2SAT 99
[2019-10-18] MEDS: Ibuprofen 400 MG Tablet PO (02:56)
[2019-10-18] MEDS: Dicyclomine 10 MG Capsule 20 MG PO (02:56)
[2019-10-18] MEDS: LORazepam 1 MG Tablet 2 MG PO ×3 (02:56→15:39)
[2019-10-18] MEDS: Methocarbamol 750 MG Tablet PO (02:56)
[2019-10-18] MEDS: cloNIDine HCl 0.1 MG Tablet PO ×3 (02:56→13:52)
[2019-10-18] MEDS: Enoxaparin 40 MG/0.4 ML Syringe SC (05:58)
[2019-10-18] MEDS: chlordiazePOXIDE 25 MG Capsule PO (06:00)
[2019-10-18] MEDS: Multivitamins,Therapeutic Tablet 1 TABLET PO (08:44)
[2019-10-18 10:00] VITALS: BP 119/86; PULSE 91; RESP 18; TEMP 36.8; O2SAT 98
[2019-10-18] MEDS: Ensure Clear 120 ML Liquid PO ×2 (10:37→13:52)
[2019-10-18] MEDS: Carvedilol 12.5 MG Tablet PO (10:37)
--- NOTE | 2019-10-18 12:17 | DCINST_ITS ---
You will use the following diet at home:: No restrictions Discharge Activity: Return to Normal Activity Allergies/Adverse Reactions: Allergies No Known Allergies Allergy (Verified 10/13/19 10:33) Medications to take at Discharge Carvedilol [Coreg (Beta Nieves)] 12.5 mg PO DAILY 05/23/19 Ergocalciferol (Vitamin D2) [Vitamin D2] 50,000 units PO WE 05/23/19 Fluoxetine [Prozac] 40 mg PO DAILY 05/23/19 Multivitamin [Multivitamins] 1 ea PO DAILY 05/23/19 Nicotine [Nicoderm Cq] 21 mg TRANSDERM. DAILY #30 patch 05/28/19 Primary Care Physician: Michelle Douglas [Primary Care Provider] - Within 2 Weeks Test Results: Test results from this visit will be discussed in further detail at your follow- up appointment, if applicable. Please Follow Up With: 10/21 at 10am with Aristeo Alfaro Proposed Discharge Date: 10/18/19
--- NOTE | 2019-10-18 12:37 | DS.PCM_ITS ---
Discharge Date and Diagnosis Date of Admission: 10/13/19 Date of Discharge: 10/18/19 - Primary Discharge Diagnosis Acute alcohol withdrawal - Secondary Discharge Diagnosis Chronic Problems (Last Updated 06/21/18 @ 02:20 by Corey Cleaning MD) Alcohol withdrawal seizure (Chronic) Chronic alcoholic hepatitis (Chronic) Pancytopenia (Chronic) Hospital Course and Treatment Operations: None Procedures: None Summary of Care Provided: The patient is a 39 year old M presents with acute alcohol withdrawal. Patient was started on Librium taper initially. Patient did get worse started developing delirium tremens and then was transferred to the ICU and started on a Precedex drip. So the patient improved. Patient was stopped on Precedex 12th and has overall continued to improve. Patient's last dose of Librium was at 1459. Patient will be following up with [facility] on the for further addiction services. [] - Physical Exam Vitals/I&O's: Vital Signs Temp Pulse Resp BP Pulse Ox 36.8 C 91 18 119/86 H 98 10/18/19 10:00 10/18/19 10:00 10/18/19 10:00 10/18/19 10:00 10/18/19 10:00 Oxygen Flow Rate (L/min) 3 Oxygen Delivery Method Room Air Weight: 65.2 kg Body Mass Index (BMI) 20.8 Intake and Output for Last 24 Hours 10/16/19 10/17/19 10/18/19 23:59 23:59 23:59 Intake Total 4302.30 / 4303.90 1648.00 / 1648.00 1200 / 1200 Output Total 3250 / 3750 1999 / 1999 450 / 450 Balance 1052.30 / 553.90 -352.00 / -352.00 750 / 750 General: Alert, Cooperative, No apparent distress HEENT: Atraumatic, Normocephalic Oral: Moist Mucosa, No Gingival or Mucosal Lesions/ Ulcerations Neck: No Nodes, Trachea Midline Lungs: Clear to auscultation, Normal air movement, No rhonchi, No wheeze Cardiovascular: Regular rate, Regular Rhythm, Normal S1, Normal S2 Abdomen: Bowel Sounds Present, Soft, Non Tender, Non-Distended, No Hepato- splenomegaly Extremities: No edema, No Calf Tenderness Laboratory Results 10/14/19 05:32: Whole Bld Vitamin B1 175.5 Current Medications Al Hydroxide/Mg Hydroxide (Mylanta Ii) 30 ml PO Q6H PRN PRN PRN Reason: dyspesia Last Admin: 10/17/19 21:14 Dose: 30 ml Documented by: Bisacodyl (Dulcolax) 10 mg RECTAL DAILY PRN PRN Reason: Constipation Carvedilol (Coreg) 12.5 mg PO DAILY [facility] Last Admin: 10/18/19 10:37 Dose: 12.5 mg Documented by: Chlordiazepoxide (Librium) 25 mg PO Q8H [facility]; Taper Stop: 10/18/19 14:59 Last Admin: 10/18/19 06:00 Dose: 25 mg Documented by: Clonidine (Catapres) 0.1 mg PO Q6H [facility] Last Admin: 10/18/19 08:44 Dose: 0.1 mg Documented by: Dicyclomine HCl (Bentyl) 20 mg PO Q6H PRN PRN PRN Reason: abdominal discomfort Last Admin: 10/18/19 02:56 Dose: 20 mg Documented by: Enoxaparin Sodium (Lovenox) 40 mg SC DAILY@0600 [facility] Last Admin: 10/18/19 05:58 Dose: 40 mg Documented by: Glucagon () 1 mg IM .X1 PRN PRN Reason: Hypoglycemia Hydralazine HCl (Apresoline Iv) 10 mg IV Q6H PRN PRN PRN Reason: diastolic >100 Last Admin: 10/16/19 18:16 Dose: 10 mg Documented by: Dextrose (Dextrose 10%-Water) 250 mls @ 999 mls/hr IV X1 PRN; Protocol PRN Reason: HYPOGLYCEMIA Ibuprofen (Motrin) 400 mg PO Q8H PRN PRN PRN Reason: Pain Score 1-5/10/fever Last Admin: 10/18/19 02:56 Dose: 400 mg Documented by: Loperamide HCl (Imodium) 2 - 4 mg PO UD PRN PRN Reason: LOOSE STOOLS Lorazepam (Ativan) 2 mg IV X1 PRN PRN Reason: Seizure Lorazepam (Ativan) 2 mg PO Q2H PRN PRN; Protocol PRN Reason: CIWA score > 8 but <15 Last Admin: 10/18/19 10:36 Dose: 2 mg Documented by: Lorazepam (Ativan) 2 mg PO UD PRN; Protocol PRN Reason: CIWA score >/=15. Lorazepam (Ativan) 2 mg IV Q2H PRN PRN; Protocol PRN Reason: CIWA score > 8 but <15 Last Admin: 10/16/19 17:15 Dose: 2 mg Documented by: Lorazepam (Ativan) 2 mg IV UD PRN; Protocol PRN Reason: CIWA score >/=15. Methocarbamol (Methocarbamol) 750 mg PO Q6H PRN PRN PRN Reason: Muscle Aches Last Admin: 10/18/19 02:56 Dose: 750 mg Documented by: Multivitamins (Multivitamin) 1 tablet PO DAILYCM [facility] Last Admin: 10/18/19 08:44 Dose: 1 tablet Documented by: Nicotine (Nicoderm Cq (Pbkc)) 21 mg TRANSDERM. DAILY [facility] Last Admin: 10/18/19 10:36 Dose: 21 mg Documented by: Nutritional Formula (Lactose Free) (Ensure Clear) 120 ml PO 4X/DAY [facility] Last Admin: 10/18/19 10:37 Dose: 120 ml Documented by: Ondansetron HCl (Zofran Odt) 4 mg PO Q6H PRN PRN PRN Reason: NAUSEA Last Admin: 10/15/19 08:07 Dose: 4 mg Documented by: Senna (Senokot) 1 tablet PO QHS PRN PRN PRN Reason: Constipation Sodium Chloride () 10 - 40 ml IV UD PRN PRN Reason: SALINE FLUSH Last Admin: 10/17/19 10:36 Dose: 10 ml Documented by: Discharge Diet: No Restrictions Discharge Activity: Return to Normal Activity Home Medications: Medications to take at Discharge Carvedilol [Coreg (Beta Nieves)] 12.5 mg PO DAILY 05/23/19 Ergocalciferol (Vitamin D2) [Vitamin D2] 50,000 units PO WE 05/23/19 Fluoxetine [Prozac] 40 mg PO DAILY 05/23/19 Multivitamin [Multivitamins] 1 ea PO DAILY 05/23/19 Nicotine [Nicoderm Cq] 21 mg TRANSDERM. DAILY #30 patch 05/28/19 Primary Care Physician: Michelle Douglas [Primary Care Provider] - Within 2 Weeks Please Follow Up With: 10/21 at 10am with [facility] Disposition: Home Minutes spent on discharge:: 32 Patient Condition:: Good Medical Necessity - Tobacco Use Smoking Status: Current every day smoker Tobacco Use: Cigarettes Meaningful Use Info Meaningful Use Diagnoses (Choose all that apply): None applicable Code Visit Inpatient E&M: 59772 Disch Hosp
[2019-10-18 13:54] VITALS: BP 132/79; PULSE 73; RESP 18; TEMP 37.2; O2SAT 99
[2019-10-18 15:53] VITALS: BP 128/78; PULSE 70; RESP 18; TEMP 36.7; O2SAT 99
== END 2019-10-18 15:53 | disposition home or self-care (01) | DRG 775 ==
LOC: ED 11:11 → MS3 12:43 → ICU 10-15 09:52 → MS3 10-15 09:52 → ICU 10-15 18:03 → MS3 10-17 15:53
PROVIDERS: Admitting Provider Internal Medicine; Emergency Provider Emergency Medicine; Family Provider Nurse Practitioner; PCP Nurse Practitioner; Referring Provider Internal Medicine
DX: F10.229 Alcohol dependence with intoxication, unspecified (principal); F10.231 Alcohol dependence with withdrawal delirium; E83.42 Hypomagnesemia; D61.818 Other pancytopenia; F17.210 Nicotine dependence, cigarettes, uncomplicated; Y90.8 Blood alcohol level of 240 mg/100 ml or more; Z23 Encounter for immunization
CPT/HCPCS: 36415; 80048; 80053; 80076; 80307; 80320; 81001; 82607; 82652; 82746; 82962; 82977; 83690; 83735; 84100; 84425; 85025; 85610; 97116; 97162; 97166; 97530; 97802; 97803; 99284; 99406; J7030; J7120; 90686; A4216; G0480; J3490

== ENCOUNTER 2021-08-18 16:47 | Inpatient (IN) | payer MEDICAID, SELFPAY ==
[2021-08-18 16:49] VITALS: BP 120/74; PULSE 89; RESP 17; TEMP 36.2; O2SAT 95; BMI 21.7
--- NOTE | 2021-08-18 17:02 | EX.ED.DYSGE1 ---
HPI History of Present Illness Chief Complaint: Substance Abuse Informant: patient Narrative Narrative: Patient presents requesting detox from alcohol. Patient has a history of alcoholism and was previously sober for 9 months. He started drinking again 3 months ago. He states he drinks a half a bottle of vodka a day. He has had seizures in the past with alcohol withdrawal. Most recent admission here for detox was in October 2019. At that time he did go into DTs and required a Precedex drip in the ICU. [facility] Medical History Alcoholism Depression Hypertension Home Medications carvedilol 12.5 mg PO DAILY 05/23/19 [History Last Taken 10/13/19] ergocalciferol (vitamin D2) 50,000 units PO WE 05/23/19 [History Last Taken 05/22/19] fluoxetine 40 mg PO DAILY 05/23/19 [History Last Taken 10/13/19] multivitamin 1 ea PO DAILY 05/23/19 [History Last Taken 05/23/19] nicotine 21 mg TRANSDERM. DAILY #30 patch 05/28/19 [Rx Last Taken Unknown] buprenorphine-naloxone 1 tab SUBLINGUAL BID 08/18/21 [History Last Taken Unknown] Allergy/AdvReac Type Severity Reaction Status Date / Time No Known Allergies Allergy Verified 08/18/21 16:48 Social History (Updated 08/18/21 @ 17:[address] Rand Campbell MD) Smoking Status: Current every day smoker tobacco type: cigarettes alcohol intake: current alcohol intake frequency: 3 or more drinks per day substance use type: marijuana ROS ROS ED Constitutional Constitutional ED: Denies chills or fever(s) Eyes Eyes: Denies change in vision ENT ENT ED: Denies sore throat Cardiovascular Cardiovascular: Denies chest pain Respiratory/Chest Respiratory/Chest: Denies cough or dyspnea Gastrointestinal Gastrointestinal: Reports abdominal pain; Denies diarrhea, nausea or vomiting Genitourinary Genitourinary ED: Denies dysuria Musculoskeletal Musculoskeletal: Denies back pain Integumentary Denies rash Neurologic Neurologic: Denies headache(s) or weakness Allergic/Immunologic Allergic/Immunologic ED: Denies urticaria EXAM Physical Exam Const Vital Signs: 08/18/21 16:49 08/18/21 17:12 08/18/21 19:02 Temperature 97.2 F L 98.2 F Temperature Source Oral Oral Pulse Rate 89 84 78 Respiratory Rate 17 13 15 Blood Pressure 120/74 127/83 H 134/93 H Blood Pressure Mean 89 97 106 Blood Pressure Source Monitor Blood Pressure Position Sitting Blood Pressure Location Right Arm Pulse Ox 95 92 Oxygen Delivery Method Room Air Room Air Room Air Positive well nourished and well developed General Appearance ED: well developed HEENT Reports normocephalic and head/scalp atraumatic Eyes PERRL and EOMs intact bilaterally Neck supple Chest Wall inspection of chest normal and palpation of chest normal Resp normal respiratory effort and clear to auscultation bilaterally Cardio regular rate and regular rhythm GI normal to inspection, nondistended, normoactive bowel sounds and non-tender Palpation: soft Extremity normal to inspection Neuro oriented x3 and no sensory deficits noted Sensorium / Orientation: alert Motor Exam: strength 5/5 throughout Psych mental status grossly normal Skin no rashes or lesions noted MDM MDM MDM Narrative Medical decision making narrative: Lab work for AT addiction medicine obtained. Lab Data Attestation: I reviewed the patient's lab results. Labs: Laboratory Results - last 24 hr 08/18/21 08/18/21 08/18/21 17:10 17:10 17:10 WBC 1.8 L RBC 3.88 L Hgb 12.8 L Hct 37.0 L MCV 95.4 H MCH 33.0 H MCHC 34.6 RDW Std Deviation 49.5 H RDW Coeff of Reilly 14.3 Plt Count 112 L MPV 9.3 Immature Gran % (Auto) 0.000 Neut % (Auto) 42.4 L Lymph % (Auto) 29.9 [place] % (Auto) 22.3 H Eos % (Auto) 3.8 Baso % (Auto) 1.6 H Absolute Neuts (auto) 0.8 L Absolute Lymphs (auto) 0.55 L Nucleated RBC % 0 Differential Comment SCANNED Diff Path Review May foll Sodium 138 Potassium 3.8 Chloride 100 Carbon Dioxide 29.0 Anion Gap 9 BUN 13 Creatinine 0.99 Estim Creat Clear Calc 99.08 Est GFR (MDRD) Af Amer 107 Est GFR (MDRD) Non-Af 88 BUN/Creatinine Ratio 13.1 Glucose 144 H Calcium 9.1 Total Bilirubin 0.90 AST 304 H ALT 227 H Alkaline Phosphatase 125 H Total Protein 8.7 H Albumin 4.5 Globulin 4.2 Albumin/Globulin Ratio 1.1 Lipase 304 Urine Opiates Screen Urine Methadone Screen Ur Barbiturates Screen Ur Phencyclidine Scrn Ur Amphetamines Screen U Methamphetamin-MDMA U Benzodiazepines Scrn Urine Cocaine Screen U Cannabinoids Screen Ur Drug Screen Comment Ethyl Alcohol 404.0 H* 08/18/21 17:30 WBC RBC Hgb Hct MCV MCH MCHC RDW Std Deviation RDW Coeff of Reilly Plt Count MPV Immature Gran % (Auto) Neut % (Auto) Lymph % (Auto) [place] % (Auto) Eos % (Auto) Baso % (Auto) Absolute Neuts (auto) Absolute Lymphs (auto) Nucleated RBC % Differential Comment Diff Path Review Sodium Potassium Chloride Carbon Dioxide Anion Gap BUN Creatinine Estim Creat Clear Calc Est GFR (MDRD) Af Amer Est GFR (MDRD) Non-Af BUN/Creatinine Ratio Glucose Calcium Total Bilirubin AST ALT Alkaline Phosphatase Total Protein Albumin Globulin Albumin/Globulin Ratio Lipase Urine Opiates Screen NEGATIVE Urine Methadone Screen NEGATIVE Ur Barbiturates Screen NEGATIVE Ur Phencyclidine Scrn NEGATIVE Ur Amphetamines Screen NEGATIVE U Methamphetamin-MDMA POSITIVE H U Benzodiazepines Scrn POSITIVE H Urine Cocaine Screen NEGATIVE U Cannabinoids Screen POSITIVE H Ur Drug Screen Comment Ethyl Alcohol Treatment and Re-Evaluation Comments:: Lab work significant for low white count 1.8. Platelet count is low at 112,000. This appears to be a chronic issue for him. Patient does have elevated ALT and AST consistent with prior values. Alcohol level is 404. Tox screen is positive for methamphetamine, benzos, cannabinoids. Patient be discussed with hospitalist regarding admission especially the fact that he has had seizures in the past with any attempts to stop drinking. Patient at this time states he is starting to feel very anxious and shaky. He will be given 2 mg of IV Ativan. Hospitalist is paged. Discharge Plan Dx/Rx/DC Orders Clinical Impression: Desire for detoxification Disposition Disposition: Acute Care Hospital [facility]
[2021-08-18 17:12] VITALS: BP 127/83; PULSE 84; PULSE 86; RESP 13; RESP 17; TEMP 36.8; O2SAT 92
[2021-08-18 17:26] LABS: Absolute Lymphocyte Count 0.55 X10^3/uL (0.83-4.51); Absolute Neutrophil Count 0.8 X10^3/uL (2.0-7.7); Basophil# 0.03 X10^3/uL; Basophil% 1.6 % (0-1); Eosinophil# 0.07 X10^3/uL; Eosinophils% 3.8 % (0-5); Hemoglobin 12.8 g/dL (13.0-16.5); Lymphocyte # 0.55 X10^3/ul (0.83-4.51); Lymphocyte % 29.9 % (19-41); Mean Corp Hgb Conc 34.6 g/dL (32-36); Mean Corpuscular Volume 95.4 fL (80-94); Mean Platelet Vol. 9.3 fl (6.2-12.0); Monocyte# 0.41 X10^3/uL; Monocyte% 22.3 % (0-10); NRBC Flagged by Analyzer 0 % (0-5); Neutrophil # 0.78 X10^3/uL (2.7-7.7); Neutrophil % 42.4 % (47-70); POSITIVE DIFFERENTIAL YES; Platelet Count 112 K/mm3 (150-450); RBC Distribution Width CV 14.3 % (11.6-14.6); RBC Distribution Width SD 49.5 fl (35.1-43.9); Red Blood Count 3.88 M/mm3 (4.6-6.2); White Blood Count 1.8 K/mm3 (4.4-11.0)
[2021-08-18 17:27] LABS: Differential Indicated SCAN CRITERIA MET
[2021-08-18 17:37] LABS: ALB/GLOB Ratio 1.1 RATIO (0.9-2.4); AST(SGOT) 304 U/L (15-37); Alanine Aminotransfer ALT/SGPT 227 U/L (16-61); Albumin, Serum 4.5 g/dL (3.2-5.0); Alkaline Phosphatase 125 U/L (45-117); Anion Gap 9 (5-15); BUN 13 mg/dL (7-18); BUN/Creat Ratio 13.1 RATIO (10-20); Calcium,Total 9.1 mg/dL (8.5-10.1); Chloride 100 mmol/L (98-107); Creatinine, Serum 0.99 mg/dL (0.70-1.30); EST Glomerular Filtration Rate 88 mL/min (>60); Est Glom Filt Rate - Afr Amer 107 mL/min (>60); Estimated Creatinine Clearance 99.08 ml/min; Globulin 4.2 g/dL (2.2-4.2); Glucose 144 mg/dL (74-106); Lipase 304 U/L (73-393); Potassium 3.8 mmol/L (3.5-5.1); Protein, Total 8.7 g/dL (6.4-8.2); Sodium Level 138 mmol/L (136-145)
[2021-08-18 18:03] LABS: Differential Comment SCANNED
[2021-08-18 18:11] LABS: Amphetamine Urine VISTA NEGATIVE (<1000 ng/mL); Barbiturate Urine VISTA NEGATIVE (< 200 ng/mL); Benzodiazepine Urine VISTA POSITIVE (< 200 ng/mL); Cocaine Urine VISTA NEGATIVE (< 300 ng/mL); Ecstacy Urine VISTA POSITIVE (< 500 ng/mL); Methadone Urine VISTA NEGATIVE (< 300 ng/mL); PCP Urine VISTA NEGATIVE (< 25 ng/mL); THC Urine VISTA POSITIVE (< 50 ng/mL); Vista UDS pH Range 5
[2021-08-18 19:02] VITALS: BP 134/93; PULSE 78; RESP 15
--- NOTE | 2021-08-18 19:28 | HP.PCM.HOS_ITS ---
[facility] - General General Date of Admission: 08/18/21 Date of Service: 08/18/21 Chief Complaint: Desire for alcohol detoxification HPI Narrative DIANNE PERRY, is a 41 M with a significant history of hypertension; alcoholism; marijuana use; previous opioid use on Subutex; who presents to the emergency department with desire for alcohol detoxification. Patient drinks about half a bottle of vodka daily. Last time he drank was about 20 minutes prior to presentation. He reports drinking since age 16. He was sober about 9 months ago. Because of some tragedies including losing some best friends of his he began drinking again about 3 months ago. At the time of evaluation he reports withdrawal symptoms of tremors; abdominal pain and nausea. In the past he had had seizures with alcohol withdrawal so he was concerned about stopping drinking by himself. [facility] Medical History Alcoholism Depression Hypertension Home Medications carvedilol 12.5 mg PO DAILY 05/23/19 [History Last Taken 10/13/19] ergocalciferol (vitamin D2) 50,000 units PO WE 05/23/19 [History Last Taken 05/22/19] fluoxetine 40 mg PO DAILY 05/23/19 [History Last Taken 10/13/19] multivitamin 1 ea PO DAILY 05/23/19 [History Last Taken 05/23/19] nicotine 21 mg TRANSDERM. DAILY #30 patch 05/28/19 [Rx Last Taken Unknown] buprenorphine-naloxone 1 tab SUBLINGUAL BID 08/18/21 [History Last Taken Unknown] Allergy/AdvReac Type Severity Reaction Status Date / Time No Known Allergies Allergy Verified 08/18/21 16:48 Family History (Updated 08/18/21 @ 19:[address] Corey Cleaning MD) Other Alcoholism in family Cancer Diabetes Heart disease no surgical history Social History Smoking Status: Current every day smoker tobacco type: cigarettes alcohol intake: current alcohol intake frequency: 3 or more drinks per day substance use type: marijuana ROS ROS Narrative Constitutional: Denies fever, chills, fatigue, anorexia and change in weight Eyes: Denies blurry vision, change in eye color, change in vision, discharge from eye(s), double vision, erythema, eye pain, loss of vision or other HEENT: Denies abnormal hearing, dysphagia, ear pain, epistaxis, headache(s), hearing loss, nasal congestion, nasal discharge, post nasal drip, sinus pressure, sore throat or other Cardiovascular: Denies chest pain or palpitations. Denies dyspnea on exertion, orthopnea and paroxysmal nocturnal dyspnea Respiratory/Chest: Denies cough, excessive phlegm production, shortness of breath with exertion and wheezing Gastrointestinal: Reports abdominal pain and nausea. Denies coffee ground emesis, constipation, diarrhea, dyspepsia, hematemesis, hematochezia, loose stools, melena, vomiting or other Genitourinary: Denies burning urination, difficulty urinating, dysuria, hematuria, nocturia, urinary frequency, urinary hesitancy, urinary incontinence, urinary urgency or other Musculoskeletal: Denies arthralgias, back pain, joint pain, joint stiffness, joint swelling, myalgias, neck pain or other Neurologic: Reports numbness and tingling of bilateral feet. Reports tremors. Denies abnormal gait, abnormal speech, confusion, disequilibrium, dizziness, focal weakness, headache(s), paresthesias, seizure-like activity, seizures, syncope. Psychiatry: Reports depression. Denies anxiety, homicidal ideation, suicidal ideation or other Endocrinology: Denies change in body appearance, cold intolerance, excessive sweating, heat intolerance, polydipsia, polyuria or other Hematologic/Lymphatic: Denies anemia, easy bleeding, easy bruising, lymphadenopathy or other Integumentary: Denies rashes Allergic/Immunologic: Denies rhinitis, hives, eczema, asthma or other Vital Signs Vital Signs Vital Signs: 08/18/21 16:49 08/18/21 17:12 08/18/21 19:02 Temperature 97.2 F L 98.2 F Temperature Source Oral Oral Pulse Rate 89 84 78 Respiratory Rate 17 13 15 Blood Pressure 120/74 127/83 H 134/93 H Blood Pressure Mean 89 97 106 Blood Pressure Source Monitor Blood Pressure Position Sitting Blood Pressure Location Right Arm Pulse Ox 95 92 Oxygen Delivery Method Room Air Room Air Room Air Weight Weight: 70.624 kg Body Mass Index (BMI) 21.7 Physical Exam Narrative Physical exam: General: Well-nourished, well-developed. Head: Normocephalic, atraumatic, no tenderness Eyes: PERRLA, EOMI ENT, no trauma, moist mucous membranes, no rhinorrhea Neck: Nontender, full range of motion, no spinal tenderness, deformities, step- off CVS: Regular rate and rhythm. S1-S2 present. No murmur, gallop or rub. Respiratory : clear to auscultation bilaterally, chest wall nontender, no wheezing Abdomen: Soft, nontender, nondistended, normal bowel sounds, no masses : Deferred Back: Nontender, no CVA tenderness, no midline spinal tenderness, deformities, step-offs Extremities: Nontender full range of motion, no trauma Skin: Normal color, no trauma, abrasions Neuro: Alert, oriented, cranial nerves II through XII grossly intact. Tremors present Psychiatry: Normal mood. Normal affect. Not depressed. Not anxious. Results Lab / Micro Data Result Diagrams: 08/18/21 17:10 08/18/21 17:10 Labs: Laboratory Results - last 24 hr 08/18/21 17:10: WBC 1.8 L, RBC 3.88 L, Hgb 12.8 L, Hct 37.0 L, MCV 95.4 H, MCH 33.0 H, MCHC 34.6, RDW Std Deviation 49.5 H, RDW Coeff of Reilly 14.3, Plt Count 112 L, MPV 9.3, Immature Gran % (Auto) 0.000, Neut % (Auto) 42.4 L, Lymph % (Auto) 29.9, [place] % (Auto) 22.3 H, Eos % (Auto) 3.8, Baso % (Auto) 1.6 H, Absolute Neuts (auto) 0.8 L, Absolute Lymphs (auto) 0.55 L, Nucleated RBC % 0, Differential Comment SCANNED, Diff Path Review March08/18/21 17:10: Sodium 138, Potassium 3.8, Chloride 100, Carbon Dioxide 29.0, Anion Gap 9, BUN 13, Creatinine 0.99, Estim Creat Clear Calc 99.08, Est GFR (MDRD) Af Amer 107, Est GFR (MDRD) Non-Af 88, BUN/Creatinine Ratio 13.1, Glucose 144 H, Calcium 9.1, Total Bilirubin 0.90, AST 304 H, ALT 227 H, Alkaline Phosphatase 125 H, Total Protein 8.7 H, Albumin 4.5, Globulin 4.2, Albumin/Globulin Ratio 1.1, Lipase 304 08/18/21 17:10: Ethyl Alcohol 404.0 H* 08/18/21 17:30: Urine Opiates Screen NEGATIVE, Urine Methadone Screen NEGATIVE, Ur Barbiturates Screen NEGATIVE, Ur Phencyclidine Scrn NEGATIVE, Ur Amphetamines Screen NEGATIVE, U Methamphetamin-MDMA POSITIVE H, U Benzodiazepines Scrn P OSITIVE H, Urine Cocaine Screen NEGATIVE, U Cannabinoids Screen POSITIVE H, Ur Drug Screen Comment Micro: Microbiology 08/18/21 17:09 Nasal Secretion SARS-CoV-2 Antigen (Rapid) - Final Assessment & Plan Assessment/Plan (1) Desire for detoxification: (2) Alcohol withdrawal: QUALIFIERS: Complication of substance-induced condition: with delirium Qualified Code(s): F10.231 - Alcohol dependence with withdrawal delirium PLAN: Alcohol dependence and desire for detoxification Toxicology reviewed showed positive benzodiazepine; methamphetamine and cannabinoids. Patient denies methamphetamine use. Alcohol level was 404 on presentation. Patient will be be started on phenobarbital and other adjunctive medications: Gabapentin as needed; dicyclomine as needed; Vistaril as needed; Imodium as needed; trazodone as needed; Zofran as needed; scheduled thiamine; and schedule folic acid. Monitor CIWA score Hypertension Blood pressure is not within goal Carvedilol continued. Trend blood pressure and adjust blood pressure medications. Tobacco abuse Counseled Nicotine patch continued. Elevated liver enzymes Alcoholic and chronic. Counseled. Pancytopenia Chronic Secondary to alcoholism Counseled. DVT prophylaxis Low risk Encourage to ambulate Charges/Coding Visit Charges Inpatient E&M: 79114 Init Hosp L2
[2021-08-18] MEDS: LORazepam 2 MG/ML Syringe IV (19:32)
[2021-08-18 19:34] VITALS: BP 143/99; PULSE 78; RESP 16; TEMP 36.7; O2SAT 97
[2021-08-18 20:14] VITALS: BMI 21.0
--- NOTE | 2021-08-18 20:15 | PCS.PANDOC ---
PANDEMIC DOCUMENTATION INITIATED: Date: 06/21/2021 Time: 190
[2021-08-18 20:31] VITALS: BP 149/105; PULSE 75; RESP 20; TEMP 36.7; O2SAT 95
[2021-08-18 21:05] VITALS: BP 121/86; PULSE 71
[2021-08-18] MEDS: Phenobarbital 32.4 MG Tablet 64.8 MG PO (21:12)
[2021-08-18] MEDS: BUPRENORPHINE HCL 8 MG TAB.SUBL SL (22:32)
[2021-08-18] MEDS: traZODone 100 MG Tablet PO (22:53)
[2021-08-19] VITALS (8 sets, daily range): BP systolic 125–169; BP diastolic 76–104; PULSE 67–82; RESP 18–20; TEMP 36.8–37.2; O2SAT 94–98
[2021-08-19] MEDS: hydrOXYzine PAM 25 MG Capsule 50 MG PO ×3 (01:33→21:27)
[2021-08-19] MEDS: Phenobarbital 32.4 MG Tablet 64.8 MG PO ×6 (01:33→20:11)
[2021-08-19] MEDS: Dicyclomine 10 MG Capsule 20 MG PO ×2 (05:09→21:27)
[2021-08-19] MEDS: Gabapentin 300 MG Capsule PO ×2 (05:09→19:34)
[2021-08-19 06:04] LABS: Absolute Neutrophil Count 0.7 X10^3/uL (2.0-7.7); Basophil# 0.01 X10^3/uL; Basophil% 0.5 % (0-1); Eosinophil# 0.05 X10^3/uL; Eosinophils% 2.7 % (0-5); Hematocrit 36.1 % (40-54); Hemoglobin 12.6 g/dL (13.0-16.5); Mean Corp Hgb Conc 34.9 g/dL (32-36); Mean Corpuscular Hgb 33.2 pg (27.0-32.0); Mean Platelet Vol. 9.9 fl (6.2-12.0); Monocyte# 0.28 X10^3/uL; Monocyte% 15.1 % (0-10); NRBC Flagged by Analyzer 0 % (0-5); Neutrophil # 0.72 X10^3/uL (2.7-7.7); Neutrophil % 38.7 % (47-70); POSITIVE COUNT YES; POSITIVE DIFFERENTIAL YES; Platelet Count 92 K/mm3 (150-450); RBC Distribution Width CV 13.9 % (11.6-14.6); RBC Distribution Width SD 48.6 fl (35.1-43.9); White Blood Count 1.9 K/mm3 (4.4-11.0)
[2021-08-19 06:05] LABS: Differential Indicated SCAN CRITERIA MET
[2021-08-19 06:21] LABS: Differential Comment SCANNED; Platelet Estimate SLT DEC (ADEQ)
[2021-08-19] MEDS: Ondansetron 4 MG/2 ML Vial IV (09:33)
[2021-08-19] MEDS: 0.9% Saline Lock 10 ML Syringe IV (09:33)
[2021-08-19] MEDS: Multivitamins,Therapeutic Tablet 1 TABLET PO (09:38)
[2021-08-19] MEDS: Thiamine Hydrochloride 100 MG Tablet PO (09:39)
[2021-08-19] MEDS: Folic Acid 1 MG Tablet PO (09:39)
[2021-08-19] MEDS: FLUoxetine 20 MG Capsule 40 MG PO (09:39)
[2021-08-19] MEDS: BUPRENORPHINE HCL 8 MG TAB.SUBL SL ×2 (09:39→22:22)
[2021-08-19] MEDS: Carvedilol 12.5 MG Tablet PO (09:39)
[2021-08-19] MEDS: chlordiazePOXIDE 25 MG Capsule 50 MG PO ×3 (10:18→21:22)
--- NOTE | 2021-08-19 12:36 | PN.HOSP_ITS ---
Subjective Subjective Has gone through withdrawal before and has had seizures before. He does express concern that he may go through seizures again as he does not feel well currently. His CIWA this morning was 19 Objective Data Objective Data Vital Signs: Vital Signs Temp Pulse Resp BP Pulse Ox 98.9 F 78 18 155/102 H 94 08/19/21 09:16 08/19/21 09:16 08/19/21 09:16 08/19/21 09:16 08/19/21 09:16 Oxygen Delivery Method Room Air Weight: 150 lb 15.984 oz Body Mass Index (BMI) 21.0 Intake & Output: Intake and Output for Last 24 Hours 08/18/21 08/19/21 08/20/21 03:59 03:59 03:59 Intake Total 400 / 400 Balance 400 / 400 Lab / Micro Data Result Diagrams: 08/19/21 05:40 08/18/21 17:10 Labs: Laboratory Results - last 24 hr 08/18/21 17:10: WBC 1.8 L, RBC 3.88 L, Hgb 12.8 L, Hct 37.0 L, MCV 95.4 H, MCH 33.0 H, MCHC 34.6, RDW Std Deviation 49.5 H, RDW Coeff of Reilly 14.3, Plt Count 112 L, MPV 9.3, Immature Gran % (Auto) 0.000, Neut % (Auto) 42.4 L, Lymph % (Auto) 29.9, [place] % (Auto) 22.3 H, Eos % (Auto) 3.8, Baso % (Auto) 1.6 H, Absolute Neuts (auto) 0.8 L, Absolute Lymphs (auto) 0.55 L, Nucleated RBC % 0, Differential Comment SCANNED, Diff Path Review March08/18/21 17:10: Sodium 138, Potassium 3.8, Chloride 100, Carbon Dioxide 29.0, Anion Gap 9, BUN 13, Creatinine 0.99, Estim Creat Clear Calc 99.08, Est GFR (MDR D) Af Amer 107, Est GFR (MDRD) Non-Af 88, BUN/Creatinine Ratio 13.1, Glucose 144 H, Calcium 9.1, Total Bilirubin 0.90, AST 304 H, ALT 227 H, Alkaline Phosphatase 125 H, Total Protein 8.7 H, Albumin 4.5, Globulin 4.2, Albumin/Globulin Ratio 1.1, Lipase 304 08/18/21 17:10: Ethyl Alcohol 404.0 H* 08/18/21 17:30: Urine Opiates Screen NEGATIVE, Urine Methadone Screen NEGATIVE, Ur Barbiturates Screen NEGATIVE, Ur Phencyclidine Scrn NEGATIVE, Ur Amphetamines Screen NEGATIVE, U Methamphetamin-MDMA POSITIVE H, U Benzodiazepines Scrn POSITIVE H, Urine Cocaine Screen NEGATIVE, U Cannabinoids Screen POSITIVE H, Ur Drug Screen Comment 08/19/21 05:40: WBC 1.9 L, RBC 3.80 L, Hgb 12.6 L, Hct 36.1 L, MCV 95.0 H, MCH 33.2 H, MCHC 34.9, RDW Std Deviation 48.6 H, RDW Coeff of Reilly 13.9, Plt Count 92 L, MPV 9.9, Immature Gran % (Auto) 0.000, Neut % (Auto) 38.7 L, Lymph % (Auto) 43.0 H, [place] % (Auto) 15.1 H, Eos % (Auto) 2.7, Baso % (Auto) 0.5, Absolute Neuts (auto) 0.7 L, Absolute Lymphs (auto) 0.80 L, Nucleated RBC % 0, Differe ntial Comment SCANNED, Platelet Estimate SLT DEC Micro: Microbiology 08/18/21 17:09 Nasal Secretion SARS-CoV-2 Antigen (Rapid) - Final Physical Exam Const alert, oriented x3 and no apparent distress Constitutional Narrative: Tremor General Appearance: cooperative HEENT normocephalic and moist oral mucous membranes Eyes PERRL, EOMs intact bilaterally and conjunctivae normal Neck supple and no JVD Resp normal respiratory effort, no retractions, no use of accessory muscles and clear to auscultation bilaterally Auscultation: Negative for crackles, rales, rhonchi or wheezes Cardio regular rate, regular rhythm, S1 normal heart sound, S2 normal heart sound and no murmurs GI soft to palpation, non-tender and non-distended; Negative for hepatosplenomegaly Extremity no clubbing, cyanosis or edema Skin no rashes or lesions noted Neuro no focal motor deficits and no sensory deficits noted Psych Appearance: appropriate Mood & Affect: anxious Assessment & Plan Assessment/Plan (1) Desire for detoxification: (2) Alcohol withdrawal: QUALIFIERS: Complication of substance-induced condition: with delirium Qualified Code(s): F10.231 - Alcohol dependence with withdrawal delirium PLAN: 1. Acute alcohol withdrawal/cytopenia/elevated LFTs/tobacco abuse -Continue with alcohol withdrawal protocol and phenobarbital -Given his history of seizures, will also place him on Librium, he has had to be transported to the ICU and placed on Precedex on previous admissions -LFTs and pancytopenia secondary to alcohol abuse -Counseled on cessation, continue with nicotine patch 2. HTN -Blood pressure stable -Continue with his home blood pressure medications DVT: Ambulation Charges/Coding Visit Charges Inpatient E&M: 16302 Subs Hosp L2
--- NOTE | 2021-08-19 14:43 | ADDICTION ---
This financial writer met with PT to conduct ASAM, MSE, AUDIT assessments and to plan for d/c. PT A+Ox4 and participated actively. All assessments completed, faxed to [facility] and placed in PT's chart. PT plans to f/u with individual counselor at [facility] in [place] for follow-up counseling services. PT did not indicate a need for transportation post d/c from [facility].
--- NOTE | 2021-08-19 21:32 | NURSING ---
pt states he may need to leave tomorrow because he has things that he needs to do before checking in to residential.
[2021-08-19] MEDS: traZODone 100 MG Tablet PO (22:21)
[2021-08-20] MEDS: Phenobarbital 32.4 MG Tablet 64.8 MG PO ×6 (01:27→20:48)
[2021-08-20 03:07] VITALS: BP 131/84; PULSE 79; RESP 16; TEMP 36.6; O2SAT 94
[2021-08-20] MEDS: chlordiazePOXIDE 25 MG Capsule 50 MG PO (03:09)
[2021-08-20] MEDS: hydrOXYzine PAM 25 MG Capsule 50 MG PO ×2 (03:12→17:45)
[2021-08-20] MEDS: Gabapentin 300 MG Capsule PO ×2 (05:20→20:48)
[2021-08-20 09:10] VITALS: BP 108/74; PULSE 83; RESP 16; TEMP 36.8; O2SAT 96
[2021-08-20] MEDS: Thiamine Hydrochloride 100 MG Tablet PO (09:13)
[2021-08-20] MEDS: Carvedilol 12.5 MG Tablet PO (09:13)
[2021-08-20] MEDS: FLUoxetine 20 MG Capsule 40 MG PO (09:13)
[2021-08-20] MEDS: Folic Acid 1 MG Tablet PO (09:13)
[2021-08-20] MEDS: Multivitamins,Therapeutic Tablet 1 TABLET PO (09:14)
[2021-08-20] MEDS: BUPRENORPHINE HCL 8 MG TAB.SUBL SL ×2 (09:23→22:06)
[2021-08-20 09:38] LABS: Pathologist Review Reviewed
--- NOTE | 2021-08-20 10:43 | PCM.PN.HOSP ---
Subjective Subjective Continues to have tremors, stated that he needed to leave today by 3 PM PS has to go to group home for 10 days tomorrow. I discussed with him that he is not in a stable condition for discharge today and that if he were to leave he would have to be under AMA however I encouraged him to stay and continue with the withdrawal protocol as he has had seizures in the past with alcohol withdrawal Objective Data Objective Data Vital Signs: Vital Signs Temp Pulse Resp BP Pulse Ox 98.3 F 83 16 108/74 96 08/20/21 09:10 08/20/21 09:10 08/20/21 09:10 08/20/21 09:10 08/20/21 09:10 Oxygen Delivery Method Room Air Weight: 150 lb 15.984 oz Body Mass Index (BMI) 21.0 Intake & Output: Intake and Output for Last 24 Hours 08/19/21 08/20/21 08/21/21 03:59 03:59 03:59 Intake Total 400 / 400 Balance 400 / 400 Lab / Micro Data Result Diagrams: 08/19/21 05:40 08/18/21 17:10 Labs: Laboratory Results - last 24 hr 08/18/21 17:10: Diff Path Review Reviewed Micro: Microbiology 08/18/21 17:09 Nasal Secretion SARS-CoV-2 Antigen (Rapid) - Final Physical Exam Const alert, oriented x3 and no apparent distress Constitutional Narrative: Tremor General Appearance: cooperative HEENT normocephalic and moist oral mucous membranes Eyes PERRL, EOMs intact bilaterally and conjunctivae normal Neck supple and no JVD Resp normal respiratory effort, no retractions, no use of accessory muscles and clear to auscultation bilaterally Auscultation: Negative for crackles, rales, rhonchi or wheezes Cardio regular rate, regular rhythm, S1 normal heart sound, S2 normal heart sound and no murmurs GI soft to palpation, non-tender and non-distended; Negative for hepatosplenomegaly Extremity no clubbing, cyanosis or edema Skin no rashes or lesions noted Neuro no focal motor deficits and no sensory deficits noted Psych Appearance: appropriate Mood & Affect: anxious Assessment & Plan Assessment/Plan (1) Desire for detoxification: (2) Alcohol withdrawal: QUALIFIERS: Complication of substance-induced condition: with delirium Qualified Code(s): F10.231 - Alcohol dependence with withdrawal delirium PLAN: 1. Acute alcohol withdrawal/cytopenia/elevated LFTs/tobacco abuse -Continue with alcohol withdrawal protocol and phenobarbital -Given his history of seizures, will also place him on Librium, he has had to be transported to the ICU and placed on Precedex on previous admissions -LFTs and pancytopenia secondary to alcohol abuse -Counseled on cessation, continue with nicotine patch 2. HTN -Blood pressure stable -Continue with his home blood pressure medications DVT: Ambulation Charges/Coding Visit Charges Inpatient E&M: 40938 Subs Hosp L2
[2021-08-20] MEDS: chlordiazePOXIDE 25 MG Capsule PO ×2 (14:05→22:06)
[2021-08-20 14:07] VITALS: BP 107/77; PULSE 79; RESP 18; TEMP 36.4; O2SAT 95
[2021-08-20] MEDS: Ibuprofen 400 MG Tablet PO (19:58)
[2021-08-20 20:04] VITALS: BP 128/89; PULSE 76; RESP 16; TEMP 36.9; O2SAT 100
[2021-08-20] MEDS: traZODone 100 MG Tablet PO (22:06)
[2021-08-21] MEDS: Phenobarbital 32.4 MG Tablet 64.8 MG PO ×2 (01:28→05:33)
[2021-08-21] MEDS: hydrOXYzine PAM 25 MG Capsule 50 MG PO (01:28)
[2021-08-21 01:32] VITALS: BP 128/84; PULSE 68; RESP 16; TEMP 36.5; O2SAT 98
[2021-08-21] MEDS: chlordiazePOXIDE 25 MG Capsule PO (05:33)
[2021-08-21 06:54] LABS: AST(SGOT) 139 U/L (15-37); Alanine Aminotransfer ALT/SGPT 162 U/L (16-61); Alkaline Phosphatase 139 U/L (45-117); Anion Gap 10 (5-15); BUN 21 mg/dL (7-18); BUN/Creat Ratio 21.4 RATIO (10-20); Calcium,Total 9.4 mg/dL (8.5-10.1); Chloride 92 mmol/L (98-107); Creatinine, Serum 0.98 mg/dL (0.70-1.30); EST Glomerular Filtration Rate 90 mL/min (>60); Est Glom Filt Rate - Afr Amer 109 mL/min (>60); Estimated Creatinine Clearance 97.07 ml/min; Glucose 90 mg/dL (74-106); Potassium 4.6 mmol/L (3.5-5.1); Sodium Level 132 mmol/L (136-145)
[2021-08-21 08:00] VITALS: BP 105/72; PULSE 82; RESP 16; TEMP 36.1; O2SAT 100
--- NOTE | 2021-08-21 08:36 | NURSING ---
pt requesting to leave AMA, all pt belongings were sent home with pt mom, he called her to bring clothing and to pick him up
--- NOTE | 2021-08-21 09:13 | PCM.PN.HOSP ---
Subjective Subjective Looks a little bit better, but still tremulous. Objective Data Objective Data Vital Signs: Vital Signs Temp Pulse Resp BP Pulse Ox 97.0 F L 82 16 105/72 100 08/21/21 08:00 08/21/21 08:00 08/21/21 08:00 08/21/21 08:00 08/21/21 08:00 Oxygen Delivery Method Room Air Weight: 150 lb 15.984 oz Body Mass Index (BMI) 21.0 Lab / Micro Data Result Diagrams: 08/19/21 05:40 08/21/21 06:02 Labs: Laboratory Results - last 24 hr 08/18/21 17:10: Diff Path Review Reviewed 08/21/21 06:02: Sodium 132 L, Potassium 4.6, Chloride 92 L, Carbon Dioxide 30.0, Anion Gap 10, BUN 21 H, Creatinine 0.98, Estim Creat Clear Calc 97.07, Est GFR (MDRD) Af Amer 109, Est GFR (MDRD) Non-Af 90, BUN/Creatinine Ratio 21.4 H, Glucose 90, Calcium 9.4, Total Bilirubin 1.10 H, AST 139 H, ALT 162 H, Alkaline Phosphatase 139 H, Total Protein 8.0, Albumin 4.0, Globulin 4.0, Albumin/Globulin Ratio 1.0 Micro: Microbiology 08/18/21 17:09 Nasal Secretion SARS-CoV-2 Antigen (Rapid) - Final Physical Exam Const alert, oriented x3 and no apparent distress Constitutional Narrative: Tremor General Appearance: cooperative HEENT normocephalic and moist oral mucous membranes Eyes PERRL, EOMs intact bilaterally and conjunctivae normal Neck supple and no JVD Resp normal respiratory effort, no retractions, no use of accessory muscles and clear to auscultation bilaterally Auscultation: Negative for crackles, rales, rhonchi or wheezes Cardio regular rate, regular rhythm, S1 normal heart sound, S2 normal heart sound and no murmurs GI soft to palpation, non-tender and non-distended; Negative for hepatosplenomegaly Extremity no clubbing, cyanosis or edema Skin no rashes or lesions noted Neuro no focal motor deficits and no sensory deficits noted Psych Appearance: appropriate Mood & Affect: anxious Assessment & Plan Assessment/Plan (1) Desire for detoxification: (2) Alcohol withdrawal: QUALIFIERS: Complication of substance-induced condition: with delirium Qualified Code(s): F10.231 - Alcohol dependence with withdrawal delirium PLAN: 1. Acute alcohol withdrawal/cytopenia/elevated LFTs/tobacco abuse -Continue with alcohol withdrawal protocol and phenobarbital -Given his history of seizures, will also place him on Librium, he has had to be transported to the ICU and placed on Precedex on previous admissions -LFTs and pancytopenia secondary to alcohol abuse -Counseled on cessation, continue with nicotine patch -He has decided to leave AMA. Discussed with him that that is not a good idea given the fact that he still scoring anywhere between 6-12 on his CIWA. He disregarded this advice and signed papers for AMA. 2. HTN -Blood pressure stable -Continue with his home blood pressure medications DVT: Ambulation Charges/Coding Visit Charges Inpatient E&M: 05033 Subs Hosp L2
== END 2021-08-21 09:50 | disposition left against medical advice (07) | DRG 770 ==
LOC: ED 18:41 → MS2 19:39
PROVIDERS: Admitting Provider Hospitalist; Emergency Provider Emergency Medicine; PCP Family Medicine; Visit Provider Family Medicine
DX: F10.231 Alcohol dependence with withdrawal delirium (principal); Y90.8 Blood alcohol level of 240 mg/100 ml or more; Z20.822 Contact with and (suspected) exposure to COVID-19; I10 Essential (primary) hypertension; F32.A Depression, unspecified; F17.210 Nicotine dependence, cigarettes, uncomplicated; Z79.899 Other long term (current) drug therapy
CPT/HCPCS: 36415; 80053; 80307; 82077; 83690; 85025; 87426; 97802; 99284; A4216; J2405

== ENCOUNTER 2021-10-22 19:43 | Inpatient (IN) | payer MEDICAID, SELFPAY ==
[2021-10-22 19:43] VITALS: BP 115/69; PULSE 105; RESP 16; TEMP 36.2; O2SAT 94; BMI 22.4
--- NOTE | 2021-10-22 20:23 | EDS_ITS ---
HPI History of Present Illness Chief Complaint: ETOH Intox Narrative Narrative: 41-year-old male presenting with alcohol intoxication. He has desire for detox. Patient states he drinks about a half a liter a day. Today he reports he probably drank about 1/5. Patient states that he thinks he might have pancreatitis because he has a little abdominal pain. Does have a history of pancreatitis. Patient denies other drug use and states that he is on probation so he can smoke marijuana. He has had history of alcohol withdrawal. He has chronic hepatitis as well. This is secondary to alcoholism. PFSH PFS Medical History Alcoholism Depression Hypertension Smoker Home Medications carvedilol 12.5 mg PO DAILY 05/23/19 [History Last Taken 08/18/21] fluoxetine 40 mg PO DAILY 05/23/19 [History Last Taken 08/18/21] multivitamin 1 ea PO DAILY 05/23/19 [History Last Taken 08/18/21] buprenorphine-naloxone 1 tab SUBLINGUAL BID 08/18/21 [History Last Taken Unknown] bupropion HCl 300 mg PO DAILY 08/18/21 [History Last Taken 08/18/21] hydroxyzine HCl 25 mg PO DAILY 08/18/21 [History Last Taken 08/18/21] nicotine 21 mg TRANSDERM. DAILY 08/18/21 [History Last Taken Unknown] Allergy/AdvReac Type Severity Reaction Status Date / Time No Known Allergies Allergy Verified 08/18/21 16:48 Family History Other Alcoholism in family Cancer Diabetes Heart disease Social History Smoking Status: Current every day smoker tobacco type: cigarettes alcohol intake: current alcohol intake frequency: 3 or more drinks per day substance use type: marijuana ROS ROS ED Constitutional Constitutional ED: Denies chills or fever(s) Eyes Eyes: Denies blurry vision or diplopia ENT ENT ED: Denies rhinorrhea or sore throat Cardiovascular Cardiovascular: Denies chest pain or palpitations Respiratory/Chest Respiratory/Chest: Denies cough or dyspnea Gastrointestinal Gastrointestinal: Reports abdominal pain; Denies constipation, diarrhea, nausea or vomiting Genitourinary Genitourinary ED: Denies dysuria Musculoskeletal Musculoskeletal: Denies arthralgias or myalgias Integumentary Denies rash Neurologic Neurologic: Denies headache(s) or paresthesias Psychiatric Psychiatric: Denies anxiety or depression EXAM Physical Exam Const Vital Signs: 10/22/21 19:43 Temperature 97.2 F L Temperature Source Temporal Pulse Rate 105 H Respiratory Rate 16 Blood Pressure 115/69 Blood Pressure Mean 84 Pulse Ox 94 Oxygen Delivery Method Room Air Positive well nourished General Appearance ED: NAD; Negative for pallor HEENT Reports moist mucous membranes atraumatic Eyes PERRL and EOMs intact bilaterally General Eye ED: Negative for pale conjunctiva or scleral icterus Chest Wall inspection of chest normal Resp normal respiratory effort and clear to auscultation bilaterally Cardio regular rate and regular rhythm GI GI Narrative: Mild epigastric tenderness. Neuro oriented x3 and CN's II-XII intact bilaterally Sensorium / Orientation: alert Skin General Skin Exam: Negative for jaundice or pallor Lesions: no lesions Rashes: no rashes MDM MDM MDM Narrative Medical decision making narrative: Patient presenting requesting detox. His CBC shows that he is pancytopenic but this is consistent with his previous blood work. Renal function electrolytes are normal. AST is 136 and ALT is 82. Bilirubin is normal. Urine drug screen is positive for methamphetamine. EtOH 489. Patient discussed with hospitalist for admission for detox. Impression: 1. EtOH intoxication 2. Request for EtOH detox Lab Data Labs: Laboratory Results - last 24 hr 10/22/21 10/22/21 10/22/21 20:25 20:35 20:35 WBC 3.0 L RBC 3.85 L Hgb 12.7 L Hct 36.7 L MCV 95.3 H MCH 33.0 H MCHC 34.6 RDW Std Deviation 43.6 RDW Coeff of Reilly 12.5 Plt Count 104 L MPV 9.1 Immature Gran % (Auto) 0.000 Neut % (Auto) 32.3 L Lymph % (Auto) 54.5 H [place] % (Auto) 12.2 H Eos % (Auto) 0.7 Baso % (Auto) 0.3 Absolute Neuts (auto) 1.0 L Absolute Lymphs (auto) 1.65 Nucleated RBC % 0 Differential Comment SCANNED Sodium 143 Potassium 3.6 Chloride 106 Carbon Dioxide 30.0 Anion Gap 7 BUN 18 Creatinine 0.82 Estim Creat Clear Calc 123.64 Est GFR (MDRD) Af Amer 133 Est GFR (MDRD) Non-Af 110 BUN/Creatinine Ratio 21.8 H Glucose 112 H Calcium 8.8 Total Bilirubin 0.50 AST 136 H ALT 82 H Alkaline Phosphatase 115 Total Protein 8.1 Albumin 4.0 Globulin 4.1 Albumin/Globulin Ratio 1.0 Lipase 126 Urine Opiates Screen NEGATIVE Urine Methadone Screen NEGATIVE Ur Barbiturates Screen NEGATIVE Ur Phencyclidine Scrn NEGATIVE Ur Amphetamines Screen NEGATIVE U Methamphetamin-MDMA POSITIVE H U Benzodiazepines Scrn NEGATIVE Urine Cocaine Screen NEGATIVE U Cannabinoids Screen NEGATIVE Ur Drug Screen Comment Ethyl Alcohol 10/22/21 20:35 WBC RBC Hgb Hct MCV MCH MCHC RDW Std Deviation RDW Coeff of Reilly Plt Count MPV Immature Gran % (Auto) Neut % (Auto) Lymph % (Auto) [place] % (Auto) Eos % (Auto) Baso % (Auto) Absolute Neuts (auto) Absolute Lymphs (auto) Nucleated RBC % Differential Comment Sodium Potassium Chloride Carbon Dioxide Anion Gap BUN Creatinine Estim Creat Clear Calc Est GFR (MDRD) Af Amer Est GFR (MDRD) Non-Af BUN/Creatinine Ratio Glucose Calcium Total Bilirubin AST ALT Alkaline Phosphatase Total Protein Albumin Globulin Albumin/Globulin Ratio Lipase Urine Opiates Screen Urine Methadone Screen Ur Barbiturates Screen Ur Phencyclidine Scrn Ur Amphetamines Screen U Methamphetamin-MDMA U Benzodiazepines Scrn Urine Cocaine Screen U Cannabinoids Screen Ur Drug Screen Comment Ethyl Alcohol 489.0 H* Discharge Plan Triage Chief Complaint: ETOH Intox ED Provider: Oleksandr Noriega Dx/Rx/DC Orders Prescriptions: No Action fluoxetine 20 MG capsule 40 mg PO DAILY RF: 0 carvedilol 12.5 MG tablet 12.5 mg PO DAILY RF: 0 multivitamin 1 EACH tablet 1 ea PO DAILY RF: 0 buprenorphine-naloxone 8-2 mg tablet, sublingual 1 tab SUBLINGUAL BID RF: 0 hydroxyzine HCl 25 mg tablet 25 mg PO DAILY RF: 0 bupropion HCl 300 mg tablet extended release 24 hr 300 mg PO DAILY RF: 0 nicotine 21 MG patch 24 hour 21 mg TRANSDERM. DAILY RF: 0 Primary Care Provider: Michelle Sharif
[2021-10-22 20:55] LABS: Absolute Lymphocyte Count 1.65 X10^3/uL (0.83-4.51); Basophil# 0.01 X10^3/uL; Basophil% 0.3 % (0-1); Eosinophil# 0.02 X10^3/uL; Eosinophils% 0.7 % (0-5); Hematocrit 36.7 % (40-54); Hemoglobin 12.7 g/dL (13.0-16.5); Lymphocyte # 1.65 X10^3/ul (0.83-4.51); Lymphocyte % 54.5 % (19-41); Mean Corp Hgb Conc 34.6 g/dL (32-36); Mean Corpuscular Volume 95.3 fL (80-94); Mean Platelet Vol. 9.1 fl (6.2-12.0); Monocyte# 0.37 X10^3/uL; Monocyte% 12.2 % (0-10); NRBC Flagged by Analyzer 0 % (0-5); Neutrophil # 0.98 X10^3/uL (2.7-7.7); Neutrophil % 32.3 % (47-70); POSITIVE DIFFERENTIAL YES; Platelet Count 104 K/mm3 (150-450); RBC Distribution Width CV 12.5 % (11.6-14.6); RBC Distribution Width SD 43.6 fl (35.1-43.9); Red Blood Count 3.85 M/mm3 (4.6-6.2)
[2021-10-22 21:02] LABS: Amphetamine Urine VISTA NEGATIVE (<1000 ng/mL); Barbiturate Urine VISTA NEGATIVE (< 200 ng/mL); Benzodiazepine Urine VISTA NEGATIVE (< 200 ng/mL); Cocaine Urine VISTA NEGATIVE (< 300 ng/mL); Ecstacy Urine VISTA POSITIVE (< 500 ng/mL); Methadone Urine VISTA NEGATIVE (< 300 ng/mL); PCP Urine VISTA NEGATIVE (< 25 ng/mL); THC Urine VISTA NEGATIVE (< 50 ng/mL); Vista UDS pH Range 5
[2021-10-22 21:10] LABS: AST(SGOT) 136 U/L (15-37); Alanine Aminotransfer ALT/SGPT 82 U/L (16-61); Alkaline Phosphatase 115 U/L (45-117); Anion Gap 7 (5-15); BUN 18 mg/dL (7-18); BUN/Creat Ratio 21.8 RATIO (10-20); Calcium,Total 8.8 mg/dL (8.5-10.1); Chloride 106 mmol/L (98-107); Creatinine, Serum 0.82 mg/dL (0.70-1.30); EST Glomerular Filtration Rate 110 mL/min (>60); Est Glom Filt Rate - Afr Amer 133 mL/min (>60); Estimated Creatinine Clearance 123.64 ml/min; Globulin 4.1 g/dL (2.2-4.2); Glucose 112 mg/dL (74-106); Lipase 126 U/L (73-393); Potassium 3.6 mmol/L (3.5-5.1); Protein, Total 8.1 g/dL (6.4-8.2); Sodium Level 143 mmol/L (136-145)
[2021-10-22 21:16] LABS: Differential Indicated SCAN CRITERIA MET
[2021-10-22 21:59] LABS: Differential Comment SCANNED
[2021-10-22 22:20] VITALS: BP 119/81; PULSE 92; RESP 18; TEMP 36.7; O2SAT 94
--- NOTE | 2021-10-22 22:27 | CM.ED ---
SOCIAL WORK Reason for Consult: Substance abuse, patient requesting detox from alcohol Patient presents requesting detox from alcohol. Patient admitted to [facility]. Call to Treatment NavigatorMagdalena to update. Plan: RAMP
--- NOTE | 2021-10-22 22:32 | HP.PCM.HOS_ITS ---
HPI - General General Date of Admission: 10/22/21 Date of Service: 10/22/21 Chief Complaint: Requesting services for alcohol detox HPI Narrative DIANNE PERRY, is a 41 M who presents to the emergency room at [facility] with a request for alcohol detox services. Patient drank today, he drinks vodka-at least the fifth a day. Patient was here last in August and checked himself out AMA. Patient states he is living with his parents and they requested he come in for alcohol detox. Patient has no symptoms presently of alcohol withdrawal, he denies using any other illicit drugs. Labs obtained in the ER were abnormal for a white blood cell count of 3, blood alcohol level was 489, patient's tox screen was positive for methamphetamines- patient is taking Wellbutrin at home however. Patient will be admitted to [place] [address] for alcohol detox. [facility] Medical History Alcoholism Depression Hypertension Smoker Home Medications carvedilol 12.5 mg PO DAILY 05/23/19 [History Last Taken 08/18/21] fluoxetine 40 mg PO DAILY 05/23/19 [History Last Taken 08/18/21] multivitamin 1 ea PO DAILY 05/23/19 [History Last Taken 08/18/21] buprenorphine-naloxone 1 tab SUBLINGUAL BID 08/18/21 [History Last Taken Unknown] bupropion HCl 300 mg PO DAILY 08/18/21 [History Last Taken 08/18/21] hydroxyzine HCl 25 mg PO DAILY 08/18/21 [History Last Taken 08/18/21] nicotine 21 mg TRANSDERM. DAILY 08/18/21 [History Last Taken Unknown] Allergy/AdvReac Type Severity Reaction Status Date / Time No Known Allergies Allergy Verified 08/18/21 16:48 Family History Other Alcoholism in family Cancer Diabetes Heart disease Social History Smoking Status: Current every day smoker tobacco type: cigarettes alcohol intake: current alcohol intake frequency: 3 or more drinks per day substance use type: marijuana ROS Constitutional Constitutional: Denies anorexia, change in weight, fever(s), night sweats or weakness Eyes Eyes: Denies blurry vision, change in vision, discharge from eye(s) or eye pain Cardiovascular Cardiovascular: Denies chest pain, claudication, edema or palpitations Respiratory/Chest Respiratory/Chest: Denies cough, hemoptysis, shortness of breath at rest or shortness of breath with exertion Gastrointestinal Gastrointestinal: Denies abdominal pain, constipation, diarrhea, hematemesis, hematochezia, melena, nausea or vomiting Genitourinary Genitourinary: Denies dysuria, hematuria, urinary frequency, urinary hesitancy, urinary incontinence or urinary urgency Musculoskeletal Musculoskeletal: Denies back pain, joint pain, joint stiffness, joint swelling, myalgias or neck pain Neurologic Neurologic: Denies abnormal gait, abnormal speech, dizziness, focal weakness, headache(s), loss of vision, numbness, other visual disturbances, paresthesias, syncope or tingling Psychiatric Psychiatric: Denies anxiety, cognitive impairment, depression, irritability, mood swings or suicidal ideation Endocrine Endocrinology: Denies change in body appearance, cold intolerance, excessive sweating, heat intolerance, polydipsia or polyuria Hematologic/Lymphatic Hematologic/Lymphatic: Denies none, anemia, easy bleeding, easy bruising or lymphadenopathy Allergic/Immunologic Allergic/Immunologic: Denies rhinitis, urticaria, eczemia or asthma Vital Signs Vital Signs Vital Signs: 10/22/21 19:43 10/22/21 22:20 Temperature 97.2 F L 98.1 F Temperature Source Temporal Oral Pulse Rate 105 H 92 Respiratory Rate 16 18 Blood Pressure 115/69 119/81 H Blood Pressure Mean 84 93 Pulse Ox 94 94 Oxygen Delivery Method Room Air Room Air Weight Weight: 73 kg Body Mass Index (BMI) 22.4 Physical Exam Const alert, oriented x3 and no apparent distress Constitutional Narrative: Patient appears intoxicated with slow responses to questions General Appearance: cooperative, well kempt and well developed Orientation / Consciousness: awake, oriented to person, oriented to place and oriented to time HEENT normocephalic, head/scalp atraumatic, hearing grossly normal bilaterally and moist oral mucous membranes Eyes PERRL, EOMs intact bilaterally and conjunctivae normal Neck nuchal rigidity, supple, no JVD, thyroid normal and no carotid bruits General: trachea midline Resp normal respiratory effort, no retractions, no use of accessory muscles and clear to auscultation bilaterally Auscultation: Negative for rales, rhonchi or wheezes Cardio regular rate, regular rhythm, S1 normal heart sound, S2 normal heart sound, no murmurs, no rub and no gallops GI normal to inspection, nondistended, normoactive bowel sounds, soft to palpation, non-tender and non-distended Extremity no clubbing, cyanosis or edema Skin no rashes or lesions noted General Skin Exam: no breakdown Neuro oriented x3, CN's II-XII intact bilaterally, no focal motor deficits and no sens ory deficits noted Sensorium / Orientation: awake and alert Psych thought process normal and affect normal Results Lab / Micro Data Result Diagrams: 10/22/21 20:35 10/22/21 20:35 Labs: Laboratory Results - last 24 hr 10/22/21 20:25: Urine Opiates Screen NEGATIVE, Urine Methadone Screen NEGATIVE, Ur Barbiturates Screen NEGATIVE, Ur Phencyclidine Scrn NEGATIVE, Ur Amphetamines Screen NEGATIVE, U Methamphetamin-MDMA POSITIVE H, U Benzodiazepines Scrn NEGATIVE, Urine Cocaine Screen NEGATIVE, U Cannabinoids Screen NEGATIVE, Ur Drug Screen Comment 10/22/21 20:35: WBC 3.0 L, RBC 3.85 L, Hgb 12.7 L, Hct 36.7 L, MCV 95.3 H, MCH 33.0 H, MCHC 34.6, RDW Std Deviation 43.6, RDW Coeff of Reilly 12.5, Plt Count 104 L, MPV 9.1, Immature Gran % (Auto) 0.000, Neut % (Auto) 32.3 L, Lymph % (Auto) 54.5 H, Garza % (Auto) 12.2 H, Eos % (Auto) 0.7, Baso % (Auto) 0.3, Absolute Neuts (auto) 1.0 L, Absolute Lymphs (auto) 1.65, Nucleated RBC % 0, Differential Comment SCANNED 10/22/21 20:35: Sodium 143, Potassium 3.6, Chloride 106, Carbon Dioxide 30.0, Anion Gap 7, BUN 18, Creatinine 0.82, Estim Creat Clear Calc 123.64, Est GFR (MDRD) Af Amer 133, Est GFR (MDRD) Non-Af 110, BUN/Creatinine Ratio 21.8 H, Glucose 112 H, Calcium 8.8, Total Bilirubin 0.50, AST 136 H, ALT 82 H, Alkaline Phosphatase 115, Total Protein 8.1, Albumin 4.0, Globulin 4.1, Albumin/Globulin Ratio 1.0, Lipase 126 10/22/21 20:35: Ethyl Alcohol 489.0 H* Assessment & Plan Assessment/Plan (1) Acute alcohol intoxication: PLAN: 1. Acute alcohol intoxication with patient desiring detox services- patient will be admitted to [facility] 3, order sets were entered using the alcohol detox order set. Patient will need to be seen by addiction social science research assistant. #2 chronic alcoholism #3 chronic depression #4 essential hypertension #5 neutropenia-alcohol related Charges/Coding Visit Charges Inpatient E&M: 42665 Init Hosp L3
[2021-10-22 23:10] VITALS: BMI 22.0
[2021-10-22 23:37] VITALS: BP 128/77; PULSE 88; RESP 16; TEMP 36.8; O2SAT 95
[2021-10-22] MEDS: Ondansetron 8 MG Tablet PO (23:43)
[2021-10-22] MEDS: Phenobarbital 32.4 MG Tablet 64.8 MG PO (23:43)
[2021-10-22] MEDS: traZODone 100 MG Tablet PO (23:43)
--- NOTE | 2021-10-22 23:54 | PCS.PANDOC ---
PANDEMIC DOCUMENTATION INITIATED: Date: 06/21/2021 Time: 190
[2021-10-23] MEDS: Phenobarbital 32.4 MG Tablet 64.8 MG PO ×6 (03:36→23:04)
[2021-10-23 03:43] VITALS: BP 107/70; PULSE 92; RESP 14; TEMP 36.6; O2SAT 93
--- NOTE | 2021-10-23 07:25 | PN.HOSP_ITS ---
Subjective Subjective Patient drinks at least 1/5 of vodka every day. He also has history of chronic opioid use and is on buprenorphine/Subutex at home. He signed AMA in August 2021. He agreed to stay and complete the treatment. Objective Data Objective Data Vital Signs: Vital Signs Temp Pulse Resp BP Pulse Ox 97.8 F 92 14 107/70 93 10/23/21 03:43 10/23/21 03:43 10/23/21 03:43 10/23/21 03:43 10/23/21 03:43 Oxygen Delivery Method Room Air Weight: 157 lb 10.088 oz Body Mass Index (BMI) 22.0 Lab / Micro Data Result Diagrams: 10/22/21 20:35 10/22/21 20:35 Labs: Laboratory Results - last 24 hr 10/22/21 20:25: Urine Opiates Screen NEGATIVE, Urine Methadone Screen NEGATIVE, Ur Barbiturates Screen NEGATIVE, Ur Phencyclidine Scrn NEGATIVE, Ur Amphetamines Screen NEGATIVE, U Methamphetamin-MDMA POSITIVE H, U Benzodiazepines Scrn NEGATIVE, Urine Cocaine Screen NEGATIVE, U Cannabinoids Screen NEGATIVE, Ur Drug Screen Comment 10/22/21 20:35: WBC 3.0 L, RBC 3.85 L, Hgb 12.7 L, Hct 36.7 L, MCV 95.3 H, MCH 33.0 H, MCHC 34.6, RDW Std Deviation 43.6, RDW Coeff of Reilly 12.5, Plt Count 104 L, MPV 9.1, Immature Gran % (Auto) 0.000, Neut % (Auto) 32.3 L, Lymph % (Auto) 54.5 H, [place] % (Auto) 12.2 H, Eos % (Auto) 0.7, Baso % (Auto) 0.3, Absolute Neuts (auto) 1.0 L, Absolute Lymphs (auto) 1.65, Nucleated RBC % 0, Differential Comment SCANNED 10/22/21 20:35: Sodium 143, Potassium 3.6, Chloride 106, Carbon Dioxide 30.0, Anion Gap 7, BUN 18, Creatinine 0.82, Estim Creat Clear Calc 123.64, Est GFR (MDRD) Af Amer 133, Est GFR (MDRD) Non-Af 110, BUN/Creatinine Ratio 21.8 H, Glucose 112 H, Calcium 8.8, Total Bilirubin 0.50, AST 136 H, ALT 82 H, Alkaline Phosphatase 115, Total Protein 8.1, Albumin 4.0, Globulin 4.1, Albumin/Globulin Ratio 1.0, Lipase 126 10/22/21 20:35: Ethyl Alcohol 489.0 H* Physical Exam Narrative General: Alert, Oriented x3, Cooperative HEENT: Atraumatic, PERRLA, EOMI, Normocephalic Oral: No Gingival or Mucosal Lesions/ Ulcerations Neck: Supple, No JVD, Negative Carotid Bruits Lungs: Air entry equal in bilateral lung bases. No crepitation/rhonchi Cardiovascular: Regular rate, Regular Rhythm, Normal S1, Normal S2, No murmurs Abdomen: Bowel Sounds Present, Soft, Non Tender, Non-Distended : No renal angle tenderness. No suprapubic tenderness. Extremities: No edema, Capillary Refill Less than 3 Seconds Skin: No rashes, No breakdown Musculoskeletal: No Tenderness to Palpation of Joints or Extremities Neurological: Cranial nerves II-XII grossly intact, DTR 2+/4. No seizure Psych/Mental Status: Anxiety. No hallucination Assessment & Plan Assessment/Plan (1) Acute alcohol intoxication: PLAN: 1. Acute alcohol intoxication: Patient is being admitted on MedSur floor. On alcohol medical stabilization order set with phenobarbital scheduled and lorazepam as needed as per CIWA score. Consult 180 trimming caser to evaluate further social issues and discharge planning. #2 chronic alcohol use disorder with dependence and tolerance: Patient also has history of chronic opioid use. He denies recent use of fentanyl, heroin or other opioids. On Subutex at home. 3. Chronic alcoholic hepatitis: ALT and AST are chronically elevated. AST about 1.5 times ALT 4. Chronic depression #4 essential hypertension #5 neutropenia-alcohol related Laboratory Results 10/22/21 20:25: Urine Opiates Screen NEGATIVE, Urine Methadone Screen NEGATIVE, Ur Barbiturates Screen NEGATIVE, Ur Phencyclidine Scrn NEGATIVE, Ur Amphetamines Screen NEGATIVE, U Methamphetamin-MDMA POSITIVE H, U Benzodiazepines Scrn NEGATIVE, Urine Cocaine Screen NEGATIVE, U Cannabinoids Screen NEGATIVE, Ur Drug Screen Comment 10/22/21 20:35: WBC 3.0 L, RBC 3.85 L, Hgb 12.7 L, Hct 36.7 L, MCV 95.3 H, MCH 33.0 H, MCHC 34.6, RDW Std Deviation 43.6, RDW Coeff of Reilly 12.5, Plt Count 104 L, MPV 9.1, Immature Gran % (Auto) 0.000, Neut % (Auto) 32.3 L, Lymph % (Auto) 54.5 H, [place] % (Auto) 12.2 H, Eos % (Auto) 0.7, Baso % (Auto) 0.3, Absolute Neuts (auto) 1.0 L, Absolute Lymphs (auto) 1.65, Nucleated RBC % 0, Differential Comment SCANNED 10/22/21 20:35: Sodium 143, Potassium 3.6, Chloride 106, Carbon Dioxide 30.0, Anion Gap 7, BUN 18, Creatinine 0.82, Estim Creat Clear Calc 123.64, Est GFR (MDRD) Af Amer 133, Est GFR (MDRD) Non-Af 110, BUN/Creatinine Ratio 21.8 H, Glucose 112 H, Calcium 8.8, Total Bilirubin 0.50, AST 136 H, ALT 82 H, Alkaline Phosphatase 115, Total Protein 8.1, Albumin 4.0, Globulin 4.1, Albumin/Globulin Ratio 1.0, Lipase 126 10/22/21 20:35: Ethyl Alcohol 489.0 H* Charges/Coding Visit Charges Inpatient E&M: 50559 Subs Hosp L2
[2021-10-23] MEDS: Thiamine Hydrochloride 100 MG Tablet PO (10:57)
[2021-10-23] MEDS: buPROPion (XL) 300 MG TABLET.XL PO (10:57)
[2021-10-23] MEDS: Folic Acid 1 MG Tablet PO (10:57)
[2021-10-23] MEDS: Carvedilol 12.5 MG Tablet PO (10:57)
[2021-10-23 11:00] VITALS: BP 134/86; PULSE 79; RESP 16; TEMP 36.3; O2SAT 95
[2021-10-23] MEDS: Dicyclomine 10 MG Capsule 20 MG PO ×2 (11:01→17:30)
[2021-10-23] MEDS: Ondansetron 8 MG Tablet PO ×2 (11:01→18:58)
[2021-10-23] MEDS: hydrOXYzine PAM 25 MG Capsule 50 MG PO ×3 (11:01→21:36)
[2021-10-23 15:00] VITALS: BP 128/89; PULSE 83; RESP 16; TEMP 37.1; O2SAT 96
[2021-10-23] MEDS: Acetaminophen 500 MG Tablet PO (15:13)
[2021-10-23] MEDS: LORazepam 1 MG Tablet 2 MG PO ×3 (17:31→23:06)
[2021-10-23 18:59] VITALS: BP 138/100; PULSE 86; RESP 16; TEMP 37.2; O2SAT 99
[2021-10-23] MEDS: Gabapentin 300 MG Capsule PO (21:36)
[2021-10-23] MEDS: traZODone 100 MG Tablet PO (21:36)
[2021-10-23 23:05] VITALS: BP 136/84; PULSE 74; RESP 16; TEMP 36.9; O2SAT 96
[2021-10-24] VITALS (11 sets, daily range): BP systolic 113–169; BP diastolic 71–116; PULSE 62–96; RESP 16–23; TEMP 36.5–36.8; O2SAT 95–100
[2021-10-24] MEDS: Phenobarbital 32.4 MG Tablet 64.8 MG PO ×4 (02:58→15:10)
[2021-10-24] MEDS: LORazepam 1 MG Tablet 2 MG PO ×3 (06:46→15:11)
[2021-10-24] MEDS: Thiamine Hydrochloride 100 MG Tablet PO (08:56)
[2021-10-24] MEDS: Folic Acid 1 MG Tablet PO (08:56)
[2021-10-24] MEDS: buPROPion (XL) 300 MG TABLET.XL PO (08:57)
[2021-10-24] MEDS: Carvedilol 12.5 MG Tablet PO (08:57)
[2021-10-24] MEDS: hydrOXYzine PAM 25 MG Capsule 50 MG PO ×2 (09:00→15:10)
--- NOTE | 2021-10-24 11:43 | PN.HOSP_ITS ---
Subjective Subjective As per the nursing staff, patient is having hallucinations. Objective Data Objective Data Vital Signs: Vital Signs Temp Pulse Resp BP Pulse Ox 97.7 F L 62 16 141/97 H 97 10/24/21 06:44 10/24/21 06:44 10/24/21 06:44 10/24/21 06:44 10/24/21 06:44 Oxygen Delivery Method Room Air Weight: 157 lb 10.088 oz Body Mass Index (BMI) 22.0 Intake & Output: Intake and Output for Last 24 Hours 10/22/21 10/23/21 10/24/21 23:59 23:59 23:59 Intake Total 1300 / 1300 Balance 1300 / 1300 Lab / Micro Data Result Diagrams: 10/22/21 20:35 10/22/21 20:35 Physical Exam Narrative General: Alert, Oriented x3, Cooperative HEENT: Atraumatic, PERRLA, EOMI, Normocephalic Oral: No Gingival or Mucosal Lesions/ Ulcerations Neck: Supple, No JVD, Negative Carotid Bruits Lungs: Air entry equal in bilateral lung bases. No crepitation/rhonchi Cardiovascular: Regular rate, Regular Rhythm, Normal S1, Normal S2, No murmurs Abdomen: Bowel Sounds Present, Soft, Non Tender, Non-Distended : No renal angle tenderness. No suprapubic tenderness. Extremities: No edema, Capillary Refill Less than 3 Seconds Skin: No rashes, No breakdown Musculoskeletal: No Tenderness to Palpation of Joints or Extremities Neurological: Cranial nerves II-XII grossly intact, DTR 2+/4. No seizure Psych/Mental Status: Anxiety. Hallucinations. Assessment & Plan Assessment/Plan (1) Acute alcohol intoxication: PLAN: 1. Acute alcohol intoxication: Patient is being admitted on MedSur floor. On alcohol medical stabilization order set with phenobarbital scheduled and lorazepam as needed as per CIWA score. Consult 180 hospice case manager to evaluate further social issues and discharge planning. 10/24: Patient has intermittent hallucinations and high CIWA score. Continue phenobarbital and lorazepam as per CIWA score. #2 chronic alcohol use disorder with dependence and tolerance: Patient also has history of chronic opioid use. He denies recent use of fentanyl, heroin or o ther opioids. Hold Subutex. History of chronic opioid use in the past and on Subutex at home: I discussed with the pharmacist, Shandra and we both agreed it is not safe to give phenobarbitone and buprenorphine together as he is already on multiple anxiolytic, phenobarbitone, trazodone and others. 3. Chronic alcoholic hepatitis: ALT and AST are chronically elevated. AST about 1.5 times ALT 4. Chronic depression #4 essential hypertension #5 neutropenia-alcohol related Laboratory Results 10/22/21 20:25: Urine Opiates Screen NEGATIVE, Urine Methadone Screen NEGATIVE, Ur Barbiturates Screen NEGATIVE, Ur Phencyclidine Scrn NEGATIVE, Ur Amphetamines Screen NEGATIVE, U Methamphetamin-MDMA POSITIVE H, U Benzodiazepines Scrn NEGATIVE, Urine Cocaine Screen NEGATIVE, U Cannabinoids Screen NEGATIVE, Ur Drug Screen Comment 10/22/21 20:35: WBC 3.0 L, RBC 3.85 L, Hgb 12.7 L, Hct 36.7 L, MCV 95.3 H, MCH 33.0 H, MCHC 34.6, RDW Std Deviation 43.6, RDW Coeff of Reilly 12.5, Plt Count 104 L, MPV 9.1, Immature Gran % (Auto) 0.000, Neut % (Auto) 32.3 L, Lymph % (Auto) 54.5 H, [place] % (Auto) 12.2 H, Eos % (Auto) 0.7, Baso % (Auto) 0.3, Absolute Neuts (auto) 1.0 L, Absolute Lymphs (auto) 1.65, Nucleated RBC % 0, Differential Comment SCANNED 10/22/21 20:35: Sodium 143, Potassium 3.6, Chloride 106, Carbon Dioxide 30.0, Anion Gap 7, BUN 18, Creatinine 0.82, Estim Creat Clear Calc 123.64, Est GFR (MDRD) Af Amer 133, Est GFR (MDRD) Non-Af 110, BUN/Creatinine Ratio 21.8 H, Glucose 112 H, Calcium 8.8, Total Bilirubin 0.50, AST 136 H, ALT 82 H, Alkaline Phosphatase 115, Total Protein 8.1, Albumin 4.0, Globulin 4.1, Albumin/Globulin Ratio 1.0, Lipase 126 10/22/21 20:35: Ethyl Alcohol 489.0 H* Charges/Coding Visit Charges Inpatient E&M: 31892 Subs Hosp L2
[2021-10-24] MEDS: Gabapentin 300 MG Capsule PO (13:38)
--- NOTE | 2021-10-24 15:23 | NURSING ---
spoke w/Rx to to please add iv order as stated in original order
--- NOTE | 2021-10-24 15:27 | NURSING ---
pt found wandering in hallway,walking in other pt rooms, unaware of time, place feels he is entering toolshed while actually going into covid room escorted back to his room, he is afraid of bed that keeps moving on its' own, tried to explain that the mattress adds and releases air to reduce pressure points
[2021-10-24] MEDS: LORazepam 2 MG/ML Syringe IV ×4 (16:11→22:03)
[2021-10-24] MEDS: 0.9% Saline Lock 10 ML Syringe IV ×2 (18:05→22:04)
--- NOTE | 2021-10-24 19:13 | NURSING ---
spoke w/ mother Roseanne RE:transfer to ICU
--- NOTE | 2021-10-24 19:14 | NURSING ---
report called to ICU-5
--- NOTE | 2021-10-24 19:28 | NURSING ---
report called to ICU
--- NOTE | 2021-10-24 19:28 | NURSING ---
mother updated on transfer of pt to higher level of care
[2021-10-24] MEDS: 0.9% Normal Saline 1,000 ML 100 ML IV (19:43)
[2021-10-24] MEDS: Phenobarbital Sodium 130 MG/ML Vial 100 MG IV (22:15)
[2021-10-25] VITALS (27 sets, daily range): BP systolic 99–160; BP diastolic 65–122; PULSE 69–83; RESP 13–27; TEMP 36.1–36.7; O2SAT 97–100
[2021-10-25] MEDS: Dexmedetomidine 1,000 mcg in 0.9% NS 240 mL 26.8 MCG CONT INF (00:40)
[2021-10-25 04:08] LABS: Absolute Lymphocyte Count 1.24 X10^3/uL (0.83-4.51); Absolute Neutrophil Count 1.7 X10^3/uL (2.0-7.7); Basophil# 0.01 X10^3/uL; Basophil% 0.3 % (0-1); Eosinophil# 0.03 X10^3/uL; Eosinophils% 0.9 % (0-5); Hematocrit 36.8 % (40-54); Hemoglobin 13.8 g/dL (13.0-16.5); Lymphocyte # 1.24 X10^3/ul (0.83-4.51); Lymphocyte % 36.6 % (19-41); Mean Corp Hgb Conc 37.5 g/dL (32-36); Mean Corpuscular Hgb 34.4 pg (27.0-32.0); Mean Corpuscular Volume 91.8 fL (80-94); Mean Platelet Vol. 10.2 fl (6.2-12.0); Monocyte# 0.37 X10^3/uL; Monocyte% 10.9 % (0-10); NRBC Flagged by Analyzer 0 % (0-5); Neutrophil # 1.73 X10^3/uL (2.7-7.7); POSITIVE COUNT YES; Platelet Count 94 K/mm3 (150-450); RBC Distribution Width SD 40.7 fl (35.1-43.9); Red Blood Count 4.01 M/mm3 (4.6-6.2); White Blood Count 3.4 K/mm3 (4.4-11.0)
[2021-10-25 04:24] LABS: AST(SGOT) 63 U/L (15-37); Alanine Aminotransfer ALT/SGPT 64 U/L (16-61); Alkaline Phosphatase 109 U/L (45-117); Anion Gap 11 (5-15); BUN 11 mg/dL (7-18); BUN/Creat Ratio 14.7 RATIO (10-20); Calcium,Total 9.1 mg/dL (8.5-10.1); Chloride 95 mmol/L (98-107); Creatinine, Serum 0.75 mg/dL (0.70-1.30); EST Glomerular Filtration Rate 123 mL/min (>60); Est Glom Filt Rate - Afr Amer 148 mL/min (>60); Estimated Creatinine Clearance 136.11 ml/min; Globulin 4.1 g/dL (2.2-4.2); Glucose 129 mg/dL (74-106); Magnesium 1.6 mg/dL (1.6-2.6); Potassium 3.2 mmol/L (3.5-5.1); Protein, Total 8.1 g/dL (6.4-8.2); Sodium Level 135 mmol/L (136-145)
[2021-10-25] MEDS: Enoxaparin 40 MG/0.4 ML Syringe SC (05:39)
[2021-10-25] MEDS: TITRATION PARAMETER CHANGE 1 EACH IV (06:24)
--- NOTE | 2021-10-25 07:21 | EX.PCM.CONCC ---
Assessment & Plan Assessment/Plan (1) Acute alcohol intoxication: (2) Alcohol withdrawal: QUALIFIERS: Complication of substance-induced condition: with delirium Qualified Code(s): F10.231 - Alcohol dependence with withdrawal delirium (3) Pancytopenia: (4) Chronic alcoholic hepatitis: PLAN: RECOMMENDATIONS: 1. Aggressive electrolyte repletion as indicated 2. Continue phenobarbital and Precedex 3. CIWA protocol as tolerated 4. Initiate Coreg if able to take p.o. 7. Monitor blood counts. No transfusions at this time. IMPRESSIONS: 1. Acute alcohol withdrawal with acute alcohol intoxication on presentation Patient presented talking with an alcohol level over 450. This is consistent with very severe alcoholism. Unfortunately, patient has not remained on phenobarbital. This will be very important to avoid future complications. Continue to wean Precedex as tolerated, but priority should be given to phenobarbital. CIWA protocol. Patient does have a history of seizures with withdrawal. 2. Chronic alcoholic hepatitis/alcoholic bone marrow suppression/refeeding syndrome Complicates management, but appears to be stable at this time. There is no indication for transfusions at this time. Patient will be at high risk for refeeding syndrome. Continue to monitor electrolytes and replete as indicated. 3. Depression/possible methamphetamine use/hypertensive urgency Complicates care, management, recovery and prognosis. Clinical suspicion for elevated blood pressure secondary to withdrawal. Will initiate patient on Coreg therapy. Would not recommend beta-jose alone as patient does have a history of illicit drug use and needs a combination jose. Okay to continue with other medications as listed. HPI Consult Data Date of Consult: 10/25/21 HPI Narrative HPI Narrative: DIANNE PERRY is a 41 M, with past medical history listed below, who presented to [facility] on 10/22/2021 with reported desire to detoxify from alcohol. Patient reportedly drinks about a half a liter of hard alcohol a day. Patient has reported some vague abdominal pain and does have a history of pancreatitis. Patient reportedly denies other drug use, but is currently on probation. Patient does have a history of chronic hepatitis and seizures with alcohol withdrawal. In the ER, patient was doing well on room air, but tachycardic at 105 bpm. Blood pressure was within normal range. Laboratory work-up showed a white blood cell count of 3, hemoglobin of 12.7 and a platelet count of 104. Chemistries were relatively unremarkable except for a slightly elevated glucose of 112 and mild elevations of liver enzymes. Patient was positive for methamphetamines on presentation. Patient's alcohol level was 489, but he was reportedly interacting with the ED staff. Patient was admitted to the floor for alcohol withdrawal. However, patient reportedly had phenobarb discontinued. Overnight, patient became more agitated and was transferred to the intensive care unit for a Precedex drip. Patient did receive phenobarbital IV, but has not been able to take any doses by mouth. Patient is currently sleeping and arouses only briefly, so no additional history or review of systems could be obtained. [facility] Medical History Alcoholism Depression Hypertension Pancreatitis Seizures Smoker Home Medications carvedilol 12.5 mg PO DAILY 05/23/19 [History Last Taken 08/18/21] fluoxetine 40 mg PO DAILY 05/23/19 [History Last Taken 08/18/21] multivitamin 1 ea PO DAILY 05/23/19 [History Last Taken 08/18/21] buprenorphine-naloxone 1 tab SUBLINGUAL BID 08/18/21 [History Last Taken Unknown] bupropion HCl 300 mg PO DAILY 08/18/21 [History Last Taken 08/18/21] hydroxyzine HCl 25 mg PO QHS 08/18/21 [History Last Taken 08/18/21] nicotine 21 mg TRANSDERM. DAILY 08/18/21 [History Last Taken Unknown] gabapentin 300 mg PO BID 10/22/21 [History Last Taken Unknown] Allergy/AdvReac Type Severity Reaction Status Date / Time No Known Allergies Allergy Verified 08/18/21 16:48 Family History Other Alcoholism in family Cancer Diabetes Heart disease Social History Smoking Status: Current every day smoker tobacco type: cigarettes alcohol intake: current alcohol intake frequency: 3 or more drinks per day substance use type: marijuana ROS Review of Systems ROS Unobtainable: due to mental condition Physical Exam Const no apparent distress General Appearance: lethargic; Negative for ill appearing Orientation / Consciousness: Negative for obtunded HEENT normocephalic, head/scalp atraumatic and moist oral mucous membranes Eyes PERRL and EOMs intact bilaterally Sclera: sclera abnormal Positive for bilateral Details: scleral injection Neck full ROM Lymph Lymphatic: no lymphadenopathy noted Resp normal respiratory effort Auscultation: Negative for rales, rhonchi or wheezes Cardio regular rate, regular rhythm, S1 normal heart sound, S2 normal heart sound, no murmurs, no rub, no gallops and no JVD GI normal to inspection, nondistended, normoactive bowel sounds Extremity no clubbing, cyanosis or edema Skin no rashes or lesions noted Neuro Neuro Narrative: RASS -2. Psych Appearance: well kempt Lab / Micro Data Result Diagrams: 10/25/21 03:55 10/25/21 03:55 Labs: Laboratory Results - last 24 hr 10/25/21 03:55: WBC 3.4 L, RBC 4.01 L, Hgb 13.8, Hct 36.8 L, MCV 91.8, MCH 34.4 H, MCHC 37.5 H D, RDW Std Deviation 40.7, RDW Coeff of Reilly 12.0, Plt Count 94 L, MPV 10.2, Immature Gran % (Auto) 0.300, Neut % (Auto) 51.0, Lymph % (Auto) 36.6, [place] % (Auto) 10.9 H, Eos % (Auto) 0.9, Baso % (Auto) 0.3, Absolute Neuts (auto) 1.7 L, Absolute Lymphs (auto) 1.24, Nucleated RBC % 0 10/25/21 03:55: Sodium 135 L, Potassium 3.2 L, Chloride 95 L, Carbon Dioxide 29.0, Anion Gap 11, BUN 11, Creatinine 0.75, Estim Creat Clear Calc 136.11, Est GFR (MDRD) Af Amer 148, Est GFR (MDRD) Non-Af 123, BUN/Creatinine Ratio 14.7, Glucose 129 H, Calcium 9.1, Magnesium 1.6, Total Bilirubin 1.20 H, AST 63 H, ALT 64 H, Alkaline Phosphatase 109, Total Protein 8.1, Albumin 4.0, Globulin 4.1, Albumin/Globulin Ratio 1.0 10/25/21 03:55: Phosphorus 3.0 Charges/Coding Visit Charges Inpatient E&M: 39701 Init Hosp L3
[2021-10-25] MEDS: Potassium Chloride 10mEq/100mL 10 MEQ/100 ML IV.SOLN. 100 MEQ IV BOLUS ×4 (07:57→13:39)
--- NOTE | 2021-10-25 09:37 | PN.HOSP_ITS ---
Subjective Subjective Follow-up on acute alcohol withdrawal: Patient was seen and examined. Patient is lethargic. He is on Precedex drip. His last CIWA score is 16. Objective Data Objective Data Vital Signs: Vital Signs Temp Pulse Resp BP Pulse Ox 97.8 F 69 19 H 150/116 H 98 10/25/21 04:00 10/25/21 07:00 10/25/21 07:00 10/25/21 07:00 10/25/21 07:46 Oxygen Delivery Method Room Air Weight: 73.5 kg Body Mass Index (BMI) 22.0 Intake & Output: Intake and Output for Last 24 Hours 10/23/21 10/24/21 10/25/21 23:59 23:59 23:59 Intake Total 1300 / 1300 463.18 / 469.88 1327.23 / 1327.23 Output Total 175 / 175 Balance 1300 / 1300 463.18 / 294.88 1152.23 / 1152.23 Lab / Micro Data Result Diagrams: 10/25/21 03:55 10/25/21 03:55 Labs: Laboratory Results - last 24 hr 10/25/21 03:55: WBC 3.4 L, RBC 4.01 L, Hgb 13.8, Hct 36.8 L, MCV 91.8, MCH 34.4 H, MCHC 37.5 H D, RDW Std Deviation 40.7, RDW Coeff of Reilly 12.0, Plt Count 94 L, MPV 10.2, Immature Gran % (Auto) 0.300, Neut % (Auto) 51.0, Lymph % (Auto) 36.6, [place] % (Auto) 10.9 H, Eos % (Auto) 0.9, Baso % (Auto) 0.3, Absolute Neuts (auto) 1.7 L, Absolute Lymphs (auto) 1.24, Nucleated RBC % 0 10/25/21 03:55: Sodium 135 L, Potassium 3.2 L, Chloride 95 L, Carbon Dioxide 29.0, Anion Gap 11, BUN 11, Creatinine 0.75, Estim Creat Clear Calc 136.11, Est GFR (MDRD) Af Amer 148, Est GFR (MDRD) Non-Af 123, BUN/Creatinine Ratio 14.7, Glucose 129 H, Calcium 9.1, Magnesium 1.6, Total Bilirubin 1.20 H, AST 63 H, ALT 64 H, Alkaline Phosphatase 109, Total Protein 8.1, Albumin 4.0, Globulin 4.1, Albumin/Globulin Ratio 1.0 10/25/21 03:55: Phosphorus 3.0 Physical Exam Narrative Physical exam: General: Lethargic, Cooperative, No apparent distress HEENT: Atraumatic Oral: Moist Mucosa Neck: Supple Lungs: Diminished to auscultation Cardiovascular: HS I+II, regular, no murmurs Abdomen: Bowel Sounds Present, Soft, Non Tender Extremities: No edema Assessment & Plan Assessment/Plan (1) Acute alcohol intoxication: (2) Alcohol withdrawal: QUALIFIERS: Complication of substance-induced condition: with d ilya Qualified Code(s): F10.231 - Alcohol dependence with withdrawal de lirium (3) Pancytopenia: (4) Hypokalemia: (5) Hypomagnesemia: PLAN: 1. Acute alcohol withdrawal, patient transferred to ICU for Precedex Patient is very lethargic; will wean off Precedex Continue on phenobarb taper if able to take p.o. Continue with alcohol withdrawal protocol 2. Hypokalemia, hypomagnesemia, replace, recheck in a.m. 3. Pancytopenia, chronic, likely alcohol-related Continue to monitor 4.Nicotine dependence, on replacement 5. Rest of his chronic medical conditions including hypertension, depression appears stable Continue on Coreg, bupropion Charges/Coding Visit Charges Inpatient E&M: 41381 Subs Hosp L3
[2021-10-25] MEDS: Dexmedetomidine 1,000 mcg in 0.9% NS 240 mL 27.6 MCG CONT INF (10:41)
[2021-10-25] MEDS: Phenobarbital 32.4 MG Tablet PO (11:26)
--- NOTE | 2021-10-25 11:57 | CASEMGMT ---
Social Work SW participated in ICU rounds. SW spoke w/Jani from [facility] [employer], she was aware pt is here. She will follow up w/pt when appropriate and pt can participate in an assessment. HOMERO Rivas
[2021-10-25] MEDS: Phenobarbital 32.4 MG Tablet 64.8 MG PO ×4 (12:15→23:06)
[2021-10-25] MEDS: Folic Acid 1 MG Tablet PO (14:50)
[2021-10-25] MEDS: Carvedilol 6.25 MG Tablet PO ×2 (14:50→23:05)
[2021-10-25] MEDS: Thiamine Hydrochloride 100 MG Tablet PO (14:54)
[2021-10-25] MEDS: buPROPion (XL) 300 MG TABLET.XL PO (14:54)
[2021-10-25] MEDS: Dexmedetomidine 1,000 mcg in 0.9% NS 240 mL 23.9 MCG CONT INF (21:46)
[2021-10-25] MEDS: Acetaminophen 500 MG Tablet PO (22:48)
[2021-10-25] MEDS: LORazepam 1 MG Tablet 2 MG PO (22:53)
[2021-10-26] VITALS (29 sets, daily range): BP systolic 85–152; BP diastolic 58–115; PULSE 71–87; RESP 13–23; TEMP 36.2–36.6; O2SAT 79–100
[2021-10-26] MEDS: Phenobarbital 32.4 MG Tablet 64.8 MG PO ×6 (02:56→22:46)
[2021-10-26] MEDS: Enoxaparin 40 MG/0.4 ML Syringe SC (05:17)
[2021-10-26 05:34] LABS: Absolute Lymphocyte Count 1.54 X10^3/uL (0.83-4.51); Basophil# 0.02 X10^3/uL; Basophil% 0.5 % (0-1); Eosinophil# 0.06 X10^3/uL; Eosinophils% 1.5 % (0-5); Hematocrit 38.5 % (40-54); Hemoglobin 13.9 g/dL (13.0-16.5); Lymphocyte # 1.54 X10^3/ul (0.83-4.51); Lymphocyte % 37.5 % (19-41); Mean Corp Hgb Conc 36.1 g/dL (32-36); Mean Corpuscular Hgb 33.3 pg (27.0-32.0); Mean Corpuscular Volume 92.3 fL (80-94); Mean Platelet Vol. 10.1 fl (6.2-12.0); Monocyte# 0.46 X10^3/uL; Monocyte% 11.2 % (0-10); NRBC Flagged by Analyzer 0 % (0-5); Neutrophil # 2.02 X10^3/uL (2.7-7.7); Neutrophil % 49.1 % (47-70); Platelet Count 110 K/mm3 (150-450); RBC Distribution Width CV 12.3 % (11.6-14.6); RBC Distribution Width SD 41.9 fl (35.1-43.9); Red Blood Count 4.17 M/mm3 (4.6-6.2); White Blood Count 4.1 K/mm3 (4.4-11.0)
[2021-10-26 05:55] LABS: ALB/GLOB Ratio 0.9 RATIO (0.9-2.4); AST(SGOT) 43 U/L (15-37); Alanine Aminotransfer ALT/SGPT 56 U/L (16-61); Albumin, Serum 3.6 g/dL (3.2-5.0); Alkaline Phosphatase 100 U/L (45-117); Anion Gap 9 (5-15); BUN 12 mg/dL (7-18); BUN/Creat Ratio 14.7 RATIO (10-20); Calcium,Total 9.4 mg/dL (8.5-10.1); Chloride 96 mmol/L (98-107); Creatinine, Serum 0.81 mg/dL (0.70-1.30); EST Glomerular Filtration Rate 111 mL/min (>60); Est Glom Filt Rate - Afr Amer 135 mL/min (>60); Estimated Creatinine Clearance 126.03 ml/min; Globulin 4.1 g/dL (2.2-4.2); Glucose 108 mg/dL (74-106); Magnesium 1.9 mg/dL (1.6-2.6); Potassium 3.6 mmol/L (3.5-5.1); Protein, Total 7.7 g/dL (6.4-8.2); Sodium Level 134 mmol/L (136-145)
--- NOTE | 2021-10-26 07:20 | PCM.PN.INT ---
Assessment & Plan Assessment/Plan (1) Acute alcohol intoxication: (2) Alcohol withdrawal: QUALIFIERS: Complication of substance-induced condition: with delirium Qualified Code(s): F10.231 - Alcohol dependence with withdrawal delirium (3) Pancytopenia: (4) Chronic alcoholic hepatitis: PLAN: RECOMMENDATIONS: 1. Aggressive electrolyte repletion as indicated 2. Continue phenobarbital and wean Precedex as tolerated 3. CIWA protocol as tolerated 4. Increase Coreg dosing 7. Monitor blood counts. No transfusions at this time. IMPRESSIONS: 1. Acute alcohol withdrawal with acute alcohol intoxication on presentation Patient presented talking with an alcohol level over 450. This is consistent with very severe alcoholism. Unfortunately, patient has not remained on phenobarbital. This will be very important to avoid future complications. Continue to wean Precedex as tolerated, but priority should be given to phenobarbital taper as ordered. CIWA protocol. Patient does have a history of seizures with withdrawal. Okay to leave the intensive care unit once off of Precedex therapy. 2. Chronic alcoholic hepatitis/alcoholic bone marrow suppression/refeeding syndrome Complicates management, but appears to be stable at this time. There is no indication for transfusions at this time. Patient will be at high risk for refeeding syndrome. Continue to monitor electrolytes and replete as indicated. 3. Depression/possible methamphetamine use/hypertensive urgency Complicates care, management, recovery and prognosis. Clinical suspicion for elevated blood pressure secondary to withdrawal. Will increase patient on Coreg therapy. Would not recommend beta-jose alone as patient does have a history of illicit drug use and needs a combination jose. Okay to continue with other medications as listed. Subjective Subjective Patient did okay overnight. Patient continues to have some hypertension and has required Precedex at significant dosing. Patient has been able to take his phenobarbital. Patient is not reporting any pain this morning. Objective Data Objective Data Vital Signs: Vital Signs Temp Pulse Resp BP Pulse Ox 36.2 C L 82 16 115/91 H 100 10/26/21 06:36 10/26/21 07:06 10/26/21 07:06 10/26/21 07:06 10/26/21 07:06 Oxygen Delivery Method Room Air Weight: 74.1 kg Body Mass Index (BMI) 22.0 Intake & Output: Intake and Output for Last 24 Hours 10/24/21 10/25/21 10/26/21 23:59 23:59 23:59 Intake Total 463.18 / 469.88 2609.80 / 2633.70 374.07 / 374.07 Output Total 900 / 900 450 / 450 Balance 463.18 / 294.88 1709.80 / 1733.70 -75.93 / -75.93 Lab / Micro Data Result Diagrams: 10/26/21 05:12 10/26/21 05:12 Labs: Laboratory Results - last 24 hr 10/26/21 05:12: WBC 4.1 L, RBC 4.17 L, Hgb 13.9, Hct 38.5 L, MCV 92.3, MCH 33.3 H, MCHC 36.1 H, RDW Std Deviation 41.9, RDW Coeff of Reilly 12.3, Plt Count 110 L, MPV 10.1, Immature Gran % (Auto) 0.200, Neut % (Auto) 49.1, Lymph % (Auto) 37.5, [place] % (Auto) 11.2 H, Eos % (Auto) 1.5, Baso % (Auto) 0.5, Absolute Neuts (auto) 2.0, Absolute Lymphs (auto) 1.54, Nucleated RBC % 0 10/26/21 05:12: Sodium 134 L, Potassium 3.6, Chloride 96 L, Carbon Dioxide 29.0, Anion Gap 9, BUN 12, Creatinine 0.81, Estim Creat Clear Calc 126.03, Est GFR (MDRD) Af Amer 135, Est GFR (MDRD) Non-Af 111, BUN/Creatinine Ratio 14.7, Glucose 108 H, Calcium 9.4, Magnesium 1.9, Total Bilirubin 0.90, AST 43 H, ALT 56, Alkaline Phosphatase 100, Total Protein 7.7, Albumin 3.6, Globulin 4.1, Albumin/Globulin Ratio 0.9 Physical Exam Const no apparent distress General Appearance: lethargic; Negative for ill appearing Orientation / Consciousness: Negative for obtunded HEENT normocephalic, head/scalp atraumatic and moist oral mucous membranes Eyes PERRL and EOMs intact bilaterally Sclera: sclera abnormal Positive for bilateral Details: scleral injection Neck full ROM Lymph Lymphatic: no lymphadenopathy noted Resp normal respiratory effort Auscultation: Negative for rales, rhonchi or wheezes Cardio regular rate, regular rhythm, S1 normal heart sound, S2 normal heart sound, no murmurs, no rub, no gallops and no JVD GI normal to inspection, nondistended, normoactive bowel sounds Extremity no clubbing, cyanosis or edema Skin no rashes or lesions noted Neuro Neuro Narrative: RASS -1. Psych Appearance: well kempt Charges/Coding Visit Charges Inpatient E&M: 01138 Subs Hosp L3
[2021-10-26] MEDS: Dexmedetomidine 1,000 mcg in 0.9% NS 240 mL 22.1 MCG CONT INF (08:34)
--- NOTE | 2021-10-26 10:06 | CASEMGMT ---
Social Work SW participated in ICU rounds this morning. SW is still not ready to speak w/RAMP. SW will notify Jani w/[facility] when pt is alert and oriented and able to speak w/Jani. HOMERO Rivas
[2021-10-26] MEDS: Carvedilol 12.5 MG Tablet PO ×2 (10:32→21:15)
[2021-10-26] MEDS: Folic Acid 1 MG Tablet PO (10:33)
[2021-10-26] MEDS: buPROPion (XL) 300 MG TABLET.XL PO (10:44)
[2021-10-26] MEDS: Thiamine Hydrochloride 100 MG Tablet PO (10:44)
--- NOTE | 2021-10-26 12:30 | PN.HOSP_ITS ---
Subjective Subjective Follow-up on acute alcohol withdrawal: Patient was seen and examined. Patient remains lethargic. On Precedex drip. Objective Data Objective Data Vital Signs: Vital Signs Temp Pulse Resp BP Pulse Ox 97.6 F L 76 21 H 118/96 H 98 10/26/21 08:00 10/26/21 11:00 10/26/21 11:00 10/26/21 11:00 10/26/21 11:00 Oxygen Delivery Method Room Air Weight: 74.1 kg Body Mass Index (BMI) 22.0 Intake & Output: Intake and Output for Last 24 Hours 10/24/21 10/25/21 10/26/21 23:59 23:59 23:59 Intake Total 463.18 / 469.88 2609.80 / 2633.70 488.45 / 488.45 Output Total 900 / 900 450 / 450 Balance 463.18 / 294.88 1709.80 / 1733.70 38.45 / 38.45 Lab / Micro Data Result Diagrams: 10/26/21 05:12 10/26/21 05:12 Labs: Laboratory Results - last 24 hr 10/26/21 05:12: WBC 4.1 L, RBC 4.17 L, Hgb 13.9, Hct 38.5 L, MCV 92.3, MCH 33.3 H, MCHC 36.1 H, RDW Std Deviation 41.9, RDW Coeff of Reilly 12.3, Plt Count 110 L, MPV 10.1, Immature Gran % (Auto) 0.200, Neut % (Auto) 49.1, Lymph % (Auto) 37.5, [place] % (Auto) 11.2 H, Eos % (Auto) 1.5, Baso % (Auto) 0.5, Absolute Neuts (auto) 2.0, Absolute Lymphs (auto) 1.54, Nucleated RBC % 0 10/26/21 05:12: Sodium 134 L, Potassium 3.6, Chloride 96 L, Carbon Dioxide 29.0, Anion Gap 9, BUN 12, Creatinine 0.81, Estim Creat Clear Calc 126.03, Est GFR (MDRD) Af Amer 135, Est GFR (MDRD) Non-Af 111, BUN/Creatinine Ratio 14.7, Glucose 108 H, Calcium 9.4, Magnesium 1.9, Total Bilirubin 0.90, AST 43 H, ALT 56, Alkaline Phosphatase 100, Total Protein 7.7, Albumin 3.6, Globulin 4.1, Albumin/Globulin Ratio 0.9 Physical Exam Narrative Physical exam: General: Lethargic, Cooperative, No apparent distress HEENT: Atraumatic Oral: Moist Mucosa Neck: Supple Lungs: Diminished to auscultation Cardiovascular: HS I+II, regular, no murmurs Abdomen: Bowel Sounds Present, Soft, Non Tender Extremities: No edema Assessment & Plan Assessment/Plan (1) Acute alcohol intoxication: (2) Alcohol withdrawal: QUALIFIERS: Complication of substance-induced condition: with delirium Qualified Code(s): F10.231 - Alcohol dependence with withdrawal delirium (3) Pancytopenia: (4) Hypokalemia: (5) Hypomagnesemia: PLAN: 1. Acute alcohol withdrawal, remains on Precedex Wean off Precedex Continue on phenobarb taper if able to take p.o. Continue with alcohol withdrawal protocol 2. Hypokalemia, hypomagnesemia, replaced. 3. Pancytopenia, chronic, likely alcohol-related Continue to monitor 4. Nicotine dependence, on replacement 5. Rest of his chronic medical conditions including hypertension, depression appears stable Continue on Coreg, bupropion Charges/Coding Visit Charges Inpatient E&M: 72433 Subs Hosp L2
[2021-10-26] MEDS: Gabapentin 300 MG Capsule PO (21:24)
[2021-10-26] MEDS: Dexmedetomidine 1,000 mcg in 0.9% NS 240 mL 11 MCG CONT INF (22:48)
[2021-10-27] VITALS (21 sets, daily range): BP systolic 77–147; BP diastolic 48–110; PULSE 68–99; RESP 14–20; TEMP 36.2–37.2; O2SAT 96–100
[2021-10-27] MEDS: 0.9% Normal Saline 1,000 ML 999 ML IV (02:26)
[2021-10-27] MEDS: Phenobarbital 32.4 MG Tablet 64.8 MG PO ×6 (03:47→23:56)
[2021-10-27 04:13] LABS: Absolute Lymphocyte Count 1.05 X10^3/uL (0.83-4.51); Absolute Neutrophil Count 2.4 X10^3/uL (2.0-7.7); Basophil# 0.02 X10^3/uL; Basophil% 0.5 % (0-1); Eosinophil# 0.03 X10^3/uL; Eosinophils% 0.7 % (0-5); Hematocrit 36.6 % (40-54); Hemoglobin 12.6 g/dL (13.0-16.5); Lymphocyte # 1.05 X10^3/ul (0.83-4.51); Lymphocyte % 25.4 % (19-41); Mean Corp Hgb Conc 34.4 g/dL (32-36); Mean Corpuscular Hgb 32.6 pg (27.0-32.0); Mean Corpuscular Volume 94.8 fL (80-94); Mean Platelet Vol. 10.2 fl (6.2-12.0); Monocyte# 0.58 X10^3/uL; NRBC Flagged by Analyzer 0 % (0-5); Neutrophil # 2.43 X10^3/uL (2.7-7.7); Neutrophil % 58.9 % (47-70); Platelet Count 111 K/mm3 (150-450); RBC Distribution Width CV 12.2 % (11.6-14.6); RBC Distribution Width SD 42.5 fl (35.1-43.9); Red Blood Count 3.86 M/mm3 (4.6-6.2); White Blood Count 4.1 K/mm3 (4.4-11.0)
[2021-10-27 04:24] LABS: ALB/GLOB Ratio 0.8 RATIO (0.9-2.4); AST(SGOT) 29 U/L (15-37); Alanine Aminotransfer ALT/SGPT 44 U/L (16-61); Albumin, Serum 3.1 g/dL (3.2-5.0); Alkaline Phosphatase 85 U/L (45-117); Anion Gap 6 (5-15); BUN 13 mg/dL (7-18); Calcium,Total 8.3 mg/dL (8.5-10.1); Chloride 104 mmol/L (98-107); Creatinine, Serum 0.87 mg/dL (0.70-1.30); EST Glomerular Filtration Rate 103 mL/min (>60); Est Glom Filt Rate - Afr Amer 125 mL/min (>60); Globulin 3.8 g/dL (2.2-4.2); Glucose 102 mg/dL (74-106); Potassium 4.6 mmol/L (3.5-5.1); Protein, Total 6.9 g/dL (6.4-8.2); Sodium Level 137 mmol/L (136-145)
[2021-10-27] MEDS: Enoxaparin 40 MG/0.4 ML Syringe SC (06:04)
--- NOTE | 2021-10-27 08:06 | PN.CC_ITS ---
Assessment & Plan Assessment/Plan (1) Acute alcohol intoxication: (2) Alcohol withdrawal: QUALIFIERS: Complication of substance-induced condition: with delirium Qualified Code(s): F10.231 - Alcohol dependence with withdrawal delirium (3) Pancytopenia: (4) Chronic alcoholic hepatitis: PLAN: RECOMMENDATIONS: 1. Aggressive electrolyte repletion as indicated 2. Continue phenobarbital and wean Precedex as tolerated 3. CIWA protocol as tolerated 4. Potentially decrease Coreg dosing if hypotensive following morning dose 5. Monitor blood counts. No transfusions at this time. 6. Potential transfer from the intensive care unit if able to discontinue Precedex drip IMPRESSIONS: 1. Acute alcohol withdrawal with acute alcohol intoxication on presentation Patient presented talking with an alcohol level over 450. This is consistent with very severe alcoholism. Unfortunately, patient has not remained on phenobarbital. This will be very important to avoid future complications. Continue to wean Precedex as tolerated, but priority should be given to phenobarbital taper as ordered. CIWA protocol. Patient does have a history of seizures with withdrawal. Okay to leave the intensive care unit once off of Precedex therapy. 2. Chronic alcoholic hepatitis/alcoholic bone marrow suppression/refeeding syndrome Complicates management, but appears to be stable at this time. There is no indication for transfusions at this time. Patient will be at high risk for refeeding syndrome. Continue to monitor electrolytes and replete as indicated. 3. Depression/possible methamphetamine use/hypertensive urgency Complicates care, management, recovery and prognosis. Patient with some hypotension yesterday. Unclear if this is secondary to decreased p.o. intake with dehydration versus hypertension associated with withdrawal leading to increased Coreg dosing. If patient has lower blood pressures following morning dose, will likely cut Coreg dose in half. Would not recommend beta-jose alone as patient does have a history of illicit drug use and needs a combination jose. Okay to continue with other medications as listed. Subjective Subjective Patient did okay overnight. Patient has continued to be weaned on the Precedex drip. No hypoxia has been reported, but patient did require a liter bolus overnight secondary to hypotension following Coreg. Patient is not reporting any chest pain or palpitations. No seizures have been reported by nursing. Patient is more interactive today compared to previous. Objective Data Objective Data Vital Signs: Vital Signs Temp Pulse Resp BP Pulse Ox 36.8 C 82 20 H 141/102 H 100 10/27/21 08:00 10/27/21 08:00 10/27/21 08:00 10/27/21 08:00 10/27/21 08:00 Oxygen Delivery Method Room Air Weight: 73.1 kg Body Mass Index (BMI) 22.0 Intake & Output: Intake and Output for Last 24 Hours 10/25/21 10/26/21 10/27/21 23:59 23:59 23:59 Intake Total 2609.80 / 2633.70 893.31 / 896.06 1061.55 / 1061.55 Output Total 900 / 900 1425 / 1425 Balance 1709.80 / 1733.70 -531.69 / -528.94 1061.55 / 1061.55 Lab / Micro Data Result Diagrams: 10/27/21 03:52 10/27/21 03:52 Labs: Laboratory Results - last 24 hr 10/27/21 03:52: WBC 4.1 L, RBC 3.86 L, Hgb 12.6 L, Hct 36.6 L, MCV 94.8 H, MCH 32.6 H, MCHC 34.4, RDW Std Deviation 42.5, RDW Coeff of Reilly 12.2, Plt Count 111 L, MPV 10.2, Immature Gran % (Auto) 0.500, Neut % (Auto) 58.9, Lymph % (Auto) 25.4, [place] % (Auto) 14.0 H, Eos % (Auto) 0.7, Baso % (Auto) 0.5, Absolute Neuts (auto) 2.4, Absolute Lymphs (auto) 1.05, Nucleated RBC % 0 10/27/21 03:52: Sodium 137, Potassium 4.6, Chloride 104, Carbon Dioxide 27.0, Anion Gap 6, BUN 13, Creatinine 0.87, Estim Creat Clear Calc 118.30, Est GFR (MDRD) Af Amer 125, Est GFR (MDRD) Non-Af 103, BUN/Creatinine Ratio 15.0, Glucose 102, Calcium 8.3 L, Total Bilirubin 0.60, AST 29, ALT 44, Alkaline Phosphatase 85, Total Protein 6.9, Albumin 3.1 L, Globulin 3.8, Albumin/Globulin Ratio 0.8 L Physical Exam Const alert, oriented x3 and no apparent distress General Appearance: Negative for ill appearing Orientation / Consciousness: Negative for obtunded HEENT normocephalic, head/scalp atraumatic and moist oral mucous membranes Eyes PERRL and EOMs intact bilaterally Sclera: sclera abnormal Positive for bilateral Details: scleral injection Neck full ROM Lymph Lymphatic: no lymphadenopathy noted Resp normal respiratory effort Auscultation: Negative for rales, rhonchi or wheezes Cardio regular rate, regular rhythm, S1 normal heart sound, S2 normal heart sound, no murmurs, no rub, no gallops and no JVD GI normal to inspection, nondistended, normoactive bowel sounds Extremity no clubbing, cyanosis or edema Skin no rashes or lesions noted Neuro Neuro Narrative: RASS 0. Psych Appearance: well kempt Charges/Coding Visit Charges Inpatient E&M: 10261 Subs Hosp L3
--- NOTE | 2021-10-27 08:55 | PCM.PN.HOSP ---
Subjective Subjective Follow-up on acute alcohol withdrawal: Patient was seen and examined. Patient is more awake. Remains on Precedex, being weaned off. Denies any hallucinations. He stated he felt improved. Patient had episode of hypotension that improved with IV fluid bolus. Objective Data Objective Data Vital Signs: Vital Signs Temp Pulse Resp BP Pulse Ox 98.2 F 82 20 H 141/102 H 100 10/27/21 08:00 10/27/21 08:00 10/27/21 08:00 10/27/21 08:00 10/27/21 08:00 Oxygen Delivery Method Room Air Weight: 73.1 kg Body Mass Index (BMI) 22.0 Intake & Output: Intake and Output for Last 24 Hours 10/25/21 10/26/21 10/27/21 23:59 23:59 23:59 Intake Total 2609.80 / 2633.70 893.31 / 896.06 1061.55 / 1061.55 Output Total 900 / 900 1425 / 1425 Balance 1709.80 / 1733.70 -531.69 / -528.94 1061.55 / 1061.55 Lab / Micro Data Result Diagrams: 10/27/21 03:52 10/27/21 03:52 Labs: Laboratory Results - last 24 hr 10/27/21 03:52: WBC 4.1 L, RBC 3.86 L, Hgb 12.6 L, Hct 36.6 L, MCV 94.8 H, MCH 32.6 H, MCHC 34.4, RDW Std Deviation 42.5, RDW Coeff of Reilly 12.2, Plt Count 111 L, MPV 10.2, Immature Gran % (Auto) 0.500, Neut % (Auto) 58.9, Lymph % (Auto) 25.4, [place] % (Auto) 14.0 H, Eos % (Auto) 0.7, Baso % (Auto) 0.5, Absolute Neuts (auto) 2.4, Absolute Lymphs (auto) 1.05, Nucleated RBC % 0 10/27/21 03:52: Sodium 137, Potassium 4.6, Chloride 104, Carbon Dioxide 27.0, Anion Gap 6, BUN 13, Creatinine 0.87, Estim Creat Clear Calc 118.30, Est GFR (MDRD) Af Amer 125, Est GFR (MDRD) Non-Af 103, BUN/Creatinine Ratio 15.0, Glucose 102, Calcium 8.3 L, Total Bilirubin 0.60, AST 29, ALT 44, Alkaline Phosphatase 85, Total Protein 6.9, Albumin 3.1 L, Globulin 3.8, Albumin/Globulin Ratio 0.8 L Physical Exam Narrative Physical exam: General: Awake, alert, oriented X3, Cooperative, No apparent distress HEENT: Atraumatic Oral: Moist Mucosa Neck: Supple Lungs: Diminished to auscultation Cardiovascular: HS I+II, regular, no murmurs Abdomen: Bowel Sounds Present, Soft, Non Tender Extremities: No edema Assessment & Plan Assessment/Plan (1) Acute alcohol intoxication: (2) Alcohol withdrawal: QUALIFIERS: Complication of substance-induced condition: with delirium Qualified Code(s): F10.231 - Alcohol dependence with withdrawal delirium (3) Pancytopenia: (4) Hypokalemia: (5) Hypomagnesemia: PLAN: 1. Acute alcohol withdrawal, severe, Patient is on Precedex; being weaned off. Continue on phenobarb taper and the rest of the alcohol withdrawal protocol 2. Episode of hypotension, resolved, fluid responsive Will decrease Coreg to 6.25mg BID 3. Hypokalemia, hypomagnesemia, replaced. 4. Pancytopenia, chronic, likely alcohol-related Continue to monitor 5. Nicotine dependence, on replacement 6. Rest of his chronic medical conditions including hypertension, depression appears stable Continue on Coreg, bupropion Charges/Coding Visit Charges Inpatient E&M: 18726 Subs Hosp L2
[2021-10-27] MEDS: Thiamine Hydrochloride 100 MG Tablet PO (09:17)
[2021-10-27] MEDS: buPROPion (XL) 300 MG TABLET.XL PO (09:17)
[2021-10-27] MEDS: Folic Acid 1 MG Tablet PO (09:17)
[2021-10-27] MEDS: Carvedilol 6.25 MG Tablet PO ×2 (09:21→21:16)
[2021-10-27] MEDS: Loperamide 2 MG Capsule PO (14:36)
[2021-10-27] MEDS: Dicyclomine 10 MG Capsule PO (14:36)
--- NOTE | 2021-10-27 14:42 | NURSING ---
1430 verbal report given to Isaura RN on MS[facility], patient taken via wheelchair by CHILD CARE GROUP LEADER Xiomara to MS[facility]
[2021-10-27] MEDS: LORazepam 1 MG Tablet 2 MG PO ×2 (16:17→21:16)
[2021-10-27] MEDS: Gabapentin 300 MG Capsule PO (16:17)
--- NOTE | 2021-10-27 17:55 | NURSING ---
pt requesting influenza vaccine, new order placed for vaccine to be administered tomorrow morning
[2021-10-27] MEDS: Ondansetron 8 MG Tablet PO (21:16)
[2021-10-27] MEDS: Ibuprofen 600 MG Tablet PO (21:18)
[2021-10-27] MEDS: traZODone 100 MG Tablet PO (23:56)
[2021-10-27] MEDS: Buprenorphine HCl 2 MG TAB.SUBL 4 MG SL (23:57)
[2021-10-28 04:38] VITALS: BP 133/86; PULSE 77; RESP 16; TEMP 36.7; O2SAT 100
[2021-10-28] MEDS: Gabapentin 300 MG Capsule PO (04:39)
[2021-10-28 05:54] LABS: Absolute Lymphocyte Count 1.41 X10^3/uL (0.83-4.51); Absolute Neutrophil Count 2.9 X10^3/uL (2.0-7.7); Basophil# 0.02 X10^3/uL; Basophil% 0.4 % (0-1); Eosinophil# 0.05 X10^3/uL; Hematocrit 35.3 % (40-54); Hemoglobin 11.9 g/dL (13.0-16.5); Lymphocyte # 1.41 X10^3/ul (0.83-4.51); Lymphocyte % 27.1 % (19-41); Mean Corp Hgb Conc 33.7 g/dL (32-36); Mean Corpuscular Hgb 32.2 pg (27.0-32.0); Mean Corpuscular Volume 95.7 fL (80-94); Monocyte# 0.82 X10^3/uL; Monocyte% 15.7 % (0-10); NRBC Flagged by Analyzer 0 % (0-5); Neutrophil % 55.6 % (47-70); Platelet Count 142 K/mm3 (150-450); RBC Distribution Width CV 12.8 % (11.6-14.6); RBC Distribution Width SD 44.8 fl (35.1-43.9); Red Blood Count 3.69 M/mm3 (4.6-6.2); White Blood Count 5.2 K/mm3 (4.4-11.0)
[2021-10-28] MEDS: Phenobarbital 32.4 MG Tablet 64.8 MG PO ×2 (06:09→13:04)
[2021-10-28 06:30] LABS: ALB/GLOB Ratio 0.9 RATIO (0.9-2.4); AST(SGOT) 22 U/L (15-37); Alanine Aminotransfer ALT/SGPT 39 U/L (16-61); Albumin, Serum 3.4 g/dL (3.2-5.0); Alkaline Phosphatase 96 U/L (45-117); Anion Gap 8 (5-15); BUN 14 mg/dL (7-18); BUN/Creat Ratio 13.1 RATIO (10-20); Calcium,Total 8.9 mg/dL (8.5-10.1); Chloride 103 mmol/L (98-107); Creatinine, Serum 1.07 mg/dL (0.70-1.30); EST Glomerular Filtration Rate 81 mL/min (>60); Est Glom Filt Rate - Afr Amer 98 mL/min (>60); Estimated Creatinine Clearance 94.89 ml/min; Globulin 3.9 g/dL (2.2-4.2); Glucose 103 mg/dL (74-106); Potassium 3.5 mmol/L (3.5-5.1); Protein, Total 7.3 g/dL (6.4-8.2); Sodium Level 138 mmol/L (136-145)
[2021-10-28 06:36] LABS: Magnesium 1.8 mg/dL (1.6-2.6); Phosphorus 3.8 mg/dL (2.5-4.9)
[2021-10-28 07:52] VITALS: BP 114/71; PULSE 87; RESP 18; TEMP 36.6; O2SAT 99
--- NOTE | 2021-10-28 08:26 | CASEMGMT ---
Social Work SW updated treatment Navigator, Sanjuana that pt has been transferred out of ICU and can be seen today by addiction therapist. Sanjuana to see pt today. GUILLERMO Holland
[2021-10-28] MEDS: Buprenorphine HCl 2 MG TAB.SUBL 4 MG SL (08:29)
[2021-10-28] MEDS: Folic Acid 1 MG Tablet PO (08:31)
[2021-10-28] MEDS: Thiamine Hydrochloride 100 MG Tablet PO (08:31)
[2021-10-28] MEDS: buPROPion (XL) 300 MG TABLET.XL PO (08:32)
--- NOTE | 2021-10-28 08:46 | PN.CC_ITS ---
Assessment & Plan Assessment/Plan (1) Acute alcohol intoxication: (2) Alcohol withdrawal: QUALIFIERS: Complication of substance-induced condition: with delirium Qualified Code(s): F10.231 - Alcohol dependence with withdrawal delirium (3) Pancytopenia: (4) Chronic alcoholic hepatitis: PLAN: RECOMMENDATIONS: 1. Replace potassium 2. Hemodynamically stable on room air. Will sign off from a critical care perspective 3. CIWA protocol as tolerated IMPRESSIONS: 1. Acute alcohol withdrawal with acute alcohol intoxication on presentation Appears resolved. Patient presented talking with an alcohol level over 450. This is consistent with very severe alcoholism. Unfortunately, patient did not remain on phenobarbital. This will be very important to avoid future complications. Off Precedex, but priority should be given to phenobarbital taper as ordered. CIWA protocol. Patient does have a history of seizures with withdrawal. Hemodynamically stable on room air. Will sign off from a critical care perspective 2. Chronic alcoholic hepatitis/alcoholic bone marrow suppression/refeeding syndrome Complicates management, but appears to be stable at this time. There is no indication for transfusions at this time. Patient will be at high risk for refeeding syndrome. Continue to monitor electrolytes and replete as indicated. 3. Depression/possible methamphetamine use/hypertensive urgency Complicates care, management, recovery and prognosis. Patient with some hypotension yesterday. Unclear if this is secondary to decreased p.o. intake with dehydration versus hypertension associated with withdrawal leading to increased Coreg dosing. Patient tolerating Coreg dosing Subjective Subjective Patient did okay overnight. Patient was transferred out of the intensive care unit yesterday. Patient has not required any medications for agitation. Patient walking around the room on my arrival and is asking for possible discharge later today. Patient is not reporting any nervousness or tremulous. Objective Data Objective Data Vital Signs: Vital Signs Temp Pulse Resp BP Pulse Ox 36.6 C 87 18 114/71 99 10/28/21 07:52 10/28/21 07:52 10/28/21 07:52 10/28/21 07:52 10/28/21 07:52 Oxygen Delivery Method Room Air Weight: 73.1 kg Body Mass Index (BMI) 22.0 Intake & Output: Intake and Output for Last 24 Hours 10/26/21 10/27/21 10/28/21 23:59 23:59 23:59 Intake Total 893.31 / 896.06 1345.61 / 1345.61 600 / 600 Output Total 1425 / 1425 250 / 250 Balance -531.69 / -528.94 1095.61 / 1095.61 600 / 600 Lab / Micro Data Result Diagrams: 10/28/21 05:10 10/28/21 05:10 Labs: Laboratory Results - last 24 hr 10/28/21 05:10: WBC 5.2, RBC 3.69 L, Hgb 11.9 L, Hct 35.3 L, MCV 95.7 H, MCH 32.2 H, MCHC 33.7, RDW Std Deviation 44.8 H, RDW Coeff of Reilly 12.8, Plt Count 142 L, MPV 10.0, Immature Gran % (Auto) 0.200, Neut % (Auto) 55.6, Lymph % (Auto) 27.1, [place] % (Auto) 15.7 H, Eos % (Auto) 1.0, Baso % (Auto) 0.4, Absolute Neuts (auto) 2.9, Absolute Lymphs (auto) 1.41, Nucleated RBC % 0 10/28/21 05:10: Sodium 138, Potassium 3.5, Chloride 103, Carbon Dioxide 27.0, Anion Gap 8, BUN 14, Creatinine 1.07, Estim Creat Clear Calc 94.89, Est GFR (MDRD) Af Amer 98, Est GFR (MDRD) Non-Af 81, BUN/Creatinine Ratio 13.1, Glucose 103, Calcium 8.9, Total Bilirubin 0.40, AST 22, ALT 39, Alkaline Phosphatase 96, Total Protein 7.3, Albumin 3.4, Globulin 3.9, Albumin/Globulin Ratio 0.9 10/28/21 05:10: Phosphorus 3.8, Magnesium 1.8 Physical Exam Const alert, oriented x3 and no apparent distress General Appearance: Negative for ill appearing Orientation / Consciousness: Negative for obtunded HEENT normocephalic, head/scalp atraumatic and moist oral mucous membranes Eyes PERRL and EOMs intact bilaterally Sclera: sclera abnormal Positive for bilateral Details: scleral injection Neck full ROM Lymph Lymphatic: no lymphadenopathy noted Resp normal respiratory effort Auscultation: Negative for rales, rhonchi or wheezes Cardio regular rate, regular rhythm, S1 normal heart sound, S2 normal heart sound, no murmurs, no rub, no gallops and no JVD GI normal to inspection, nondistended, normoactive bowel sounds Extremity no clubbing, cyanosis or edema Skin no rashes or lesions noted Psych Appearance: well kempt Charges/Coding Visit Charges Inpatient E&M: 50293 Subs Hosp L2
[2021-10-28] MEDS: Potassium Chloride Oral Tablet 20 MEQ 40 MEQ PO (10:38)
[2021-10-28] MEDS: 0.9% Saline Lock 10 ML Syringe IV (10:38)
--- NOTE | 2021-10-28 11:56 | ADDICTION ---
This worker met with Pt to conduct Assessment and d/c planning. PT does not identify his drinking as a long-term issue. PT reports that he needs to go back to counseling. PT reports that he didn't really need to be in the ICU, you guys just put me there. We discussed his intoxication and his alcohol levels. He reports that It's not that bad. This worker offered and PT refused residential treatment and intensive outpatient options. He reports, I will go back to counseling at [facility] in [place].
--- NOTE | 2021-10-28 12:27 | PCM.DC ---
Discharge Instructions Diet Discharge Diet: 2000 mg Sodium Diet Activity Discharge Activity: Return to Normal Activity Follow Up Care Test Results: Test results from this visit will be discussed in further detail at your follow-up appointment, if applicable. Discharge Plan Admission Admit Date/Time: 10/22/21 23:01 Primary Reason for Your Visit: Acute alcohol/opioid withdrawal Attending Provider: Natividad Nevarez Primary Care Provider: Michelle Sharif Consulting Providers: Naseem Palmer ; Maximo Beauchamp ; Michelle Bradley FOUNDER CEO & PRESIDENT Instructions Additional Instructions / Restrictions: You are strongly advised to avoid alcohol or use of any illicit drug. Avoid smoking. Follow-up with your outpatient rehab program as scheduled. You are strongly advised to continue to avoid use of opioids. Follow-up with your outpatient drug rehab program as scheduled. Discharge Orders/Prescriptions Prescriptions: New carvedilol 3.125 mg Tablet 3.125 mg PO BID 30 Days Qty: 60 RF: 0 Continued fluoxetine 20 MG capsule 40 mg PO DAILY RF: 0 multivitamin 1 EACH tablet 1 ea PO DAILY RF: 0 buprenorphine-naloxone 8-2 mg tablet, sublingual 1 tab SUBLINGUAL BID RF: 0 hydroxyzine HCl 25 mg tablet 25 mg PO QHS RF: 0 bupropion HCl 300 mg tablet extended release 24 hr 300 mg PO DAILY RF: 0 nicotine 21 MG patch 24 hour 21 mg TRANSDERM. DAILY RF: 0 gabapentin 300 mg capsule 300 mg PO BID RF: 0 Discontinued carvedilol 12.5 MG tablet 12.5 mg PO DAILY RF: 0 Referrals / Follow Up: Michelle Sharif [Primary Care Provider] - Within 2 Weeks Disposition Disposition (needs filled in before D/C Order can be placed): Home, Self Care
--- NOTE | 2021-10-28 12:28 | DS.PCM_ITS ---
Providers Date of Admission: 10/22/21 Date of Discharge: 10/28/21 Primary Care Physician: Michelle Sharif Consultations 10/24/21 19:40 Consult: Medium Cycle Salesperson / Pulmonary Medicine Routine Consulting Provider: Pulmonary Medicine grayson Rivera Reason for Consult: ETOH withdrawl EMERGENT Consult: No MD Notified: Yes Date Notified: 10/24/21 Time Notified: 19:40 Method of Notification: Text Reason For Visit: [employer]OX [employer] Diagnosis Discharge Diagnosis (1) Acute alcohol intoxication: Status: Acute (2) Alcohol withdrawal: Status: Acute Code(s): F10.239 - Alcohol dependence with withdrawal, unspecified Qualifiers: Complication of substance-induced condition: with delirium Qualified Code(s): F10.231 - Alcohol dependence with withdrawal delirium (3) Pancytopenia: Status: Chronic (4) Chronic alcoholic hepatitis: Status: Chronic (5) Hypokalemia: Status: Acute Code(s): E87.6 - Hypokalemia (6) Hypomagnesemia: Status: Acute Code(s): E83.42 - Hypomagnesemia Medications at Discharge Home Medications fluoxetine 40 mg PO DAILY 05/23/19 multivitamin 1 ea PO DAILY 05/23/19 buprenorphine-naloxone 1 tab SUBLINGUAL BID 08/18/21 bupropion HCl 300 mg PO DAILY 08/18/21 hydroxyzine HCl 25 mg PO QHS 08/18/21 nicotine 21 mg TRANSDERM. DAILY 08/18/21 gabapentin 300 mg PO BID 10/22/21 carvedilol 3.125 mg PO BID 30 Days #60 tab 10/28/21 Hospital Course Operations None Procedures None Summary of Care Provided Minutes Spent on Discharge: 50 Hospital Course: 41-year-old male with past medical history of polysubstance abuse who comes in requesting for medical stabilization from alcohol detox. Patient also admits to using Subutex. His urine tox screen was positive for m ethamphetamines. Patient takes Wellbutrin at home. [facility] and managed on phenobarbital withdrawal protocol. Patient however had severe withdrawal with hallucination. He was transferred to ICU for monitoring on the Precedex drip. Patient was monitored in ICU for couple of days. He was transferred out of the MedSurg floor. He had electrolyte imbalances that were replaced. He had episodes of high blood pressure and his home Coreg were continued. In this hospital stay, he had an episode of hypotension that was fluid responsive. His Coreg dose was decreased. Patient continued to improve. He was seen by dietitian licensed master social worker and refused outpatient follow-up. He refused to acknowledge that he had severe alcohol withdrawal requiring ICU monitoring. Patient did not want to follow-up with any outpatient drug rehab program. Physical Exam Narrative Physical exam: General: Awake, alert, oriented X3, Cooperative, No apparent distress HEENT: Atraumatic Oral: Moist Mucosa Neck: Supple Lungs: Diminished to auscultation Cardiovascular: HS I+II, regular, no murmurs Abdomen: Bowel Sounds Present, Soft, Non Tender Extremities: No edema Weight / BMI Weight Weight: 73.1 kg Body Mass Index (BMI) 22.0 ABG / Lab / Microbiology Data Result Diagrams: 10/28/21 05:10 10/28/21 05:10 Laboratory: Laboratory Results - last 24 hr 10/28/21 05:10: WBC 5.2, RBC 3.69 L, Hgb 11.9 L, Hct 35.3 L, MCV 95.7 H, MCH 32.2 H, MCHC 33.7, RDW Std Deviation 44.8 H, RDW Coeff of Reilly 12.8, Plt Count 142 L, MPV 10.0, Immature Gran % (Auto) 0.200, Neut % (Auto) 55.6, Lymph % (Auto) 27.1, [place] % (Auto) 15.7 H, Eos % (Auto) 1.0, Baso % (Auto) 0.4, Absolute Neuts (auto) 2.9, Absolute Lymphs (auto) 1.41, Nucleated RBC % 0 10/28/21 05:10: Sodium 138, Potassium 3.5, Chloride 103, Carbon Dioxide 27.0, Anion Gap 8, BUN 14, Creatinine 1.07, Estim Creat Clear Calc 94.89, Est GFR (MDRD) Af Amer 98, Est GFR (MDRD) Non-Af 81, BUN/Creatinine Ratio 13.1, Glucose 103, Calcium 8.9, Total Bilirubin 0.40, AST 22, ALT 39, Alkaline Phosphatase 96, Total Protein 7.3, Albumin 3.4, Globulin 3.9, Albumin/Globulin Ratio 0.9 10/28/21 05:10: Phosphorus 3.8, Magnesium 1.8 D/C Instructions Discharge Diet: 2000 mg Sodium Diet Meaningful Use Info Meaningful Use Diagnoses (Choose all that apply): None applicable Discharge Plan Admission Admit Date/Time: 10/22/21 23:01 Primary Reason for Your Visit: Acute alcohol/opioid withdrawal Attending Provider: Natividad Nevarez Primary Care Provider: Michelle Sharif Consulting Providers: Naseem Palmer ; Maximo Beauchamp ; Michelle Bradley LANGUAGE PATH Instructions Additional Instructions / Restrictions: You are strongly advised to avoid alcohol or use of any illicit drug. Avoid smoking. Follow-up with your outpatient rehab program as scheduled. You are strongly advised to continue to avoid use of opioids. Follow-up with your ou tpatient drug rehab program as scheduled. Discharge Orders/Prescriptions Prescriptions: New carvedilol 3.125 mg Tablet 3.125 mg PO BID 30 Days Qty: 60 RF: 0 Continued fluoxetine 20 MG capsule 40 mg PO DAILY RF: 0 multivitamin 1 EACH tablet 1 ea PO DAILY RF: 0 buprenorphine-naloxone 8-2 mg tablet, sublingual 1 tab SUBLINGUAL BID RF: 0 hydroxyzine HCl 25 mg tablet 25 mg PO QHS RF: 0 bupropion HCl 300 mg tablet extended release 24 hr 300 mg PO DAILY RF: 0 nicotine 21 MG patch 24 hour 21 mg TRANSDERM. DAILY RF: 0 gabapentin 300 mg capsule 300 mg PO BID RF: 0 Discontinued carvedilol 12.5 MG tablet 12.5 mg PO DAILY RF: 0 Referrals / Follow Up: Michelle Sharif [Primary Care Provider] - Within 2 Weeks Disposition Disposition (needs filled in before D/C Order can be placed): Home, Self Care Charges/Coding Visit Charges Inpatient E&M: 27000 Disch Hosp
[2021-10-28 13:40] VITALS: BP 137/86; PULSE 80; RESP 16; TEMP 36.6; O2SAT 100
== END 2021-10-28 15:15 | disposition home or self-care (01) | DRG 775 ==
LOC: ED 20:32 → MS3 23:31 → ICU 10-24 19:23 → MS2 10-27 15:31
PROVIDERS: Internal Medicine; Internal Medicine Critical Care Medicine; Admitting Provider Internal Medicine; Emergency Provider Student in an Organized Health Care Education/Training Program; PCP Family Medicine; Visit Provider Internal Medicine
DX: F10.229 Alcohol dependence with intoxication, unspecified (principal); F10.231 Alcohol dependence with withdrawal delirium; Y90.8 Blood alcohol level of 240 mg/100 ml or more; K70.10 Alcoholic hepatitis without ascites; D61.818 Other pancytopenia; D70.8 Other neutropenia; I95.9 Hypotension, unspecified; R44.3 Hallucinations, unspecified; I16.0 Hypertensive urgency; E87.6 Hypokalemia; E83.42 Hypomagnesemia; I10 Essential (primary) hypertension; Z20.822 Contact with and (suspected) exposure to COVID-19; Z23 Encounter for immunization; F32.A Depression, unspecified; F17.210 Nicotine dependence, cigarettes, uncomplicated
CPT/HCPCS: 36415; 80053; 80307; 82077; 83690; 83735; 84100; 85025; 87426; 97802; 99283; 99406; J7030; J7050; 90686; A4216